=== PATIENT | male | born 1950 ===

== ENCOUNTER 2017-02-02 21:58 | Emergency (ER) | payer SELFPAY ==
[2017-02-02 22:09] VITALS: BP 141/77; PULSE 75; RESP 17; TEMP 99; O2SAT 99
[2017-02-02] MEDS ORDERED: Bacitracin 500 Units/gm Oint Foilpak UD TOP ONE (22:59)
[2017-02-02] MEDS ORDERED: Bacitracin 500 Units/gm Oint Foilpak UD ONE (23:03)
--- NOTE | 2017-02-02 23:09 | C.PDOC ---
History Of Present Illness 66 year old male who presents to the ER with a complaint of a dog bite to the left calf by a dog that was being walked by it's aligning inspector. Patient is not up to date with tetanus; denies active bleeding, weakness, or numbness. Time Seen by Provider: 02/02/17 22:19 Chief Complaint (Nursing): Abnormal Skin Integrity History Per: Patient History/Exam Limitations: no limitations Onset/Duration Of Symptoms: Hrs Current Symptoms Are (Timing): Still Present Location Of Injury: Left: Leg Quality Of Symptoms: Other (Bite) Recent travel outside of the [place]: No - Animal Bite Description Of The Attack: Unprovoked Attack Reports Animal Appears: Well Past Medical History Reviewed: Historical Data, Nursing Documentation, Vital Signs Vital Signs: Last Vital Signs Temp 99 F 02/02/17 22:05 Pulse 75 02/02/17 22:05 Resp 17 02/02/17 22:05 BP 141/77 02/02/17 22:05 Pulse Ox 99 02/03/17 02:40 - Medical History PMH: No Chronic Diseases Surgical History: No Surg Hx Family History: States: Unknown Family Hx - Social History Hx Alcohol Use: No Hx Substance Use: No - Immunization History Hx Tetanus Toxoid Vaccination: No Hx Influenza Vaccination: No Hx Pneumococcal Vaccination: No Review Of Systems Skin: Positive for: Other (Bite) Neurological: Negative for: Weakness, Numbness Physical Exam - Physical Exam Appears: Non-toxic Skin: Warm, Dry Head: Atraumatic, Normacephalic Oral Mucosa: Moist Extremity: Normal ROM (x4), Other (Abrasion and ecchymosis to upper left calf.) Neurological/Psych: Oriented x3, Normal Speech, Normal Cognition ED Course And Treatment O2 Sat by Pulse Oximetry: 99 (Room air) Pulse Ox Interpretation: Normal Progress Note: Tetanus vaccination administered. Animal is domesticated, so low risk for rabies. Wound irrigated with saline, bacitracin applied, and wound dressed. Patient is resting comfortably, and is in no acute distress. Patient was instructed to follow up with PMD in 1-2 days for further evaluation. Return precautions explained and understood by pt Disposition - Disposition Referrals: [facility] [Outside] Disposition: HOME/ ROUTINE Disposition Time: 23:07 Condition: STABLE Additional Instructions: Apply ICE to area ( Applicar Hielo) Take meds as directed ( Magalie las medicina) Applica crema de antibiotica Follow up with PMD ( Sigue en clinica en 2 galvez) Return to ER if worse ( Regresa si peor) Prescriptions: Amoxicillin/Clavulanate [Augmentin 500 MG-125 MG] 1 tab PO TID #21 tab Instructions: Animal Bite (ED) Print Language: GUINEAN - Clinical Impression Clinical Impression: Dog bite of calf - Scribe Statement The provider has reviewed the documentation as recorded by the Scribgricel Roman All medical record entries made by the Natalieibgricel were at my direction and personally dictated by me. I have reviewed the chart and agree that the record accurately reflects my personal performance of the history, physical exam, medical decision making, and the department course for this patient. I have also personally directed, reviewed, and agree with the discharge instructions and disposition.
== END 2017-02-02 23:15 | disposition home or self-care (01) ==
LOC: SUPCPDRO 21:58 → C.ER 21:58
DX: S81.852A Open bite, left lower leg, initial encounter (principal); W54.0XXA Bitten by dog, initial encounter; Y93.89 Activity, other specified; Y92.89 Other specified places as the place of occurrence of the external cause; Z23 Encounter for immunization

== ENCOUNTER 2017-08-06 11:32 | Emergency (ER) | payer OTHER, SELFPAY ==
[2017-08-06 11:36] VITALS: BMI 30.2
[2017-08-06 11:41] VITALS: TEMP 97.8
--- NOTE | 2017-08-06 13:14 | C.PDOC ---
History Of Present Illness 67 y/o male presents to ED with complaints of green sputum productive cough with pleuritic chest pain for 3 days and headache. Patient also complaints of pain to shoulders bilaterally. Patient reports chills and occasional sob but denies recent travel, sick contacts, fever, nausea, vomiting or any other complaints at this time. Time Seen by Provider: 08/06/17 12:25 Chief Complaint (Nursing): Flu-like Symptoms History Per: Patient History/Exam Limitations: no limitations Onset/Duration Of Symptoms: Days Current Symptoms Are (Timing): Still Present Past Medical History Reviewed: Historical Data, Nursing Documentation, Vital Signs Vital Signs: Last Vital Signs Temp 97.8 F 08/06/17 14:32 Pulse 52 L 08/06/17 14:32 Resp 16 08/06/17 14:32 BP 133/81 08/06/17 14:32 Pulse Ox 98 08/10/17 20:48 - Medical History Other PMH: liver disorder Surgical History: No Surg Hx Family History: States: Unknown Family Hx - Social History Hx Alcohol Use: No Hx Substance Use: Yes - Immunization History Hx Tetanus Toxoid Vaccination: No Hx Influenza Vaccination: No Hx Pneumococcal Vaccination: No Review Of Systems Constitutional: Positive for: Chills. Negative for: Fever Cardiovascular: Positive for: Chest Pain Respiratory: Positive for: Cough, Shortness of Breath, Sputum Gastrointestinal: Negative for: Nausea, Vomiting Skin: Negative for: Rash Physical Exam - Physical Exam Appears: Non-toxic, No Acute Distress Skin: Warm, Dry, No Rash Head: Atraumatic, Normacephalic Eye(s): bilateral: Normal Inspection Ear(s): Bilateral: Normal Oral Mucosa: Moist Throat: No Erythema, No Exudate Neck: Supple Cardiovascular: Rhythm Regular, No Murmur Respiratory: Normal Breath Sounds, No Rales, No Rhonchi, No Wheezing Gastrointestinal/Abdominal: Soft, No Tenderness Neurological/Psych: Oriented x3, Normal Speech, Normal Cognition ED Course And Treatment O2 Sat by Pulse Oximetry: 98 (RA) Pulse Ox Interpretation: Normal - Radiology CXR: Viewed By Me, Read By Radiologist CXR Interpretation: Yes: No Acute Disease Medical Decision Making Medical Decision Making: Plan: CXR and Tylenol ordered 237 pm cxr neg for acute infiltrate; will tx with zpak for bronchitis, and ibuprofen for pain; tender to left trapezius. Disposition Counseled Patient/Family Regarding: Studies Performed, Diagnosis, Need For Followup, Rx Given - Disposition Referrals: [facility] [Outside] Disposition: HOME/ ROUTINE Disposition Time: 14:38 Condition: STABLE Additional Instructions: [place] antibiticos segn lo recetado para la bronquitis. [place] ibuprofeno para el dolor (con comida). Tracie un seguimiento en la clnica mdica la prxima semana / Regrese a la lisa de emergencias para cualquier sntoma peor. Take antibiotics as prescribed for bronchitis. Take ibuprofen for pain (with food). Follow up in medical clinic next week/ Return to ER for any worse symptoms. Instructions: Acute Bronchitis (ED) Forms: Gen Discharge Inst Albanian, [employer] (Albanian) Print Language: EMIRATI - Clinical Impression Clinical Impression: Bronchitis - PA / APPRENTICE COSMETOLOGIST / Resident Statement MD/DO has reviewed & agrees with the documentation as recorded. - Scribe Statement The provider has reviewed the documentation as recorded by the Brenda Chaves All medical record entries made by the Scribe were at my direction and personally dictated by me. I have reviewed the chart and agree that the record accurately reflects my personal performance of the history, physical exam, medical decision making, and the department course for this patient. I have also personally directed, reviewed, and agree with the discharge instructions and disposition.
--- NOTE | 2017-08-06 14:28 | RAD ---
HISTORY: cough green sputum sob COMPARISON: 08/08/2012 TECHNIQUE: Chest PA and lateral FINDINGS: LUNGS: No active pulmonary disease. PLEURA: No significant pleural effusion identified. No pneumothorax apparent. CARDIOVASCULAR: Normal. OSSEOUS STRUCTURES: Thoracic spondylosis VISUALIZED UPPER ABDOMEN: Normal. OTHER FINDINGS: None. IMPRESSION: No active disease. No infiltrate
[2017-08-06 14:33] VITALS: BP 133/81; PULSE 52; RESP 16
[2017-08-06 14:38] VITALS: O2SAT 98
== END 2017-08-06 14:59 | disposition home or self-care (01) ==
LOC: C.ER 11:32
DX: J40 Bronchitis, not specified as acute or chronic (principal)

== ENCOUNTER 2018-03-05 10:08 | Inpatient (IN) | payer MEDICAID, OTHER ==
[2018-03-05 10:08] VITALS: BMI 30.2
[2018-03-05] MEDS ORDERED: Sodium Chloride 0.9% 1,000 ML IV ONE (10:44)
[2018-03-05] MEDS ORDERED: Sodium Chloride 0.9% 250 ML IV ONE (10:56)
--- NOTE | 2018-03-05 11:01 | C.PDOC ---
History Of Present Illness 68 y/o male presents to ED with c/o left flank pain radiating to abdomen since 4am this morning. Patient denies fever, chills, dysuria, hematuria, diarrhea or any other complaints at this time. Time Seen by Provider: 03/05/18 10:26 Chief Complaint (Nursing): Back Pain History Per: Patient History/Exam Limitations: no limitations Onset/Duration Of Symptoms: Hrs Current Symptoms Are (Timing): Still Present Quality Of Discomfort: "Pain" Past Medical History Reviewed: Historical Data, Nursing Documentation, Vital Signs Vital Signs: Last Vital Signs Temp 98.0 F 03/05/18 12:42 Pulse 62 03/05/18 12:42 Resp 20 03/05/18 12:42 BP 151/86 H 03/05/18 12:42 Pulse Ox 96 03/05/18 12:42 - Medical History PMH: No Chronic Diseases Surgical History: No Surg Hx Family History: States: No Known Family Hx - Social History Hx Alcohol Use: No Hx Substance Use: Yes - Immunization History Hx Tetanus Toxoid Vaccination: No Hx Influenza Vaccination: No Hx Pneumococcal Vaccination: No Review Of Systems Except As Marked, All Systems Reviewed And Found Negative. Gastrointestinal: Positive for: Nausea, Vomiting, Abdominal Pain, Other (flank pain) Physical Exam - Physical Exam Appears: Non-toxic, No Acute Distress Skin: Warm, Dry, No Rash Head: Atraumatic, Normacephalic Eye(s): bilateral: Normal Inspection Oral Mucosa: Moist Cardiovascular: Rhythm Regular Respiratory: Normal Breath Sounds, No Rales, No Rhonchi, No Wheezing Gastrointestinal/Abdominal: Soft, Tenderness (LLQ), No Guarding, No Rebound Back: CVA Tenderness (left sided), No Paraspinal Tenderness Neurological/Psych: Oriented x3, Normal Speech, Normal Cognition ED Course And Treatment - Laboratory Results Result Diagrams: 03/05/18 10:59 03/05/18 10:59 O2 Sat by Pulse Oximetry: 98 (RA) Pulse Ox Interpretation: Normal Medical Decision Making Medical Decision Making: Assessment: Flank pain Disposition Discussed With : Arsen Goodrich Doctor Will See Patient In The: Hospital Counseled Patient/Family Regarding: Studies Performed, Diagnosis - Disposition Disposition: HOSPITALIZED Disposition Time: 12:56 Condition: FAIR Forms: [employer] (German) - Clinical Impression Clinical Impression: Abdominal pain, Pancreatitis, Adrenal mass, right - Scribe Statement The provider has reviewed the documentation as recorded by the Scribe Radu Chaves All medical record entries made by the Natalieibgricel were at my direction and personally dictated by me. I have reviewed the chart and agree that the record accurately reflects my personal performance of the history, physical exam, medical decision making, and the department course for this patient. I have also personally directed, reviewed, and agree with the discharge instructions and disposition.
[2018-03-05 11:05] LABS: BASO % 0.2 % (0.0-2.0); EOS % 0.8 % (0.0-4.0); HEMOGLOBIN 12.9 g/dL (12.0-18.0); LYMPH # 0.8 K/uL (1.0-4.3); LYMPH % 18.6 % (20.0-40.0); MEAN CELL VOLUME 89.5 fL (80.0-94.0); MEAN CORPUSCULAR HEMOGLOBIN 31.1 pg (27.0-31.0); MEAN CORPUSCULAR HGB CONC 34.7 g/dL (33.0-37.0); MEAN PLATELET VOLUME 7.5 fL (7.2-11.7); MONO # 0.4 K/uL (0.0-0.8); MONO % 10.6 % (0.0-10.0); NEUT # 2.9 K/uL (1.8-7.0); NEUT % 69.8 % (50.0-75.0); NRBC % 0.1 % (0.0-2.0); RBC 4.15 Mil/uL (4.40-5.90); RED CELL DISTRIBUTION WIDTH 13.8 % (11.5-14.5); WHITE BLOOD COUNT 4.2 K/uL (4.8-10.8)
[2018-03-05 11:13] LABS: URINE BILIRUBIN NEGATIVE (NEGATIVE); URINE BLOOD NEGATIVE (NEGATIVE); URINE CLARITY Clear (Clear); URINE COLOR Yellow (YELLOW); URINE GLUCOSE (UA) NORMAL (Normal); URINE LEUKOCYTE ESTERASE NEG Leu/uL (Negative); URINE PROTEIN NEGATIVE (NEGATIVE); URINE UROBILINOGEN NORMAL mg/dL (0.2-1.0)
[2018-03-05 11:21] LABS: ALB/GLOB RATIO 0.8 (1.0-2.1); ALBUMIN 3.7 g/dL (3.5-5.0); ALT/SGPT 25 U/L (21-72); AST/SGOT 49 U/L (17-59); BLOOD UREA NITROGEN 13 mg/dL (9-20); CALCIUM 8.7 mg/dl (8.6-10.4); GFR NON-AFRICAN AMERICAN > 60; LIPASE 376 U/L (23-300)
--- NOTE | 2018-03-05 12:13 | CT ---
Date of service: 03/05/2018 PROCEDURE: CT abdomen pelvis dated 03/05/2018. HISTORY: Abdominal pain COMPARISON: No prior study available comparison. TECHNIQUE: Contiguous axial images of the abdomen and pelvis performed without oral or intravenous contrast material. Additional 2D sagittal and coronal reformats generated. This CT exam was performed using one or more of the following dose reduction techniques: Automated exposure control, adjustment of the mA and/or kV according to patient size, and/or use of iterative reconstruction technique. Radiation dose: Total exam DLP = 599.34 mGy-cm. FINDINGS: LOWER THORAX: The heart size is upper limits of normal in size. Small pericardial effusion. Small hiatal hernia. Mild passive/dependent type atelectasis both posterior lower lung son left greater than right. Minor linear scarring changes left medial lung base and lingular region. Lung bases are otherwise clear no evidence of effusion or basilar pneumothorax. LIVER: The liver is diminutive in overall volume of with moderate to fairly significant appearing back for nodular appearing surface contour consistent with hepatic cirrhosis. In addition, there appear to be esophageal gastric, splenorenal upper and mid abdominal varices. Findings are consistent with portal hypertension. GALLBLADDER AND BILE DUCTS: Cholelithiasis. PANCREAS: Unremarkable. No mass. No ductal dilatation. SPLEEN: Spleen is enlarged measuring over nearly 14.6 cm in AP dimension. No splenic masses or collections seen on this noncontrast exam. ADRENALS: There is a small approximately 2.1 x 1.6 cm right adrenal mass with Hounsfield units in the low ranging between 2 mid 30s. Findings are not consistent with adenoma Large left adrenal mass measuring approximately 5.34 x 5.0 cm with Hounsfield units in the mid 40s. Rule out involving sequela of chronic hemorrhage versus metastases. Small right adrenal mass measuring 2.1 x 1.6 cm. Rule out metastasis. KIDNEYS AND URETERS: Kidneys demonstrate relatively symmetric size. There is a small approximately 2.1 cm elliptical shaped low-attenuation medial cortex upper/ midpole left kidney which exhibits Hounsfield units of single digits consistent with small cyst. There appears be another smaller low-attenuation focus slightly more superiorly located which is nonspecific given Hounsfield units in the upper teens. BLADDER: Urinary bladder is incompletely distended which in part accounts for thick-walled appearance. Muscular hypertrophy presumably contributes. Correlation with urinalysis to exclude cystitis or UTI. REPRODUCTIVE: Prostate gland measures approximately 3.84 cm in transverse dimension. Prostatic calcifications are present. APPENDIX: Normal-appearing appendix BOWEL: Evaluation of the bowel is limited due to the lack of oral contrast material. The stomach is incompletely distended which in part accounts for thick-walled appearance however gastritis not excluded. Clinical correlation recommended. . Visualized loops of small bowel exhibit normal contour and caliber. No evidence of acute mechanical small bowel obstruction. Tevin moderate amount stool seen the within the cecum ascending and proximal transverse colon consistent with fecal retention/constipation. PERITONEUM: Unremarkable. No fluid collection. No free air. Small fat containing umbilical hernia. LYMPH NODES: Enlarged retroperitoneal lymph nodes present, with 1 of the largest located between the IVC and aorta measuring approximately 2.1 cm VASCULATURE: Unremarkable. No aortic aneurysm. BONES: No fracture or destructive lesion. OTHER FINDINGS: None. IMPRESSION: The liver is diminutive in overall volume of with moderate to fairly significant appearing back for nodular appearing surface contour consistent with hepatic cirrhosis. . In addition, there extensive esophageal gastric, splenorenal upper and mid abdominal varices. Findings are consistent with portal hypertension. There is evidence of retroperitoneal adenopathy as described. There is a small approximately 2.1 x 1.6 cm right adrenal mass with Hounsfield units in the low ranging between enlarged of retroperitoneal 2 mid 30s. Findings are not consistent with adenoma Large left adrenal mass measuring approximately 5.34 x 5.0 cm with Hounsfield units in the mid 40s. Rule out involving sequela of chronic hemorrhage versus metastases. Small right adrenal mass measuring 2.1 x 1.6 cm. Rule out metastasis. Cholelithiasis. Small of cyst left kidney posteromedial aspect upper/ midpole left kidney. There is another smaller focus slightly more superiorly located which is of uncertain etiology and not well characterized. Follow-up CT scan with oral and intravenous contrast material suggested for further evaluation. Small pericardial effusion.
--- NOTE | 2018-03-05 15:02 | CP.PCM.HP ---
<Elba Fritz - Last Filed: 03/05/18 19:46> History of Present Illness - History of Present Illness History of Present Illness: cc"back and abdominal pain" 68 year old male presents to the ED with complaints of acute left sided back and flank pain that awoke him from his sleep at 4am today. Patient reports the pain then began radiating to epigastrum. Patient reports nausea, 1 episode of NBNB. Patient also reports worsening left shoulder/back pain that began 2 weeks ago s/p fall. Denies chest pain, SOB, diarrhea PMD: none PMHx: Liver disease PSHx: denies Meds: denies Allergies: NKDA Fam Hx: denies Soc Hx: former drinker, quit 12 yrs ago, former smoker, quit 20 yrs ago, denies drug use. Works construction Present on Admission - Present on Admission Any Indicators Present on Admission: No Review of Systems - Constitutional Constitutional: absent: Night Sweats, Weight Loss - Cardiovascular Cardiovascular: Radiating Pain. absent: Chest Pain, Dyspnea on Exertion, Pedal Edema - Respiratory Respiratory: Hemoptysis. absent: Dyspnea - Gastrointestinal Gastrointestinal: Abdominal Pain (LUQ), Nausea, Vomiting. absent: Coffee Ground Emesis, Diarrhea, Hematemesis, Hematochezia - Genitourinary Genitourinary: absent: Dysuria - Musculoskeletal Musculoskeletal: Back Pain (left) - Integumentary Integumentary: absent: Jaundice - Neurological Neurological: absent: Dizziness Past Patient History - Infectious Disease Hx of Infectious Diseases: None - Past Social History Smoking Status: Never Smoked - GASTROINTESTINAL Other/Comment: Cirrhosis. - PSYCHIATRIC Hx Substance Use: Yes - SURGICAL HISTORY Hx Surgeries: No - ANESTHESIA Hx Anesthesia: No Meds Allergies/Adverse Reactions: Allergies Allergy/AdvReac Type Severity Reaction Status Date / Time No Known Allergies Allergy Verified 08/06/17 11:35 Physical Exam - Head Exam Head Exam: ATRAUMATIC, NORMAL INSPECTION, NORMOCEPHALIC - Eye Exam Eye Exam: EOMI, Normal appearance Pupil Exam: PERRL - ENT Exam ENT Exam: Mucous Membranes Moist, Normal Exam - Neck Exam Neck exam: Positive for: Normal Inspection. Negative for: Lymphadenopathy - Respiratory Exam Respiratory Exam: Clear to Auscultation Bilateral, NORMAL BREATHING PATTERN. absent: Rales, Wheezes - Cardiovascular Exam Cardiovascular Exam: REGULAR RHYTHM, +S1, +S2. absent: Tachycardia, Systolic Murmur - GI/Abdominal Exam GI & Abdominal Exam: Guarding, Normal Bowel Sounds, Soft, Tenderness. absent: Distended - Extremities Exam Extremities exam: Positive for: normal inspection. Negative for: calf tenderness, pedal edema - Back Exam Back exam: NORMAL INSPECTION - Neurological Exam Neurological exam: Alert, Oriented x3 - Psychiatric Exam Psychiatric exam: Normal Affect, Normal Mood - Skin Skin Exam: Dry, Intact, Normal Color, Warm Results - Vital Signs Recent Vital Signs: Last Vital Signs Temp 98.0 F 03/05/18 12:42 Pulse 62 03/05/18 12:42 Resp 20 03/05/18 12:42 BP 151/86 H 03/05/18 12:42 Pulse Ox 98 03/05/18 12:56 - Labs Result Diagrams: 03/05/18 10:59 03/05/18 10:59 Labs: Laboratory Results - last 24 hr 03/05/18 03/05/18 03/05/18 10:59 10:59 10:59 WBC 4.2 L RBC 4.15 L Hgb 12.9 Hct 37.2 MCV 89.5 MCH 31.1 H MCHC 34.7 RDW 13.8 Plt Count 89 L MPV 7.5 Neut % (Auto) 69.8 Lymph % (Auto) 18.6 L [place] % (Auto) 10.6 H Eos % (Auto) 0.8 Baso % (Auto) 0.2 Neut # (Auto) 2.9 Lymph # (Auto) 0.8 L [place] # (Auto) 0.4 Eos # (Auto) 0.0 Baso # (Auto) 0.0 Differential Comment Sodium 143 Potassium 4.5 Chloride 109 H Carbon Dioxide 27 Anion Gap 12 BUN 13 Creatinine 0.6 L Est GFR ( Amer) > 60 Est GFR (Non-Af Amer) > 60 Random Glucose 101 Calcium 8.7 Total Bilirubin 1.0 AST 49 ALT 25 Alkaline Phosphatase 94 Total Protein 8.5 H Albumin 3.7 Globulin 4.9 H Albumin/Globulin Ratio 0.8 L Lipase 376 H Urine Color Yellow Urine Clarity Clear Urine pH 6.0 Ur Specific [place] 1.021 Urine Protein Negative Urine Glucose (UA) Normal Urine Ketones Negative Urine Blood Negative Urine Nitrate Negative Urine Bilirubin Negative Urine Urobilinogen Normal Ur Leukocyte Esterase Neg Urine WBC (Auto) 1 Urine RBC (Auto) 1 Assessment & Plan - Assessment and Plan (Free Text) Assessment: 68 year old male admitted with LUQ abdominal pain r/o cardiac -f/u trops -f/u ekg -UDS positive for cocaine r/o pancreatitis -lipase 376 -ct abd showed normal pancreas -pancreas poorly visualized on abd u/s -toradol 30mg q6 prn -morphine 2mg q4 prn -liquid diet as tolerated Adrenal mass -f/u labs -heme/onc Dr. Bonner consulted -GI Dr. Mathur consulted HTN -norvasc 5mg PO qd Leukopenia -HIV panel Cirrhosis -hep panel <Adolfo Sy H - Last Filed: 03/06/18 11:40> Results - Vital Signs Recent Vital Signs: Last Vital Signs Temp 98.5 F 03/06/18 08:38 Pulse 74 03/06/18 08:38 Resp 20 03/06/18 08:38 BP 118/69 03/06/18 08:38 Pulse Ox 95 03/06/18 08:38 - Labs Result Diagrams: 03/06/18 08:23 03/06/18 08:11 Labs: Laboratory Results - last 24 hr 03/05/18 03/05/18 03/05/18 10:59 14:51 19:33 WBC 4.2 L RBC 4.15 L Hgb 12.9 Hct 37.2 MCV 89.5 MCH 31.1 H MCHC 34.7 RDW 13.8 Plt Count 89 L MPV 7.5 Neut % (Auto) 69.8 Lymph % (Auto) 18.6 L [place] % (Auto) 10.6 H Eos % (Auto) 0.8 Baso % (Auto) 0.2 Neut # (Auto) 2.9 Lymph # (Auto) 0.8 L [place] # (Auto) 0.4 Eos # (Auto) 0.0 Baso # (Auto) 0.0 Differential Comment PT INR APTT Sodium Potassium Chloride Carbon Dioxide Anion Gap BUN Creatinine Est GFR ( Amer) Est GFR (Non-Af Amer) Random Glucose Calcium Phosphorus Magnesium Total Bilirubin GGT 31 AST ALT Alkaline Phosphatase Troponin I < 0.0120 Total Protein Albumin Globulin Albumin/Globulin Ratio Lipase Alpha Fetoprotein Carcinoembryonic Ag 1.0 CA 19-9 Antigen 6.2 Cortisol AM Sample Urine Opiates Screen Negative Urine Methadone Screen Negative Ur Barbiturates Screen Negative Ur Phencyclidine Scrn Negative Ur Amphetamines Screen Negative U Benzodiazepines Scrn Negative U Oth Cocaine Metabols Positive H U Cannabinoids Screen Negative Hepatitis A IgM Ab Hep Bs Antigen Hep B Core IgM Ab Hepatitis C Antibody HIV 1&2 Antibody Screen 03/05/18 03/05/18 03/05/18 19:33 19:33 19:33 WBC RBC Hgb Hct MCV MCH MCHC RDW Plt Count MPV Neut % (Auto) Lymph % (Auto) [place] % (Auto) Eos % (Auto) Baso % (Auto) Neut # (Auto) Lymph # (Auto) [place] # (Auto) Eos # (Auto) Baso # (Auto) Differential Comment PT 15.6 H INR 1.4 APTT 33 Sodium Potassium Chloride Carbon Dioxide Anion Gap BUN Creatinine Est GFR ( Amer) Est GFR (Non-Af Amer) Random Glucose Calcium Phosphorus Magnesium Total Bilirubin GGT AST ALT Alkaline Phosphatase Troponin I Total Protein Albumin Globulin Albumin/Globulin Ratio Lipase Alpha Fetoprotein 1.7 Carcinoembryonic Ag CA 19-9 Antigen Cortisol AM Sample Urine Opiates Screen Urine Methadone Screen Ur Barbiturates Screen Ur Phencyclidine Scrn Ur Amphetamines Screen U Benzodiazepines Scrn U Oth Cocaine Metabols U Cannabinoids Screen Hepatitis A IgM Ab Negative Hep Bs Antigen Negative Hep B Core IgM Ab Negative Hepatitis C Antibody Negative HIV 1&2 Antibody Screen 03/05/18 03/05/18 03/06/18 19:33 19:33 08:11 WBC RBC Hgb Hct MCV MCH MCHC RDW Plt Count MPV Neut % (Auto) Lymph % (Auto) [place] % (Auto) Eos % (Auto) Baso % (Auto) Neut # (Auto) Lymph # (Auto) [place] # (Auto) Eos # (Auto) Baso # (Auto) Differential Comment PT INR APTT Sodium Potassium Chloride Carbon Dioxide Anion Gap BUN Creatinine Est GFR ( Amer) Est GFR (Non-Af Amer) Random Glucose Calcium Phosphorus Magnesium Total Bilirubin GGT AST ALT Alkaline Phosphatase Troponin I Total Protein Albumin Globulin Albumin/Globulin Ratio Lipase 310 H Alpha Fetoprotein Carcinoembryonic Ag CA 19-9 Antigen Cortisol AM Sample 4.7 Urine Opiates Screen Urine Methadone Screen Ur Barbiturates Screen Ur Phencyclidine Scrn Ur Amphetamines Screen U Benzodiazepines Scrn U Oth Cocaine Metabols U Cannabinoids Screen Hepatitis A IgM Ab Hep Bs Antigen Hep B Core IgM Ab Hepatitis C Antibody HIV 1&2 Antibody Screen Negative 03/06/18 03/06/18 08:11 08:23 WBC 5.3 RBC 4.19 L Hgb 13.1 Hct 37.4 MCV 89.4 MCH 31.3 H MCHC 35.1 RDW 13.7 Plt Count 98 L MPV 7.8 Neut % (Auto) 67.4 Lymph % (Auto) 21.5 [place] % (Auto) 9.7 Eos % (Auto) 1.2 Baso % (Auto) 0.2 Neut # (Auto) 3.5 Lymph # (Auto) 1.1 [place] # (Auto) 0.5 Eos # (Auto) 0.1 Baso # (Auto) 0.0 Differential Comment PT INR APTT Sodium 137 Potassium 4.7 Chloride 104 Carbon Dioxide 27 Anion Gap 11 BUN 9 Creatinine 0.6 L Est GFR ( Amer) > 60 Est GFR (Non-Af Amer) > 60 Random Glucose 106 Calcium 8.6 Phosphorus 2.9 Magnesium 1.6 Total Bilirubin 1.3 GGT AST 48 ALT 23 Alkaline Phosphatase 89 Troponin I Total Protein 8.4 H Albumin 3.6 Globulin 4.8 H Albumin/Globulin Ratio 0.8 L Lipase Alpha Fetoprotein Carcinoembryonic Ag CA 19-9 Antigen Cortisol AM Sample Urine Opiates Screen Urine Methadone Screen Ur Barbiturates Screen Ur Phencyclidine Scrn Ur Amphetamines Screen U Benzodiazepines Scrn U Oth Cocaine Metabols U Cannabinoids Screen Hepatitis A IgM Ab Hep Bs Antigen Hep B Core IgM Ab Hepatitis C Antibody HIV 1&2 Antibody Screen Attending/Attestation - Attestation I have personally seen and examined this patient.: Yes I have fully participated in the care of the patient.: Yes I have reviewed all pertinent clinical information: Yes Notes (Text): 03/06/18 11:23 Medical attending: Patient was seen and examined by me as well in the ER yesterday with the medical record coder. He was not in any acute distress. He did report the abdominal pain, however less than previous. As mentioned above in the resident's note, the patient has a very large mass on the left adrenal that is upwards to 5 cm dimension as well as a smaller R side adrenal mass. Will order an AM Cortisol, ACTH, Catacholamines, as well as an abdominal ultrasound. His lipase was elevated. The BUN/creatine are stable for the time being. Whe we saw the patient both his Na as well as K were in normal range. He may need biopsy of these adrenal mass Further more he has a positive for cocaine as well after I saw the patient last night. We will have to talk to the patient about this Adolfo Sy
[2018-03-05 15:28] LABS: BARBITURATES, UR NEGATIVE (NEGATIVE); BENZODIAZEPINES, UR NEGATIVE (NEGATIVE); OPIATES, UR NEGATIVE (NEGATIVE); PHENCYCLIDINE, UR NEGATIVE (NEGATIVE)
--- NOTE | 2018-03-05 17:37 | CP.PCM.CON ---
History of Present Illness - History of Present Illness History of Present Illness: 68 yo man admitted with abdominal pain, currently in ultrasound. 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 Work up for pheochromocytoma, if normal, will need biopsy. PET scan is another option as an outpatient if patient is compliant Past Patient History - Infectious Disease Hx of Infectious Diseases: None - Past Social History Smoking Status: Never Smoked - GASTROINTESTINAL Other/Comment: Cirrhosis. - PSYCHIATRIC Hx Substance Use: Yes - SURGICAL HISTORY Hx Surgeries: No - ANESTHESIA Hx Anesthesia: No Meds Allergies/Adverse Reactions: Allergies Allergy/AdvReac Type Severity Reaction Status Date / Time No Known Allergies Allergy Verified 08/06/17 11:35 Results - Vital Signs Recent Vital Signs: Last Vital Signs Temp 98 F 03/05/18 15:46 Pulse 84 03/05/18 15:46 Resp 18 03/05/18 15:46 BP 168/77 H 03/05/18 15:46 Pulse Ox 98 03/05/18 15:46 - Labs Result Diagrams: 03/05/18 10:59 03/05/18 10:59 Labs: Laboratory Results - last 24 hr 03/05/18 03/05/18 03/05/18 10:59 10:59 10:59 WBC 4.2 L RBC 4.15 L Hgb 12.9 Hct 37.2 MCV 89.5 MCH 31.1 H MCHC 34.7 RDW 13.8 Plt Count 89 L MPV 7.5 Neut % (Auto) 69.8 Lymph % (Auto) 18.6 L [place] % (Auto) 10.6 H Eos % (Auto) 0.8 Baso % (Auto) 0.2 Neut # (Auto) 2.9 Lymph # (Auto) 0.8 L [place] # (Auto) 0.4 Eos # (Auto) 0.0 Baso # (Auto) 0.0 Differential Comment Sodium 143 Potassium 4.5 Chloride 109 H Carbon Dioxide 27 Anion Gap 12 BUN 13 Creatinine 0.6 L Est GFR ( Amer) > 60 Est GFR (Non-Af Amer) > 60 Random Glucose 101 Calcium 8.7 Total Bilirubin 1.0 AST 49 ALT 25 Alkaline Phosphatase 94 Total Protein 8.5 H Albumin 3.7 Globulin 4.9 H Albumin/Globulin Ratio 0.8 L Lipase 376 H Urine Color Yellow Urine Clarity Clear Urine pH 6.0 Ur Specific [place] 1.021 Urine Protein Negative Urine Glucose (UA) Normal Urine Ketones Negative Urine Blood Negative Urine Nitrate Negative Urine Bilirubin Negative Urine Urobilinogen Normal Ur Leukocyte Esterase Neg Urine WBC (Auto) 1 Urine RBC (Auto) 1 Urine Opiates Screen Urine Methadone Screen Ur Barbiturates Screen Ur Phencyclidine Scrn Ur Amphetamines Screen U Benzodiazepines Scrn U Oth Cocaine Metabols U Cannabinoids Screen 03/05/18 14:51 WBC RBC Hgb Hct MCV MCH MCHC RDW Plt Count MPV Neut % (Auto) Lymph % (Auto) [place] % (Auto) Eos % (Auto) Baso % (Auto) Neut # (Auto) Lymph # (Auto) [place] # (Auto) Eos # (Auto) Baso # (Auto) Differential Comment Sodium Potassium Chloride Carbon Dioxide Anion Gap BUN Creatinine Est GFR ( Amer) Est GFR (Non-Af Amer) Random Glucose Calcium Total Bilirubin AST ALT Alkaline Phosphatase Total Protein Albumin Globulin Albumin/Globulin Ratio Lipase Urine Color Urine Clarity Urine pH Ur Specific [place] Urine Protein Urine Glucose (UA) Urine Ketones Urine Blood Urine Nitrate Urine Bilirubin Urine Urobilinogen Ur Leukocyte Esterase Urine WBC (Auto) Urine RBC (Auto) Urine Opiates Screen Negative Urine Methadone Screen Negative Ur Barbiturates Screen Negative Ur Phencyclidine Scrn Negative Ur Amphetamines Screen Negative U Benzodiazepines Scrn Negative U Oth Cocaine Metabols Positive H U Cannabinoids Screen Negative
--- NOTE | 2018-03-05 18:55 | US ---
Date of service: 03/05/2018 PROCEDURE: Ultrasound of the Abdomen and kidneys. HISTORY: adrenal mass COMPARISON: Noncontrast abdomen and pelvis CT 03/05/2018.. TECHNIQUE: Sonogram of the kidneys. FINDINGS: The liver is nodular in the periphery a with heterogeneous echotexture compatible with cirrhosis. No defined intrinsic mass or intrahepatic biliary dilatation is defined by this examination. Cholelithiasis identified within the gallbladder with mildly thickened wall but at the upper limits of normal at 2.6 mm. Common bile duct is normal in caliber 5.2 mm without choledocholithiasis appreciated. No pericholecystic fluid collection is evident and there is no reported sonographic Manuel sign either. Splenomegaly is noted to 14.8 cm without focal splenic mass evident. Pancreas is poorly characterized due to extensive overlying bowel gas. There is a mass cephalad to the left kidney measuring 6.7 x 4.8 x 4.8 cm corresponding to left adrenal mass seen in CT 03/05/2018. Small right adrenal mass is not identified sonographically. The abdominal aorta and inferior vena cava appear patent with no abdominal aortic aneurysm identified. RIGHT KIDNEY: Measures: 11.5 x 6.2 x 5.8 cm. Normal in size, contour and echogenicity. No stone, solid mass lesion or hydronephrosis visualized. LEFT KIDNEY: Measures: 11.1 x 5.2 x 5.0 cm. Normal in size and contour. No stone, solid mass lesion or hydronephrosis visualized. Two small cysts are identified, at the lower pole measuring 1.0 x 0.8 x 0.9 cm at the midpole measure 1.9 x 1.7 x 1.6 cm. OTHER FINDINGS: None. IMPRESSION: 1. Cirrhotic liver reiterated. 2. Large left renal mass reiterated. Right adrenal lesion not identified sonographically. 3. No obstructive uropathy bilaterally although distal cyst identified at the left kidney lower pole and midpole regions. 4. Cholelithiasis. 5. Splenomegaly. 6. Pancreas poorly evaluated due to extensive overlying bowel gas.
[2018-03-05 19:46] LABS: INR 1.4; PROTHROMBIN TIME 15.6 SECONDS (9.7-12.2)
[2018-03-05 20:08] LABS: GAMMA GLUTAMYL TRANSPEPTIDASE 31 U/L (8-78)
[2018-03-05 20:38] LABS: HEPATITIS B SURFACE AG Negative (NEGATIVE)
[2018-03-05 20:44] LABS: HEPATITIS A IGM NEGATIVE (NEGATIVE); HEPATITIS B CORE AB NEGATIVE (NEGATIVE)
[2018-03-05 20:56] LABS: HEPATITIS C ANTIBODY NEGATIVE (NEGATIVE)
--- NOTE | 2018-03-06 07:45 | CP.PCM.CON ---
History of Present Illness - History of Present Illness History of Present Illness: Asked by hospitalist team for a GI consultation on this patient. 68 year old male with history of ETOH cirrhosis who presents to hospital with complaint of sudden onset abdominal pain which began yesterday. Prior to this he was in usual state of health. He describes sharp LUQ abdominal pain, 7/10 intensity that was worse following attempted meal consumption and was associated with one episode of nausea and non-bloody emesis. He denies fever/chills, weight loss, rectal bleeding, or change in bowel habits. He claims to have stopped drinking ETOH 12 years ago and had an EGD/colonoscopy 12 years ago at [facility] which were normal as per patient. Social history: no smoking, former ETOH abuse Family history: reviewed, patient denies history of GI malignancies Review of Systems - Review of Systems Review of Systems: - All other 12 point review of systems performed, negative - Cardiovascular Cardiovascular: absent: Acrocyanosis, Chest Pain, Chest Pain at Rest, Chest Pain with Activity, Claudication, Diaphoresis, Dyspnea, Dyspnea on Exertion, Edema, Irregular Heart Rhythm, Pain Radiating to Arm/Neck/Jaw, Leg Edema, Leg Ulcers, Lightheadedness, Orthopnea, Palpitations, Paroxysmal Nocturnal Dyspnea, Pedal Edema, Radiating Pain, Rapid Heart Rate, Slow Heart Rate, Syncope, Other - Respiratory Respiratory: absent: Cough, Dyspnea, Hemoptysis, Dyspnea on Exertion, Wheezing, Snoring, Stridor, Pain on Inspiration, Chest Congestion, Excessive Mucous Production, Change in Mucous Color, Pain with Coughing, Other - Gastrointestinal Gastrointestinal: Abdominal Pain, Nausea, Vomiting - Musculoskeletal Musculoskeletal: absent: Abnormal Gait, Arthralgias, Atrophy, Back Pain, Deformity, Joint Swelling, Limited Range of Motion, Loss of Height, Muscle Cramps, Muscle Weakness, Myalgias, Neck Pain, Numbness, Radiating Pain into Limb , Stiffness, Tingling, Other - Neurological Neurological: absent: Abnormal Gait, Abnormal Hearing, Abnormal Movements, Abnormal Speech, Behavioral Changes, Burning Sensations, Confusion, Convulsions , Disequilibrium, Dizziness, Numbness, Focal Weakness, Frequent Falls, Headaches , Lack of Coordination, Loss of Vision, Memory Loss, Paresthesias, Radicular Pain, Restless Legs, Sensory Deficit, Syncope, Tingling, Tremor, Vertigo, Weakness, Other Visual Disturbances, Other Past Patient History - Infectious Disease Hx of Infectious Diseases: None - Past Medical History & Family History Past Medical History?: No - Past Social History Smoking Status: Never Smoked - MUSCULOSKELETAL/RHEUMATOLOGICAL Hx Falls: Yes - GASTROINTESTINAL Other/Comment: Cirrhosis. - PSYCHIATRIC Hx Substance Use: Yes - SURGICAL HISTORY Hx Surgeries: No - ANESTHESIA Hx Anesthesia: No Meds Allergies/Adverse Reactions: Allergies Allergy/AdvReac Type Severity Reaction Status Date / Time No Known Allergies Allergy Verified 08/06/17 11:35 - Medications Medications: Current Medications Amlodipine Besylate (Norvasc) 5 mg PO DAILY [facility]Y Ketorolac Tromethamine (Toradol) 30 mg IVP Q6 PRN PRN Reason: Pain, moderate (4-7) Morphine Sulfate (Morphine) 2 mg IVP Q4H PRN PRN Reason: Pain, severe (8-10) Last Admin: 03/05/18 20:24 Dose: 2 mg Ondansetron HCl (Zofran Inj) 4 mg IVP Q6H PRN PRN Reason: Nausea/Vomiting Physical Exam - Constitutional Appears: Non-toxic, No Acute Distress - Head Exam Head Exam: NORMAL INSPECTION - Eye Exam Eye Exam: EOMI, Normal appearance - ENT Exam ENT Exam: Mucous Membranes Moist - Respiratory Exam Respiratory Exam: Clear to Auscultation Bilateral - Cardiovascular Exam Cardiovascular Exam: REGULAR RHYTHM, +S1, +S2 - GI/Abdominal Exam GI & Abdominal Exam: Normal Bowel Sounds, Soft, Tenderness Additional comments: LUQ tenderness to palpation with guarding no palpable hepato/splenomegaly - Extremities Exam Extremities exam: Positive for: normal inspection - Neurological Exam Neurological exam: Alert, CN II-XII Intact, Normal Gait, Oriented x3, Reflexes Normal - Psychiatric Exam Psychiatric exam: Normal Affect, Normal Mood - Skin Skin Exam: Dry, Intact, Normal Color, Warm Results - Vital Signs Recent Vital Signs: Last Vital Signs Temp 98.7 F 03/06/18 00:00 Pulse 67 03/06/18 00:00 Resp 20 03/06/18 00:00 BP 122/75 03/06/18 00:00 Pulse Ox 95 03/06/18 00:00 - Labs Result Diagrams: 03/05/18 10:59 03/05/18 10:59 Labs: Laboratory Results - last 24 hr 03/05/18 03/05/18 03/05/18 10:59 10:59 10:59 WBC 4.2 L RBC 4.15 L Hgb 12.9 Hct 37.2 MCV 89.5 MCH 31.1 H MCHC 34.7 RDW 13.8 Plt Count 89 L MPV 7.5 Neut % (Auto) 69.8 Lymph % (Auto) 18.6 L [place] % (Auto) 10.6 H Eos % (Auto) 0.8 Baso % (Auto) 0.2 Neut # (Auto) 2.9 Lymph # (Auto) 0.8 L [place] # (Auto) 0.4 Eos # (Auto) 0.0 Baso # (Auto) 0.0 Differential Comment PT INR APTT Sodium 143 Potassium 4.5 Chloride 109 H Carbon Dioxide 27 Anion Gap 12 BUN 13 Creatinine 0.6 L Est GFR ( Amer) > 60 Est GFR (Non-Af Amer) > 60 Random Glucose 101 Calcium 8.7 Total Bilirubin 1.0 GGT AST 49 ALT 25 Alkaline Phosphatase 94 Troponin I Total Protein 8.5 H Albumin 3.7 Globulin 4.9 H Albumin/Globulin Ratio 0.8 L Lipase 376 H Alpha Fetoprotein Carcinoembryonic Ag CA 19-9 Antigen Cortisol AM Sample Urine Color Yellow Urine Clarity Clear Urine pH 6.0 Ur Specific [place] 1.021 Urine Protein Negative Urine Glucose (UA) Normal Urine Ketones Negative Urine Blood Negative Urine Nitrate Negative Urine Bilirubin Negative Urine Urobilinogen Normal Ur Leukocyte Esterase Neg Urine WBC (Auto) 1 Urine RBC (Auto) 1 Urine Opiates Screen Urine Methadone Screen Ur Barbiturates Screen Ur Phencyclidine Scrn Ur Amphetamines Screen U Benzodiazepines Scrn U Oth Cocaine Metabols U Cannabinoids Screen Hepatitis A IgM Ab Hep Bs Antigen Hep B Core IgM Ab Hepatitis C Antibody HIV 1&2 Antibody Screen 03/05/18 03/05/18 03/05/18 14:51 19:33 19:33 WBC RBC Hgb Hct MCV MCH MCHC RDW Plt Count MPV Neut % (Auto) Lymph % (Auto) [place] % (Auto) Eos % (Auto) Baso % (Auto) Neut # (Auto) Lymph # (Auto) [place] # (Auto) Eos # (Auto) Baso # (Auto) Differential Comment PT INR APTT Sodium Potassium Chloride Carbon Dioxide Anion Gap BUN Creatinine Est GFR ( Amer) Est GFR (Non-Af Amer) Random Glucose Calcium Total Bilirubin GGT 31 AST ALT Alkaline Phosphatase Troponin I < 0.0120 Total Protein Albumin Globulin Albumin/Globulin Ratio Lipase Alpha Fetoprotein Carcinoembryonic Ag 1.0 CA 19-9 Antigen 6.2 Cortisol AM Sample Urine Color Urine Clarity Urine pH Ur Specific [place] Urine Protein Urine Glucose (UA) Urine Ketones Urine Blood Urine Nitrate Urine Bilirubin Urine Urobilinogen Ur Leukocyte Esterase Urine WBC (Auto) Urine RBC (Auto) Urine Opiates Screen Negative Urine Methadone Screen Negative Ur Barbiturates Screen Negative Ur Phencyclidine Scrn Negative Ur Amphetamines Screen Negative U Benzodiazepines Scrn Negative U Oth Cocaine Metabols Positive H U Cannabinoids Screen Negative Hepatitis A IgM Ab Negative Hep Bs Antigen Negative Hep B Core IgM Ab Negative Hepatitis C Antibody Negative HIV 1&2 Antibody Screen 03/05/18 03/05/18 03/05/18 19:33 19:33 19:33 WBC RBC Hgb Hct MCV MCH MCHC RDW Plt Count MPV Neut % (Auto) Lymph % (Auto) [place] % (Auto) Eos % (Auto) Baso % (Auto) Neut # (Auto) Lymph # (Auto) [place] # (Auto) Eos # (Auto) Baso # (Auto) Differential Comment PT 15.6 H INR 1.4 APTT 33 Sodium Potassium Chloride Carbon Dioxide Anion Gap BUN Creatinine Est GFR ( Amer) Est GFR (Non-Af Amer) Random Glucose Calcium Total Bilirubin GGT AST ALT Alkaline Phosphatase Troponin I Total Protein Albumin Globulin Albumin/Globulin Ratio Lipase Alpha Fetoprotein 1.7 Carcinoembryonic Ag CA 19-9 Antigen Cortisol AM Sample 4.7 Urine Color Urine Clarity Urine pH Ur Specific [place] Urine Protein Urine Glucose (UA) Urine Ketones Urine Blood Urine Nitrate Urine Bilirubin Urine Urobilinogen Ur Leukocyte Esterase Urine WBC (Auto) Urine RBC (Auto) Urine Opiates Screen Urine Methadone Screen Ur Barbiturates Screen Ur Phencyclidine Scrn Ur Amphetamines Screen U Benzodiazepines Scrn U Oth Cocaine Metabols U Cannabinoids Screen Hepatitis A IgM Ab Hep Bs Antigen Hep B Core IgM Ab Hepatitis C Antibody HIV 1&2 Antibody Screen 03/05/18 19:33 WBC RBC Hgb Hct MCV MCH MCHC RDW Plt Count MPV Neut % (Auto) Lymph % (Auto) [place] % (Auto) Eos % (Auto) Baso % (Auto) Neut # (Auto) Lymph # (Auto) [place] # (Auto) Eos # (Auto) Baso # (Auto) Differential Comment PT INR APTT Sodium Potassium Chloride Carbon Dioxide Anion Gap BUN Creatinine Est GFR ( Amer) Est GFR (Non-Af Amer) Random Glucose Calcium Total Bilirubin GGT AST ALT Alkaline Phosphatase Troponin I Total Protein Albumin Globulin Albumin/Globulin Ratio Lipase Alpha Fetoprotein Carcinoembryonic Ag CA 19-9 Antigen Cortisol AM Sample Urine Color Urine Clarity Urine pH Ur Specific [place] Urine Protein Urine Glucose (UA) Urine Ketones Urine Blood Urine Nitrate Urine Bilirubin Urine Urobilinogen Ur Leukocyte Esterase Urine WBC (Auto) Urine RBC (Auto) Urine Opiates Screen Urine Methadone Screen Ur Barbiturates Screen Ur Phencyclidine Scrn Ur Amphetamines Screen U Benzodiazepines Scrn U Oth Cocaine Metabols U Cannabinoids Screen Hepatitis A IgM Ab Hep Bs Antigen Hep B Core IgM Ab Hepatitis C Antibody HIV 1&2 Antibody Screen Negative Assessment & Plan - Assessment and Plan (Free Text) Assessment: ETOH cirrhosis - admission MELD [address] imaging reviewed by me showing hepatic cirrhosis, 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 Please reconsult as necessary, thank you.
[2018-03-06 08:44] LABS: BASO % 0.2 % (0.0-2.0); EOS # 0.1 K/uL (0.0-0.7); EOS % 1.2 % (0.0-4.0); HEMOGLOBIN 13.1 g/dL (12.0-18.0); LYMPH # 1.1 K/uL (1.0-4.3); LYMPH % 21.5 % (20.0-40.0); MEAN CELL VOLUME 89.4 fL (80.0-94.0); MEAN CORPUSCULAR HEMOGLOBIN 31.3 pg (27.0-31.0); MEAN CORPUSCULAR HGB CONC 35.1 g/dL (33.0-37.0); MEAN PLATELET VOLUME 7.8 fL (7.2-11.7); MONO # 0.5 K/uL (0.0-0.8); MONO % 9.7 % (0.0-10.0); NEUT # 3.5 K/uL (1.8-7.0); NEUT % 67.4 % (50.0-75.0); NRBC % 0.1 % (0.0-2.0); RBC 4.19 Mil/uL (4.40-5.90); RED CELL DISTRIBUTION WIDTH 13.7 % (11.5-14.5); WHITE BLOOD COUNT 5.3 K/uL (4.8-10.8)
[2018-03-06 09:07] LABS: ALB/GLOB RATIO 0.8 (1.0-2.1); ALBUMIN 3.6 g/dL (3.5-5.0); ALT/SGPT 23 U/L (21-72); AST/SGOT 48 U/L (17-59); BLOOD UREA NITROGEN 9 mg/dL (9-20); CALCIUM 8.6 mg/dl (8.6-10.4); GFR NON-AFRICAN AMERICAN > 60
--- NOTE | 2018-03-06 11:23 | CP.PCM.PN ---
<Neal Travisophe - Last Filed: 03/06/18 14:34> Subjective - Date & Time of Evaluation Date of Evaluation: 03/06/18 Time of Evaluation: 11:22 - Subjective Subjective: Medicine note for hospitalist service Pt seen and examined at bedside. Pt says the abdominal pain is improving. Pt reports no acute symptoms overnight. Pt does however still feel the discomfort at times. Pt denies cp, sob, f/c n/v palpitations, sweating, feeling of impending doom. Pt understands plan and has been involved in discussion of workup to rule out metastatic disease. Objective - Vital Signs/Intake and Output Vital Signs (last 24 hours): Temp Pulse Resp BP Pulse Ox 98.5 F 74 20 118/69 95 03/06/18 08:38 03/06/18 08:38 03/06/18 08:38 03/06/18 08:38 03/06/18 08:38 - Medications Medications: Current Medications Amlodipine Besylate (Norvasc) 5 mg PO DAILY [facility] Last Admin: 03/06/18 10:46 Dose: 5 mg Ketorolac Tromethamine (Toradol) 30 mg IVP Q6 PRN PRN Reason: Pain, moderate (4-7) Morphine Sulfate (Morphine) 2 mg IVP Q4H PRN PRN Reason: Pain, severe (8-10) Last Admin: 03/05/18 20:24 Dose: 2 mg Ondansetron HCl (Zofran Inj) 4 mg IVP Q6H PRN PRN Reason: Nausea/Vomiting - Labs Labs: 03/06/18 08:23 03/06/18 08:11 PT 15.6 SECONDS (9.7-12.2) H 03/05/18 19:33 INR 1.4 03/05/18 19:33 APTT 33 SECONDS (21-34) 03/05/18 19:33 - Additional Findings Additional findings: - Head Exam Head Exam: ATRAUMATIC, NORMAL INSPECTION, NORMOCEPHALIC - Eye Exam Eye Exam: EOMI, Normal appearance Pupil Exam: PERRL - ENT Exam ENT Exam: Mucous Membranes Moist, Normal Exam - Neck Exam Neck exam: Positive for: Normal Inspection. Negative for: Lymphadenopathy - Respiratory Exam Respiratory Exam: Clear to Auscultation Bilateral, NORMAL BREATHING PATTERN. absent: Rales, Wheezes - Cardiovascular Exam Cardiovascular Exam: REGULAR RHYTHM, +S1, +S2. absent: Tachycardia, Systolic Murmur - GI/Abdominal Exam GI & Abdominal Exam: Guarding, Normal Bowel Sounds, Soft, Tenderness. absent: Distended - Extremities Exam Extremities exam: Positive for: normal inspection. Negative for: calf tenderness, pedal edema - Back Exam Back exam: NORMAL INSPECTION, + CVA tenderness POS L>R - Neurological Exam Neurological exam: Alert, Oriented x3 - Psychiatric Exam Psychiatric exam: Normal Affect, Normal Mood - Skin Skin Exam: Dry, Intact, Normal Color, Warm Assessment and Plan - Assessment and Plan (Free Text) Plan: Assessment: 68 year old male admitted with LUQ abdominal pain PLAN r/o cardiac -trops: neg x1 -ekg : NSR -UDS positive for cocaine r/o pancreatitis -lipase 308 today, was 376 -ct abd showed normal pancreas -pancreas poorly visualized on abd u/s -toradol 30mg q6 prn -morphine 2mg q4 prn -liquid diet as tolerated Adrenal mass -AFP 1.7, -CarcinoembryonicAg 1.0, -CA19-9 Ag 6.2, -cortisol 4.7 -heme/onc Dr. Bonner consulted: f/u Catecholamine and Metanephrines -GI Dr. Hopkins consulted Outpt EGD and colonoscopy -hepatits panels neg HTN -norvasc 5mg PO qd Leukopenia -HIV panel neg Cirrhosis -hep panel neg <Adolfo Sy H - Last Filed: 03/15/18 07:14> Objective - Vital Signs/Intake and Output Vital Signs (last 24 hours): Temp Pulse Resp BP Pulse Ox 98.9 F 79 20 112/68 96 03/15/18 00:00 03/15/18 00:00 03/15/18 00:00 03/15/18 00:00 03/15/18 00:00 - Medications Medications: Current Medications Amlodipine Besylate (Norvasc) 5 mg PO DAILY [facility] Last Admin: 03/14/18 11:00 Dose: 5 mg Docusate Sodium (Colace) 100 mg PO BID [facility] Last Admin: 03/14/18 18:42 Dose: Not Given Guaifenesin (Mucinex La) 600 mg PO BID [facility] Last Admin: 03/14/18 18:41 Dose: 600 mg Metoclopramide HCl (Reglan) 5 mg IVP Q6H PRN PRN Reason: Nausea/Vomiting Last Admin: 03/11/18 19:58 Dose: 5 mg Morphine Sulfate (Morphine) 2 mg IVP Q4 PRN PRN Reason: Pain, severe (8-10) Last Admin: 03/15/18 05:53 Dose: 2 mg Oxycodone HCl (Oxycodone Immediate Release Tab) 5 mg PO Q4 PRN PRN Reason: Pain, moderate (4-7) - Labs Labs: 03/14/18 08:07 03/14/18 08:07 PT 15.4 SECONDS (9.7-12.2) H 03/14/18 14:08 INR 1.4 03/14/18 14:08 APTT 33 SECONDS (21-34) 03/05/18 19:33 Attending/Attestation - Attestation I have personally seen and examined this patient.: Yes I have fully participated in the care of the patient.: Yes I have reviewed all pertinent clinical information, including history, physical exam and plan: Yes
--- NOTE | 2018-03-07 08:22 | CP.PCM.PN ---
Subjective - Date & Time of Evaluation Date of Evaluation: 03/07/18 Objective - Vital Signs/Intake and Output Vital Signs (last 24 hours): Temp Pulse Resp BP Pulse Ox 98.4 F 75 20 128/84 97 03/07/18 00:00 03/07/18 00:00 03/07/18 00:00 03/07/18 00:00 03/07/18 00:00 Intake and Output: 03/07/18 03/07/18 06:59 18:59 Intake Total 240 Balance 240 - Medications Medications: Current Medications Amlodipine Besylate (Norvasc) 5 mg PO DAILY [facility] Last Admin: 03/06/18 10:46 Dose: 5 mg Ketorolac Tromethamine (Toradol) 30 mg IVP Q6 PRN PRN Reason: Pain, moderate (4-7) Morphine Sulfate (Morphine) 2 mg IVP Q4H PRN PRN Reason: Pain, severe (8-10) Last Admin: 03/06/18 20:03 Dose: 2 mg Ondansetron HCl (Zofran Inj) 4 mg IVP Q6H PRN PRN Reason: Nausea/Vomiting Pneumococcal Polyvalent Vaccine (Pneumovax 23 Vaccine) 0.5 ml IM .ONCE ONE Stop: 03/07/18 10:01 - Labs Labs: 03/06/18 08:23 03/06/18 08:11 PT 15.6 SECONDS (9.7-12.2) H 03/05/18 19:33 INR 1.4 03/05/18 19:33 APTT 33 SECONDS (21-34) 03/05/18 19:33
[2018-03-07] MEDS ORDERED: Pneumococcal 23-Valent Vaccine IM ONE (10:00)
--- NOTE | 2018-03-07 10:08 | CT ---
Date of service: 03/07/2018 PROCEDURE: CT HEAD WITHOUT CONTRAST. HISTORY: r/o malignancy COMPARISON: None available. TECHNIQUE: Axial computed tomography images were obtained through the head/brain without intravenous contrast. Radiation dose: Total exam DLP = 743.55 mGy-cm. This CT exam was performed using one or more of the following dose reduction techniques: Automated exposure control, adjustment of the mA and/or kV according to patient size, and/or use of iterative reconstruction technique. FINDINGS: HEMORRHAGE: No intracranial hemorrhage. BRAIN: The arnold-white matter differentiation is well preserved. There is no mass effect or definitive edema pattern appreciated including the cortex. There is proportional expansion of the ventriculosulcal and cisternal spaces however in a pattern most compatible with diffuse cerebral atrophy. No suspicious extra-axial fluid collection is identified in the midline brain anatomy appears grossly nonfocal as imaged. VENTRICLES: Unremarkable. No hydrocephalus. CALVARIUM: Unremarkable. PARANASAL SINUSES: Unremarkable as visualized. No significant inflammatory changes. MASTOID AIR CELLS: Unremarkable as visualized. No inflammatory changes. OTHER FINDINGS: None. IMPRESSION: Mild age-related diffuse cerebral atrophy is identified. No acute intracranial findings by standard CT criteria. Follow-up CT or MRI are available if clinically warranted. The malignancy remains clinically suspected then follow-up MRI is recommended with and without contrast which provides greater sensitivity and specificity.
--- NOTE | 2018-03-07 10:19 | CT ---
Date of service: 03/07/2018 PROCEDURE: CT Chest without contrast HISTORY: r/o malignancy COMPARISON: None available. TECHNIQUE: Contiguous axial images were obtained through the chest without intravenous contrast enhancement. Sagittal and coronal reconstructions were performed. Radiation dose (DLP): 527.43 mGy-cm. This CT exam was performed using one or more of the following dose reduction techniques: Automated exposure control, adjustment of the mA and/or kV according to patient size, and/or use of iterative reconstruction technique. FINDINGS: LUNGS: There is a minimal 3 mm nodule at the right suprahilar space (series 4, image 41) which is noncalcified and nonspecific appearing. No additional parenchymal pulmonary mass bilaterally. Central airways are clear. There is no acute infiltrate bilaterally. MEDIASTINUM: Unremarkable thoracic aorta. No aneurysm. Normal sized heart with mild but increased pericardial effusion Main pulmonary artery unremarkable. No vascular congestion. There is gross mediastinal lymphadenopathy including a probable aggregate of lymph nodes measuring 6.1 x 4.6 cm at the air pulmonary window and paratracheal space, right greater than left. In fact exerts mass effect on the inferior trachea minimally and the humera. Subcarinal lymphadenopathy measures 4.9 x 2.6 cm. No prominent hilar adenopathy however. Otherwise shotty lymph nodes are identified at the remainder the mediastinum and bilateral axillae. PLEURA: No pleural fluid. No pneumothorax. BONES: No fracture. No destructive lesion. UPPER ABDOMEN: Increasing reactive changes are seen surrounding the pancreas body and tail and left adrenal mass and also the left perinephric space somewhat. Grossly cirrhotic liver reiterated with extensive varices in the upper abdomen. Cholelithiasis. OTHER FINDINGS: None. IMPRESSION: Prominent mediastinal lymphadenopathy is appreciated but without dominant pulmonary mass. A small 3 mm noncalcified nodule seen the right suprahilar space in the right upper lobe, nonspecific appearing. Incidental note is made of increase reactive changes surrounding a mass at the left adrenal gland as well as the pancreatic body and tail and perirenal space. Pancreatitis is not excluded though the pattern is not classic for this. Considering potential left adrenal hemorrhage though not specifically increased in the interval. Hepatofugal blood flow identified and sequelae related to a markedly cirrhotic liver.
[2018-03-07 12:17] LABS: BASO % 0.2 % (0.0-2.0); EOS # 0.1 K/uL (0.0-0.7); EOS % 1.5 % (0.0-4.0); HEMOGLOBIN 13.6 g/dL (12.0-18.0); LYMPH # 1.4 K/uL (1.0-4.3); LYMPH % 24.1 % (20.0-40.0); MEAN CELL VOLUME 89.3 fL (80.0-94.0); MEAN CORPUSCULAR HEMOGLOBIN 31.4 pg (27.0-31.0); MEAN CORPUSCULAR HGB CONC 35.2 g/dL (33.0-37.0); MEAN PLATELET VOLUME 7.8 fL (7.2-11.7); MONO # 0.7 K/uL (0.0-0.8); MONO % 12.3 % (0.0-10.0); NEUT # 3.6 K/uL (1.8-7.0); NEUT % 61.9 % (50.0-75.0); NRBC % 0.2 % (0.0-2.0); RBC 4.32 Mil/uL (4.40-5.90); RED CELL DISTRIBUTION WIDTH 13.6 % (11.5-14.5); WHITE BLOOD COUNT 5.9 K/uL (4.8-10.8)
[2018-03-07 12:24] LABS: INR 1.4; PROTHROMBIN TIME 15.3 SECONDS (9.7-12.2)
[2018-03-07 12:36] LABS: ALB/GLOB RATIO 0.7 (1.0-2.1); ALBUMIN 3.8 g/dL (3.5-5.0); ALT/SGPT 24 U/L (21-72); AST/SGOT 45 U/L (17-59); BLOOD UREA NITROGEN 13 mg/dL (9-20); GFR NON-AFRICAN AMERICAN > 60
--- NOTE | 2018-03-07 15:27 | CP.PCM.PN ---
Subjective - Date & Time of Evaluation Date of Evaluation: 03/07/18 Time of Evaluation: 12:30 - Subjective Subjective: Medical Attending Note: Patient seen and examined at bedside. patient reports he has been feeling nauseous but no episodes of vomitting. Patient denies headache, denies chest pain, denies palpitations, reports mild abdominal pain, denies constipation, denies dysuria, Objective - Vital Signs/Intake and Output Vital Signs (last 24 hours): Temp Pulse Resp BP Pulse Ox 98.4 F 73 20 125/78 96 03/07/18 08:00 03/07/18 08:00 03/07/18 08:00 03/07/18 08:00 03/07/18 08:00 Intake and Output: 03/07/18 03/07/18 06:59 18:59 Intake Total 240 Balance 240 - Medications Medications: Current Medications Amlodipine Besylate (Norvasc) 5 mg PO DAILY [facility] Last Admin: 03/07/18 10:00 Dose: 5 mg Ketorolac Tromethamine (Toradol) 30 mg IVP Q6 PRN PRN Reason: Pain, moderate (4-7) Morphine Sulfate (Morphine) 2 mg IVP Q4H PRN PRN Reason: Pain, severe (8-10) Last Admin: 03/06/18 20:03 Dose: 2 mg Ondansetron HCl (Zofran Inj) 4 mg IVP Q6H PRN PRN Reason: Nausea/Vomiting - Labs Labs: 03/07/18 12:11 03/07/18 12:11 PT 15.3 SECONDS (9.7-12.2) H 03/07/18 12:11 INR 1.4 03/07/18 12:11 APTT 33 SECONDS (21-34) 03/05/18 19:33 - Constitutional Appears: Non-toxic, No Acute Distress - Head Exam Head Exam: NORMAL INSPECTION - Eye Exam Eye Exam: EOMI - ENT Exam ENT Exam: Mucous Membranes Moist - Respiratory Exam Respiratory Exam: Clear to Ausculation Bilateral, NORMAL BREATHING PATTERN. absent: Rales, Rhonchi, Wheezes - Cardiovascular Exam Cardiovascular Exam: REGULAR RHYTHM, +S1, +S2 - GI/Abdominal Exam GI & Abdominal Exam: Soft, Normal Bowel Sounds. absent: Distended, Firm, Guarding, Rigid, Tenderness, Rebound - Extremities Exam Extremities Exam: absent: Pedal Edema, Tenderness - Neurological Exam Neurological Exam: Alert, Awake, Oriented x3 Neuro motor strength exam: Left Upper Extremity: 5, Right Upper Extremity: 5, Left Lower Extremity: 5, Right Lower Extremity: 5 - Psychiatric Exam Psychiatric exam: Normal Affect, Normal Mood - Skin Skin Exam: Dry, Intact, Normal Color, Warm Assessment and Plan (1) Mediastinal lymphadenopathy Assessment & Plan: CT Chest: prominent mediastinal lymphadenopathy is appreciated without dominant pulmonary mass. small 3mm noncalcified nodule seen in right suprahilar space in right upper lobe. Status: Acute (2) Left adrenal mass Assessment & Plan: Abdominal/Bladder US (03/05/18): cirrhotic liver, large left renal mass. Right adrenal lesion not identified sonographically. On obstructive uropathy. Cholelithiasis. Splenomegaly. Pancreas poorly visualized. Left mass cephalad to the left kidney measuring 6.7 X4.8X 4.8 cm corresponding to left adrenal mass. CT Chest: increase reactive changes surrounding a mass at the left adrenal gland as well as the pancreatic body and tail and perirenal space. CT head (03/07/18): mild age related diffuse cerebral atrophy is identifed. No acute intracranial findings by standard CT criteria. CEA, CA 19.9 are normal. elevated protein and globulin Status: Acute (3) Adrenal mass, right Assessment & Plan: Hematology-oncology (Dr. Bonner) on case-->help appreciated CT Abdomen/Pelvis (03/05/18): liver is diminutive in overall volume withy moderate to fair significant appearing back for nodular appearing surface contour consistent with hepatic cirrhosis. Extensive esophageal gastric, splenoral ranl upper, and mid abdominal varcies, portal hypertension. * Evidence of Retroperitoneal adenopahthy. * Small 2.1 X1.6cm cm right adrenal mass. NOT consistent with adenoma. Large left adrenal mass measuring 5.34 X5.0cm Abdominal/Bladder US (03/05/18): cirrhotic liver, large left renal mass. Right adrenal lesion not identified sonographically. On obstructive uropathy. Cholelithiasis. Splenomegaly. Pancreas poorly visualized Status: Acute (4) Portal hypertension Assessment & Plan: CT Abdomen/Pelvis (03/05/18): liver is diminutive in overall volume withy moderate to fair significant appearing back for nodular appearing surface contour consistent with hepatic cirrhosis. Extensive esophageal gastric, splenoral ranl upper, and mid abdominal varcies, portal hypertension. Status: Chronic (5) Nausea Assessment & Plan: Start Zofran 4mg IV Q6H PRN nausea Status: Acute (6) Tobacco use Assessment & Plan: Prior smoking use 20 years ppd history Status: Acute (7) Alcohol use Assessment & Plan: stopped but using to be heavy drinker Status: Acute (8) Liver cirrhosis Assessment & Plan: CT Abdomen/Pelvis (03/05/18): liver is diminutive in overall volume withy moderate to fair significant appearing back for nodular appearing surface contour consistent with hepatic cirrhosis. Extensive esophageal gastric, splenoral ranl upper, and mid abdominal varcies, portal hypertension. Patient reports he goes to [facility] for monitoring liver cirrhosis Abdominal/Bladder US (03/05/18): cirrhotic liver, large left renal mass. Right adrenal lesion not identified sonographically. On obstructive uropathy. Cholelithiasis. Splenomegaly. Pancreas poorly visualized negative hepatitis negative HIV From GI: Patient would benefit from elective outpatient EGD (variceal screening) and colonoscopy (age appropriate colon cancer screening) as outpatient - Follow up oncology recommendations for adrenal lesion workup Status: Chronic (9) Cocaine abuse Assessment & Plan: advised to stop given risk including NV/cardiac arrest Status: Acute (10) Prophylactic measure Status: Acute
[2018-03-07] MEDS ORDERED: Sodium Chloride 0.9% 1,000 ML IV SCH ×2 (16:45→19:44)
[2018-03-08 06:35] LABS: INR 1.5; PROTHROMBIN TIME 16.1 SECONDS (9.7-12.2)
[2018-03-08 06:36] LABS: BASO % 0.2 % (0.0-2.0); EOS # 0.1 K/uL (0.0-0.7); EOS % 1.2 % (0.0-4.0); HEMOGLOBIN 12.1 g/dL (12.0-18.0); LYMPH # 1.1 K/uL (1.0-4.3); LYMPH % 20.9 % (20.0-40.0); MEAN CELL VOLUME 87.9 fL (80.0-94.0); MEAN CORPUSCULAR HEMOGLOBIN 31.4 pg (27.0-31.0); MEAN CORPUSCULAR HGB CONC 35.8 g/dL (33.0-37.0); MEAN PLATELET VOLUME 7.7 fL (7.2-11.7); MONO # 0.7 K/uL (0.0-0.8); MONO % 13.6 % (0.0-10.0); NEUT # 3.3 K/uL (1.8-7.0); NEUT % 64.1 % (50.0-75.0); NRBC % 0.2 % (0.0-2.0); RBC 3.86 Mil/uL (4.40-5.90); RED CELL DISTRIBUTION WIDTH 13.9 % (11.5-14.5); WHITE BLOOD COUNT 5.2 K/uL (4.8-10.8)
[2018-03-08 06:48] LABS: ALB/GLOB RATIO 0.7 (1.0-2.1); ALBUMIN 3.5 g/dL (3.5-5.0); ALT/SGPT 23 U/L (21-72); AST/SGOT 42 U/L (17-59); BLOOD UREA NITROGEN 10 mg/dL (9-20); CALCIUM 8.3 mg/dl (8.6-10.4); GFR NON-AFRICAN AMERICAN > 60
--- NOTE | 2018-03-08 10:56 | CP.PCM.PN ---
Subjective - Date & Time of Evaluation Date of Evaluation: 03/08/18 Time of Evaluation: 10:54 - Subjective Subjective: Medicine Progress Note for Dr. Caballero -- Rusty Angulo PGY1 Patient seen and examined at bedside this morning. Patient says he continues to experience mild nausea associated with continued mild left-sided flank pain, but this has improved since admission. Patient says he is hungry and is requesting to eat. Patient denies bowel movement for the last but no episodes of vomiting. Patient admits to some fatigue prior to admission, but this has improved since admission. Patient otherwise denies headache, vomiting, chest pain, palpitations, constipation, and/or dysuria. Of note, the patient has not seen his primary care physician in several years, but states that he was told that his liver was improved at that time. Patient says he has not had any alcohol for 12 years and denies any relapse. Objective - Vital Signs/Intake and Output Vital Signs (last 24 hours): Temp Pulse Resp BP Pulse Ox 98.6 F 76 20 102/62 96 03/08/18 07:55 03/08/18 07:55 03/08/18 07:55 03/08/18 07:55 03/08/18 07:55 Intake and Output: 03/08/18 03/08/18 06:59 18:59 Intake Total 700 600 Output Total 700 700 Balance 0 -100 - Medications Medications: Current Medications Amlodipine Besylate (Norvasc) 5 mg PO DAILY [facility] Last Admin: 03/08/18 09:49 Dose: 5 mg Sodium Chloride (Sodium Chloride 0.9%) 1,000 mls @ 50 mls/hr IV .Q20H [facility] Last Admin: 03/07/18 20:00 Dose: 50 mls/hr Morphine Sulfate (Morphine) 2 mg IVP Q4H PRN PRN Reason: Pain, severe (8-10) Last Admin: 03/07/18 21:41 Dose: 2 mg Ondansetron HCl (Zofran Inj) 4 mg IVP Q6H PRN PRN Reason: Nausea/Vomiting - Labs Labs: 03/08/18 06:26 03/08/18 06:26 PT 16.1 SECONDS (9.7-12.2) H 03/08/18 06:26 INR 1.5 03/08/18 06:26 APTT 33 SECONDS (21-34) 03/05/18 19:33 - Additional Findings Additional findings: - Constitutional Appears: Non-toxic, No Acute Distress - Head Exam Head Exam: NORMAL INSPECTION - Eye Exam Eye Exam: EOMI - ENT Exam ENT Exam: Mucous Membranes Moist - Respiratory Exam Respiratory Exam: Clear to Ausculation Bilateral, NORMAL BREATHING PATTERN. absent: Rales, Rhonchi, Wheezes - Cardiovascular Exam Cardiovascular Exam: REGULAR RHYTHM, +S1, +S2 - GI/Abdominal Exam GI & Abdominal Exam: Soft, Normal Bowel Sounds. Left flank tender to palpation. absent: Distended, Firm, Guarding, Rigid, Tenderness, Rebound - Extremities Exam Extremities Exam: absent: Pedal Edema, Tenderness - Neurological Exam Neurological Exam: Alert, Awake, Oriented x3 Neuro motor strength exam: Left Upper Extremity: 5, Right Upper Extremity: 5, Left Lower Extremity: 5, Right Lower Extremity: 5 - Psychiatric Exam Psychiatric exam: Normal Affect, Normal Mood - Skin Skin Exam: Dry, Intact, Normal Color, Warm Assessment and Plan - Assessment and Plan (Free Text) Assessment: This is a 68-year-old male with past medical history of poor outpatient follow- up, liver cirrhosis, polysubstance abuse who admitted to [facility] on 03/05 for further evaluation of left adrenal mass and mediastinal lymphadenopathy. Assessment and Plan Left-sided flank pain and nausea likely secondary to left adrenal mass rule out pheochromocytoma vs Conn's Syndrome - Discontinue Zofran 4mg IV Q6H PRN nausea - Start on Reglan 5mg IV Q6H PRN for nausea - Abdominal/Bladder US per radiology report (03/05/18): cirrhotic liver, large left renal mass. Right adrenal lesion not identified sonographically. On obstructive uropathy. Cholelithiasis. Splenomegaly. Pancreas poorly visualized. Left mass cephalad to the left kidney measuring 6.7 X4.8X 4.8 cm corresponding to left adrenal mass. - CT Chest per report: increase reactive changes surrounding a mass at the left adrenal gland as well as the pancreatic body and tail and perirenal space. - CT head (03/07): mild age related diffuse cerebral atrophy is identified No acute intracranial findings by standard CT criteria - CEA, CA 19.9 are normal (03/05) - Cortisol 4.7 (03/07) - Follow-up on catecholamine and metanephrines labs - Follow-up on Renin and aldosterone labs Right Adrenal Mass - Hematology-oncology (Dr. Bonner) - IR (Dr. Dixon) consulted for biopsy, per Dr. Bonner recommendation to obtain biopsy - INR 1.5 today (up from 1.4) - Vitamin K 10mg SubQ x1 - Follow-up repeat INR in AM - CT Abdomen/Pelvis (03/05) Impression: - liver is diminutive in overall volume withy moderate to fair significant appearing back for nodular appearing surface contour consistent with hepatic cirrhosis. Extensive esophageal gastric, splenorenal upper, and mid abdominal varicies, portal hypertension. - Evidence of Retroperitoneal adenopahthy. - Small 2.1 X1.6cm cm right adrenal mass. NOT consistent with adenoma. Large left adrenal mass measuring 5.34 X5.0cm - Abdominal/Bladder US report (03/05/18): cirrhotic liver, large left renal mass. Right adrenal lesion not identified sonographically. - On obstructive uropathy. Cholelithiasis. Splenomegaly. Pancreas poorly visualized Mediastinal lymphadenopathy - CT chest per radiology report: prominent mediastinal lymphadenopathy is appreciated without dominant pulmonary mass. small 3mm noncalcified nodule seen in right suprahilar space in right upper lobe. Liver Cirrhosis likely secondary to prolonged history of alcohol abuse - Patient is under the impression that his liver disease has improved, and reports he goes to [facility] for monitoring liver cirrhosis, but patient has not been to his physician for several years. - CT Abdomen/Pelvis (03/05/18): liver is diminutive in overall volume withy moderate to fair significant appearing back for nodular appearing surface contour consistent with hepatic cirrhosis. Extensive esophageal gastric, splenoral ranl upper, and mid abdominal varcies, portal hypertension. - Abdominal/Bladder US (03/05/18): cirrhotic liver, large left renal mass. Right adrenal lesion not identified sonographically. On obstructive uropathy. Cholelithiasis. Splenomegaly. Pancreas poorly visualized - Hepatitis panel: Negative - HIV Abs: negative - GI consulted, recommended outpatient EGD for variceal screening and colonoscopy for colon cancer screening as outpatient - Avoid NSAIDs, Zofran, Tylenol, Benzodiazepines, Benadryl to avoid further liver damage - Encouraged continued cessation of alcohol consumption Cocaine abuse - UDS positive for cocaine on admission - Patient educated on risks for cardiac arrest and/or DE - Continue to encourage complete cessation of cocaine abuse History of tobacco use - Prior smoking use - 20 years ppd history - Encouraged complete cessation of tobacco products The patient was seen and evaluated with and case discussed in detail with Attending Physician, Dr. Federico Angulo, PGY1
--- NOTE | 2018-03-08 11:32 | CARD ---
APPROVED REPORT Date of service: 03/05/2018 EKG Measurement Heart [id number] <Conclusion> Normal sinus rhythm Normal ECG
[2018-03-08] MEDS ORDERED: Phytonadione 2.5 MG/0.5 TAB TAB PO SCH (17:00)
[2018-03-08] MEDS ORDERED: Phytonadione 10 mg/ml Inj (Adult) SC ONE ×2 (18:00→18:10)
--- NOTE | 2018-03-08 19:42 | CP.PCM.PN ---
Subjective - Date & Time of Evaluation Date of Evaluation: 03/08/18 Time of Evaluation: 19:19 - Subjective Subjective: The patient is still c/o some dry cough, making left sided abdominal pain worse. He is also c/o some headaches, denies diarrhea, palpitations, fluctuations in blood pressure in the past. Intentional weight loss. Have discussed with the patient using a occupational therapist, concern regarding the adrenal masses, and the need for a biopsy to establish benign versus metastatic disease. He is agreeable. Plan- Biopsy to be scheduled. the patient is at a high risk of bleeding because of his coagulopathy and liver cirrhosis and thromboctopenia associated with the hypersplenism. Will give vitamin K and recheck coags and platelet count. FFPs and platelet transfusion PRN Objective - Vital Signs/Intake and Output Vital Signs (last 24 hours): Temp Pulse Resp BP Pulse Ox 99.7 F H 78 20 113/67 94 L 03/08/18 16:00 03/08/18 16:00 03/08/18 16:00 03/08/18 16:00 03/08/18 16:00 Intake and Output: 03/08/18 03/09/18 18:59 06:59 Intake Total 1250 Output Total 1300 Balance -50 - Medications Medications: Current Medications Amlodipine Besylate (Norvasc) 5 mg PO DAILY [facility] Last Admin: 03/08/18 09:49 Dose: 5 mg Metoclopramide HCl (Reglan) 5 mg IVP Q6H PRN PRN Reason: Nausea/Vomiting Morphine Sulfate (Morphine) 2 mg IVP Q4H PRN PRN Reason: Pain, severe (8-10) Last Admin: 03/07/18 21:41 Dose: 2 mg - Labs Labs: 03/08/18 06:26 03/08/18 06:26 PT 16.1 SECONDS (9.7-12.2) H 03/08/18 06:26 INR 1.5 03/08/18 06:26 APTT 33 SECONDS (21-34) 03/05/18 19:33
[2018-03-09 07:33] LABS: BASO % 0.3 % (0.0-2.0); EOS # 0.1 K/uL (0.0-0.7); EOS % 1.8 % (0.0-4.0); HEMOGLOBIN 12.2 g/dL (12.0-18.0); LYMPH # 1.2 K/uL (1.0-4.3); LYMPH % 21.9 % (20.0-40.0); MEAN CELL VOLUME 88.2 fL (80.0-94.0); MEAN CORPUSCULAR HEMOGLOBIN 31.4 pg (27.0-31.0); MEAN CORPUSCULAR HGB CONC 35.6 g/dL (33.0-37.0); MEAN PLATELET VOLUME 7.8 fL (7.2-11.7); MONO # 0.7 K/uL (0.0-0.8); MONO % 13.2 % (0.0-10.0); NEUT # 3.4 K/uL (1.8-7.0); NEUT % 62.8 % (50.0-75.0); NRBC % 0.1 % (0.0-2.0); RBC 3.88 Mil/uL (4.40-5.90); RED CELL DISTRIBUTION WIDTH 13.7 % (11.5-14.5); WHITE BLOOD COUNT 5.3 K/uL (4.8-10.8)
--- NOTE | 2018-03-09 07:35 | CP.PCM.PN ---
Subjective - Date & Time of Evaluation Date of Evaluation: 03/09/18 Time of Evaluation: 07:35 - Subjective Subjective: PGY-1 Medicine Progress note for Dr. Garnica covering for Dr. Caballero Patient was seen and examined today at bedside in no acute distress. Nurse reports no overnight events. Patient complains of continuing flank pain at a 9/ 10, has been asking for analgesics only once a day. Denies chest pain, shortness of breath, abdominal pain, fever, chills, nausea, vomiting. Objective - Vital Signs/Intake and Output Vital Signs (last 24 hours): Temp Pulse Resp BP Pulse Ox 98.6 F 73 20 105/62 95 03/09/18 00:00 03/09/18 00:00 03/09/18 00:00 03/09/18 00:00 03/09/18 00:00 Intake and Output: 03/09/18 03/09/18 06:59 18:59 Intake Total 400 Balance 400 - Medications Medications: Current Medications Amlodipine Besylate (Norvasc) 5 mg PO DAILY [facility] Last Admin: 03/08/18 09:49 Dose: 5 mg Metoclopramide HCl (Reglan) 5 mg IVP Q6H PRN PRN Reason: Nausea/Vomiting Morphine Sulfate (Morphine) 2 mg IVP Q4H PRN PRN Reason: Pain, severe (8-10) Last Admin: 03/08/18 20:38 Dose: 2 mg - Labs Labs: 03/08/18 06:26 03/08/18 06:26 PT 16.1 SECONDS (9.7-12.2) H 03/08/18 06:26 INR 1.5 03/08/18 06:26 APTT 33 SECONDS (21-34) 03/05/18 19:33 - Constitutional Appears: Non-toxic, No Acute Distress - Head Exam Head Exam: ATRAUMATIC, NORMOCEPHALIC - Eye Exam Eye Exam: EOMI, Normal appearance - ENT Exam ENT Exam: Mucous Membranes Moist, Normal Exam - Respiratory Exam Respiratory Exam: Clear to Ausculation Bilateral, NORMAL BREATHING PATTERN. absent: Rales, Rhonchi - Cardiovascular Exam Cardiovascular Exam: REGULAR RHYTHM, +S1, +S2. absent: Murmur - GI/Abdominal Exam GI & Abdominal Exam: Soft, Normal Bowel Sounds. absent: Tenderness - Extremities Exam Extremities Exam: Full ROM, Normal Capillary Refill Additional comments: bilateral pulses palpable (radial, PT) - Back Exam Back Exam: CVA tenderness (L). absent: muscle spasm, rash noted Additional comments: no skin changes, erythema, edema - Neurological Exam Neurological Exam: Alert, Awake, Oriented x3 - Psychiatric Exam Psychiatric exam: Normal Affect, Normal Mood - Skin Skin Exam: Dry, Intact, Normal Color, Warm Assessment and Plan - Assessment and Plan (Free Text) Assessment: 68yoM with PMH poor outpatient follow-up, liver cirrhosis, polysubstance abuse admitted for evaluation of L>R adrenal mass and mediastinal lymphadenopathy. Plan: Left-sided flank pain and nausea likely secondary to left adrenal mass rule out pheochromocytoma vs Conn's Syndrome - Start on Reglan 5mg IV Q6H PRN for nausea - Abdominal/Bladder US per radiology report (03/05/18): cirrhotic liver, large left renal mass. Right adrenal lesion not identified sonographically. On obstructive uropathy. Cholelithiasis. Splenomegaly. Pancreas poorly visualized. Left mass cephalad to the left kidney measuring 6.7 X4.8X 4.8 cm corresponding to left adrenal mass. - IR (Dr. Dixon) consulted for biopsy, per Dr. Bonner recommendation to obtain biopsy. Dr. Owen has not evaluated the patient; will place NPO when scheduled) - CT Chest per report: increase reactive changes surrounding a mass at the left adrenal gland as well as the pancreatic body and tail and perirenal space. - CT head (03/07): mild age related diffuse cerebral atrophy is identified No acute intracranial findings by standard CT criteria - CEA, CA 19.9 are normal (03/05) - Cortisol 4.7 (03/07) - Follow-up on catecholamine and metanephrines labs: received - Follow-up on Renin and aldosterone labs: received Right Adrenal Mass - Hematology-oncology (Dr. Bonner) - IR (Dr. Dixon) consulted for biopsy, per Dr. Bonner recommendation to obtain biopsy. Dr. Owen has not evaluated the patient; will place NPO when scheduled) - INR 1.5 today (steady from 1.5 yesterday) - Vitamin K 10mg SubQ - Follow-up repeat INR in AM - CT Abdomen/Pelvis (03/05) Impression: - liver is diminutive in overall volume withy moderate to fair significant appearing back for nodular appearing surface contour consistent with hepatic cirrhosis. Extensive esophageal gastric, splenorenal upper, and mid abdominal varicies, portal hypertension. - Evidence of Retroperitoneal adenopahthy. - Small 2.1X1.6cm cm right adrenal mass. NOT consistent with adenoma. Large left adrenal mass measuring 5.34 X5.0cm - Abdominal/Bladder US report (03/05/18): cirrhotic liver, large left renal mass. Right adrenal lesion not identified sonographically. - On obstructive uropathy. Cholelithiasis. Splenomegaly. Pancreas poorly visualized Mediastinal lymphadenopathy - CT chest per radiology report: prominent mediastinal lymphadenopathy is appreciated without dominant pulmonary mass. small 3mm noncalcified nodule seen in right suprahilar space in right upper lobe. Liver Cirrhosis likely secondary to prolonged history of alcohol abuse - Patient is under the impression that his liver disease has improved, and reports he goes to [facility] for monitoring liver cirrhosis, but patient has not been to his physician for several years. - CT Abdomen/Pelvis (03/05/18): liver is diminutive in overall volume withy moderate to fair significant appearing back for nodular appearing surface contour consistent with hepatic cirrhosis. Extensive esophageal gastric, splenoral ranl upper, and mid abdominal varcies, portal hypertension. - Abdominal/Bladder US (03/05/18): cirrhotic liver, large left renal mass. Right adrenal lesion not identified sonographically. On obstructive uropathy. Cholelithiasis. Splenomegaly. Pancreas poorly visualized - Hepatitis panel: Negative - HIV Abs: negative - GI consulted, recommended outpatient EGD for variceal screening and colonoscopy for colon cancer screening as outpatient - Avoid NSAIDs, Zofran, Tylenol, Benzodiazepines, Benadryl to avoid further liver damage - Low dose Tylenol given for moderate pain - Encouraged continued cessation of alcohol consumption Cocaine abuse - UDS positive for cocaine on admission - Patient educated on risks for cardiac arrest and/or ND - Continue to encourage complete cessation of cocaine abuse History of tobacco use - Prior smoking use - 20 years ppd history - Encouraged complete cessation of tobacco products d/w Dr. Danika Mascorro PGY-1
[2018-03-09 07:45] LABS: INR 1.5; PROTHROMBIN TIME 15.9 SECONDS (9.7-12.2)
[2018-03-09 07:53] LABS: ALB/GLOB RATIO 0.7 (1.0-2.1); ALBUMIN 3.5 g/dL (3.5-5.0); ALT/SGPT 24 U/L (21-72); AST/SGOT 43 U/L (17-59); BLOOD UREA NITROGEN 11 mg/dL (9-20); CALCIUM 8.5 mg/dl (8.6-10.4); GFR NON-AFRICAN AMERICAN > 60
[2018-03-09] MEDS: Phytonadione 10 mg/ml Inj (Adult) SC SCH (16:38)
[2018-03-10 06:29] LABS: BASO % 0.3 % (0.0-2.0); EOS # 0.1 K/uL (0.0-0.7); EOS % 1.7 % (0.0-4.0); HEMOGLOBIN 12.3 g/dL (12.0-18.0); LYMPH # 1.2 K/uL (1.0-4.3); LYMPH % 22.2 % (20.0-40.0); MEAN CELL VOLUME 87.8 fL (80.0-94.0); MEAN CORPUSCULAR HEMOGLOBIN 31.5 pg (27.0-31.0); MEAN CORPUSCULAR HGB CONC 35.9 g/dL (33.0-37.0); MEAN PLATELET VOLUME 8.1 fL (7.2-11.7); MONO # 0.8 K/uL (0.0-0.8); MONO % 15.2 % (0.0-10.0); NEUT # 3.3 K/uL (1.8-7.0); NEUT % 60.6 % (50.0-75.0); NRBC % 0.3 % (0.0-2.0); RBC 3.9 Mil/uL (4.40-5.90); RED CELL DISTRIBUTION WIDTH 13.9 % (11.5-14.5); WHITE BLOOD COUNT 5.4 K/uL (4.8-10.8)
[2018-03-10 06:51] LABS: ALB/GLOB RATIO 0.7 (1.0-2.1); ALBUMIN 3.5 g/dL (3.5-5.0); ALT/SGPT 22 U/L (21-72); AST/SGOT 42 U/L (17-59); BLOOD UREA NITROGEN 16 mg/dL (9-20); CALCIUM 8.4 mg/dl (8.6-10.4); GFR NON-AFRICAN AMERICAN > 60
--- NOTE | 2018-03-10 07:12 | CP.PCM.PN ---
Subjective - Date & Time of Evaluation Date of Evaluation: 03/10/18 Time of Evaluation: 07:04 - Subjective Subjective: Rusty Angulo PGY-1 -- Medicine Progress note for Dr. Garnica covering for Dr. Caballero Patient was seen and examined today at bedside. Patient reports 20/10 pain in his left flank. Nurse reports no overnight events. Denies chest pain, shortness of breath, abdominal pain, fever, chills, nausea, vomiting. Of note, the patient's family was notified about the patient's condition and the plan of care for the patient while at patient's bedside this afternoon. The patient and patient's family were made aware that his adrenal mass biopsy will be postponed to Thursday. Objective - Vital Signs/Intake and Output Vital Signs (last 24 hours): Temp Pulse Resp BP Pulse Ox 99.6 F 78 20 111/65 96 03/10/18 00:00 03/10/18 00:00 03/10/18 00:00 03/10/18 00:00 03/10/18 00:00 Intake and Output: 03/10/18 03/10/18 06:59 18:59 Intake Total 500 Balance 500 - Medications Medications: Current Medications Acetaminophen (Tylenol 325mg Tab) 650 mg PO Q6 PRN PRN Reason: Pain, moderate (4-7) Last Admin: 03/09/18 22:23 Dose: 650 mg Amlodipine Besylate (Norvasc) 5 mg PO DAILY [facility] Last Admin: 03/09/18 09:40 Dose: 5 mg Metoclopramide HCl (Reglan) 5 mg IVP Q6H PRN PRN Reason: Nausea/Vomiting Last Admin: 03/09/18 09:37 Dose: 5 mg Phytonadione (Vitamin K Inj) 10 mg SC DAILY COY Stop: 03/10/18 10:01 Last Admin: 03/09/18 16:38 Dose: 10 mg - Labs Labs: 03/10/18 06:22 03/10/18 06:22 PT 15.9 SECONDS (9.7-12.2) H 03/09/18 07:24 INR 1.5 03/09/18 07:24 APTT 33 SECONDS (21-34) 03/05/18 19:33 - Additional Findings Additional findings: - Constitutional Appears: Non-toxic, No Acute Distress - Head Exam Head Exam: ATRAUMATIC, NORMOCEPHALIC - Eye Exam Eye Exam: EOMI, Normal appearance - ENT Exam ENT Exam: Mucous Membranes Moist, Normal Exam - Respiratory Exam Respiratory Exam: Clear to Ausculation Bilateral, NORMAL BREATHING PATTERN. absent: Rales, Rhonchi - Cardiovascular Exam Cardiovascular Exam: REGULAR RHYTHM, +S1, +S2. absent: Murmur, Rubs, Gallops - GI/Abdominal Exam GI & Abdominal Exam: Soft, Normal Bowel Sounds. absent: Tenderness - Extremities Exam Extremities Exam: Full ROM, Normal Capillary Refill Additional comments: bilateral pulses palpable (radial, PT) - Back Exam Back Exam: Positive CVA tenderness (L). absent: muscle spasm, rash noted Additional comments: no skin changes, erythema, edema - Neurological Exam Neurological Exam: Alert, Awake, Oriented x3 - Psychiatric Exam Psychiatric exam: Normal Affect, Normal Mood - Skin Skin Exam: Dry, Intact, Normal Color, Warm Assessment and Plan - Assessment and Plan (Free Text) Assessment: Assessment: 68yoM with past medical history of poor outpatient follow-up, liver cirrhosis, polysubstance abuse who was admitted for evaluation of bilateral adrenal mass ( with left greater than right) and mediastinal lymphadenopathy. Plan: Left-sided flank pain and nausea likely secondary to left adrenal mass rule out pheochromocytoma vs Conn's Syndrome - Continue on Reglan 5mg IV Q6H PRN for nausea - Morphine 2mg IVP Q4 PRN for severe pain - Oxycodone 5mg PO Q4 PRN for moderate pain - Abdominal/Bladder US per radiology report (03/05/18): cirrhotic liver, large left renal mass. Right adrenal lesion not identified sonographically. On obstructive uropathy. Cholelithiasis. Splenomegaly. Pancreas poorly visualized. Left mass cephalad to the left kidney measuring 6.7 X4.8X 4.8 cm corresponding to left adrenal mass. - IR (Dr. Dixon) consulted for biopsy, per Dr. Bonner recommendation to obtain biopsy. Dr. Owen has not evaluated the patient; will place NPO when scheduled) - CT Chest per report: increase reactive changes surrounding a mass at the left adrenal gland as well as the pancreatic body and tail and perirenal space. - CT head (03/07): mild age related diffuse cerebral atrophy is identified No acute intracranial findings by standard CT criteria - CEA, CA 19.9 are normal (03/05) - Cortisol 4.7 (03/07) - Follow-up on catecholamine and metanephrines labs: received - Follow-up on Renin and aldosterone labs: received Right Adrenal Mass - Hematology-oncology (Dr. Bonner) - IR (Dr. Dixon) consulted for biopsy, per Dr. Bonner recommendation to obtain biopsy. - NPO today pending biopsy with Dr. Owen (scheduled for Monday 03/12) - INR 1.4 today (down from 1.5 yesterday) - Vitamin K 10mg SubQ Daily - Follow-up repeat INR in AM of Monday 03/12 - CT Abdomen/Pelvis (03/05) Impression: - liver is diminutive in overall volume withy moderate to fair significant appearing back for nodular appearing surface contour consistent with hepatic cirrhosis. Extensive esophageal gastric, splenorenal upper, and mid abdominal varicies, portal hypertension. - Evidence of Retroperitoneal adenopahthy. - Small 2.1X1.6cm cm right adrenal mass. NOT consistent with adenoma. Large left adrenal mass measuring 5.34 X5.0cm - Abdominal/Bladder US report (03/05/18): cirrhotic liver, large left renal mass. Right adrenal lesion not identified sonographically. - On obstructive uropathy. Cholelithiasis. Splenomegaly. Pancreas poorly visualized Mediastinal lymphadenopathy - CT chest per radiology report: prominent mediastinal lymphadenopathy is appreciated without dominant pulmonary mass. small 3mm noncalcified nodule seen in right suprahilar space in right upper lobe. Liver Cirrhosis likely secondary to prolonged history of alcohol abuse - Patient is under the impression that his liver disease has improved, and reports he goes to [facility] for monitoring liver cirrhosis, but patient has not been to his physician for several years. - CT Abdomen/Pelvis (03/05/18): liver is diminutive in overall volume withy moderate to fair significant appearing back for nodular appearing surface contour consistent with hepatic cirrhosis. Extensive esophageal gastric, splenoral ranl upper, and mid abdominal varcies, portal hypertension. - Abdominal/Bladder US (03/05/18): cirrhotic liver, large left renal mass. Right adrenal lesion not identified sonographically. On obstructive uropathy. Cholelithiasis. Splenomegaly. Pancreas poorly visualized - Hepatitis panel: Negative - HIV Abs: negative - GI consulted, recommended outpatient EGD for variceal screening and colonoscopy for colon cancer screening as outpatient - Avoid NSAIDs, Zofran, Tylenol, Benzodiazepines, Benadryl to avoid further liver damage - Low dose Tylenol given for moderate pain - Encouraged continued cessation of alcohol consumption Cocaine abuse - UDS positive for cocaine on admission - Patient educated on risks for cardiac arrest and/or PR - Continue to encourage complete cessation of cocaine abuse History of tobacco use - Prior smoking use - 20 years ppd history - Encouraged complete cessation of tobacco products Patient was seen and evaluated with and case discussed in detail with Attending Physician, Dr. Danika Angulo PGY-1
[2018-03-10 09:43] LABS: INR 1.4; PROTHROMBIN TIME 15.3 SECONDS (9.7-12.2)
[2018-03-10] MEDS: Phytonadione 10 mg/ml Inj (Adult) SC SCH (10:31)
[2018-03-10] MEDS ORDERED: oxyCODONE 10 mg Immediate Release Tab PO PRN (12:20)
[2018-03-10] MEDS ORDERED: Phytonadione 10 mg/ml Inj (Adult) SC ONE (19:12)
--- NOTE | 2018-03-11 06:20 | CP.PCM.PN ---
<Rusty Angulo - Last Filed: 03/11/18 19:50> Subjective - Date & Time of Evaluation Date of Evaluation: 03/11/18 Time of Evaluation: 06:19 - Subjective Subjective: Rusty Angulo PGY-1 -- Medicine Progress note for Dr. Caballero Patient was seen and examined today at bedside. Patient reports continued pain that he rates as 20/10 in his right chest radiating to his right arm. Nurse reports no overnight events. Denies shortness of breath, abdominal pain, fever, chills, nausea, vomiting. Objective - Vital Signs/Intake and Output Vital Signs (last 24 hours): Temp Pulse Resp BP Pulse Ox 99.3 F 81 20 104/57 L 94 L 03/11/18 00:00 03/11/18 00:00 03/11/18 00:00 03/11/18 00:00 03/11/18 00:00 Intake and Output: 03/10/18 03/11/18 18:59 06:59 Intake Total 100 Balance 100 - Medications Medications: Current Medications Amlodipine Besylate (Norvasc) 5 mg PO DAILY [facility] Last Admin: 03/10/18 10:32 Dose: Not Given Metoclopramide HCl (Reglan) 5 mg IVP Q6H PRN PRN Reason: Nausea/Vomiting Last Admin: 03/09/18 09:37 Dose: 5 mg Morphine Sulfate (Morphine) 2 mg IVP Q4 PRN PRN Reason: Pain, severe (8-10) Last Admin: 03/10/18 22:18 Dose: 2 mg Oxycodone HCl (Oxycodone Immediate Release Tab) 5 mg PO Q4 PRN PRN Reason: Pain, moderate (4-7) Phytonadione (Vitamin K Tab) 5 mg PO DAILY [facility] Stop: 03/12/18 11:01 Last Admin: 03/10/18 11:42 Dose: 5 mg - Labs Labs: 03/10/18 06:22 03/10/18 06:22 PT 15.3 SECONDS (9.7-12.2) H 03/10/18 09:18 INR 1.4 03/10/18 09:18 APTT 33 SECONDS (21-34) 03/05/18 19:33 - Additional Findings Additional findings: - Additional Findings Additional findings: - Constitutional Appears: Non-toxic, No Acute Distress - Head Exam Head Exam: ATRAUMATIC, NORMOCEPHALIC - Eye Exam Eye Exam: EOMI, Normal appearance - ENT Exam ENT Exam: Mucous Membranes Moist, Normal Exam - Respiratory Exam Respiratory Exam: Clear to Ausculation Bilateral, NORMAL BREATHING PATTERN. absent: Rales, Rhonchi - Cardiovascular Exam Cardiovascular Exam: REGULAR RHYTHM, +S1, +S2. absent: Murmur, Rubs, Gallops - GI/Abdominal Exam GI & Abdominal Exam: Soft, Normal Bowel Sounds. absent: Tenderness - Extremities Exam Extremities Exam: Full ROM, Normal Capillary Refill Additional comments: bilateral pulses palpable (radial, PT) - Back Exam Back Exam: Positive CVA tenderness (L). absent: muscle spasm, rash noted Additional comments: no skin changes, erythema, edema - Neurological Exam Neurological Exam: Alert, Awake, Oriented x3 - Psychiatric Exam Psychiatric exam: Normal Affect, Normal Mood - Skin Skin Exam: Dry, Intact, Normal Color, Warm Assessment and Plan - Assessment and Plan (Free Text) Assessment: Assessment: 68yoM with past medical history of poor outpatient follow-up, liver cirrhosis, polysubstance abuse who was admitted for evaluation of bilateral adrenal mass ( with left greater than right) and mediastinal lymphadenopathy. Plan: Left-sided flank pain and nausea likely secondary to left adrenal mass rule out pheochromocytoma vs Conn's Syndrome - Abdominal/Bladder US per radiology report (03/05/18): cirrhotic liver, large left renal mass. Right adrenal lesion not identified sonographically. On obstructive uropathy. Cholelithiasis. Splenomegaly. Pancreas poorly visualized. Left mass cephalad to the left kidney measuring 6.7 X4.8X 4.8 cm corresponding to left adrenal mass. - IR (Dr. Dixon) consulted for biopsy, per Dr. Paulinoathingal recommendation to obtain biopsy. Will place NPO when scheduled. - CT Chest per report: increase reactive changes surrounding a mass at the left adrenal gland as well as the pancreatic body and tail and perirenal space. - CT head (03/07): mild age related diffuse cerebral atrophy is identified No acute intracranial findings by standard CT criteria - CEA, CA 19.9 are normal (03/05) - Cortisol 4.7 (03/07) - Follow-up on catecholamine and metanephrines labs: received - Follow-up on Renin and aldosterone labs: received - Toradol 15mg IVP for pain - Continue on Reglan 5mg IV Q6H PRN for nausea - Morphine 2mg IVP Q4 PRN for severe pain - Oxycodone 5mg PO Q4 PRN for moderate pain Right Adrenal Mass - Hematology-oncology (Dr. Bonner) - IR (Dr. Dixon) consulted for biopsy, per Dr. Bonner recommendation to obtain biopsy. - NPO past midnight pending biopsy with Dr. Owen (scheduled for Monday 03/12) - INR 1.4 today (down from 1.5 yesterday) - Vitamin K 10mg SubQ once - Vitamin K 5mg PO daily - Pending transfusion with FFP, scheduled for tonight - Follow-up repeat INR in AM of Monday 03/12 - CT Abdomen/Pelvis (03/05) Impression: - liver is diminutive in overall volume withy moderate to fair significant appearing back for nodular appearing surface contour consistent with hepatic cirrhosis. Extensive esophageal gastric, splenorenal upper, and mid abdominal varicies, portal hypertension. - Evidence of Retroperitoneal adenopahthy. - Small 2.1X1.6cm cm right adrenal mass. NOT consistent with adenoma. Large left adrenal mass measuring 5.34 X5.0cm - Abdominal/Bladder US report (03/05/18): cirrhotic liver, large left renal mass. Right adrenal lesion not identified sonographically. - On obstructive uropathy. Cholelithiasis. Splenomegaly. Pancreas poorly visualized Right-sided chest pain, rule-out WI - MAKENZIE panel ordered - Total Creatine kinase=48 - CKMB=8.03 - Troponin neg x1 - Stat EKG repeat: left atrial enlargement - ECHO: pending - Monitor Mediastinal lymphadenopathy - CT chest per radiology report: prominent mediastinal lymphadenopathy is appreciated without dominant pulmonary mass. small 3mm noncalcified nodule seen in right suprahilar space in right upper lobe. Liver Cirrhosis likely secondary to prolonged history of alcohol abuse - Patient is under the impression that his liver disease has improved, and reports he goes to [facility] for monitoring liver cirrhosis, but patient has not been to his physician for several years. - CT Abdomen/Pelvis (03/05/18): liver is diminutive in overall volume withy moderate to fair significant appearing back for nodular appearing surface contour consistent with hepatic cirrhosis. Extensive esophageal gastric, splenoral ranl upper, and mid abdominal varcies, portal hypertension. - Abdominal/Bladder US (03/05/18): cirrhotic liver, large left renal mass. Right adrenal lesion not identified sonographically. On obstructive uropathy. Cholelithiasis. Splenomegaly. Pancreas poorly visualized - Hepatitis panel: Negative - HIV Abs: negative - GI consulted, recommended outpatient EGD for variceal screening and colonoscopy for colon cancer screening as outpatient - Avoid NSAIDs, Zofran, Tylenol, Benzodiazepines, Benadryl to avoid further liver damage - Low dose Tylenol given for moderate pain - Encouraged continued cessation of alcohol consumption Cocaine abuse - UDS positive for cocaine on admission - Patient educated on risks for cardiac arrest and/or WI - Continue to encourage complete cessation of cocaine abuse History of tobacco use - Prior smoking use - 20 years ppd history - Encouraged complete cessation of tobacco products Patient was seen and evaluated with and case discussed in detail with Attending Physician, Dr. Federico Angulo PGY-1 <Sarah Caballero V - Last Filed: 03/11/18 22:31> Objective - Vital Signs/Intake and Output Vital Signs (last 24 hours): Temp Pulse Resp BP Pulse Ox 99.4 F 85 20 109/67 94 L 03/11/18 21:20 03/11/18 21:20 03/11/18 21:20 03/11/18 21:20 03/11/18 15:00 Intake and Output: 03/11/18 03/12/18 18:59 06:59 Intake Total 150 Balance 150 - Medications Medications: Current Medications Amlodipine Besylate (Norvasc) 5 mg PO DAILY [facility] Last Admin: 03/11/18 09:57 Dose: 5 mg Metoclopramide HCl (Reglan) 5 mg IVP Q6H PRN PRN Reason: Nausea/Vomiting Last Admin: 03/11/18 19:58 Dose: 5 mg Morphine Sulfate (Morphine) 2 mg IVP Q4 PRN PRN Reason: Pain, severe (8-10) Last Admin: 03/11/18 19:55 Dose: 2 mg Oxycodone HCl (Oxycodone Immediate Release Tab) 5 mg PO Q4 PRN PRN Reason: Pain, moderate (4-7) Phytonadione (Vitamin K Tab) 5 mg PO DAILY COY Stop: 03/12/18 11:01 Last Admin: 03/11/18 10:01 Dose: 5 mg - Labs Labs: 03/11/18 06:35 03/11/18 06:35 PT 15.5 SECONDS (9.7-12.2) H 03/11/18 06:35 INR 1.4 03/11/18 06:35 APTT 33 SECONDS (21-34) 03/05/18 19:33 Assessment and Plan (1) Mediastinal lymphadenopathy Status: Acute (2) Left adrenal mass Status: Acute (3) Adrenal mass, right Status: Acute (4) Portal hypertension Status: Chronic (5) Nausea Status: Acute (6) Tobacco use Status: Acute (7) Alcohol use Status: Acute (8) Liver cirrhosis Status: Chronic (9) Cocaine abuse Status: Acute (10) Prophylactic measure Status: Acute Attending/Attestation - Attestation I have personally seen and examined this patient.: Yes I have fully participated in the care of the patient.: Yes I have reviewed all pertinent clinical information, including history, physical exam and plan: Yes Notes (Text): patient seen, examined and case discussed with medical staff manager. Patient noted for muscoskeletal chest pain, tender to palpation over the right pec muscle. Chest xray no acute change. EKG no acute change. Troponin negative. Given one time dose of Toradol to reduce inflammation. Ordered echocardiogram to check EF. INR has not improved inspite of Vitamin K. Patient ordered for Vitamin 10mg subqX1. Resident to discuss risks and benefits of FFP prior to transfusion tonight. IR is requesting INR to be 1.0 prior to attempt to adrenal biopsy. Will make NPO tonight for possible biopsy attempt tomorrow. urinary metanephrine pending cancer markers within normal Assessment and Plan (1) Mediastinal lymphadenopathy Assessment & Plan: * CT Chest: prominent mediastinal lymphadenopathy is appreciated without dominant pulmonary mass. small 3mm noncalcified nodule seen in right suprahilar space in right upper lobe. Status: Acute (2) Left adrenal mass Assessment & Plan: * Abdominal/Bladder US (03/05/18): cirrhotic liver, large left renal mass. Right adrenal lesion not identified sonographically. On obstructive uropathy. Cholelithiasis. Splenomegaly. Pancreas poorly visualized. Left mass cephalad to the left kidney measuring 6.7 X4.8X 4.8 cm corresponding to left adrenal mass. * CT Chest: increase reactive changes surrounding a mass at the left adrenal gland as well as the pancreatic body and tail and perirenal space. * CT head (03/07/18): mild age related diffuse cerebral atrophy is identifed. No acute intracranial findings by standard CT criteria. * CEA, CA 19.9 are normal. * elevated protein and globuli * pending urinary workup for hormon * pending aldosterone and renin plasma to calculate ratio given consideration for conn syndrome * Pending IR biopsy of adrenal * INR must be 1.0 given bleeding risk due to liver cirrhosis Status: Acute (3) Adrenal mass, right Assessment & Plan: * Hematology-oncology (Dr. Bonner) on case-->help appreciated * CT Abdomen/Pelvis (03/05/18): liver is diminutive in overall volume withy moderate to fair significant appearing back for nodular appearing surface contour consistent with hepatic cirrhosis. Extensive esophageal gastric, splenoral ranl upper, and mid abdominal varcies, portal hypertension. * Evidence of Retroperitoneal adenopahthy. * Small 2.1 X1.6cm cm right adrenal mass. NOT consistent with adenoma. Large left adrenal mass measuring 5.34 X5.0cm * Abdominal/Bladder US (03/05/18): cirrhotic liver, large left renal mass. Right adrenal lesion not identified sonographically. On obstructive uropathy. Cholelithiasis. Splenomegaly. Pancreas poorly visualized * Pending IR biopsy of adrenal * INR must be 1.0 given bleeding risk due to liver cirrhosis Status: Acute (4) Portal hypertension Assessment & Plan: * CT Abdomen/Pelvis (03/05/18): liver is diminutive in overall volume withy moderate to fair significant appearing back for nodular appearing surface contour consistent with hepatic cirrhosis. Extensive esophageal gastric, splenoral ranl upper, and mid abdominal varcies, portal hypertension. Status: Chronic (5) Nausea Assessment & Plan: * Reglan PRN Status: Acute (6) Tobacco use Assessment & Plan: * Prior smoking use * 20 years ppd history Status: Acute (7) Alcohol use Assessment & Plan: * stopped but using to be heavy drinker Status: Acute (8) Liver cirrhosis Assessment & Plan: * CT Abdomen/Pelvis (03/05/18): liver is diminutive in overall volume withy moderate to fair significant appearing back for nodular appearing surface contour consistent with hepatic cirrhosis. Extensive esophageal gastric, splenoral ranl upper, and mid abdominal varcies, portal hypertension. * Patient reports he goes to [facility] for monitoring liver problem; last visit was 5 years ago * Abdominal/Bladder US (03/05/18): cirrhotic liver, large left renal mass. Right adrenal lesion not identified sonographically. On obstructive uropathy. Cholelithiasis. Splenomegaly. Pancreas poorly visualized * negative hepatitis * negative HIV * From GI: * Patient would benefit from elective outpatient EGD (variceal screening) and colonoscopy (age appropriate colon cancer screening) as outpatient Status: Chronic (9) Cocaine abuse Assessment & Plan: * advised to stop given risk including WI/cardiac arrest Status: Acute (10) Prophylactic measure Status: Acute * Thrombocytopenia * improving * FFP 1 unit tonight; Vitamin K given daily to reduce bleeding risk Disposition: pending INR to 1.0 for IR to perform adrenal biopsy. patient to be given 1 unit of FFP tonight and is on vitamin K.
[2018-03-11 06:49] LABS: BASO % 0.2 % (0.0-2.0); EOS # 0.1 K/uL (0.0-0.7); HEMOGLOBIN 12.5 g/dL (12.0-18.0); LYMPH # 1.6 K/uL (1.0-4.3); LYMPH % 22.6 % (20.0-40.0); MEAN CELL VOLUME 87.4 fL (80.0-94.0); MEAN CORPUSCULAR HEMOGLOBIN 31.1 pg (27.0-31.0); MEAN CORPUSCULAR HGB CONC 35.6 g/dL (33.0-37.0); NEUT # 4.4 K/uL (1.8-7.0); NEUT % 62.2 % (50.0-75.0); RBC 4.03 Mil/uL (4.40-5.90); RED CELL DISTRIBUTION WIDTH 13.6 % (11.5-14.5)
[2018-03-11 06:52] LABS: INR 1.4; PROTHROMBIN TIME 15.5 SECONDS (9.7-12.2)
[2018-03-11 07:36] LABS: ALB/GLOB RATIO 0.7 (1.0-2.1); ALBUMIN 3.6 g/dL (3.5-5.0); ALT/SGPT 21 U/L (21-72); AST/SGOT 44 U/L (17-59); BLOOD UREA NITROGEN 18 mg/dL (9-20); CALCIUM 8.5 mg/dl (8.6-10.4); GFR NON-AFRICAN AMERICAN > 60
[2018-03-11] MEDS ORDERED: Phytonadione 10 mg/ml Inj (Adult) SC STA (10:47)
[2018-03-11 12:32] LABS: CK-MB 8.03 ng/mL (0.0-3.38)
--- NOTE | 2018-03-11 12:41 | RAD ---
Date of service: 03/11/2018 HISTORY: chest pain COMPARISON: CT chest dated 03/07/2018. FINDINGS: LUNGS: Left basilar atelectasis/scarring. No focal consolidation. PLEURA: No significant pleural effusion identified, no pneumothorax apparent. CARDIOVASCULAR: Atherosclerotic aortic calcifications. Cardiomediastinal silhouette stably enlarged. OSSEOUS STRUCTURES: Unchanged. VISUALIZED UPPER ABDOMEN: Normal. OTHER FINDINGS: Bulky prominence of the right paratracheal stripe. IMPRESSION: Bulky prominence of the right paratracheal stripe consistent with known mediastinal adenopathy. Left basilar atelectasis/scarring. No focal consolidation or pleural effusion.
[2018-03-12 07:18] LABS: INR 1.3; PROTHROMBIN TIME 14.5 SECONDS (9.7-12.2)
[2018-03-12 07:30] LABS: ALB/GLOB RATIO 0.8 (1.0-2.1); ALBUMIN 3.5 g/dL (3.5-5.0); ALT/SGPT 30 U/L (21-72); AST/SGOT 52 U/L (17-59); BLOOD UREA NITROGEN 12 mg/dL (9-20); CALCIUM 8.3 mg/dl (8.6-10.4); GFR NON-AFRICAN AMERICAN > 60
[2018-03-12 07:35] LABS: BASO % 0.2 % (0.0-2.0); EOS # 0.1 K/uL (0.0-0.7); EOS % 2.2 % (0.0-4.0); HEMOGLOBIN 11.4 g/dL (12.0-18.0); LYMPH # 1.1 K/uL (1.0-4.3); MEAN CELL VOLUME 87.7 fL (80.0-94.0); MEAN CORPUSCULAR HEMOGLOBIN 31.5 pg (27.0-31.0); MEAN PLATELET VOLUME 8.3 fL (7.2-11.7); MONO # 0.8 K/uL (0.0-0.8); MONO % 16.1 % (0.0-10.0); NEUT # 2.9 K/uL (1.8-7.0); NEUT % 59.5 % (50.0-75.0); NRBC % 0.9 % (0.0-2.0); RBC 3.6 Mil/uL (4.40-5.90); RED CELL DISTRIBUTION WIDTH 13.5 % (11.5-14.5)
[2018-03-12 10:06] LABS: ALDO/PRA RATIO 5.3 Ratio (0.9-28.9)
[2018-03-12] MEDS: guaiFENesin 600 mg ER Tab PO SCH (17:54)
--- NOTE | 2018-03-12 19:25 | CP.PCM.PN ---
<Rusty Angulo - Last Filed: 03/12/18 19:14> Subjective - Date & Time of Evaluation Date of Evaluation: 03/12/18 Time of Evaluation: 19:14 - Subjective Subjective: Rusty Angulo PGY-1 -- Medicine Progress note for Dr. Caballero Patient was seen and examined today at bedside. Patient reports continued pain that he rates as 6/10 in his left flank. Nurse reports no overnight events. Denies shortness of breath, abdominal pain, fever, chills, nausea, vomiting. Patient received 2 Units FFP overnight, and it was well tolerated by patient. Objective - Vital Signs/Intake and Output Vital Signs (last 24 hours): Temp Pulse Resp BP Pulse Ox 98.3 F 88 20 124/79 96 03/12/18 16:00 03/12/18 16:00 03/12/18 16:00 03/12/18 16:00 03/12/18 16:00 Intake and Output: 03/12/18 03/13/18 18:59 06:59 Intake Total 462 Balance 462 - Medications Medications: Current Medications Amlodipine Besylate (Norvasc) 5 mg PO DAILY [facility] Last Admin: 03/12/18 10:52 Dose: 5 mg Guaifenesin (Mucinex La) 600 mg PO BID [facility] Last Admin: 03/12/18 17:54 Dose: 600 mg Metoclopramide HCl (Reglan) 5 mg IVP Q6H PRN PRN Reason: Nausea/Vomiting Last Admin: 03/11/18 19:58 Dose: 5 mg Morphine Sulfate (Morphine) 2 mg IVP Q4 PRN PRN Reason: Pain, severe (8-10) Last Admin: 03/12/18 19:10 Dose: 2 mg Oxycodone HCl (Oxycodone Immediate Release Tab) 5 mg PO Q4 PRN PRN Reason: Pain, moderate (4-7) Phytonadione (Vitamin K Inj) 10 mg PO DAILY [facility] Stop: 03/15/18 10:01 - Labs Labs: 03/12/18 06:48 03/12/18 06:48 PT 14.5 SECONDS (9.7-12.2) H 03/12/18 06:48 INR 1.3 03/12/18 06:48 APTT 33 SECONDS (21-34) 03/05/18 19:33 - Additional Findings Additional findings: - Constitutional Appears: Non-toxic, No Acute Distress - Head Exam Head Exam: ATRAUMATIC, NORMOCEPHALIC - Eye Exam Eye Exam: EOMI, Normal appearance - ENT Exam ENT Exam: Mucous Membranes Moist, Normal Exam - Respiratory Exam Respiratory Exam: Clear to Ausculation Bilateral, NORMAL BREATHING PATTERN. absent: Rales, Rhonchi - Cardiovascular Exam Cardiovascular Exam: REGULAR RHYTHM, +S1, +S2. absent: Murmur, Rubs, Gallops - GI/Abdominal Exam GI & Abdominal Exam: Soft, Normal Bowel Sounds. absent: Tenderness - Extremities Exam Extremities Exam: Full ROM, Normal Capillary Refill Additional comments: bilateral pulses palpable (radial, PT) - Back Exam Back Exam: Positive CVA tenderness (L). absent: muscle spasm, rash noted Additional comments: no skin changes, erythema, edema - Neurological Exam Neurological Exam: Alert, Awake, Oriented x3 - Psychiatric Exam Psychiatric exam: Normal Affect, Normal Mood - Skin Skin Exam: Dry, Intact, Normal Color, Warm Assessment and Plan - Assessment and Plan (Free Text) Assessment: 68yoM with past medical history of poor outpatient follow-up, liver cirrhosis, polysubstance abuse who was admitted for evaluation of bilateral adrenal mass ( with left greater than right) and mediastinal lymphadenopathy. Left-sided flank pain and nausea likely secondary to left adrenal mass rule out pheochromocytoma vs Conn's Syndrome - Abdominal/Bladder US per radiology report (03/05/18): cirrhotic liver, large left renal mass. Right adrenal lesion not identified sonographically. On obstructive uropathy. Cholelithiasis. Splenomegaly. Pancreas poorly visualized. Left mass cephalad to the left kidney measuring 6.7 X4.8X 4.8 cm corresponding to left adrenal mass. - IR (Dr. Dixon) consulted for biopsy, per Dr. Bonner recommendation to obtain biopsy. Will place NPO when scheduled. - CT Chest per report: increase reactive changes surrounding a mass at the left adrenal gland as well as the pancreatic body and tail and perirenal space. - CT head (03/07): mild age related diffuse cerebral atrophy is identified No acute intracranial findings by standard CT criteria - CEA, CA 19.9 are normal (03/05) - Cortisol 4.7 (03/07) - Follow-up on catecholamine and metanephrines labs: received - Renin and aldosterone ratio was low --> unlikely primary aldosteronism - Toradol 15mg IVP once for pain - Reglan 5mg IV Q6H PRN for nausea - Morphine 2mg IVP Q4 PRN for severe pain - Oxycodone 5mg PO Q4 PRN for moderate pain Right Adrenal Mass - Hematology-oncology (Dr. Bonner) - IR (Dr. Dixon) consulted for biopsy, per Dr. Bonner recommendation to obtain biopsy once INR=1.0 - INR 1.3 today status post transfusion of 2 units FFP on 03/11- - Follow-up repeat INR in AM daily - Vitamin K 10mg PO - Pending transfusion with FFP, scheduled for Thursday03/15/18 - Per Dr. Owen, patient is scheduled for biopsy on Thursday03/16/18 - CT Abdomen/Pelvis (03/05) Impression: - liver is diminutive in overall volume withy moderate to fair significant appearing back for nodular appearing surface contour consistent with hepatic cirrhosis. Extensive esophageal gastric, splenorenal upper, and mid abdominal varicies, portal hypertension. - Evidence of Retroperitoneal adenopahthy. - Small 2.1X1.6cm cm right adrenal mass. NOT consistent with adenoma. Large left adrenal mass measuring 5.34 X5.0cm - Abdominal/Bladder US report (03/05/18): cirrhotic liver, large left renal mass. Right adrenal lesion not identified sonographically. - On obstructive uropathy. Cholelithiasis. Splenomegaly. Pancreas poorly visualized Right-sided chest pain, rule-out LA - MAKENZIE panel ordered on 03/11 - Troponin negative x1 - Total Creatine kinase=48 - CKMB=8.03 - Stat EKG repeat: left atrial enlargement - ECHO obtained: pending read - Monitor Mediastinal lymphadenopathy - CT chest per radiology report: prominent mediastinal lymphadenopathy is appreciated without dominant pulmonary mass. small 3mm noncalcified nodule seen in right suprahilar space in right upper lobe. Liver Cirrhosis likely secondary to prolonged history of alcohol abuse - Patient is under the impression that his liver disease has improved, and reports he goes to [facility] for monitoring liver cirrhosis, but patient has not been to his physician for several years. Discussed with patient regarding his findings. Patient states he understands. - CT Abdomen/Pelvis (03/05/18): liver is diminutive in overall volume withy moderate to fair significant appearing back for nodular appearing surface contour consistent with hepatic cirrhosis. Extensive esophageal gastric, splenoral ranl upper, and mid abdominal varcies, portal hypertension. - Abdominal/Bladder US (03/05/18): cirrhotic liver, large left renal mass. Right adrenal lesion not identified sonographically. On obstructive uropathy. Cholelithiasis. Splenomegaly. Pancreas poorly visualized - Hepatitis panel: Negative - HIV Abs: negative - GI consulted, recommended outpatient EGD for variceal screening and colonoscopy for colon cancer screening as outpatient - Avoid NSAIDs, Zofran, Tylenol, Benzodiazepines, Benadryl to avoid further liver damage - Low dose Tylenol given for moderate pain - Encouraged continued cessation of alcohol consumption Cocaine abuse - UDS positive for cocaine on admission - Patient educated on risks for cardiac arrest and/or LA - Continue to encourage complete cessation of cocaine abuse History of tobacco use - Prior smoking use - 20 years ppd history - Encouraged complete cessation of tobacco products Patient was seen and evaluated with and case discussed in detail with Attending Physician, Dr. Federico Angulo PGY-1 <Sarah Caballero V - Last Filed: 03/13/18 18:34> Objective - Vital Signs/Intake and Output Vital Signs (last 24 hours): Temp Pulse Resp BP Pulse Ox 98.3 F 88 20 124/79 96 03/12/18 16:00 03/12/18 16:00 03/12/18 16:00 03/12/18 16:00 03/12/18 16:00 Intake and Output: 03/12/18 03/13/18 18:59 06:59 Intake Total 462 Balance 462 - Medications Medications: Current Medications Amlodipine Besylate (Norvasc) 5 mg PO DAILY [facility] Last Admin: 03/12/18 10:52 Dose: 5 mg Guaifenesin (Mucinex La) 600 mg PO BID [facility] Last Admin: 03/12/18 17:54 Dose: 600 mg Metoclopramide HCl (Reglan) 5 mg IVP Q6H PRN PRN Reason: Nausea/Vomiting Last Admin: 03/11/18 19:58 Dose: 5 mg Morphine Sulfate (Morphine) 2 mg IVP Q4 PRN PRN Reason: Pain, severe (8-10) Last Admin: 03/12/18 19:10 Dose: 2 mg Oxycodone HCl (Oxycodone Immediate Release Tab) 5 mg PO Q4 PRN PRN Reason: Pain, moderate (4-7) Phytonadione (Vitamin K Inj) 10 mg PO DAILY [facility] Stop: 03/15/18 10:01 - Labs Labs: 03/12/18 06:48 03/12/18 06:48 PT 14.5 SECONDS (9.7-12.2) H 03/12/18 06:48 INR 1.3 03/12/18 06:48 APTT 33 SECONDS (21-34) 03/05/18 19:33 Assessment and Plan (1) Mediastinal lymphadenopathy Status: Acute (2) Left adrenal mass Status: Acute (3) Adrenal mass, right Status: Acute (4) Portal hypertension Status: Chronic (5) Nausea Status: Acute (6) Tobacco use Status: Acute (7) Alcohol use Status: Acute (8) Liver cirrhosis Status: Chronic (9) Cocaine abuse Status: Acute (10) Prophylactic measure Status: Acute Attending/Attestation - Attestation I have personally seen and examined this patient.: Yes I have fully participated in the care of the patient.: Yes I have reviewed all pertinent clinical information, including history, physical exam and plan: Yes Notes (Text): Patient seen, examined and case discussed with medical office assistant instructor. Patient noted for muscoskeletal chest pain, INR has not improved inspite of Vitamin K and 2 units of FFP. IR unable to perform biopsy secondary to elevated INR. Discussed with heme-oncology, will reattempt to bring INR down for Thursday to achieve adrenal biopsy result given upcoming iday . urinary metanephrine pending cancer markers within normal aldosterone/renin ratio normal. Assessment and Plan (1) Mediastinal lymphadenopathy Assessment & Plan: * CT Chest: prominent mediastinal lymphadenopathy is appreciated without dominant pulmonary mass. small 3mm noncalcified nodule seen in right suprahilar space in right upper lobe. Status: Acute (2) Left adrenal mass Assessment & Plan: * Abdominal/Bladder US (03/05/18): cirrhotic liver, large left renal mass. Right adrenal lesion not identified sonographically. On obstructive uropathy. Cholelithiasis. Splenomegaly. Pancreas poorly visualized. Left mass cephalad to the left kidney measuring 6.7 X4.8X 4.8 cm corresponding to left adrenal mass. * CT Chest: increase reactive changes surrounding a mass at the left adrenal gland as well as the pancreatic body and tail and perirenal space. * CT head (03/07/18): mild age related diffuse cerebral atrophy is identifed. No acute intracranial findings by standard CT criteria. * CEA, CA 19.9 are normal. * elevated protein and globuli * pending urinary workup for hormon * Normal aldosterone-renin normal * Pending IR biopsy of adrenal * INR must be 1.0 given bleeding risk due to liver cirrhosis; unable today given INR 1.3 Status: Acute (3) Adrenal mass, right Assessment & Plan: * Hematology-oncology (Dr. Bonner) on case-->help appreciated * CT Abdomen/Pelvis (03/05/18): liver is diminutive in overall volume withy moderate to fair significant appearing back for nodular appearing surface contour consistent with hepatic cirrhosis. Extensive esophageal gastric, splenoral ranl upper, and mid abdominal varcies, portal hypertension. * Evidence of Retroperitoneal adenopahthy. * Small 2.1 X1.6cm cm right adrenal mass. NOT consistent with adenoma. Large left adrenal mass measuring 5.34 X5.0cm * Abdominal/Bladder US (03/05/18): cirrhotic liver, large left renal mass. Right adrenal lesion not identified sonographically. On obstructive uropathy. Cholelithiasis. Splenomegaly. Pancreas poorly visualized * Pending IR biopsy of adrenal * INR must be 1.0 given bleeding risk due to liver cirrhosis; unable today given INR 1.3 Status: Acute (4) Portal hypertension Assessment & Plan: * CT Abdomen/Pelvis (03/05/18): liver is diminutive in overall volume withy moderate to fair significant appearing back for nodular appearing surface contour consistent with hepatic cirrhosis. Extensive esophageal gastric, splenoral ranl upper, and mid abdominal varcies, portal hypertension. Status: Chronic (5) Nausea Assessment & Plan: * Reglan PRN Status: Acute (6) Tobacco use Assessment & Plan: * Prior smoking use * 20 years ppd history Status: Acute (7) Alcohol use Assessment & Plan: * stopped but using to be heavy drinker Status: Acute (8) Liver cirrhosis Assessment & Plan: * CT Abdomen/Pelvis (03/05/18): liver is diminutive in overall volume withy moderate to fair significant appearing back for nodular appearing surface contour consistent with hepatic cirrhosis. Extensive esophageal gastric, splenoral ranl upper, and mid abdominal varcies, portal hypertension. * Patient reports he goes to [facility] for monitoring liver problem; last visit was 5 years ago * Abdominal/Bladder US (03/05/18): cirrhotic liver, large left renal mass. Right adrenal lesion not identified sonographically. On obstructive uropathy. Cholelithiasis. Splenomegaly. Pancreas poorly visualized * negative hepatitis * negative HIV * From GI: * Patient would benefit from elective outpatient EGD (variceal screening) and colonoscopy (age appropriate colon cancer screening) as outpatient Status: Chronic (9) Cocaine abuse Assessment & Plan: * advised to stop given risk including LA/cardiac arrest Status: Acute (10) Prophylactic measure Status: Acute * Thrombocytopenia * improving Disposition: pending INR to 1.0 for IR to perform adrenal biopsy; reattempt for Thursday by IR given holiday weekend.
--- NOTE | 2018-03-12 19:50 | CARD ---
APPROVED REPORT Date of service: 03/11/2018 EKG Measurement Heart [id number] <Conclusion> Normal sinus rhythm Possible Left atrial enlargement Borderline ECG
[2018-03-13 07:31] LABS: BASO % 0.2 % (0.0-2.0); EOS # 0.1 K/uL (0.0-0.7); EOS % 1.6 % (0.0-4.0); HEMOGLOBIN 11.5 g/dL (12.0-18.0); LYMPH # 1.2 K/uL (1.0-4.3); LYMPH % 21.3 % (20.0-40.0); MEAN CELL VOLUME 87.7 fL (80.0-94.0); MEAN CORPUSCULAR HEMOGLOBIN 31.2 pg (27.0-31.0); MEAN CORPUSCULAR HGB CONC 35.6 g/dL (33.0-37.0); MEAN PLATELET VOLUME 8.2 fL (7.2-11.7); MONO # 0.9 K/uL (0.0-0.8); MONO % 15.7 % (0.0-10.0); NEUT # 3.4 K/uL (1.8-7.0); NEUT % 61.2 % (50.0-75.0); NRBC % 0.4 % (0.0-2.0); RBC 3.69 Mil/uL (4.40-5.90); RED CELL DISTRIBUTION WIDTH 13.7 % (11.5-14.5); WHITE BLOOD COUNT 5.5 K/uL (4.8-10.8)
[2018-03-13 07:46] LABS: ALB/GLOB RATIO 0.7 (1.0-2.1); ALBUMIN 3.5 g/dL (3.5-5.0); ALT/SGPT 28 U/L (21-72); AST/SGOT 42 U/L (17-59); BLOOD UREA NITROGEN 13 mg/dL (9-20); CALCIUM 8.3 mg/dl (8.6-10.4); GFR NON-AFRICAN AMERICAN > 60
[2018-03-13] MEDS ORDERED: Phytonadione 10 mg/ml Inj (Adult) PO SCH (10:00)
[2018-03-13] MEDS: guaiFENesin 600 mg ER Tab PO SCH ×2 (10:02→17:24)
[2018-03-13 17:33] LABS: INR 1.4; PROTHROMBIN TIME 15.1 SECONDS (9.7-12.2)
--- NOTE | 2018-03-13 18:37 | CP.PCM.PN ---
Subjective - Date & Time of Evaluation Date of Evaluation: 03/13/18 Time of Evaluation: 11:30 - Subjective Subjective: Medical Attending Note: Patient seen and examined at bedside. Patient denies headache, reports right side pectoralis pain has improved, denies cough, denies nausea, reports back pain, reports has constipation, denies urinary complaints. Objective - Vital Signs/Intake and Output Vital Signs (last 24 hours): Temp Pulse Resp BP Pulse Ox 98.3 F 79 20 104/64 96 03/13/18 16:00 03/13/18 16:00 03/13/18 16:00 03/13/18 16:00 03/13/18 16:00 - Medications Medications: Current Medications Amlodipine Besylate (Norvasc) 5 mg PO DAILY [facility] Last Admin: 03/13/18 10:03 Dose: 5 mg Docusate Sodium (Colace) 100 mg PO BID [facility] Last Admin: 03/13/18 17:24 Dose: 100 mg Guaifenesin (Mucinex La) 600 mg PO BID [facility] Last Admin: 03/13/18 17:24 Dose: 600 mg Metoclopramide HCl (Reglan) 5 mg IVP Q6H PRN PRN Reason: Nausea/Vomiting Last Admin: 03/11/18 19:58 Dose: 5 mg Morphine Sulfate (Morphine) 2 mg IVP Q4 PRN PRN Reason: Pain, severe (8-10) Last Admin: 03/13/18 08:43 Dose: 2 mg Oxycodone HCl (Oxycodone Immediate Release Tab) 5 mg PO Q4 PRN PRN Reason: Pain, moderate (4-7) Phytonadione (Vitamin K Tab) 10 mg PO DAILY [facility] Stop: 03/15/18 10:01 Last Admin: 03/13/18 17:24 Dose: 10 mg - Labs Labs: 03/13/18 07:09 03/13/18 07:09 PT 15.1 SECONDS (9.7-12.2) H 03/13/18 17:19 INR 1.4 03/13/18 17:19 APTT 33 SECONDS (21-34) 03/05/18 19:33 - Constitutional Appears: Non-toxic, No Acute Distress - Head Exam Head Exam: NORMAL INSPECTION - Eye Exam Eye Exam: EOMI - ENT Exam ENT Exam: Mucous Membranes Moist - Respiratory Exam Respiratory Exam: Clear to Ausculation Bilateral, NORMAL BREATHING PATTERN. absent: Rales, Rhonchi, Wheezes - Cardiovascular Exam Cardiovascular Exam: REGULAR RHYTHM, +S1, +S2 - GI/Abdominal Exam GI & Abdominal Exam: Soft, Normal Bowel Sounds. absent: Distended, Firm, Guarding, Rigid, Tenderness, Rebound - Extremities Exam Extremities Exam: absent: Pedal Edema, Tenderness - Back Exam Back Exam: paraspinal tenderness. absent: CVA tenderness (L), CVA tenderness (R ), muscle spasm, rash noted, tenderness - Neurological Exam Neurological Exam: Alert, Awake, Oriented x3 - Psychiatric Exam Psychiatric exam: Normal Affect, Normal Mood - Skin Skin Exam: Dry, Intact, Normal Color, Warm Assessment and Plan (1) Mediastinal lymphadenopathy Status: Acute (2) Left adrenal mass Status: Acute (3) Adrenal mass, right Status: Acute (4) Portal hypertension Status: Chronic (5) Nausea Status: Acute (6) Tobacco use Status: Acute (7) Alcohol use Status: Acute (8) Liver cirrhosis Status: Chronic (9) Cocaine abuse Status: Acute (10) Prophylactic measure Status: Acute Attending/Attestation - Attestation I have personally seen and examined this patient.: Yes I have fully participated in the care of the patient.: Yes I have reviewed all pertinent clinical information, including history, physical exam and plan: Yes Notes (Text): Patient seen, examined and case discussed with medical planner. Patient noted for muscoskeletal chest pain, which has improved IR unable to perform biopsy secondary to elevated INR. Patient scheduled to get daily Vitamin K. We will need to refrain from given tylenol, NSAID, benzo, and benadryl given liver function. Urinary metanephrine pending cancer markers within normal aldosterone/renin ratio normal. Assessment and Plan (1) Mediastinal lymphadenopathy Assessment & Plan: * CT Chest: prominent mediastinal lymphadenopathy is appreciated without dominant pulmonary mass. small 3mm noncalcified nodule seen in right suprahilar space in right upper lobe. Status: Acute (2) Left adrenal mass Assessment & Plan: * Abdominal/Bladder US (03/05/18): cirrhotic liver, large left renal mass. Right adrenal lesion not identified sonographically. On obstructive uropathy. Cholelithiasis. Splenomegaly. Pancreas poorly visualized. Left mass cephalad to the left kidney measuring 6.7 X4.8X 4.8 cm corresponding to left adrenal mass. * CT Chest: increase reactive changes surrounding a mass at the left adrenal gland as well as the pancreatic body and tail and perirenal space. * CT head (03/07/18): mild age related diffuse cerebral atrophy is identifed. No acute intracranial findings by standard CT criteria. * CEA, CA 19.9 are normal. * elevated protein and globuli * pending urinary workup for hormon * Normal aldosterone-renin normal * Pending IR biopsy of adrenal * INR must be 1.0 given bleeding risk due to liver cirrhosis; unable today given INR 1.3 Status: Acute (3) Adrenal mass, right Assessment & Plan: * Hematology-oncology (Dr. Bonner) on case-->help appreciated * CT Abdomen/Pelvis (03/05/18): liver is diminutive in overall volume withy moderate to fair significant appearing back for nodular appearing surface contour consistent with hepatic cirrhosis. Extensive esophageal gastric, splenoral ranl upper, and mid abdominal varcies, portal hypertension. * Evidence of Retroperitoneal adenopahthy. * Small 2.1 X1.6cm cm right adrenal mass. NOT consistent with adenoma. Large left adrenal mass measuring 5.34 X5.0cm * Abdominal/Bladder US (03/05/18): cirrhotic liver, large left renal mass. Right adrenal lesion not identified sonographically. On obstructive uropathy. Cholelithiasis. Splenomegaly. Pancreas poorly visualized * Pending IR biopsy of adrenal * INR must be 1.0 given bleeding risk due to liver cirrhosis; unable given INR 1.3 Status: Acute (4) Portal hypertension Assessment & Plan: * CT Abdomen/Pelvis (03/05/18): liver is diminutive in overall volume withy moderate to fair significant appearing back for nodular appearing surface contour consistent with hepatic cirrhosis. Extensive esophageal gastric, splenoral ranl upper, and mid abdominal varcies, portal hypertension. Status: Chronic (5) Nausea Assessment & Plan: * Reglan PRN Status: Acute (6) Tobacco use Assessment & Plan: * Prior smoking use * 20 years ppd history Status: Acute (7) Alcohol use Assessment & Plan: * stopped but using to be heavy drinker Status: Acute (8) Liver cirrhosis Assessment & Plan: * CT Abdomen/Pelvis (03/05/18): liver is diminutive in overall volume withy moderate to fair significant appearing back for nodular appearing surface contour consistent with hepatic cirrhosis. Extensive esophageal gastric, splenoral ranl upper, and mid abdominal varcies, portal hypertension. * Patient reports he goes to [facility] for monitoring liver problem; last visit was 5 years ago * Abdominal/Bladder US (03/05/18): cirrhotic liver, large left renal mass. Right adrenal lesion not identified sonographically. On obstructive uropathy. Cholelithiasis. Splenomegaly. Pancreas poorly visualized * negative hepatitis * negative HIV * From GI: * Patient would benefit from elective outpatient EGD (variceal screening) and colonoscopy (age appropriate colon cancer screening) as outpatient Status: Chronic (9) Cocaine abuse Assessment & Plan: * advised to stop given risk including [place]/cardiac arrest Status: Acute (10) Prophylactic measure Status: Acute * Thrombocytopenia * improving Disposition: pending INR to 1.0 for IR to perform adrenal biopsy; reattempt for Thursday by IR given holiday weekend.
[2018-03-14 08:25] LABS: BASO % 0.2 % (0.0-2.0); EOS # 0.1 K/uL (0.0-0.7); EOS % 2.4 % (0.0-4.0); HEMOGLOBIN 11.5 g/dL (12.0-18.0); LYMPH # 1.2 K/uL (1.0-4.3); LYMPH % 21.5 % (20.0-40.0); MEAN CELL VOLUME 88.2 fL (80.0-94.0); MEAN CORPUSCULAR HEMOGLOBIN 31.3 pg (27.0-31.0); MEAN CORPUSCULAR HGB CONC 35.5 g/dL (33.0-37.0); MEAN PLATELET VOLUME 8.3 fL (7.2-11.7); MONO # 0.9 K/uL (0.0-0.8); MONO % 16.3 % (0.0-10.0); NEUT # 3.4 K/uL (1.8-7.0); NEUT % 59.6 % (50.0-75.0); NRBC % 0.1 % (0.0-2.0); RBC 3.67 Mil/uL (4.40-5.90); RED CELL DISTRIBUTION WIDTH 13.4 % (11.5-14.5); WHITE BLOOD COUNT 5.8 K/uL (4.8-10.8)
[2018-03-14 09:09] LABS: ALB/GLOB RATIO 0.7 (1.0-2.1); ALBUMIN 3.3 g/dL (3.5-5.0); ALT/SGPT 27 U/L (21-72); AST/SGOT 45 U/L (17-59); BLOOD UREA NITROGEN 12 mg/dL (9-20); CALCIUM 8.5 mg/dl (8.6-10.4); GFR NON-AFRICAN AMERICAN > 60
[2018-03-14] MEDS: guaiFENesin 600 mg ER Tab PO SCH ×2 (11:00→18:41)
[2018-03-14 14:24] LABS: INR 1.4; PROTHROMBIN TIME 15.4 SECONDS (9.7-12.2)
--- NOTE | 2018-03-14 16:16 | CARD ---
APPROVED REPORT Date of service: 03/12/2018 EXAM: Two-dimensional and M-mode echocardiogram with Doppler and color Doppler. Other Information Quality : [employer] : INDICATION ALCOHOL AND COCAIN ABUSE, LA ENLARGMENT 2D DIMENSIONS IVSd1.1 (0.7-1.1cm)Aortic Root (2D)3.1 (2.0-3.7cm) LVDd4.4 (3.9-5.9cm)PWd1.1 (0.7-1.1cm) LVDs2.6 (2.5-4.0cm)FS (%) 40.9 % LVEF (%)71.9 (>50%) M-Mode DIMENSIONS RVDd2.29 (2.1-3.2cm)Left Atrium (MM)4.46 (2.5-4.0cm) IVSd1.15 (0.7-1.1cm)Aortic Root3.10 (2.2-3.7cm) LVDd5.03 (4.0-5.6cm)Aortic Cusp Exc.2.16 (1.5-2.0cm) PWd1.04 (0.7-1.1cm)FS (%) 39 % LVDs3.09 (2.0-3.8cm)LVEF (%)69 (>50%) Mitral Valve MV E Kdbtftcy19.4cm/sMV A Qxctqbyj42.2cm/sE/A ratio0.8 TDI E/Lateral E'0.0E/Medial E'0.0 Tricuspid Valve TR Peak [id number]/sTR Peak [id number] <Conclusion> normal size lv,ra & rv. la is mildly dilated. normal lv wall motion,thickness & systolic funciton with lvef of 55-60%. normal aortic,mitral,tv & pv. mild tr with normal pulmonary systolic pressures of 30 mm of hg. lv diastolic dysfunciton grade one. small posterior pericardial effusion noted. normal size aortic root.
--- NOTE | 2018-03-14 17:20 | CP.PCM.PN ---
Subjective - Date & Time of Evaluation Date of Evaluation: 03/14/18 Time of Evaluation: 11:30 - Subjective Subjective: Hospitalist Service Patient seen and examined. Patient seen at bedside. patient reports back pains and chest pains have improved. He understands he cannot tylenol/nsaids/benzo/benadryl given liver problem. Patient denies abdominal pain, denies nausea, denies vomitting, denies constipation, denies urinary complaints. Objective - Vital Signs/Intake and Output Vital Signs (last 24 hours): Temp Pulse Resp BP Pulse Ox 98.6 F 79 20 106/65 95 03/14/18 08:00 03/14/18 08:00 03/14/18 08:00 03/14/18 08:00 03/14/18 08:00 Intake and Output: 03/14/18 03/14/18 06:59 18:59 Intake Total 200 280 Balance 200 280 - Medications Medications: Current Medications Amlodipine Besylate (Norvasc) 5 mg PO DAILY [facility] Last Admin: 03/14/18 11:00 Dose: 5 mg Docusate Sodium (Colace) 100 mg PO BID [facility] Last Admin: 03/14/18 11:10 Dose: 100 mg Guaifenesin (Mucinex La) 600 mg PO BID [facility] Last Admin: 03/14/18 11:00 Dose: 600 mg Metoclopramide HCl (Reglan) 5 mg IVP Q6H PRN PRN Reason: Nausea/Vomiting Last Admin: 03/11/18 19:58 Dose: 5 mg Morphine Sulfate (Morphine) 2 mg IVP Q4 PRN PRN Reason: Pain, severe (8-10) Last Admin: 03/14/18 16:05 Dose: 2 mg Oxycodone HCl (Oxycodone Immediate Release Tab) 5 mg PO Q4 PRN PRN Reason: Pain, moderate (4-7) Phytonadione (Vitamin K Inj) 10 mg SC STAT STA Stop: 03/14/18 17:18 - Labs Labs: 03/14/18 08:07 03/14/18 08:07 PT 15.4 SECONDS (9.7-12.2) H 03/14/18 14:08 INR 1.4 03/14/18 14:08 APTT 33 SECONDS (21-34) 03/05/18 19:33 - Constitutional Appears: Non-toxic, No Acute Distress - Head Exam Head Exam: NORMAL INSPECTION - Eye Exam Eye Exam: EOMI - ENT Exam ENT Exam: Mucous Membranes Moist - Respiratory Exam Respiratory Exam: Clear to Ausculation Bilateral, NORMAL BREATHING PATTERN. absent: Rales, Rhonchi, Wheezes - Cardiovascular Exam Cardiovascular Exam: REGULAR RHYTHM, +S1, +S2 - GI/Abdominal Exam GI & Abdominal Exam: Soft, Normal Bowel Sounds. absent: Distended, Firm, Guarding, Tenderness, Rebound - Extremities Exam Extremities Exam: absent: Pedal Edema, Tenderness - Neurological Exam Neurological Exam: Alert, Awake, Oriented x3 - Skin Skin Exam: Dry, Normal Color, Warm Additional comments: ecchymoses noted over the arms Assessment and Plan (1) Mediastinal lymphadenopathy Status: Acute (2) Left adrenal mass Status: Acute (3) Adrenal mass, right Status: Acute (4) Portal hypertension Status: Chronic (5) Nausea Status: Acute (6) Tobacco use Status: Acute (7) Alcohol use Status: Acute (8) Liver cirrhosis Status: Chronic (9) Cocaine abuse Status: Acute (10) Prophylactic measure Status: Acute Attending/Attestation - Attestation I have personally seen and examined this patient.: Yes I have fully participated in the care of the patient.: Yes I have reviewed all pertinent clinical information, including history, physical exam and plan: Yes Notes (Text): Patient seen, examined and case discussed with director of medical review. Patient noted for muscoskeletal chest pain, which has improved he is aware he cannot have tylenol/nsaids/muscle relaxant/benadryl/benzo given liver status. IR unable to perform biopsy secondary to elevated INR this past Thursday. Patient scheduled to get daily Vitamin K. We will need to refrain from given tylenol, NSAID, benzo, and benadryl given liver function. Urinary metanephrine studies show normal value do not reflect pheochromocytoma cancer markers within normal aldosterone/renin ratio normal. pending optimization of INR for biopsy for . patient will need FFP 2 units Thursday night prior to Thursday attempt at biospy. Assessment and Plan (1) Mediastinal lymphadenopathy Assessment & Plan: * CT Chest: prominent mediastinal lymphadenopathy is appreciated without dominant pulmonary mass. small 3mm noncalcified nodule seen in right suprahilar space in right upper lobe. Status: Acute (2) Left adrenal mass Assessment & Plan: * Abdominal/Bladder US (8/24/18): cirrhotic liver, large left renal mass. Right adrenal lesion not identified sonographically. On obstructive uropathy. Cholelithiasis. Splenomegaly. Pancreas poorly visualized. Left mass cephalad to the left kidney measuring 6.7 X4.8X 4.8 cm corresponding to left adrenal mass. * CT Chest: increase reactive changes surrounding a mass at the left adrenal gland as well as the pancreatic body and tail and perirenal space. * CT head (03/07/18): mild age related diffuse cerebral atrophy is identifed. No acute intracranial findings by standard CT criteria. * CEA, CA 19.9 are normal. * elevated protein and globuli * pending urinary workup for hormon * Normal aldosterone-renin normal * Pending IR biopsy of adrenal * INR must be 1.0 given bleeding risk due to liver cirrhosis; unable today given INR 1.3 Status: Acute (3) Adrenal mass, right Assessment & Plan: * Hematology-oncology (Dr. Bonner) on case-->help appreciated * CT Abdomen/Pelvis (03/05/18): liver is diminutive in overall volume withy moderate to fair significant appearing back for nodular appearing surface contour consistent with hepatic cirrhosis. Extensive esophageal gastric, splenoral ranl upper, and mid abdominal varcies, portal hypertension. * Evidence of Retroperitoneal adenopahthy. * Small 2.1 X1.6cm cm right adrenal mass. NOT consistent with adenoma. Large left adrenal mass measuring 5.34 X5.0cm * Abdominal/Bladder US (03/05/18): cirrhotic liver, large left renal mass. Right adrenal lesion not identified sonographically. On obstructive uropathy. Cholelithiasis. Splenomegaly. Pancreas poorly visualized * Pending IR biopsy of adrenal * INR must be 1.0 given bleeding risk due to liver cirrhosis; unable given INR 1.3 Status: Acute (4) Portal hypertension Assessment & Plan: * CT Abdomen/Pelvis (03/05/18): liver is diminutive in overall volume withy moderate to fair significant appearing back for nodular appearing surface contour consistent with hepatic cirrhosis. Extensive esophageal gastric, splenoral ranl upper, and mid abdominal varcies, portal hypertension. Status: Chronic (5) Nausea Assessment & Plan: * Reglan PRN Status: Acute (6) Tobacco use Assessment & Plan: * Prior smoking use * 20 years ppd history Status: Acute (7) Alcohol use Assessment & Plan: * stopped but using to be heavy drinker Status: Acute (8) Liver cirrhosis Assessment & Plan: * CT Abdomen/Pelvis (03/05/18): liver is diminutive in overall volume withy moderate to fair significant appearing back for nodular appearing surface contour consistent with hepatic cirrhosis. Extensive esophageal gastric, splenoral ranl upper, and mid abdominal varcies, portal hypertension. * Patient reports he goes to [facility] for monitoring liver problem; last visit was 5 years ago * Abdominal/Bladder US (03/05/18): cirrhotic liver, large left renal mass. Right adrenal lesion not identified sonographically. On obstructive uropathy. Cholelithiasis. Splenomegaly. Pancreas poorly visualized * negative hepatitis * negative HIV * From GI: * Patient would benefit from elective outpatient EGD (variceal screening) and colonoscopy (age appropriate colon cancer screening) as outpatient Status: Chronic (9) Cocaine abuse Assessment & Plan: * advised to stop given risk including SD/cardiac arrest Status: Acute (10) Prophylactic measure Status: Acute * Thrombocytopenia * improving Disposition: pending INR to 1.0 for IR to perform adrenal biopsy; reattempt for Thursday by IR given holiday weekend.
[2018-03-14] MEDS ORDERED: Phytonadione 10 mg/ml Inj (Adult) SC ONE ×2 (17:30→19:00)
--- NOTE | 2018-03-15 05:42 | CP.PCM.PN ---
<Travis Moulton - Last Filed: 03/15/18 07:48> Subjective - Date & Time of Evaluation Date of Evaluation: 03/15/18 Time of Evaluation: 05:42 - Subjective Subjective: PGY2 Medicine Note for Dr. Devin Goodrich Patient seen and examined this morning at bedside. No acute events overnight. Upon walking into the room, patient was resting comfortably in bed. After awaking the patient, he was complaining of LLQ abdominal pain. He has been experiencing this pain since he has been admitted. He has no other complaints at this time. Denies fevers, chill, nausea, vomiting, diarrhea, constipation, chest pain, shortness of breath, numbness or tingling. Objective - Vital Signs/Intake and Output Vital Signs (last 24 hours): Temp Pulse Resp BP Pulse Ox 98.9 F 79 20 112/68 96 03/15/18 00:00 03/15/18 00:00 03/15/18 00:00 03/15/18 00:00 03/15/18 00:00 Intake and Output: 03/14/18 03/15/18 18:59 06:59 Intake Total 520 Balance 520 - Medications Medications: Current Medications Amlodipine Besylate (Norvasc) 5 mg PO DAILY [facility] Last Admin: 03/14/18 11:00 Dose: 5 mg Docusate Sodium (Colace) 100 mg PO BID [facility] Last Admin: 03/14/18 18:42 Dose: Not Given Guaifenesin (Mucinex La) 600 mg PO BID [facility] Last Admin: 03/14/18 18:41 Dose: 600 mg Metoclopramide HCl (Reglan) 5 mg IVP Q6H PRN PRN Reason: Nausea/Vomiting Last Admin: 03/11/18 19:58 Dose: 5 mg Morphine Sulfate (Morphine) 2 mg IVP Q4 PRN PRN Reason: Pain, severe (8-10) Last Admin: 03/15/18 01:28 Dose: 2 mg Oxycodone HCl (Oxycodone Immediate Release Tab) 5 mg PO Q4 PRN PRN Reason: Pain, moderate (4-7) - Labs Labs: 03/14/18 08:07 03/14/18 08:07 PT 15.4 SECONDS (9.7-12.2) H 03/14/18 14:08 INR 1.4 03/14/18 14:08 APTT 33 SECONDS (21-34) 03/05/18 19:33 - Additional Findings Additional findings: - Constitutional Appears: Non-toxic, No Acute Distress - Head Exam Head Exam: NORMAL INSPECTION - Eye Exam Eye Exam: EOMI - ENT Exam ENT Exam: Mucous Membranes Moist - Respiratory Exam Respiratory Exam: Clear to Ausculation Bilateral, NORMAL BREATHING PATTERN. absent: Rales, Rhonchi, Wheezes - Cardiovascular Exam Cardiovascular Exam: REGULAR RHYTHM, +S1, +S2 - GI/Abdominal Exam GI & Abdominal Exam: Soft, Normal Bowel Sounds. absent: Distended, Firm, Guarding, Tenderness, Rebound - Extremities Exam Extremities Exam: absent: Pedal Edema, Tenderness - Neurological Exam Neurological Exam: Alert, Awake, Oriented x3 - Skin Skin Exam: Dry, Normal Color, Warm Additional comments: ecchymoses noted over arms b/l Assessment and Plan - Assessment and Plan (Free Text) Plan: Left-sided flank pain and nausea likely secondary to left adrenal mass rule out pheochromocytoma vs Conn's Syndrome - Abdominal/Bladder US per radiology report (03/05/18): cirrhotic liver, large left renal mass. Right adrenal lesion not identified sonographically. On obstructive uropathy. Cholelithiasis. Splenomegaly. Pancreas poorly visualized. Left mass cephalad to the left kidney measuring 6.7 X4.8X 4.8 cm corresponding to left adrenal mass. - IR (Dr. Dixon) consulted for biopsy, per Dr. Bonner recommendation to obtain biopsy. Will place NPO when scheduled. - CT Chest per report: increase reactive changes surrounding a mass at the left adrenal gland as well as the pancreatic body and tail and perirenal space. - CT head (03/07): mild age related diffuse cerebral atrophy is identified No acute intracranial findings by standard CT criteria - CEA, CA 19.9 are normal (03/05) - Cortisol 4.7 (03/07) - Follow-up on catecholamine and metanephrines labs: received - Renin and aldosterone ratio was low --> unlikely primary aldosteronism - Toradol 15mg IVP once for pain - Reglan 5mg IV Q6H PRN for nausea - Morphine 2mg IVP Q4 PRN for severe pain - Oxycodone 5mg PO Q4 PRN for moderate pain Right Adrenal Mass - Hematology-oncology (Dr. Bonner) - IR (Dr. Dixon) consulted for biopsy, per Dr. Bonner recommendation to obtain biopsy once INR=1.0 - INR 1.3 today status post transfusion of 2 units FFP on - Follow-up repeat INR in AM daily - Vitamin K 10mg PO - Pending transfusion with FFP, scheduled for Thursday03/15/18 - Per Dr. Owen, patient is scheduled for biopsy on Thursday03/16/18 - CT Abdomen/Pelvis (03/05) Impression: - liver is diminutive in overall volume withy moderate to fair significant appearing back for nodular appearing surface contour consistent with hepatic cirrhosis. Extensive esophageal gastric, splenorenal upper, and mid abdominal varicies, portal hypertension. - Evidence of Retroperitoneal adenopahthy. - Small 2.1X1.6cm cm right adrenal mass. NOT consistent with adenoma. Large left adrenal mass measuring 5.34 X5.0cm - Abdominal/Bladder US report (03/05/18): cirrhotic liver, large left renal mass. Right adrenal lesion not identified sonographically. - On obstructive uropathy. Cholelithiasis. Splenomegaly. Pancreas poorly visualized Right-sided chest pain, rule-out IN - MAKENZIE panel ordered on 03/11 - Troponin negative x1 - Total Creatine kinase=48 - CKMB=8.03 - Stat EKG repeat: left atrial enlargement - ECHO obtained: pending read - Monitor Mediastinal lymphadenopathy - CT chest per radiology report: prominent mediastinal lymphadenopathy is appreciated without dominant pulmonary mass. small 3mm noncalcified nodule seen in right suprahilar space in right upper lobe. Liver Cirrhosis likely secondary to prolonged history of alcohol abuse - Patient is under the impression that his liver disease has improved, and reports he goes to [facility] for monitoring liver cirrhosis, but patient has not been to his physician for several years. Discussed with patient regarding his findings. Patient states he understands. - CT Abdomen/Pelvis (03/05/18): liver is diminutive in overall volume withy moderate to fair significant appearing back for nodular appearing surface contour consistent with hepatic cirrhosis. Extensive esophageal gastric, splenoral ranl upper, and mid abdominal varcies, portal hypertension. - Abdominal/Bladder US (03/05/18): cirrhotic liver, large left renal mass. Right adrenal lesion not identified sonographically. On obstructive uropathy. Cholelithiasis. Splenomegaly. Pancreas poorly visualized - Hepatitis panel: Negative - HIV Abs: negative - GI consulted, recommended outpatient EGD for variceal screening and colonoscopy for colon cancer screening as outpatient - Avoid NSAIDs, Zofran, Tylenol, Benzodiazepines, Benadryl to avoid further liver damage - Low dose Tylenol given for moderate pain - Encouraged continued cessation of alcohol consumption Cocaine abuse - UDS positive for cocaine on admission - Patient educated on risks for cardiac arrest and/or IN - Continue to encourage complete cessation of cocaine abuse History of tobacco use - Prior smoking use - 20 years ppd history - Encouraged complete cessation of tobacco products Dispo: pending INR to 1.0 to have IR perform adrenal biopsy on Thursday due to Weekend Will discuss case with Dr. Devin Tenan PGY2 <Arsen Goodrich - Last Filed: 03/20/18 18:57> Objective - Vital Signs/Intake and Output Vital Signs (last 24 hours): Temp Pulse Resp BP Pulse Ox 98.3 F 96 H 20 118/78 95 03/20/18 07:43 03/20/18 07:43 03/20/18 07:43 03/20/18 07:43 03/20/18 07:43 Intake and Output: 03/20/18 03/20/18 06:59 18:59 Intake Total 810 Output Total 1 Balance 809 - Labs Labs: 03/20/18 07:38 03/20/18 07:38 PT 15.6 SECONDS (9.7-12.2) H 03/20/18 07:38 INR 1.4 03/20/18 07:38 APTT 33 SECONDS (21-34) 03/05/18 19:33 Attending/Attestation - Attestation I have personally seen and examined this patient.: Yes I have fully participated in the care of the patient.: Yes I have reviewed all pertinent clinical information, including history, physical exam and plan: Yes Notes (Text): 03/20/18 18:57 This is late entry. Arsen Goodrich D.O.
[2018-03-15 07:53] LABS: BASO % 0.3 % (0.0-2.0); EOS # 0.1 K/uL (0.0-0.7); EOS % 2.1 % (0.0-4.0); HEMOGLOBIN 11.4 g/dL (12.0-18.0); LYMPH # 1.2 K/uL (1.0-4.3); LYMPH % 20.4 % (20.0-40.0); MEAN CELL VOLUME 88.2 fL (80.0-94.0); MEAN CORPUSCULAR HEMOGLOBIN 31.3 pg (27.0-31.0); MEAN CORPUSCULAR HGB CONC 35.4 g/dL (33.0-37.0); MEAN PLATELET VOLUME 8.2 fL (7.2-11.7); MONO # 1.1 K/uL (0.0-0.8); MONO % 17.8 % (0.0-10.0); NEUT # 3.6 K/uL (1.8-7.0); NEUT % 59.4 % (50.0-75.0); NRBC % 0.1 % (0.0-2.0); RBC 3.66 Mil/uL (4.40-5.90); RED CELL DISTRIBUTION WIDTH 13.5 % (11.5-14.5)
[2018-03-15 08:00] LABS: INR 1.4; PROTHROMBIN TIME 15.4 SECONDS (9.7-12.2)
[2018-03-15 08:10] LABS: ALB/GLOB RATIO 0.7 (1.0-2.1); ALBUMIN 3.4 g/dL (3.5-5.0); ALT/SGPT 31 U/L (21-72); AST/SGOT 42 U/L (17-59); BLOOD UREA NITROGEN 11 mg/dL (9-20); CALCIUM 8.4 mg/dl (8.6-10.4); GFR NON-AFRICAN AMERICAN > 60
[2018-03-15] MEDS: guaiFENesin 600 mg ER Tab PO SCH ×2 (10:04→18:01)
[2018-03-15] MEDS ORDERED: Phytonadione 10 mg/ml Inj (Adult) SC STA (13:28)
[2018-03-15 17:13] LABS: INR 1.4; PROTHROMBIN TIME 15.2 SECONDS (9.7-12.2)
[2018-03-16 08:02] LABS: INR 1.3; PROTHROMBIN TIME 14.7 SECONDS (9.7-12.2)
[2018-03-16 08:06] LABS: BASO % 0.3 % (0.0-2.0); EOS # 0.1 K/uL (0.0-0.7); EOS % 2.1 % (0.0-4.0); LYMPH # 1.1 K/uL (1.0-4.3); LYMPH % 22.1 % (20.0-40.0); MEAN CELL VOLUME 87.9 fL (80.0-94.0); MEAN CORPUSCULAR HEMOGLOBIN 31.2 pg (27.0-31.0); MEAN CORPUSCULAR HGB CONC 35.5 g/dL (33.0-37.0); MEAN PLATELET VOLUME 7.6 fL (7.2-11.7); MONO # 0.8 K/uL (0.0-0.8); MONO % 16.8 % (0.0-10.0); NEUT # 2.8 K/uL (1.8-7.0); NEUT % 58.7 % (50.0-75.0); NRBC % 0.1 % (0.0-2.0); RBC 3.53 Mil/uL (4.40-5.90); RED CELL DISTRIBUTION WIDTH 13.5 % (11.5-14.5); WHITE BLOOD COUNT 4.8 K/uL (4.8-10.8)
[2018-03-16 08:55] LABS: ALB/GLOB RATIO 0.7 (1.0-2.1); ALBUMIN 3.6 g/dL (3.5-5.0); ALT/SGPT 30 U/L (21-72); AST/SGOT 43 U/L (17-59); BLOOD UREA NITROGEN 12 mg/dL (9-20); CALCIUM 8.7 mg/dl (8.6-10.4); GFR NON-AFRICAN AMERICAN > 60
[2018-03-16] MEDS: guaiFENesin 600 mg ER Tab PO SCH ×2 (10:33→18:37)
--- NOTE | 2018-03-16 11:25 | CP.PCM.PN ---
<Soraida Mascorro - Last Filed: 03/16/18 18:59> Subjective - Date & Time of Evaluation Date of Evaluation: 03/16/18 Time of Evaluation: 11:00 - Subjective Subjective: PGY-1 Medicine Progress Note for Dr. Gavi Goodrich Patient was seen and examined today at bedside in no acute distress. No acute events overnight. He denies any new complaints. Patient continues to complain about his right chest pain and left flank pain. He denies any problems with urination or bowel movements. Last bowel movement was yesterday. Patient denies headache, chest pain, shortness of breath, nausea, vomiting, diarrhea, constipation. He received 2 units FFP at midnight, and another unit during the day in efforts to get his INR down to 1.0. Objective - Vital Signs/Intake and Output Vital Signs (last 24 hours): Temp Pulse Resp BP Pulse Ox 97.8 F 71 20 122/74 97 03/16/18 08:25 03/16/18 08:25 03/16/18 08:25 03/16/18 08:25 03/16/18 08:25 Intake and Output: 03/16/18 03/16/18 06:59 18:59 Intake Total 500 Balance 500 - Medications Medications: Current Medications Amlodipine Besylate (Norvasc) 5 mg PO DAILY [facility] Last Admin: 03/16/18 10:32 Dose: 5 mg Docusate Sodium (Colace) 100 mg PO BID [facility] Last Admin: 03/16/18 10:32 Dose: 100 mg Guaifenesin (Mucinex La) 600 mg PO BID [facility] Last Admin: 03/16/18 10:33 Dose: 600 mg Metoclopramide HCl (Reglan) 5 mg IVP Q6H PRN PRN Reason: Nausea/Vomiting Last Admin: 03/11/18 19:58 Dose: 5 mg Morphine Sulfate (Morphine) 2 mg IVP Q4 PRN PRN Reason: Pain, severe (8-10) Last Admin: 03/16/18 07:32 Dose: 2 mg Oxycodone HCl (Oxycodone Immediate Release Tab) 5 mg PO Q4 PRN PRN Reason: Pain, moderate (4-7) - Labs Labs: 03/16/18 07:53 03/16/18 07:53 PT 14.7 SECONDS (9.7-12.2) H 03/16/18 07:53 INR 1.3 03/16/18 07:53 APTT 33 SECONDS (21-34) 03/05/18 19:33 - Constitutional Appears: Non-toxic, No Acute Distress - Head Exam Head Exam: NORMAL INSPECTION - Eye Exam Eye Exam: Normal appearance - Respiratory Exam Respiratory Exam: NORMAL BREATHING PATTERN. absent: Accessory Muscle Use, Decreased Breath Sounds, Rales, Rhonchi, Wheezes, Stridor - Cardiovascular Exam Cardiovascular Exam: RRR, +S1, +S2 - GI/Abdominal Exam GI & Abdominal Exam: Soft, Normal Bowel Sounds. absent: Firm, Guarding Additional comments: Left flank tenderness to palpation - Extremities Exam Extremities Exam: Normal Inspection. absent: Pedal Edema - Back Exam Back Exam: tenderness - Neurological Exam Neurological Exam: Alert, Awake - Psychiatric Exam Psychiatric exam: Normal Affect, Normal Mood - Skin Skin Exam: Dry, Intact, Normal Color Assessment and Plan - Assessment and Plan (Free Text) Plan: Left-sided flank pain and nausea likely secondary to left adrenal mass rule out pheochromocytoma vs Conn's Syndrome - Abdominal/Bladder US per radiology report (03/05/18): cirrhotic liver, large left renal mass. Right adrenal lesion not identified sonographically. On obstructive uropathy. Cholelithiasis. Splenomegaly. Pancreas poorly visualized. Left mass cephalad to the left kidney measuring 6.7 X4.8X 4.8 cm corresponding to left adrenal mass. - IR (Dr. Dixon) consulted for biopsy, per Dr. Bonner recommendation to obtain biopsy. Will place NPO when scheduled. - CT Chest per report: increase reactive changes surrounding a mass at the left adrenal gland as well as the pancreatic body and tail and perirenal space. - CT head (03/07): mild age related diffuse cerebral atrophy is identified No acute intracranial findings by standard CT criteria - CEA, CA 19.9 are normal (03/05) - Cortisol 4.7 (03/07) - Follow-up on catecholamine and metanephrines labs: received - Renin and aldosterone ratio was low --> unlikely primary aldosteronism - Toradol 15mg IVP once for pain - Reglan 5mg IV Q6H PRN for nausea - Morphine 2mg IVP Q4 PRN for severe pain - Oxycodone 5mg PO Q4 PRN for moderate pain Right Adrenal Mass - Hematology-oncology (Dr. Bonner) - IR (Dr. Dixon) consulted for biopsy, per Dr. Bonner recommendation to obtain biopsy once INR=1.0 - INR 1.3 today status post transfusion of 2 units FFP on 03/15 - Transfusion of 2 units FFP on 03/16, INR remains above 1.0 - per Dr. Bonner, transfuse another unit of FFP in the AM and recheck INR - Per Dr. Owen, will not schedule until reach target INR - Follow-up repeat INR in AM daily - CT Abdomen/Pelvis (03/05) Impression: - liver is diminutive in overall volume withy moderate to fair significant appearing back for nodular appearing surface contour consistent with hepatic cirrhosis. Extensive esophageal gastric, splenorenal upper, and mid abdominal varicies, portal hypertension. - Evidence of Retroperitoneal adenopahthy. - Small 2.1X1.6cm cm right adrenal mass. NOT consistent with adenoma. Large left adrenal mass measuring 5.34 X5.0cm - Abdominal/Bladder US report (03/05/18): cirrhotic liver, large left renal mass. Right adrenal lesion not identified sonographically. - On obstructive uropathy. Cholelithiasis. Splenomegaly. Pancreas poorly visualized Right-sided chest pain, rule-out PA - MAKENZIE panel ordered on 03/11 - Troponin negative x1 - Total Creatine kinase=48 - CKMB=8.03 - Stat EKG repeat: left atrial enlargement - ECHO obtained: pending read - Monitor Mediastinal lymphadenopathy - CT chest per radiology report: prominent mediastinal lymphadenopathy is appreciated without dominant pulmonary mass. small 3mm noncalcified nodule seen in right suprahilar space in right upper lobe. Liver Cirrhosis likely secondary to prolonged history of alcohol abuse - Patient is under the impression that his liver disease has improved, and reports he goes to [facility] for monitoring liver cirrhosis, but patient has not been to his physician for several years. Discussed with patient regarding his findings. Patient states he understands. - CT Abdomen/Pelvis (03/05/18): liver is diminutive in overall volume withy moderate to fair significant appearing back for nodular appearing surface contour consistent with hepatic cirrhosis. Extensive esophageal gastric, splenoral ranl upper, and mid abdominal varcies, portal hypertension. - Abdominal/Bladder US (03/05/18): cirrhotic liver, large left renal mass. Right adrenal lesion not identified sonographically. On obstructive uropathy. Cholelithiasis. Splenomegaly. Pancreas poorly visualized - Hepatitis panel: Negative - HIV Abs: negative - GI consulted, recommended outpatient EGD for variceal screening and colonoscopy for colon cancer screening as outpatient - Avoid NSAIDs, Zofran, Tylenol, Benzodiazepines, Benadryl to avoid further liver damage - Low dose Tylenol given for moderate pain - Encouraged continued cessation of alcohol consumption Cocaine abuse - UDS positive for cocaine on admission - Patient educated on risks for cardiac arrest and/or PA - Continue to encourage complete cessation of cocaine abuse History of tobacco use - Prior smoking use - 20 years ppd history - Encouraged complete cessation of tobacco products Dispo: pending INR to 1.0 to have IR perform adrenal biopsy tomorrow. d/w Dr. Kp Mascorro PGY-1 <Arsen Goodrich - Last Filed: 03/20/18 18:57> Objective - Vital Signs/Intake and Output Vital Signs (last 24 hours): Temp Pulse Resp BP Pulse Ox 98.3 F 96 H 20 118/78 95 03/20/18 07:43 03/20/18 07:43 03/20/18 07:43 03/20/18 07:43 03/20/18 07:43 Intake and Output: 03/20/18 03/20/18 06:59 18:59 Intake Total 810 Output Total 1 Balance 809 - Labs Labs: 03/20/18 07:38 03/20/18 07:38 PT 15.6 SECONDS (9.7-12.2) H 03/20/18 07:38 INR 1.4 03/20/18 07:38 APTT 33 SECONDS (21-34) 03/05/18 19:33 Attending/Attestation - Attestation I have personally seen and examined this patient.: Yes I have fully participated in the care of the patient.: Yes I have reviewed all pertinent clinical information, including history, physical exam and plan: Yes Notes (Text): 03/20/18 18:57 This is late entry. Care of this patient was gone over in detail with resident Dr. Mascorro during rounds. Arsen Goodrich D.O.
[2018-03-16] MEDS: oxyCODONE 5 mg Immediate Release Tab PO PRN ×2 (16:02→22:10)
[2018-03-17 07:40] LABS: BASO % 0.2 % (0.0-2.0); EOS # 0.1 K/uL (0.0-0.7); HEMOGLOBIN 10.8 g/dL (12.0-18.0); LYMPH # 0.8 K/uL (1.0-4.3); LYMPH % 18.3 % (20.0-40.0); MEAN CELL VOLUME 88.1 fL (80.0-94.0); MEAN CORPUSCULAR HEMOGLOBIN 31.4 pg (27.0-31.0); MEAN CORPUSCULAR HGB CONC 35.7 g/dL (33.0-37.0); MEAN PLATELET VOLUME 7.6 fL (7.2-11.7); MONO # 0.7 K/uL (0.0-0.8); MONO % 14.6 % (0.0-10.0); NEUT # 2.9 K/uL (1.8-7.0); NEUT % 64.9 % (50.0-75.0); NRBC % 0.2 % (0.0-2.0); RBC 3.45 Mil/uL (4.40-5.90); WHITE BLOOD COUNT 4.5 K/uL (4.8-10.8)
[2018-03-17 07:46] LABS: INR 1.3; PROTHROMBIN TIME 14.2 SECONDS (9.7-12.2)
[2018-03-17 07:58] LABS: ALB/GLOB RATIO 0.7 (1.0-2.1); ALBUMIN 3.8 g/dL (3.5-5.0); ALT/SGPT 22 U/L (21-72); AST/SGOT 43 U/L (17-59); BLOOD UREA NITROGEN 11 mg/dL (9-20); GFR NON-AFRICAN AMERICAN > 60
[2018-03-17 08:18] VITALS: RESP 20
[2018-03-17] MEDS: guaiFENesin 600 mg ER Tab PO SCH ×2 (10:11→17:09)
[2018-03-17] MEDS ORDERED: Midazolam 2 MG/2 ML VIAL ONE (13:01)
[2018-03-17] MEDS ORDERED: Absorbable Gelatin Sponge Size 12-7 ONE (13:12)
--- NOTE | 2018-03-17 13:31 | PCM.SURG1 ---
Surgeon's Initial Post Op Note - Surgeon's Notes Surgeon: Neftaly Owen MD Sleeve Maker: NONE Type of Anesthesia: IV Sedation Pre-Operative Diagnosis: Left adrenal mass Operative Findings: CT showed large left adrenal mass Post-Operative Diagnosis: Left adrenal mass Operation Performed: CT guided core biopsy left adrenal mass Specimen/Specimens Removed: 20 g x 3 Estimated Blood Loss: EBL {In ML}: 2 Blood Products Given: N/A Drains Used: No Drains Post-Op Condition: Fair Date of Surgery/Procedure: 03/17/18 Time of Surgery/Procedure: 13:25
--- NOTE | 2018-03-17 14:16 | CT ---
PROCEDURE: Date of procedure: 03/17/2018 Procedure: CT-guided left adrenal mass biopsy CT scan guidance for biopsy, [address] Radiation: 753.69mGy-cm Medications: The patient sedated by anesthesiologist along with physiologic monitoring. 5cc 1 percent lidocaine HISTORY: Left adrenal mass TECHNIQUE: Following informed consent, the Pt's right back was marked. The Pt was placed prone on the CT table and procedure time out was performed. A noncontrast CT scan was performed. Noncontrast CT scan showed a large left adrenal mass with lateral displacement of the kidney. The patient right back was prepped and draped in the usual sterile fashion. After patient sedated by the anesthesiologist and the skin anesthetized with 1% lidocaine, a 20 gauge core needle was advanced percutaneously under CT guidance towards the adrenal mass. Upon confirmation of needle position, three-20 gauge core specimens were obtained and sent for routine pathology. The biopsy track was then embolized with Gelfoam. A post biopsy CT scan showed no hematoma. There were no immediate complications. IMPRESSION: CT-guided biopsy of left adrenal mass.
--- NOTE | 2018-03-17 14:25 | CP.PCM.PN ---
<MascorroEstherSoraiad Danyel - Last Filed: 03/18/18 00:16> Subjective - Date & Time of Evaluation Date of Evaluation: 03/17/18 Time of Evaluation: 11:00 - Subjective Subjective: PGY-1 Medicine Progress Note for Dr. Goodrich Patient was seen and examined today at bedside in no acute distress. Nurse reports no overnight events. Patient reports no acute problems. Expresses want to eat as we've held him NPO in anticipation of biopsy. Denies CP, shortness of breath, different abdominal or flank pain, fever, chills. Objective - Vital Signs/Intake and Output Vital Signs (last 24 hours): Temp Pulse Resp BP Pulse Ox 98.7 F 92 H 20 128/70 97 03/17/18 14:08 03/17/18 14:08 03/17/18 14:08 03/17/18 14:08 03/17/18 14:08 Intake and Output: 03/17/18 03/17/18 06:59 18:59 Intake Total 400 552 Balance 400 552 - Medications Medications: Current Medications Amlodipine Besylate (Norvasc) 5 mg PO DAILY [facility] Last Admin: 03/17/18 10:11 Dose: 5 mg Docusate Sodium (Colace) 100 mg PO BID [facility] Last Admin: 03/17/18 10:11 Dose: 100 mg Guaifenesin (Mucinex La) 600 mg PO BID [facility] Last Admin: 03/17/18 10:11 Dose: 600 mg Metoclopramide HCl (Reglan) 5 mg IVP Q6H PRN PRN Reason: Nausea/Vomiting Last Admin: 03/11/18 19:58 Dose: 5 mg Morphine Sulfate (Morphine) 2 mg IVP Q4 PRN PRN Reason: Pain, severe (8-10) Last Admin: 03/17/18 13:54 Dose: 2 mg Oxycodone HCl (Oxycodone Immediate Release Tab) 5 mg PO Q4 PRN PRN Reason: Pain, moderate (4-7) Last Admin: 03/16/18 22:10 Dose: 5 mg - Labs Labs: 03/17/18 07:13 03/17/18 07:13 PT 14.2 SECONDS (9.7-12.2) H 03/17/18 07:13 INR 1.3 03/17/18 07:13 APTT 33 SECONDS (21-34) 03/05/18 19:33 - Constitutional Appears: Non-toxic, No Acute Distress - Head Exam Head Exam: NORMAL INSPECTION - Eye Exam Eye Exam: Normal appearance - Respiratory Exam Respiratory Exam: Clear to Ausculation Bilateral, NORMAL BREATHING PATTERN. absent: Rales, Rhonchi, Wheezes - Cardiovascular Exam Cardiovascular Exam: REGULAR RHYTHM, +S1, +S2 - GI/Abdominal Exam GI & Abdominal Exam: Soft, Normal Bowel Sounds. absent: Guarding, Rigid, Rebound Additional comments: tenderness to palpation on L - Extremities Exam Extremities Exam: Normal Capillary Refill, Normal Inspection Additional comments: peripheral pulses palpable bilaterally (radial, DP) - Back Exam Back Exam: CVA tenderness (L), CVA tenderness (R) - Neurological Exam Neurological Exam: Alert, Awake - Psychiatric Exam Psychiatric exam: Normal Affect, Normal Mood - Skin Skin Exam: Dry, Intact, Normal Color Assessment and Plan - Assessment and Plan (Free Text) Plan: Left-sided flank pain and nausea likely secondary to left adrenal mass rule out pheochromocytoma vs Conn's Syndrome - Abdominal/Bladder US per radiology report (03/05/18): cirrhotic liver, large left renal mass. Right adrenal lesion not identified sonographically. On obstructive uropathy. Cholelithiasis. Splenomegaly. Pancreas poorly visualized. Left mass cephalad to the left kidney measuring 6.7 X4.8X 4.8 cm corresponding to left adrenal mass. - IR (Dr. Dixon) consulted for biopsy, per Dr. Bonner recommendation to obtain biopsy. Bx was postponed this AM due to INR - CT Chest per report: increase reactive changes surrounding a mass at the left adrenal gland as well as the pancreatic body and tail and perirenal space. - CT head (03/07): mild age related diffuse cerebral atrophy is identified No acute intracranial findings by standard CT criteria - CEA, CA 19.9 are normal (03/05) - Cortisol 4.7 (03/07) - Follow-up on catecholamine and metanephrines labs: received - Renin and aldosterone ratio was low --> unlikely primary aldosteronism - Reglan 5mg IV Q6H PRN for nausea - Morphine 2mg IVP Q4 PRN for severe pain - Oxycodone 5mg PO Q4 PRN for moderate pain Right Adrenal Mass - Hematology-oncology (Dr. Bonner) - IR (Dr. Dixon) consulted for biopsy, per Dr. Bonner recommendation to obtain biopsy once INR=1.0 - INR 1.3 today - Transfusion of 2 units FFP on 03/16, INR remains above 1.0 - per Dr. Bonner, transfused another unit of FFP in the AM and recheck INR - Follow-up repeat INR in AM daily - CT Abdomen/Pelvis (03/05) Impression: - liver is diminutive in overall volume withy moderate to fair significant appearing back for nodular appearing surface contour consistent with hepatic cirrhosis. Extensive esophageal gastric, splenorenal upper, and mid abdominal varicies, portal hypertension. - Evidence of Retroperitoneal adenopahthy. - Small 2.1X1.6cm cm right adrenal mass. NOT consistent with adenoma. Large left adrenal mass measuring 5.34 X5.0cm - Abdominal/Bladder US report (03/05/18): cirrhotic liver, large left renal mass. Right adrenal lesion not identified sonographically. - On obstructive uropathy. Cholelithiasis. Splenomegaly. Pancreas poorly visualized Right-sided chest pain, rule-out ND - MAKENZIE panel ordered on 03/11 - Troponin negative x1 - Total Creatine kinase=48 - CKMB=8.03 - Stat EKG repeat: left atrial enlargement - ECHO obtained: pending read - Monitor Mediastinal lymphadenopathy - CT chest per radiology report: prominent mediastinal lymphadenopathy is appreciated without dominant pulmonary mass. small 3mm noncalcified nodule seen in right suprahilar space in right upper lobe. Liver Cirrhosis likely secondary to prolonged history of alcohol abuse - Patient is under the impression that his liver disease has improved, and reports he goes to [facility] for monitoring liver cirrhosis, but patient has not been to his physician for several years. Discussed with patient regarding his findings. Patient states he understands. - CT Abdomen/Pelvis (03/05/18): liver is diminutive in overall volume withy moderate to fair significant appearing back for nodular appearing surface contour consistent with hepatic cirrhosis. Extensive esophageal gastric, splenoral ranl upper, and mid abdominal varcies, portal hypertension. - Abdominal/Bladder US (03/05/18): cirrhotic liver, large left renal mass. Right adrenal lesion not identified sonographically. On obstructive uropathy. Cholelithiasis. Splenomegaly. Pancreas poorly visualized - Hepatitis panel: Negative - HIV Abs: negative - GI consulted, recommended outpatient EGD for variceal screening and colonoscopy for colon cancer screening as outpatient - Avoid NSAIDs, Zofran, Tylenol, Benzodiazepines, Benadryl to avoid further liver damage - Low dose Tylenol given for moderate pain - Encouraged continued cessation of alcohol consumption Cocaine abuse - UDS positive for cocaine on admission - Patient educated on risks for cardiac arrest and/or ND - Continue to encourage complete cessation of cocaine abuse History of tobacco use - Prior smoking use - 20 years ppd history - Encouraged complete cessation of tobacco products Dispo: L adrenal mass Bx by IR, awaiting pathology. Patient does not need to be inpatient to await results. Pending no complications s/p biopsy, may be discharged. Must be conservative with pain control due to patient's history of polysubstance abuse. d/w Dr. Kp Mascorro PGY-1 <Arsen Goodrich - Last Filed: 03/20/18 18:57> Objective - Vital Signs/Intake and Output Vital Signs (last 24 hours): Temp Pulse Resp BP Pulse Ox 98.3 F 96 H 20 118/78 95 03/20/18 07:43 03/20/18 07:43 03/20/18 07:43 03/20/18 07:43 03/20/18 07:43 Intake and Output: 03/20/18 03/20/18 06:59 18:59 Intake Total 810 Output Total 1 Balance 809 - Labs Labs: 03/20/18 07:38 03/20/18 07:38 PT 15.6 SECONDS (9.7-12.2) H 03/20/18 07:38 INR 1.4 03/20/18 07:38 APTT 33 SECONDS (21-34) 03/05/18 19:33 Attending/Attestation - Attestation I have personally seen and examined this patient.: Yes I have fully participated in the care of the patient.: Yes I have reviewed all pertinent clinical information, including history, physical exam and plan: Yes Notes (Text): 03/20/18 18:56 This is late entry. Care of this patient was gone over in detail with resident Dr. Mascorro during rounds. Arsen Goodrich D.O.
--- NOTE | 2018-03-17 18:36 | CP.PCM.PN ---
Subjective - Date & Time of Evaluation Date of Evaluation: 03/17/18 Time of Evaluation: 18:29 - Subjective Subjective: The patient is s/p adrenal biopsy, c/o some pain at the site and nausea. No diarrhea or constipation. Objective - Vital Signs/Intake and Output Vital Signs (last 24 hours): Temp Pulse Resp BP Pulse Ox 98.5 F 93 H 20 119/69 96 03/17/18 16:31 03/17/18 16:31 03/17/18 16:31 03/17/18 16:31 03/17/18 16:31 Intake and Output: 03/17/18 03/17/18 06:59 18:59 Intake Total 400 752 Balance 400 752 - Medications Medications: Current Medications Amlodipine Besylate (Norvasc) 5 mg PO DAILY [facility] Last Admin: 03/17/18 10:11 Dose: 5 mg Docusate Sodium (Colace) 100 mg PO BID [facility] Last Admin: 03/17/18 17:09 Dose: 100 mg Guaifenesin (Mucinex La) 600 mg PO BID [facility] Last Admin: 03/17/18 17:09 Dose: 600 mg Metoclopramide HCl (Reglan) 5 mg IVP Q6H PRN PRN Reason: Nausea/Vomiting Last Admin: 03/11/18 19:58 Dose: 5 mg Morphine Sulfate (Morphine) 0.5 mg IVP Q6H PRN PRN Reason: Pain, moderate (4-7) Last Admin: 03/17/18 16:24 Dose: 0.5 mg Morphine Sulfate (Morphine) 1 mg IVP Q6H PRN PRN Reason: Pain, severe (8-10) - Labs Labs: 03/17/18 07:13 03/17/18 07:13 PT 14.2 SECONDS (9.7-12.2) H 03/17/18 07:13 INR 1.3 03/17/18 07:13 APTT 33 SECONDS (21-34) 03/05/18 19:33 Assessment and Plan (1) Adrenal mass, right Status: Acute - Assessment and Plan (Free Text) Assessment: Adrenal gland biopsy today, await results. Urine results still pending
[2018-03-18 00:46] LABS: BASO % 0.1 % (0.0-2.0); EOS % 0.4 % (0.0-4.0); HEMOGLOBIN 11.9 g/dL (12.0-18.0); LYMPH # 0.7 K/uL (1.0-4.3); LYMPH % 12.2 % (20.0-40.0); MEAN CELL VOLUME 87.6 fL (80.0-94.0); MEAN CORPUSCULAR HEMOGLOBIN 31.1 pg (27.0-31.0); MEAN CORPUSCULAR HGB CONC 35.5 g/dL (33.0-37.0); MEAN PLATELET VOLUME 7.6 fL (7.2-11.7); MONO # 0.7 K/uL (0.0-0.8); MONO % 11.3 % (0.0-10.0); NEUT # 4.6 K/uL (1.8-7.0); RBC 3.82 Mil/uL (4.40-5.90); RED CELL DISTRIBUTION WIDTH 13.7 % (11.5-14.5)
--- NOTE | 2018-03-18 01:11 | PCM.RRT ---
I.Reason for GLOBAL SAFETY OFFICER - A) Acute Change in Patient: (Select all that apply): Chest Pain - Neurological Status (Select all that apply): Alert, Responsive, Oriented, Verbal, Follows Commands - Constitutional Appears: Non-toxic - Head Head Exam: ATRAUMATIC, NORMOCEPHALIC - Eyes Eye Exam: Normal appearance - Respiratory Exam Respiratory Exam: Chest Wall Tenderness (left side tender to palpation), Clear to Ausculation Bilateral, NORMAL BREATHING PATTERN. absent: Accessory Muscle Use, Rhonchi, Wheezes, Respiratory Distress Additional comments: surgical dressing on left side of back - c/d/i - Cardiovascular Exam Cardiovascular Exam: REGULAR RHYTHM, +S1, +S2 - GI/Abdominal Exam GI & Abdominal Exam: Soft, Tenderness. absent: Distended, Firm, Guarding, Rigid , Rebound Additional comments: Left upper quadrant tender to palpation - Neurological Exam Neurological Exam: Alert, Awake, Oriented x3 Plan - Assessment of Findings&Treatment Plan GLOBAL SAFETY OFFICER called on patient for complaint of left sided chest pain. Patient is s/p adrenal biospy earlier today. He reports some shortness of breath, left sided chest pain and left sided back pain. The pain is sharp and worsened with deep inspiration and palpation. Physical exam showed patient was tender to palpation over over the left chest, left upper quadrant of abdomen and left back near surgical site. Surgical dressing was c/d/i. Patient's vital signs were stable throughout examination. He was laying comfortably in bed and speaking in full sentences. Ordered CBC/CMP, EKG and chest/abd/pelvis CT. EKG was unremarkable. Will f/u blood labs and CT. Travis Moulton PGY2
[2018-03-18 01:14] LABS: ALB/GLOB RATIO 0.7 (1.0-2.1); ALT/SGPT 27 U/L (21-72); AST/SGOT 39 U/L (17-59); BLOOD UREA NITROGEN 13 mg/dL (9-20); CALCIUM 8.9 mg/dl (8.6-10.4); GFR NON-AFRICAN AMERICAN > 60
[2018-03-18] MEDS ORDERED: Morphine 4 MG/ML VIAL IVP PRN (08:45)
[2018-03-18 09:08] LABS: BASO % 0.3 % (0.0-2.0); EOS % 0.3 % (0.0-4.0); HEMOGLOBIN 12.4 g/dL (12.0-18.0); LYMPH # 0.7 K/uL (1.0-4.3); LYMPH % 11.7 % (20.0-40.0); MEAN CELL VOLUME 87.1 fL (80.0-94.0); MEAN CORPUSCULAR HEMOGLOBIN 31.3 pg (27.0-31.0); MEAN CORPUSCULAR HGB CONC 35.9 g/dL (33.0-37.0); MEAN PLATELET VOLUME 7.8 fL (7.2-11.7); MONO # 0.6 K/uL (0.0-0.8); MONO % 9.6 % (0.0-10.0); NEUT # 4.8 K/uL (1.8-7.0); NEUT % 78.1 % (50.0-75.0); NRBC % 0.1 % (0.0-2.0); RBC 3.96 Mil/uL (4.40-5.90); RED CELL DISTRIBUTION WIDTH 13.5 % (11.5-14.5); WHITE BLOOD COUNT 6.1 K/uL (4.8-10.8)
[2018-03-18 09:11] LABS: INR 1.4; PROTHROMBIN TIME 15.2 SECONDS (9.7-12.2)
[2018-03-18 09:34] LABS: ALB/GLOB RATIO 0.7 (1.0-2.1); ALBUMIN 4.1 g/dL (3.5-5.0); ALT/SGPT 22 U/L (21-72); AST/SGOT 40 U/L (17-59); BLOOD UREA NITROGEN 15 mg/dL (9-20); GFR NON-AFRICAN AMERICAN > 60
--- NOTE | 2018-03-18 09:36 | CP.PCM.PN ---
<Cezar Trejo M - Last Filed: 03/18/18 23:31> Subjective - Date & Time of Evaluation Date of Evaluation: 03/18/18 Time of Evaluation: 09:00 - Subjective Subjective: PGY 1 Medicine Progress Note for Dr. Gavi Goodrich Patient seen and examined at bedside. Patient lying in bed in no acute events. Patient is POD #1 for adrenal mass biopsy. Patient had a [employer] at 1:30AM for chest pain. Patient had stable vitals through M[employer] WORKER. Patient had EKG showing NSR, a chest CT revealing moderate pericardial effusion, a CT abd revealing increase in size of adrenal mass, possibly hemorrhagic. Patient currently chiefly complains of nausea associated with flank pain radiating to his chest. Patient denies shortness of breath, vomiting, diarrhea, dizziness, fever, chills. Last bowel movement was a couple of days ago. Objective - Vital Signs/Intake and Output Vital Signs (last 24 hours): Temp Pulse Resp BP Pulse Ox 98.1 F 86 20 133/87 96 03/18/18 07:33 03/18/18 07:33 03/18/18 07:33 03/18/18 07:33 03/18/18 07:33 Intake and Output: 03/18/18 03/18/18 06:59 18:59 Intake Total 390 Output Total 500 Balance -110 - Medications Medications: Current Medications Amlodipine Besylate (Norvasc) 5 mg PO DAILY [facility] Last Admin: 03/17/18 10:11 Dose: 5 mg Docusate Sodium (Colace) 100 mg PO BID [facility] Last Admin: 03/17/18 17:09 Dose: 100 mg Guaifenesin (Mucinex La) 600 mg PO BID [facility] Last Admin: 03/17/18 17:09 Dose: 600 mg Lidocaine (Lidoderm) 1 ea TD DAILY [facility] Metoclopramide HCl (Reglan) 5 mg IVP Q6H PRN PRN Reason: Nausea/Vomiting Last Admin: 03/18/18 02:32 Dose: 5 mg Morphine Sulfate (Morphine) 0.5 mg IVP Q6H PRN PRN Reason: Pain, moderate (4-7) Last Admin: 03/17/18 22:50 Dose: 0.5 mg Morphine Sulfate (Morphine) 1 mg IVP Q6H PRN PRN Reason: Pain, severe (8-10) Last Admin: 03/18/18 08:46 Dose: 1 mg Ondansetron HCl (Zofran Inj) 8 mg IVP Q8H PRN PRN Reason: Nausea/Vomiting Last Admin: 03/17/18 18:55 Dose: 8 mg - Labs Labs: 03/18/18 08:54 03/18/18 08:54 PT 15.2 SECONDS (9.7-12.2) H 03/18/18 08:54 INR 1.4 03/18/18 08:54 APTT 33 SECONDS (21-34) 03/05/18 19:33 - Constitutional Appears: Non-toxic, No Acute Distress - Head Exam Head Exam: ATRAUMATIC, NORMAL INSPECTION, NORMOCEPHALIC - Eye Exam Eye Exam: EOMI, Normal appearance - ENT Exam ENT Exam: Mucous Membranes Moist - Respiratory Exam Respiratory Exam: Clear to Ausculation Bilateral, NORMAL BREATHING PATTERN. absent: Rales, Rhonchi, Wheezes - Cardiovascular Exam Cardiovascular Exam: +S1, +S2. absent: Irregular Rhythm, Murmur - GI/Abdominal Exam GI & Abdominal Exam: Soft, Tenderness, Normal Bowel Sounds. absent: Firm, Guarding, Rigid Additional comments: Tenderness LUQ radiating to L flank - Extremities Exam Extremities Exam: Full ROM, Normal Inspection. absent: Calf Tenderness, Pedal Edema, Tenderness - Back Exam Additional comments: Patient had biopsy site on L lower thoracic region. Dressing, clean dry, intact - Neurological Exam Neurological Exam: Alert, Awake, Oriented x3 - Psychiatric Exam Psychiatric exam: Normal Affect, Normal Mood - Skin Skin Exam: Dry, Intact, Normal Color, Warm Assessment and Plan - Assessment and Plan (Free Text) Assessment: Left-sided flank pain and nausea likely secondary to left adrenal mass rule out pheochromocytoma vs Conn's Syndrome Current Management: - Await results of renal biopsy performed 03/17 - Monitor patient for a couple days to ensure no bleeding at biopsy site - F/u Palliative consult Jordyn Rice, Imaging: - CT chest 03/18: Markedly enlarged mediastinal lymph nodes, the largest pretracheal lymph node measures 5.1 x 5.5 cm, results in severe mass effect on the right pulmonary artery. No evidence for acute pulmonary embolism. Moderate pericardial effusion. - CT abd 03/18: Increasing size and complex [place] of left adrenal gland likely hemorrhagic process. It is difficult to determine whether this represents necrotic/hemorrhagic metastasis for involving a hemorrhage from a more benign etiology. Cirrhotic findings in the liver without focal mass. Innumerable venous varicosities consist with portal hypertension as is stable splenomegaly. Stable retroperitoneal adenopathy. - Abdominal/Bladder US per radiology 03/05: cirrhotic liver, large left renal mass. Right adrenal lesion not identified sonographically. On obstructive uropathy. Cholelithiasis. Splenomegaly. Pancreas poorly visualized. Left mass cephalad to the left kidney measuring 6.7 X4.8X 4.8 cm corresponding to left adrenal mass. - CT Chest 03/06: increase reactive changes surrounding a mass at the left adrenal gland as well as the pancreatic body and tail and perirenal space. - CT head 03/06: mild age related diffuse cerebral atrophy is identified No acute intracranial findings by standard CT criteria Consults: - IR - Dr. Owen - Palative Care - Jordyn Rice - Heme/ Onc - Dr. Bonner Labs: - CEA, CA 19.9 are normal (03/05) - Cortisol 4.7 (03/07) - Follow-up on catecholamine and metanephrines labs: received - Renin and aldosterone ratio was low --> unlikely primary aldosteronism Meds: - Reglan 5mg IV Q6H PRN for nausea - Zofran 8mg Q8H for nausea - Morphine 2mg IVP Q4 PRN for severe pain - Oxycodone 5mg PO Q4 PRN for moderate pain Right Adrenal Mass - Hematology-oncology (Dr. Bonner) - IR (Dr. Dixon) consulted for biopsy, per Dr. Bonner recommendation to obtain biopsy once INR=1.0 - INR 1.3 today - Transfusion of 2 units FFP on 03/16, INR remains above 1.0 - per Dr. Bonner, transfused another unit of FFP in the AM and recheck INR - Follow-up repeat INR in AM daily Imaging: - CT Abdomen/Pelvis (03/05) Impression: liver is diminutive in overall volume withy moderate to fair significant appearing back for nodular appearing surface contour consistent with hepatic cirrhosis. Extensive esophageal gastric, splenorenal upper, and mid abdominal varicies, portal hypertension. Evidence of Retroperitoneal adenopahthy. Small 2.1X1.6cm cm right adrenal mass. NOT consistent with adenoma. Large left adrenal mass measuring 5.34 X5.0cm - Abdominal/Bladder US report (03/05/18): cirrhotic liver, large left renal mass. Right adrenal lesion not identified sonographically. - On obstructive uropathy. Cholelithiasis. Splenomegaly. Pancreas poorly visualized Right-sided chest pain, rule-out AK - MAKENZIE panel ordered on 03/11 - Troponin negative x1 - Total Creatine kinase=48 - CKMB=8.03 - Stat EKG repeat: left atrial enlargement - Monitor Imaging: - ECHO obtained (03/11) : LA midly dilated, normal LV wall motion, EF 55-60, normal size aortic root - Mediastinal lymphadenopathy - CT chest per radiology report: prominent mediastinal lymphadenopathy is appreciated without dominant pulmonary mass. small 3mm noncalcified nodule seen in right suprahilar space in right upper lobe. Liver Cirrhosis likely secondary to prolonged history of alcohol abuse - Patient is under the impression that his liver disease has improved, and reports he goes to [facility] for monitoring liver cirrhosis, but patient has not been to his physician for several years. Discussed with patient regarding his findings. Patient states he understands. Imaging: - CT Abdomen/Pelvis (03/05/18): liver is diminutive in overall volume withy moderate to fair significant appearing back for nodular appearing surface contour consistent with hepatic cirrhosis. Extensive esophageal gastric, splenoral ranl upper, and mid abdominal varcies, portal hypertension. - Abdominal/Bladder US (03/05/18): cirrhotic liver, large left renal mass. Right adrenal lesion not identified sonographically. On obstructive uropathy. Cholelithiasis. Splenomegaly. Pancreas poorly visualized Labs: - Hepatitis panel: Negative - HIV Abs: negative Consults/ Recs: - GI consulted, recommended outpatient EGD for variceal screening and colonoscopy for colon cancer screening as outpatient - Avoid NSAIDs, Zofran, Tylenol, Benzodiazepines, Benadryl to avoid further liver damage - Low dose Tylenol given for moderate pain - Encouraged continued cessation of alcohol consumption Cocaine abuse - UDS positive for cocaine on admission - Patient educated on risks for cardiac arrest and/or AK - Continue to encourage complete cessation of cocaine abuse History of tobacco use - Prior smoking use - 20 years ppd history - Encouraged complete cessation of tobacco products Dispo: L adrenal mass Bx by IR, awaiting pathology. Patient will likely be a discharge over the weekend. Pending no complications s/p biopsy, may be discharged. Must be conservative with pain control due to patient's history of polysubstance abuse. d/w Dr. Kp Trejo PGY-1 <Arsen Goodrich - Last Filed: 03/20/18 18:56> Objective - Vital Signs/Intake and Output Vital Signs (last 24 hours): Temp Pulse Resp BP Pulse Ox 98.3 F 96 H 20 118/78 95 03/20/18 07:43 03/20/18 07:43 03/20/18 07:43 03/20/18 07:43 03/20/18 07:43 Intake and Output: 03/20/18 03/20/18 06:59 18:59 Intake Total 810 Output Total 1 Balance 809 - Labs Labs: 03/20/18 07:38 03/20/18 07:38 PT 15.6 SECONDS (9.7-12.2) H 03/20/18 07:38 INR 1.4 03/20/18 07:38 APTT 33 SECONDS (21-34) 03/05/18 19:33 Attending/Attestation - Attestation I have personally seen and examined this patient.: Yes I have fully participated in the care of the patient.: Yes I have reviewed all pertinent clinical information, including history, physical exam and plan: Yes Notes (Text): 03/20/18 18:56 This is late entry. Care of this patient was gone over in detail with resident Dr. Trejo during rounds. Arsen Goodrich D.O.
[2018-03-18] MEDS: guaiFENesin 600 mg ER Tab PO SCH ×2 (11:00→17:16)
[2018-03-18] MEDS: Lidocaine 5% Patch TD SCH (11:00)
--- NOTE | 2018-03-18 12:04 | CT ---
Date of service: 03/18/2018 PROCEDURE: CT Chest with contrast (Pulmonary Angiogram) HISTORY: pleuritic chest pain post adrenal biopsy COMPARISON: None available. TECHNIQUE: Axial computed tomography images were obtained of the chest in the pulmonary arterial phase of enhancement. Coronal and sagittal reformatted images were created and reviewed. Intravenous contrast dose: 100 mL Visipaque 320 Radiation dose: Total exam DLP = 546.31 mGy-cm. This CT exam was performed using one or more of the following dose reduction techniques: Automated exposure control, adjustment of the mA and/or kV according to patient size, and/or use of iterative reconstruction technique. FINDINGS: PULMONARY ARTERIES: There is severe compression of the right pulmonary artery and widening of the pulmonary bifurcation related to large mediastinal lymphadenopathy. No evidence of acute pulmonary embolism. AORTA: No acute findings. No thoracic aortic aneurysm. LUNGS: The lungs are well inflated and clear. No nodule, mass or pulmonary consolidation. PLEURAL SPACES: No effusion or pneumothorax. HEART: Moderate pericardial effusion. No cardiomegaly. LYMPH NODES: There are multiple enlarged low-density mediastinal lymph nodes, the largest pretracheal lymph node measures 5.1 x 5.5 cm. BONES, CHEST WALL: Multilevel degenerative changes. No fracture or destructive lesion IMPRESSION: Markedly enlarged mediastinal lymph nodes, the largest pretracheal lymph node measures 5.1 x 5.5 cm, results in severe mass effect on the right pulmonary artery. No evidence for acute pulmonary embolism. Moderate pericardial effusion. A preliminary report was provided by [employer] services.
--- NOTE | 2018-03-18 12:14 | CT ---
Date of service: 03/18/2018 PROCEDURE: CT Abdomen and Pelvis with contrast HISTORY: pleuritic chest pain post adrenal biopsy and abd p COMPARISON: 03/05/2018. CT abdomen and pelvis TECHNIQUE: Contrast dose: 100 cc Visipaque 320 Radiation dose: Total exam DLP = 1035.80 mGy-cm. This CT exam was performed using one or more of the following dose reduction techniques: Automated exposure control, adjustment of the mA and/or kV according to patient size, and/or use of iterative reconstruction technique. FINDINGS: LOWER THORAX: Unremarkable. LIVER: Cirrhotic appearing liver similar to that identified previously. Large retroperitoneal and upper abdominal venous varicosities again identified. GALLBLADDER AND BILE DUCTS: Cholelithiasis without CT evidence of acute cholecystitis. PANCREAS: Unremarkable. No gross lesion or ductal dilatation. SPLEEN: Stable splenomegaly. ADRENALS: Stable right adrenal gland. Increase in size of left adrenal gland. On the current study this measures 7.1 x 7.4 cm. On the prior study at same level the left adrenal measures 5 x 15.1 cm consistent with evolving hemorrhagic process within the left adrenal gland. KIDNEYS AND URETERS: Unremarkable. No hydronephrosis. No solid mass. VASCULATURE: Unremarkable. No aortic aneurysm. BOWEL: Unremarkable. No obstruction. No gross mural thickening. APPENDIX: Normal appendix. PERITONEUM: Unremarkable. No free fluid. No free air. LYMPH NODES: Stable retroperitoneal lymphadenopathy. BLADDER: Unremarkable. REPRODUCTIVE: Unremarkable. BONES: No acute fracture. OTHER FINDINGS: None. IMPRESSION: Increasing size and complex City of left adrenal gland likely hemorrhagic process. It is difficult to determine whether this represents necrotic/hemorrhagic metastasis for involving a hemorrhage from a more benign etiology. Cirrhotic findings in the liver without focal mass. Innumerable venous varicosities consist with portal hypertension as is stable splenomegaly. Stable retroperitoneal adenopathy. Concordant results (preliminary interpretation) provided by [employer]. Procedure Completed: 00:38 Preliminary ([employer]Rad) Report: Dictated and Authenticated: 01:59 Final Interpretation: 12:12
[2018-03-19 06:33] LABS: BASO % 0.7 % (0.0-2.0); EOS % 0.5 % (0.0-4.0); HEMOGLOBIN 12.3 g/dL (12.0-18.0); LYMPH # 1.1 K/uL (1.0-4.3); LYMPH % 17.4 % (20.0-40.0); MEAN CELL VOLUME 86.3 fL (80.0-94.0); MEAN CORPUSCULAR HEMOGLOBIN 30.8 pg (27.0-31.0); MEAN CORPUSCULAR HGB CONC 35.7 g/dL (33.0-37.0); MEAN PLATELET VOLUME 7.6 fL (7.2-11.7); MONO # 0.8 K/uL (0.0-0.8); MONO % 12.7 % (0.0-10.0); NEUT # 4.4 K/uL (1.8-7.0); NEUT % 68.7 % (50.0-75.0); NRBC % 0.1 % (0.0-2.0); RBC 3.98 Mil/uL (4.40-5.90); RED CELL DISTRIBUTION WIDTH 13.7 % (11.5-14.5); WHITE BLOOD COUNT 6.4 K/uL (4.8-10.8)
[2018-03-19 06:42] LABS: INR 1.4; PROTHROMBIN TIME 15.7 SECONDS (9.7-12.2)
[2018-03-19 07:20] LABS: ALB/GLOB RATIO 0.7 (1.0-2.1); ALBUMIN 3.7 g/dL (3.5-5.0); ALT/SGPT 24 U/L (21-72); AST/SGOT 39 U/L (17-59); BLOOD UREA NITROGEN 16 mg/dL (9-20); CALCIUM 8.3 mg/dl (8.6-10.4); GFR NON-AFRICAN AMERICAN > 60
[2018-03-19] MEDS: guaiFENesin 600 mg ER Tab PO SCH ×2 (09:31→17:28)
[2018-03-19] MEDS: Lidocaine 5% Patch TD SCH (09:32)
[2018-03-19 09:51] LABS: CK-MB 10.9 ng/mL (0.0-3.38)
--- NOTE | 2018-03-19 10:11 | CP.PCM.PN ---
<Rom Manning - Last Filed: 03/19/18 17:44> Subjective - Date & Time of Evaluation Date of Evaluation: 03/19/18 Time of Evaluation: 14:13 - Subjective Subjective: PGY-[address] Goodrich Patient seen and examined at bedside today. He is POD #2. He reports that since his left adrenal mass biopsy on 03/17/2018 he has had progressively increasing pain over his left biopsy site, accompanied by persistent left sided chest pain rated 10/10, palpitations and headache, well controlled with pain medication for approximately 2 hours post administration. He also reports intermittent episodes of nausea well controlled with Zofran. He states that since his biopsy two days ago, he has had no appetite and thus has not eaten anything since lunch on 03/17/2018. He notes his last BM was also on 03/16/2018 and it was a normal, small stool. He has been passing gas daily. He denies problems with urination such as retention, urgency, frequency or hematuria. He denies fevers, chills, dizziness, diarrhea, constipation or vomiting. He notes continued right flank pain, but the biopsy site pain markedly surpasses his right flank pain. Upon evaluation later in the day, patient did eat 1/2 banana, oatmeal and drank two ensures. Objective - Vital Signs/Intake and Output Vital Signs (last 24 hours): Temp Pulse Resp BP Pulse Ox 98.4 F 86 20 118/89 96 03/19/18 08:00 03/19/18 08:00 03/19/18 08:00 03/19/18 08:00 03/19/18 08:00 Intake and Output: 03/19/18 03/19/18 06:59 18:59 Intake Total 660 100 Balance 660 100 - Medications Medications: Current Medications Amlodipine Besylate (Norvasc) 5 mg PO DAILY [facility] Last Admin: 03/19/18 09:31 Dose: 5 mg Docusate Sodium (Colace) 100 mg PO BID [facility] Last Admin: 03/19/18 09:31 Dose: 100 mg Guaifenesin (Mucinex La) 600 mg PO BID [facility] Last Admin: 03/19/18 09:31 Dose: 600 mg Lidocaine (Lidoderm) 1 ea TD DAILY [facility] Last Admin: 03/19/18 09:32 Dose: 1 ea Metoclopramide HCl (Reglan) 5 mg IVP Q6H PRN PRN Reason: Nausea/Vomiting Last Admin: 03/18/18 02:32 Dose: 5 mg Morphine Sulfate (Morphine) 0.5 mg IVP Q6H PRN PRN Reason: Pain, moderate (4-7) Last Admin: 03/19/18 09:48 Dose: 0.5 mg Morphine Sulfate (Morphine) 1 mg IVP Q6H PRN PRN Reason: Pain, severe (8-10) Last Admin: 03/19/18 03:41 Dose: 1 mg Ondansetron HCl (Zofran Inj) 8 mg IVP Q8H PRN PRN Reason: Nausea/Vomiting Last Admin: 03/19/18 07:35 Dose: 8 mg - Labs Labs: 03/19/18 06:28 03/19/18 06:28 PT 15.7 SECONDS (9.7-12.2) H 03/19/18 06:28 INR 1.4 03/19/18 06:28 APTT 33 SECONDS (21-34) 03/05/18 19:33 - Constitutional Appears: Non-toxic, No Acute Distress - Head Exam Head Exam: ATRAUMATIC, NORMOCEPHALIC - Eye Exam Eye Exam: EOMI, Normal appearance - Respiratory Exam Respiratory Exam: Clear to Ausculation Bilateral, NORMAL BREATHING PATTERN - GI/Abdominal Exam GI & Abdominal Exam: Soft, Tenderness, Normal Bowel Sounds Additional comments: +b/l flank tenderness - Extremities Exam Extremities Exam: Full ROM, Normal Capillary Refill, Normal Inspection - Neurological Exam Neurological Exam: Alert, Awake, CN II-XII Intact, Normal Gait, Oriented x3 - Skin Skin Exam: Dry, Intact, Normal Color, Warm. absent: Pallor, Pallor Assessment and Plan - Assessment and Plan (Free Text) Assessment: Left-sided flank pain and nausea likely secondary to left adrenal mass rule out pheochromocytoma vs Conn's Syndrome Current Management: - Await results of renal biopsy performed 03/17 - Monitor patient for a couple days to ensure no bleeding at biopsy site - F/u Palliative consult Jordyn Rice, Imaging: - CT chest 03/18: Markedly enlarged mediastinal lymph nodes, the largest pretracheal lymph node measures 5.1 x 5.5 cm, results in severe mass effect on the right pulmonary artery. No evidence for acute pulmonary embolism. Moderate pericardial effusion. - CT abd 03/18: Increasing size and complex City of left adrenal gland likely hemorrhagic process. It is difficult to determine whether this represents necrotic/hemorrhagic metastasis for involving a hemorrhage from a more benign etiology. Cirrhotic findings in the liver without focal mass. Innumerable venous varicosities consist with portal hypertension as is stable splenomegaly. Stable retroperitoneal adenopathy. - Abdominal/Bladder US per radiology 03/05: cirrhotic liver, large left renal mass. Right adrenal lesion not identified sonographically. On obstructive uropathy. Cholelithiasis. Splenomegaly. Pancreas poorly visualized. Left mass cephalad to the left kidney measuring 6.7 X4.8X 4.8 cm corresponding to left adrenal mass. - CT Chest 03/06: increase reactive changes surrounding a mass at the left adrenal gland as well as the pancreatic body and tail and perirenal space. - CT head 03/06: mild age related diffuse cerebral atrophy is identified No acute intracranial findings by standard CT criteria Consults: - IR - [facility] Owen - [facility] - Jordyn Rice - Heme/ Onc - Dr. Bonner Labs: - CEA, CA 19.9 are normal (03/05) - Cortisol 4.7 (03/07) - Follow-up on catecholamine and metanephrines labs: received - Renin and aldosterone ratio was low --> unlikely primary aldosteronism Meds: - Reglan 5mg IV Q6H PRN for nausea - Zofran 8mg Q8H for nausea - Morphine 2mg IVP Q4 PRN for severe pain - Oxycodone 5mg PO Q4 PRN for moderate pain Right Adrenal Mass - Hematology-oncology (Dr. Bonner) - IR (Dr. Dixon) consulted for biopsy, per Dr. Bonner recommendation to obtain biopsy once INR=1.0 - INR 1.3 today - Transfusion of 2 units FFP on 03/16, INR remains above 1.0 - per Dr. Bonner, transfused another unit of FFP in the AM and recheck INR - Follow-up repeat INR in AM daily Imaging: - CT Abdomen/Pelvis (03/05) Impression: liver is diminutive in overall volume withy moderate to fair significant appearing back for nodular appearing surface contour consistent with hepatic cirrhosis. Extensive esophageal gastric, splenorenal upper, and mid abdominal varicies, portal hypertension. Evidence of Retroperitoneal adenopahthy. Small 2.1X1.6cm cm right adrenal mass. NOT consistent with adenoma. Large left adrenal mass measuring 5.34 X5.0cm - Abdominal/Bladder US report (03/05/18): cirrhotic liver, large left renal mass. Right adrenal lesion not identified sonographically. - On obstructive uropathy. Cholelithiasis. Splenomegaly. Pancreas poorly visualized Left-sided chest pain - On 03/18/2018, a Rapid Response was called because patient had onset of left sided chest pain, associated with shortness of breath and left sided back pain proximal to biopsy site. At that time EKG was done, and was unremarkable. CBC/ CMP were ordered/reviewed and CT chest and abdomen were ordered and reviewed. Patient had repeat MAKENZIE panel completed on 03/19/2018 - Total Creatine Kinase: 80 - Troponin: <0.0120 - CKMB: 10.9 (increased from 8.03 on 03/11/2018) Right-sided chest pain, rule-out IA - MAKENZIE panel ordered on 03/11 - Troponin negative x1 - Total Creatine kinase=48 - CKMB=8.03 - Stat EKG repeat: left atrial enlargement - Monitor Imaging: - ECHO obtained (03/11/2018) : LA midly dilated, normal LV wall motion, EF 55-60 , normal size aortic root - Mediastinal lymphadenopathy - CT chest per radiology report (03/06/2018): prominent mediastinal lymphadenopathy is appreciated without dominant pulmonary mass. small 3mm noncalcified nodule seen in right suprahilar space in right upper lobe. Liver Cirrhosis likely secondary to prolonged history of alcohol abuse - Patient is under the impression that his liver disease has improved, and reports he goes to [facility] for monitoring liver cirrhosis, but patient has not been to his physician for several years. Discussed with patient regarding his findings. Patient states he understands. Labs: - Hepatitis panel: Negative - HIV Abs: negative Consults/ Recs: - GI consulted, recommended outpatient EGD for variceal screening and colonoscopy for colon cancer screening as outpatient - Avoid NSAIDs, Zofran, Tylenol, Benzodiazepines, Benadryl to avoid further liver damage - Low dose Tylenol given for moderate pain - Encouraged continued cessation of alcohol consumption Cocaine abuse - UDS positive for cocaine on admission - Patient educated on risks for cardiac arrest and/or IA - Continue to encourage complete cessation of cocaine abuse History of tobacco use - Prior smoking use - 20 years ppd history - Encouraged complete cessation of tobacco products Disposition: L adrenal mass Bx by IR, awaiting pathology. Patient will likely be a discharge over the weekend. Pending no complications s/p biopsy, may be discharged. Must be conservative with pain control due to patient's history of polysubstance abuse. Assessment/Plan Discussed with Dr. Kp Manning, PGY-1 <Arsen Goodrich - Last Filed: 03/20/18 18:56> Objective - Vital Signs/Intake and Output Vital Signs (last 24 hours): Temp Pulse Resp BP Pulse Ox 98.3 F 96 H 20 118/78 95 03/20/18 07:43 03/20/18 07:43 03/20/18 07:43 03/20/18 07:43 03/20/18 07:43 Intake and Output: 03/20/18 03/20/18 06:59 18:59 Intake Total 810 Output Total 1 Balance 809 - Labs Labs: 03/20/18 07:38 03/20/18 07:38 PT 15.6 SECONDS (9.7-12.2) H 03/20/18 07:38 INR 1.4 03/20/18 07:38 APTT 33 SECONDS (21-34) 03/05/18 19:33 Attending/Attestation - Attestation I have personally seen and examined this patient.: Yes I have fully participated in the care of the patient.: Yes I have reviewed all pertinent clinical information, including history, physical exam and plan: Yes Notes (Text): 03/20/18 18:55 This is late entry. Care of this patient was gone over in detail with resident Dr. Manning during rounds. Arsen Goodrich D.O.
[2018-03-19 23:47] VITALS: O2SAT 95
--- NOTE | 2018-03-20 05:36 | CON ---
DATE: 03/19/2018 CARDIOLOGY CONSULTATION REQUESTING PHYSICIAN: Selena Goodrich DO HISTORY OF PRESENT ILLNESS: This is a 68-year-old gentleman who was brought in with back pain and flank pain. Workup in the hospitalization had shown that he had some adrenal mass, also CAT scan of the chest had shown mediastinal lymph nodes, placing on pulmonary arteries. He was found to have a high likelihood of cancer with a big mass of adrenal. During hospitalization, the patient developed some precordial chest pain which is persistent all the time related to the movement at times. No previous history of MD, heart failure, or history of hypertension. PERSONAL HISTORY: Ex-smoker and ex-EtOH abuse, but stopped doing both more than 15 years ago. ALLERGIES: DENIED. FAMILY HISTORY: Detail is not available. He does not recall having significant cardiac problems or diabetes in the family. PHYSICAL EXAMINATION: GENERAL: Shows elderly male who is conscious, alert, chronically sick looking, but in no acute distress. VITAL SIGNS: He is 5 feet 5 inches, weighs 170 pounds. His blood pressure is 126/70, heart rate of 78, respiratory rate of 12, afebrile. HEENT: Head is normocephalic. Eyes: No pallor. LUNGS: Decreased air entry at the base. HEART: PMI is normal. S1 and S2 normal. Soft holosystolic murmur in mitral area. ABDOMEN: Soft. EXTREMITIES: No cyanosis, clubbing, or edema. Dorsal pedis is 1+. LABORATORY DATA: EKG sinus rhythm, left atrial abnormality. First set of troponins are negative. Echocardiogram had shown normal LV systolic function and wall motion. Left atrium was mildly dilated. ASSESSMENT: This is 68-year-old gentleman with history of cancer. Chest pain appears nature. RECOMMENDATIONS: Continue blood pressure medications and check the lipid profiles, thyroid profiles. Do not recommend any workup at this point. However, if the pain is recurrent, then Lexiscan stress test would be of help, since he is not a candidate for a treadmill. I thank you kindly. We will follow only at your request. We will sign off. Tunde Trejo MD [facility] # [id number]
[2018-03-20 07:46] VITALS: BP 118/78; PULSE 96; TEMP 98.3
[2018-03-20 07:58] LABS: INR 1.4; PROTHROMBIN TIME 15.6 SECONDS (9.7-12.2)
[2018-03-20 08:20] LABS: BASO % 0.1 % (0.0-2.0); EOS % 0.4 % (0.0-4.0); HEMOGLOBIN 12.5 g/dL (12.0-18.0); LYMPH % 16.6 % (20.0-40.0); MEAN CELL VOLUME 87.4 fL (80.0-94.0); MEAN CORPUSCULAR HEMOGLOBIN 30.9 pg (27.0-31.0); MEAN CORPUSCULAR HGB CONC 35.4 g/dL (33.0-37.0); MEAN PLATELET VOLUME 7.6 fL (7.2-11.7); MONO # 0.6 K/uL (0.0-0.8); NEUT # 4.2 K/uL (1.8-7.0); NEUT % 71.9 % (50.0-75.0); NRBC % 0.5 % (0.0-2.0); RBC 4.03 Mil/uL (4.40-5.90); RED CELL DISTRIBUTION WIDTH 13.5 % (11.5-14.5); WHITE BLOOD COUNT 5.9 K/uL (4.8-10.8)
[2018-03-20 08:27] LABS: ALB/GLOB RATIO 0.7 (1.0-2.1); ALT/SGPT 25 U/L (21-72); AST/SGOT 40 U/L (17-59); BLOOD UREA NITROGEN 19 mg/dL (9-20); GFR NON-AFRICAN AMERICAN > 60
--- NOTE | 2018-03-20 09:15 | CP.PCM.PN ---
Subjective - Date & Time of Evaluation Date of Evaluation: 03/20/18 Time of Evaluation: 08:45 - Subjective Subjective: Hospitalist Progress Note Patient was seen and examined at 8:45 AM 03/20/18 365 A Upon FULL ROS Has not moved his bowels since Thursday but is passing gas Tries to finish all of the Ensure Enlive but is not always successful due to the nausea but never any vomiting NO difficulty with breathing Has pain in the left lower flank area that comes and goes and is pulsating as best as he can describe it There is some mild dizziness that comes and goes NO soreness in throat NO cough NO sinus/nasal congestion NO fever/chills NO chest pain/palpitations NO ALEGRIA NO paresthesias NO new changes in vision NO new changes in hearing Exam: General: AAOX3, NAD and is comfortable at the moment HEENT: NCA, EOMI, PERRLA, NO cervical/supraclavicular/submandibular lymphadenopathy, NO pharyngeal erythema/exudate, Nasal Turbinates are nonerythematous/nonedematous, Oral Mucosa is moist Cardio: NS1 and NS2, NO M/R/G Resp: CTA B/L, NO R/R/W GI: BSx4, Soft, NT, NO HSM, NO guarding/rebound tenderness Ext: Pulses are strong and equal, Capillary Refill is 2 seconds, NO edema Neuro: CN II through XII are grossly intact Muskuloskeletal: there is tenderness to palpation in the left flank area however no bruising/hardness Assessments: 1). Bilateral Adrenal Mass with Mediastinal Lymphadenopathy S/P Left Adrenal Biopsy Preliminary pathology read as per my conversation with Pathologist on 03/18/18 is highly suspicious for malignancy: awaiting result of immunohistochemical studies Scheduled appointment with Pomologist Oncologist Dr. Bonner for 03/25/18 at 1:45 PM to follow up immunohistochemical studies. Will provide Rx for Lidocaine Patch and Percocet 2). Percardial Effusion As seen on CT Chest and Echocardiogram NO further cardiac workup as per my conversation with Social Media Executive Dr. Tunde Trejo on 03/20/18 morning 3). Portal Hypertension Varices HgB/Hct are stable 4). Nausea Will provide Zofran Rx upon discharge 5). Tobacco Use He has been counseled and understands that this has likely contributed to his currenty situation and will likely worsen it 6). Hx Alcohol Abuse Stated that last drink was 2 years ago 7). Hx Cocaine Use Stated last use was 1 month ago Counseled that this will worsen his current situation 8). Hx Liver Cirrhosis Coordinate Care through outpatient clinic 9). Constipation Likely secondary to his reduced PO intake He has been trying to take Ensure Enlive 3x a day Continue Colace Disposition: Patient is stable for discharge All follow up instructions and medication instructions were thoroughly explained to patient today in Armenian with the help of Nurse Corinna The following instructions were explained to patient and a copy will need to be provided to him in Armenian upon discharge: 1). You stated that you do not have a primary care physician. Therefore please schedule follow up with one of the following clinics (which ever one that you can obtain the earliest appointment) to help coordinate your health care. One of these clinics will be your primary care physician to help set up appointments and provide you with future prescriptions that you will need to have filled at your pharmacy. Please do NOT delay in making an appointment. This appointment must take place in the next 7 days: [facility] Floor B of [facility] ([phone]) [address] [place] [address] ([phone]) [address] [place] [address] 2). You have been set up with an appointment with Cancer Specialist Dr. Louise Bonner for March 25, 2018 at 1:30 AM. Her office is located at [address] [place] [address] in [place], [place] and her office number is . You will need to follow up the results of your biopsy with Dr. Bonner and plan treatment accordingly. 3). You have been provided with the following medications prior to your discharge. You must follow up with one of the clinics above for future prescriptions. Please use as these medications as instructed: Amlodipine 5 mg, 1 tablet by mouth 1 time a day at 8 AM, Dispense #30, NO refills Colace 100 mg, 1 tablet by mouth 2 times a day at 8 AM and 8 PM, Dispense #60, NO refills Lidocaine 5% Patch, apply once a day to the left back where you have pain at 8 AM and remove at 8 PM, Dispense #30, NO refills Percocet 5/325 mg, 1 tablet by mouth every 8 hours only as needed for severe breakthrough pain, Dispense #30, NO refills Zofran 4 mg, 1 tablet by mouth every 8 hours only as needed for nausea, Dispense #30, NO refills 4). Should you have worsening of your symptoms please return to the emergency room. 5). Please make sure that you are drinking Ensure Enlive 3 times a day with breakfast, lunch, dinner. Arsen Goodrich D.O. Objective - Vital Signs/Intake and Output Vital Signs (last 24 hours): Temp Pulse Resp BP Pulse Ox 98.3 F 96 H 20 118/78 95 03/20/18 07:43 03/20/18 07:43 03/20/18 07:43 03/20/18 07:43 03/20/18 07:43 Intake and Output: 03/20/18 03/20/18 06:59 18:59 Intake Total 810 Output Total 1 Balance 809 - Medications Medications: Current Medications Amlodipine Besylate (Norvasc) 5 mg PO DAILY [facility] Last Admin: 03/19/18 09:31 Dose: 5 mg Docusate Sodium (Colace) 100 mg PO BID [facility] Last Admin: 03/19/18 17:28 Dose: 100 mg Guaifenesin (Mucinex La) 600 mg PO BID [facility] Last Admin: 03/19/18 17:28 Dose: 600 mg Lidocaine (Lidoderm) 1 ea TD DAILY [facility] Last Admin: 03/19/18 09:32 Dose: 1 ea Metoclopramide HCl (Reglan) 5 mg IVP Q6H PRN PRN Reason: Nausea/Vomiting Last Admin: 03/20/18 01:12 Dose: 5 mg Morphine Sulfate (Morphine) 0.5 mg IVP Q6H PRN PRN Reason: Pain, moderate (4-7) Last Admin: 03/19/18 15:25 Dose: 0.5 mg Morphine Sulfate (Morphine) 1 mg IVP Q6H PRN PRN Reason: Pain, severe (8-10) Last Admin: 03/20/18 03:16 Dose: 1 mg Ondansetron HCl (Zofran Inj) 8 mg IVP Q8H PRN PRN Reason: Nausea/Vomiting Last Admin: 03/19/18 07:35 Dose: 8 mg - Labs Labs: 03/20/18 07:38 03/20/18 07:38 PT 15.6 SECONDS (9.7-12.2) H 03/20/18 07:38 INR 1.4 03/20/18 07:38 APTT 33 SECONDS (21-34) 03/05/18 19:33
[2018-03-20] MEDS: guaiFENesin 600 mg ER Tab PO SCH (09:29)
[2018-03-20] MEDS: Lidocaine 5% Patch TD SCH (10:00)
--- NOTE | 2018-03-20 10:36 | CP.PCM.DIS ---
<KaseystefanieAdolfo - Last Filed: 03/20/18 12:42> Provider - Provider Date of Admission: 03/05/18 12:55 Attending physician: Arsen Goodrich MD Primary care physician: none Consults: HemeOnc- [facility] Cardio- Dr. Trejo IR- Dr. Owen Time Spent in preparation of Discharge (in minutes): 28 Hospital Course - Lab Results Lab Results: Micro Results 03/05/18 19:33 Blood-Venous Blood Culture - Final NO GROWTH AFTER 5 DAYS 03/05/18 19:33 Blood-Venous Gram Stain - Final TEST NOT PERFORMED 03/05/18 10:59 Urine Urine Culture - Final No Growth (<1,000 CFU/ML) Most Recent Lab Values WBC 5.9 K/uL (4.8-10.8) 03/20/18 07:38 RBC 4.03 Mil/uL (4.40-5.90) L 03/20/18 07:38 Hgb 12.5 g/dL (12.0-18.0) 03/20/18 07:38 Hct 35.3 % (35.0-51.0) 03/20/18 07:38 MCV 87.4 fL (80.0-94.0) 03/20/18 07:38 MCH 30.9 pg (27.0-31.0) 03/20/18 07:38 MCHC 35.4 g/dL (33.0-37.0) 03/20/18 07:38 RDW 13.5 % (11.5-14.5) 03/20/18 07:38 Plt Count 163 K/uL (130-400) 03/20/18 07:38 MPV 7.6 fL (7.2-11.7) 03/20/18 07:38 Neut % (Auto) 71.9 % (50.0-75.0) 03/20/18 07:38 Lymph % (Auto) 16.6 % (20.0-40.0) L 03/20/18 07:38 [facility] % (Auto) 11.0 % (0.0-10.0) H 03/20/18 07:38 Eos % (Auto) 0.4 % (0.0-4.0) 03/20/18 07:38 Baso % (Auto) 0.1 % (0.0-2.0) 03/20/18 07:38 Neut # (Auto) 4.2 K/uL (1.8-7.0) 03/20/18 07:38 Lymph # (Auto) 1.0 K/uL (1.0-4.3) 03/20/18 07:38 [facility] # (Auto) 0.6 K/uL (0.0-0.8) 03/20/18 07:38 Eos # (Auto) 0.0 K/uL (0.0-0.7) 03/20/18 07:38 Baso # (Auto) 0.0 K/uL (0.0-0.2) 03/20/18 07:38 Differential Comment 03/05/18 10:59 PT 15.6 SECONDS (9.7-12.2) H 03/20/18 07:38 INR 1.4 03/20/18 07:38 APTT 33 SECONDS (21-34) 03/05/18 19:33 Sodium 136 mmol/L (132-148) 03/20/18 07:38 Potassium 4.9 mmol/L (3.6-5.2) 03/20/18 07:38 Chloride 97 mmol/L (98-107) L 03/20/18 07:38 Carbon Dioxide 30 mmol/L (22-30) 03/20/18 07:38 Anion Gap 14 (10-20) 03/20/18 07:38 BUN 19 mg/dL (9-20) 03/20/18 07:38 Creatinine 0.7 mg/dL (0.8-1.5) L 03/20/18 07:38 Est GFR ( Amer) > 60 03/20/18 07:38 Est GFR (Non-Af Amer) > 60 03/20/18 07:38 POC Glucose (mg/dL) 109 mg/dL (65-110) 03/17/18 23:44 Random Glucose 170 mg/dL (75-110) H 03/20/18 07:38 Calcium 9.0 mg/dl (8.6-10.4) 03/20/18 07:38 Phosphorus 3.6 mg/dL (2.5-4.5) 03/20/18 07:38 Magnesium 1.9 mg/dL (1.6-2.3) 03/20/18 07:38 Total Bilirubin 1.6 mg/dL (0.2-1.3) H 03/20/18 07:38 GGT 31 U/L (8-78) 03/05/18 19:33 AST 40 U/L (17-59) 03/20/18 07:38 ALT 25 U/L (21-72) 03/20/18 07:38 Alkaline Phosphatase 97 U/L (38-126) 03/20/18 07:38 Total Creatine Kinase 80 U/L (55-170) 03/19/18 09:21 CK-MB (Mass) 10.9 ng/mL (0.0-3.38) H 03/19/18 09:21 Troponin I < 0.0120 ng/mL (0.00-0.120) 03/19/18 09:21 Total Protein 9.5 g/dL (6.3-8.3) H 03/20/18 07:38 Albumin 4.0 g/dL (3.5-5.0) 03/20/18 07:38 Globulin 5.5 gm/dL (2.2-3.9) H 03/20/18 07:38 Albumin/Globulin Ratio 0.7 (1.0-2.1) L 03/20/18 07:38 Lipase 310 U/L (23-300) H 03/06/18 08:11 Alpha Fetoprotein 1.7 ng/mL (0.0-7.5) 03/05/18 19:33 Carcinoembryonic Ag 1.0 ng/mL (0-3.0) 03/05/18 19:33 CA 19-9 Antigen 6.2 U/mL (0-37) 03/05/18 19:33 Renin 0.19 ng/mL/h (0.25-5.82) L 03/08/18 11:23 Aldosterone 1 ng/dL 03/08/18 11:23 Aldosterone/Renin Ratio 5.3 Ratio (0.9-28.9) 03/08/18 11:23 Cortisol AM Sample 4.7 ug/dL (4.46-22.7) 03/05/18 19:33 ACTH 14 pg/mL (6-50) 03/07/18 15:06 Plas Tot Catecholamine 267 pg/mL 03/07/18 15:06 Dopamine see note 03/07/18 15:06 Plasma Epinephrine see note 03/07/18 15:06 Norepinephrine 267 pg/mL 03/07/18 15:06 Urine Color Yellow (YELLOW) 03/05/18 10:59 Urine Clarity Clear (Clear) 03/05/18 10:59 Urine pH 6.0 (5.0-8.0) 03/05/18 10:59 Ur Specific [place] 1.021 (1.003-1.030) 03/05/18 10:59 Urine Protein Negative mg/dL (NEGATIVE) 03/05/18 10:59 Urine Glucose (UA) Normal mg/dL (Normal) 03/05/18 10:59 Urine Ketones Negative mg/dL (NEGATIVE) 03/05/18 10:59 Urine Blood Negative (NEGATIVE) 03/05/18 10:59 Urine Nitrate Negative (NEGATIVE) 03/05/18 10:59 Urine Bilirubin Negative (NEGATIVE) 03/05/18 10:59 Urine Urobilinogen Normal mg/dL (0.2-1.0) 03/05/18 10:59 Ur Leukocyte Esterase Neg Franki/uL (Negative) 03/05/18 10:59 Urine WBC (Auto) 1 /hpf (0-5) 03/05/18 10:59 Urine RBC (Auto) 1 /hpf (0-3) 03/05/18 10:59 Urine Total Volume 0225 mL 03/07/18 15:06 Ur Creatinine mg/24hr 0.13 g/24 h (0.63-2.50) L 03/07/18 15:06 Urine Aldosterone <0.2 mcg/24 h 03/07/18 15:06 Urine Opiates Screen Negative (NEGATIVE) 03/05/18 14:51 Urine Methadone Screen Negative (NEGATIVE) 03/05/18 14:51 Ur Barbiturates Screen Negative (NEGATIVE) 03/05/18 14:51 Ur Phencyclidine Scrn Negative (NEGATIVE) 03/05/18 14:51 Ur Amphetamines Screen Negative (NEGATIVE) 03/05/18 14:51 U Benzodiazepines Scrn Negative (NEGATIVE) 03/05/18 14:51 U Oth Cocaine Metabols Positive (NEGATIVE) H 03/05/18 14:51 U Cannabinoids Screen Negative (NEGATIVE) 03/05/18 14:51 Hepatitis A IgM Ab Negative (NEGATIVE) 03/05/18 19:33 Hep Bs Antigen Negative (NEGATIVE) 03/05/18 19:33 Hep B Core IgM Ab Negative (NEGATIVE) 03/05/18 19:33 Hepatitis C Antibody Negative (NEGATIVE) 03/05/18 19:33 HIV 1&2 Antibody Screen Negative (NEGATIVE) 03/05/18 19:33 Blood Type O POSITIVE 03/11/18 19:47 Antibody Screen Negative 03/11/18 19:47 - Hospital Course Hospital Course: Upon hospital admission: 68 year old male presents to the ED with complaints of acute left sided back and flank pain that awoke him from his sleep at 4am today. Patient reports the pain then began radiating to epigastrum. Patient reports nausea, 1 episode of NBNB. Patient also reports worsening left shoulder /back pain that began 2 weeks ago s/p fall. Denies chest pain, SOB, diarrhea PMD: none PMHx: Liver disease PSHx: denies Meds: denies Allergies: NKDA Fam Hx: denies Soc Hx: former drinker, quit 12 yrs ago, former smoker, quit 20 yrs ago, denies drug use. Works construction During hospital course, the patient was evaluated and treated for the following : 1. Left-sided flank pain and nausea likely secondary to left adrenal mass rule out pheochromocytoma vs Conn's Syndrome. He was treated with Reglan 5mg IV Q6H PRN for nausea, Zofran 8mg Q8H for nausea, Morphine 2mg IVP Q4 PRN for severe pain, Oxycodone 5mg PO Q4 PRN for moderate pain. [facility] and [facility] Dr. Bonner. Await results of renal biopsy performed 03/17. No bleeding from biopsy site. F/u Palliative consult Jordyn Rice, [phone]. 2. Right Adrenal Mass with consult placed to Hematology-oncology (Dr. Bonner) and IR (Dr. Dixon) consulted for biopsy. Patient received a transfusion of 2 units FFP on 03/16, INR remains above 1.0. Imagin. Liver Cirrhosis likely secondary to prolonged history of alcohol abuse - Patient is under the impression that his liver disease has improved, and reports he goes to [facility] for monitoring liver cirrhosis, but patient has not been to his physician for several years. Discussed with patient regarding his findings. Patient states he understands. Hepatitis panel: Negative; HIV Abs: negative - GI consulted, recommended outpatient EGD for variceal screening and colonoscopy for colon cancer screening as outpatient - Avoid NSAIDs, Zofran, Tylenol, Benzodiazepines, Benadryl to avoid further liver damage - Low dose Tylenol given for moderate pain - Encouraged continued cessation of alcohol consumption Imaging: - ECHO obtained (03/11/2018) : LA midly dilated, normal LV wall motion, EF 55-60 , normal size aortic root - Mediastinal lymphadenopathy - CT chest per radiology report (03/06/2018): prominent mediastinal lymphadenopathy is appreciated without dominant pulmonary mass. small 3mm noncalcified nodule seen in right suprahilar space in right upper lobe. - CT Abdomen/Pelvis (03/05) Impression: liver is diminutive in overall volume withy moderate to fair significant appearing back for nodular appearing surface contour consistent with hepatic cirrhosis. Extensive esophageal gastric, splenorenal upper, and mid abdominal varicies, portal hypertension. Evidence of Retroperitoneal adenopahthy. Small 2.1X1.6cm cm right adrenal mass. NOT consistent with adenoma. Large left adrenal mass measuring 5.34 X5.0cm - Abdominal/Bladder US report (03/05/18): cirrhotic liver, large left renal mass. Right adrenal lesion not identified sonographically. - On obstructive uropathy. Cholelithiasis. Splenomegaly. Pancreas poorly visualized - CT chest 03/18: Markedly enlarged mediastinal lymph nodes, the largest pretracheal lymph node measures 5.1 x 5.5 cm, results in severe mass effect on the right pulmonary artery. No evidence for acute pulmonary embolism. Moderate pericardial effusion. - CT abd 03/18: Increasing size and complex City of left adrenal gland likely hemorrhagic process. It is difficult to determine whether this represents necrotic/hemorrhagic metastasis for involving a hemorrhage from a more benign etiology. Cirrhotic findings in the liver without focal mass. Innumerable venous varicosities consist with portal hypertension as is stable splenomegaly. Stable retroperitoneal adenopathy. - Abdominal/Bladder US per radiology 03/05: cirrhotic liver, large left renal mass. Right adrenal lesion not identified sonographically. On obstructive uropathy. Cholelithiasis. Splenomegaly. Pancreas poorly visualized. Left mass cephalad to the left kidney measuring 6.7 X4.8X 4.8 cm corresponding to left adrenal mass. - CT Chest 03/06: increase reactive changes surrounding a mass at the left adrenal gland as well as the pancreatic body and tail and perirenal space. - CT head 03/06: mild age related diffuse cerebral atrophy is identified No acute intracranial findings by standard CT criteria Upon hospital discharge, the patient was provided with the following instructions: The following instructions were explained to patient and a copy will need to be provided to him in [place] upon discharge: 1). You stated that you do not have a primary care physician. Therefore please schedule follow up with one of the following clinics (which ever one that you can obtain the earliest appointment) to help coordinate your health care. One of these clinics will be your primary care physician to help set up appointments and provide you with future prescriptions that you will need to have filled at your pharmacy. Please do NOT delay in making an appointment. This appointment must take place in the next 7 days: [facility] Floor B of [facility] ([phone]) [address] [place] [address] [phone]) [address] [place] [address] 2). You have been set up with an appointment with Cancer Specialist Dr. Louise Bonner for March 25, 2018 at 1:30 AM. Her office is located at [address] [place] [address] in [place], [place] and her office number is . You will need to follow up the results of your biopsy with Dr. Bonner and plan treatment accordingly. 3). You have been provided with the following medications prior to your discharge. You must follow up with one of the clinics above for future prescriptions. Please use as these medications as instructed: Amlodipine 5 mg, 1 tablet by mouth 1 time a day at 8 AM, Dispense #30, NO refills Colace 100 mg, 1 tablet by mouth 2 times a day at 8 AM and 8 PM, Dispense #60, NO refills Lidocaine 5% Patch, apply once a day to the left back where you have pain at 8 AM and remove at 8 PM, Dispense #30, NO refills Percocet 5/325 mg, 1 tablet by mouth every 8 hours only as needed for severe breakthrough pain, Dispense #30, NO refills Zofran 4 mg, 1 tablet by mouth every 8 hours only as needed for nausea, Dispense #30, NO refills 4). Should you have worsening of your symptoms please return to the emergency room. 5). Please make sure that you are drinking Ensure Enlive 3 times a day with breakfast, lunch, dinner. This is a summary of the patient's hospital admission, see chart for comprehensive detail. - Date & Time of H&P Date of H&P: 03/05/18 Time of H&P: 14:45 Discharge Exam - Additional Findings Additional findings: - Constitutional Appears: Non-toxic, No Acute Distress - Head Exam Head Exam: ATRAUMATIC, NORMAL INSPECTION - Eye Exam Eye Exam: EOMI, Normal appearance - Respiratory Exam Respiratory Exam: NORMAL BREATHING PATTERN. absent: Rales, Wheezes - Cardiovascular Exam Cardiovascular Exam: Regular Rate, +S1, +S2 - GI/Abdominal Exam GI & Abdominal Exam: Soft, Normal Bowel Sounds. absent: Tenderness - Extremities Exam Extremities Exam: Full ROM, Normal Inspection. absent: Pedal Edema, Tenderness - Back Exam Back Exam: NORMAL INSPECTION. absent: CVA tenderness (L), CVA tenderness (R) - Neurological Exam Neurological Exam: Alert, Awake, Oriented x3 - Psychiatric Exam Psychiatric exam: Normal Affect, Normal Mood - Skin Skin Exam: Dry, Intact, Normal Color, Warm Discharge Plan - Discharge Medications Prescriptions: amLODIPine [Norvasc] 5 mg PO DAILY #30 tab Docusate [Colace] 100 mg PO BID #60 cap Lidocaine 5% [Lidoderm] 1 ea TD DAILY #30 patch Ondansetron HCl [Zofran] 4 mg PO Q8H PRN #30 tablet PRN Reason: Nausea/Vomiting oxyCODONE/Acetaminophen [Percocet 5/325 mg Tab] 1 ea PO Q6 PRN 3 Days #20 tab PRN Reason: Pain, Moderate (4-7) oxyCODONE/Acetaminophen [Percocet 5/325 mg Tab] 1 ea PO Q8H PRN #30 tab PRN Reason: Pain, Severe (8-10) - Follow Up Plan Condition: FAIR Disposition: HOME/ ROUTINE Instructions: Nausea and Vomiting, Adult (DC), Cirrhosis (DC) Additional Instructions: The following instructions were explained to patient and a copy will need to be provided to him in [place] upon discharge: 1). You stated that you do not have a primary care physician. Therefore please schedule follow up with one of the following clinics (which ever one that you can obtain the earliest appointment) to help coordinate your health care. One of these clinics will be your primary care physician to help set up appointments and provide you with future prescriptions that you will need to have filled at your pharmacy. Please do NOT delay in making an appointment. This appointment must take place in the next 7 days: [facility] Floor B of [facility] ([phone]) [facility] ([phone]) [address] [place] [address] 2). You have been set up with an appointment with Cancer Specialist Dr. Louise Bonner for March 25, 2018 at 1:30 AM. Her office is located at [address] [place] [address] in [place], [place] and her office number is [phone]. You will need to follow up the results of your biopsy with Dr. Bonner and plan treatment accordingly. 3). You have been provided with the following medications prior to your discharge. You must follow up with one of the clinics above for future prescriptions. Please use as these medications as instructed: Amlodipine 5 mg, 1 tablet by mouth 1 time a day at 8 AM, Dispense #30, NO refills Colace 100 mg, 1 tablet by mouth 2 times a day at 8 AM and 8 PM, Dispense #60, NO refills Lidocaine 5% Patch, apply once a day to the left back where you have pain at 8 AM and remove at 8 PM, Dispense #30, NO refills Percocet 5/325 mg, 1 tablet by mouth every 8 hours only as needed for severe breakthrough pain, Dispense #30, NO refills Zofran 4 mg, 1 tablet by mouth every 8 hours only as needed for nausea, Dispense #30, NO refills 4). Should you have worsening of your symptoms please return to the emergency room. 5). Please make sure that you are drinking Ensure Enlive 3 times a day with breakfast, lunch, dinner. <Arsen Goodrich - Last Filed: 03/20/18 18:53> Provider - Provider Date of Admission: 03/05/18 12:55 Attending physician: Arsen Goodrich MD Time Spent in preparation of Discharge (in minutes): 40 Hospital Course - Lab Results Lab Results: Micro Results 03/05/18 19:33 Blood-Venous Blood Culture - Final NO GROWTH AFTER 5 DAYS 03/05/18 19:33 Blood-Venous Gram Stain - Final TEST NOT PERFORMED 03/05/18 10:59 Urine Urine Culture - Final No Growth (<1,000 CFU/ML) Most Recent Lab Values WBC 5.9 K/uL (4.8-10.8) 03/20/18 07:38 RBC 4.03 Mil/uL (4.40-5.90) L 03/20/18 07:38 Hgb 12.5 g/dL (12.0-18.0) 03/20/18 07:38 Hct 35.3 % (35.0-51.0) 03/20/18 07:38 MCV 87.4 fL (80.0-94.0) 03/20/18 07:38 MCH 30.9 pg (27.0-31.0) 03/20/18 07:38 MCHC 35.4 g/dL (33.0-37.0) 03/20/18 07:38 RDW 13.5 % (11.5-14.5) 03/20/18 07:38 Plt Count 163 K/uL (130-400) 03/20/18 07:38 MPV 7.6 fL (7.2-11.7) 03/20/18 07:38 Neut % (Auto) 71.9 % (50.0-75.0) 03/20/18 07:38 Lymph % (Auto) 16.6 % (20.0-40.0) L 03/20/18 07:38 [facility] % (Auto) 11.0 % (0.0-10.0) H 03/20/18 07:38 Eos % (Auto) 0.4 % (0.0-4.0) 03/20/18 07:38 Baso % (Auto) 0.1 % (0.0-2.0) 03/20/18 07:38 Neut # (Auto) 4.2 K/uL (1.8-7.0) 03/20/18 07:38 Lymph # (Auto) 1.0 K/uL (1.0-4.3) 03/20/18 07:38 [facility] # (Auto) 0.6 K/uL (0.0-0.8) 03/20/18 07:38 Eos # (Auto) 0.0 K/uL (0.0-0.7) 03/20/18 07:38 Baso # (Auto) 0.0 K/uL (0.0-0.2) 03/20/18 07:38 Differential Comment 03/05/18 10:59 PT 15.6 SECONDS (9.7-12.2) H 03/20/18 07:38 INR 1.4 03/20/18 07:38 APTT 33 SECONDS (21-34) 03/05/18 19:33 Sodium 136 mmol/L (132-148) 03/20/18 07:38 Potassium 4.9 mmol/L (3.6-5.2) 03/20/18 07:38 Chloride 97 mmol/L (98-107) L 03/20/18 07:38 Carbon Dioxide 30 mmol/L (22-30) 03/20/18 07:38 Anion Gap 14 (10-20) 03/20/18 07:38 BUN 19 mg/dL (9-20) 03/20/18 07:38 Creatinine 0.7 mg/dL (0.8-1.5) L 03/20/18 07:38 Est GFR ( Amer) > 60 03/20/18 07:38 Est GFR (Non-Af Amer) > 60 03/20/18 07:38 POC Glucose (mg/dL) 109 mg/dL (65-110) 03/17/18 23:44 Random Glucose 170 mg/dL (75-110) H 03/20/18 07:38 Calcium 9.0 mg/dl (8.6-10.4) 03/20/18 07:38 Phosphorus 3.6 mg/dL (2.5-4.5) 03/20/18 07:38 Magnesium 1.9 mg/dL (1.6-2.3) 03/20/18 07:38 Total Bilirubin 1.6 mg/dL (0.2-1.3) H 03/20/18 07:38 GGT 31 U/L (8-78) 03/05/18 19:33 AST 40 U/L (17-59) 03/20/18 07:38 ALT 25 U/L (21-72) 03/20/18 07:38 Alkaline Phosphatase 97 U/L (38-126) 03/20/18 07:38 Total Creatine Kinase 80 U/L (55-170) 03/19/18 09:21 CK-MB (Mass) 10.9 ng/mL (0.0-3.38) H 03/19/18 09:21 Troponin I < 0.0120 ng/mL (0.00-0.120) 03/19/18 09:21 Total Protein 9.5 g/dL (6.3-8.3) H 03/20/18 07:38 Albumin 4.0 g/dL (3.5-5.0) 03/20/18 07:38 Globulin 5.5 gm/dL (2.2-3.9) H 03/20/18 07:38 Albumin/Globulin Ratio 0.7 (1.0-2.1) L 03/20/18 07:38 Lipase 310 U/L (23-300) H 03/06/18 08:11 Alpha Fetoprotein 1.7 ng/mL (0.0-7.5) 03/05/18 19:33 Carcinoembryonic Ag 1.0 ng/mL (0-3.0) 03/05/18 19:33 CA 19-9 Antigen 6.2 U/mL (0-37) 03/05/18 19:33 Renin 0.19 ng/mL/h (0.25-5.82) L 03/08/18 11:23 Aldosterone 1 ng/dL 03/08/18 11:23 Aldosterone/Renin Ratio 5.3 Ratio (0.9-28.9) 03/08/18 11:23 Cortisol AM Sample 4.7 ug/dL (4.46-22.7) 03/05/18 19:33 ACTH 14 pg/mL (6-50) 03/07/18 15:06 Plas Tot Catecholamine 267 pg/mL 03/07/18 15:06 Dopamine see note 03/07/18 15:06 Plasma Epinephrine see note 03/07/18 15:06 Norepinephrine 267 pg/mL 03/07/18 15:06 Urine Color Yellow (YELLOW) 03/05/18 10:59 Urine Clarity Clear (Clear) 03/05/18 10:59 Urine pH 6.0 (5.0-8.0) 03/05/18 10:59 Ur Specific [place] 1.021 (1.003-1.030) 03/05/18 10:59 Urine Protein Negative mg/dL (NEGATIVE) 03/05/18 10:59 Urine Glucose (UA) Normal mg/dL (Normal) 03/05/18 10:59 Urine Ketones Negative mg/dL (NEGATIVE) 03/05/18 10:59 Urine Blood Negative (NEGATIVE) 03/05/18 10:59 Urine Nitrate Negative (NEGATIVE) 03/05/18 10:59 Urine Bilirubin Negative (NEGATIVE) 03/05/18 10:59 Urine Urobilinogen Normal mg/dL (0.2-1.0) 03/05/18 10:59 Ur Leukocyte Esterase Neg Franki/uL (Negative) 03/05/18 10:59 Urine WBC (Auto) 1 /hpf (0-5) 03/05/18 10:59 Urine RBC (Auto) 1 /hpf (0-3) 03/05/18 10:59 Urine Total Volume 0225 mL 03/07/18 15:06 Ur Creatinine mg/24hr 0.13 g/24 h (0.63-2.50) L 03/07/18 15:06 Urine Aldosterone <0.2 mcg/24 h 03/07/18 15:06 Urine Opiates Screen Negative (NEGATIVE) 03/05/18 14:51 Urine Methadone Screen Negative (NEGATIVE) 03/05/18 14:51 Ur Barbiturates Screen Negative (NEGATIVE) 03/05/18 14:51 Ur Phencyclidine Scrn Negative (NEGATIVE) 03/05/18 14:51 Ur Amphetamines Screen Negative (NEGATIVE) 03/05/18 14:51 U Benzodiazepines Scrn Negative (NEGATIVE) 03/05/18 14:51 U Oth Cocaine Metabols Positive (NEGATIVE) H 03/05/18 14:51 U Cannabinoids Screen Negative (NEGATIVE) 03/05/18 14:51 Hepatitis A IgM Ab Negative (NEGATIVE) 03/05/18 19:33 Hep Bs Antigen Negative (NEGATIVE) 03/05/18 19:33 Hep B Core IgM Ab Negative (NEGATIVE) 03/05/18 19:33 Hepatitis C Antibody Negative (NEGATIVE) 03/05/18 19:33 HIV 1&2 Antibody Screen Negative (NEGATIVE) 03/05/18 19:33 Blood Type O POSITIVE 03/11/18 19:47 Antibody Screen Negative 03/11/18 19:47 Attending/Attestation - Attestation I have personally seen and examined this patient.: Yes I have fully participated in the care of the patient.: Yes I have reviewed all pertinent clinical information, including history, physical exam and plan: Yes Notes (Text): 03/20/18 18:53 Please also see my note 03/20/18. Arsen Goodrich D.O.
== END 2018-03-20 16:43 | disposition home or self-care (01) | DRG 644 ==
LOC: C.ER 10:08 → C.9E 12:55 → C.3T 15:33
PROVIDERS: ADMIT Family Medicine; ATTEND Family Medicine
PROC: 0GB23ZX Excision of Left Adrenal Gland, Percutaneous Approach, Diagnostic (ICD-10-PCS; principal; 2018-03-17)
DX: C74.92 Malignant neoplasm of unspecified part of left adrenal gland (principal); I31.3 Pericardial effusion (noninflammatory); K76.6 Portal hypertension; F14.10 Cocaine abuse, uncomplicated; I11.9 Hypertensive heart disease without heart failure; I51.7 Cardiomegaly; Z72.0 Tobacco use; K70.30 Alcoholic cirrhosis of liver without ascites; D72.819 Decreased white blood cell count, unspecified

== ENCOUNTER 2018-03-27 12:32 | Inpatient (IN) | payer MEDICAID, OTHER ==
[2018-03-27 12:32] VITALS: BMI 30.2
[2018-03-27 13:20] LABS: BASO % 0.3 % (0.0-2.0); EOS # 0.1 K/uL (0.0-0.7); EOS % 1.2 % (0.0-4.0); HEMOGLOBIN 10.9 g/dL (12.0-18.0); LYMPH # 0.7 K/uL (1.0-4.3); LYMPH % 15.2 % (20.0-40.0); MEAN CELL VOLUME 88.7 fL (80.0-94.0); MEAN CORPUSCULAR HEMOGLOBIN 31.2 pg (27.0-31.0); MEAN CORPUSCULAR HGB CONC 35.2 g/dL (33.0-37.0); MEAN PLATELET VOLUME 7.6 fL (7.2-11.7); MONO # 0.5 K/uL (0.0-0.8); MONO % 10.6 % (0.0-10.0); NEUT # 3.3 K/uL (1.8-7.0); NEUT % 72.7 % (50.0-75.0); NRBC % 0.1 % (0.0-2.0); RBC 3.49 Mil/uL (4.40-5.90); RED CELL DISTRIBUTION WIDTH 14.2 % (11.5-14.5); WHITE BLOOD COUNT 4.6 K/uL (4.8-10.8)
[2018-03-27 13:36] LABS: ALT/SGPT 22 U/L (21-72); AST/SGOT 40 U/L (17-59); BLOOD UREA NITROGEN 10 mg/dL (9-20); CALCIUM 8.5 mg/dl (8.6-10.4); GFR NON-AFRICAN AMERICAN > 60; LIPASE 216 U/L (23-300)
[2018-03-27 13:47] LABS: ALB/GLOB RATIO 0.7 (1.0-2.1); ALBUMIN 3.4 g/dL (3.5-5.0)
[2018-03-27] MEDS ORDERED: Morphine 4 MG/ML VIAL IV STA (13:54)
[2018-03-27] MEDS ORDERED: Iodixanol 320 MG/ML 100 ML BOTTLE IV ONE (14:18)
--- NOTE | 2018-03-27 14:29 | C.PDOC ---
History Of Present Illness 68 y/o male patient presents to the ER with c/o left flank pain for several days. Patient was discharged last week, s/p adrenal gland biopsy. Associated symptom include: nausea. Patient denies fever, chills, diarrhea, vomiting, hematuria and dysuria. Chief Complaint (Nursing): Male Genitourinary History Per: Patient History/Exam Limitations: no limitations Onset/Duration Of Symptoms: Days Current Symptoms Are (Timing): Still Present Past Medical History Reviewed: Historical Data, Nursing Documentation, Vital Signs Vital Signs: Last Vital Signs Temp 98 F 03/27/18 19:38 Pulse 89 03/27/18 19:38 Resp 20 03/27/18 19:38 BP 112/79 03/27/18 19:38 Pulse Ox 95 03/27/18 19:38 - [facility] Procedures EXCISION OF LEFT ADRENAL GLAND, PERCUTANEOUS APPROACH, DIAGN (03/05/18) Family History: States: Unknown Family Hx - Social History Hx Alcohol Use: Yes Hx Substance Use: Yes - Immunization History Hx Tetanus Toxoid Vaccination: No Hx Influenza Vaccination: No Hx Pneumococcal Vaccination: No Review Of Systems Except As Marked, All Systems Reviewed And Found Negative. Constitutional: Negative for: Fever, Chills Gastrointestinal: Positive for: Nausea (mild), Abdominal Pain (left flank pain) . Negative for: Vomiting, Diarrhea Genitourinary: Negative for: Dysuria, Hematuria Physical Exam - Physical Exam Appears: Well, Non-toxic, No Acute Distress Skin: Normal Color, Warm, Dry Head: Atraumatic, Normacephalic Eye(s): bilateral: Normal Inspection, EOMI Oral Mucosa: Moist Throat: Normal Neck: Normal ROM, Supple Chest: Symmetrical, No Deformity Cardiovascular: Rhythm Regular Respiratory: Normal Breath Sounds Gastrointestinal/Abdominal: Soft, Tenderness (lower abdominal), No Distention, No Guarding, No Rebound Back: CVA Tenderness (left ) Extremity: Normal ROM (x4) Neurological/Psych: Oriented x3, Normal Speech ED Course And Treatment - Laboratory Results Result Diagrams: 03/27/18 22:30 03/27/18 13:16 ECG: Interpreted By Me, Viewed By Me ECG Rhythm: Sinus Rhythm ECG Interpretation: Normal, No Acute Changes Rate From EC O2 Sat by Pulse Oximetry: 95 (RA) Pulse Ox Interpretation: Normal - CT Scan/US abd&pelvis CT Other Rad Studies (CT/US): Read By Radiologist, Radiology Report Reviewed CT/US Interpretation: Accession No. : [id number]. Patient Name / ID : ECHO ALVAREZ / [id number]. Exam Date : 03/27/2018 14:35:00 ( Approved ). Study Comment : Sex / Age : M / 68Y. Creator : Johnny Clayton MD. Dictator : Johnny Clayton MD. Tactical Debriefer Officer : Aws Solution Architect : Johnny Clayton MD. Approver2 : Report Date : 03/27/2018 15:19:49. My Comment : . Date of service: 03/27/2018. PROCEDURE: CT Abdomen and Pelvis with contrast. HISTORY: left flank/abd pain- h/o biopsy last week. COMPARISON: None. TECHNIQUE: Contrast dose: 100 mL Visipaque 320. Radiation dose: Total exam DLP = 812.9 mGy-cm. This CT exam was performed using one or more of the following dose reduction techniques: Automated exposure control, adjustment of the mA and/or kV according to patient size, and/or use of iterative reconstruction technique. FINDINGS: LOWER THORAX: Partially imaged mediastinal lymphadenopathy compressing the pulmonary venous trunk. Heart size normal. Smaller trace pericardial effusion. No focal consolidation or pleural effusion. LIVER: Hepatic cirrhosis. No gross lesion or ductal dilatation. GALLBLADDER AND BILE DUCTS: Cholelithiasis without gallbladder wall thickening or pericholecystic fluid. PANCREAS: Unremarkable. No gross lesion or ductal dilatation. SPLEEN: Stable splenomegaly. ADRENALS: Liquefaction of left adrenal hemorrhage with overall increase in size, now measuring 9.3 x 8.7 cm. Stable 3.5 cm right adrenal nodule. KIDNEYS AND URETERS: Sub centimeter right upper pole cyst. Stable 2.3 cm left upper pole cyst. No hydronephrosis. No solid mass. VASCULATURE: Unremarkable. No aortic aneurysm. BOWEL: Unremarkable. No obstruction. No gross mural thickening. APPENDIX: Normal appendix. PERITONEUM: Unremarkable. No free fluid. No free air. LYMPH NODES: Stable retroperitoneal adenopathy. BLADDER: Unremarkable. REPRODUCTIVE: Unremarkable. BONES: No acute fracture. OTHER FINDINGS: None. IMPRESSION: Interval increased size with liquefaction of left adrenal hemorrhage. Additional stable findings as above. Medical Decision Making Medical Decision Making: Impression: left flank pain with mild nausea Plans: -- CT abd and plevis -- EKG -- blood work -- Morphine -- blood and urine cx -- UA Reassess: Patient is resting comfortably and remains stable. Abdomen remains soft, and patient is tolerating medication. Patient will be admitted for further care. Disposition - Disposition Disposition: HOSPITALIZED Disposition Time: 15:20 Condition: FAIR - Clinical Impression Clinical Impression: Left adrenal mass - Scribe Statement The provider has reviewed the documentation as recorded by the Brenda Ray Do Provider Attestation: All medical record entries made by the Scribe were at my direction and personally dictated by me. I have reviewed the chart and agree that the record accurately reflects my personal performance of the history, physical exam, medical decision making, and the department course for this patient. I have also personally directed, reviewed, and agree with the discharge instructions and disposition.
[2018-03-27 14:38] LABS: SQUAMOUS EPITHIAL < 1 /hpf (0-5); URINE BACTERIA RARE (<OCC); URINE BILIRUBIN NEGATIVE (NEGATIVE); URINE BLOOD NEGATIVE (NEGATIVE); URINE CLARITY Clear (Clear); URINE COLOR Yellow (YELLOW); URINE GLUCOSE (UA) NORMAL (Normal); URINE LEUKOCYTE ESTERASE NEG Leu/uL (Negative); URINE PROTEIN NEGATIVE (NEGATIVE); URINE UROBILINOGEN NORMAL mg/dL (0.2-1.0)
--- NOTE | 2018-03-27 15:21 | CT ---
Date of service: 03/27/2018 PROCEDURE: CT Abdomen and Pelvis with contrast HISTORY: left flank/abd pain- h/o biopsy last week COMPARISON: None. TECHNIQUE: Contrast dose: 100 mL Visipaque 320 Radiation dose: Total exam DLP = 812.9 mGy-cm. This CT exam was performed using one or more of the following dose reduction techniques: Automated exposure control, adjustment of the mA and/or kV according to patient size, and/or use of iterative reconstruction technique. FINDINGS: LOWER THORAX: Partially imaged mediastinal lymphadenopathy compressing the pulmonary venous trunk. Heart size normal. Smaller trace pericardial effusion. No focal consolidation or pleural effusion. LIVER: Hepatic cirrhosis. No gross lesion or ductal dilatation. GALLBLADDER AND BILE DUCTS: Cholelithiasis without gallbladder wall thickening or pericholecystic fluid. PANCREAS: Unremarkable. No gross lesion or ductal dilatation. SPLEEN: Stable splenomegaly. ADRENALS: Liquefaction of left adrenal hemorrhage with overall increase in size, now measuring 9.3 x 8.7 cm. Stable 3.5 cm right adrenal nodule KIDNEYS AND URETERS: Sub centimeter right upper pole cyst. Stable 2.3 cm left upper pole cyst. No hydronephrosis. No solid mass. VASCULATURE: Unremarkable. No aortic aneurysm. BOWEL: Unremarkable. No obstruction. No gross mural thickening. APPENDIX: Normal appendix. PERITONEUM: Unremarkable. No free fluid. No free air. LYMPH NODES: Stable retroperitoneal adenopathy. BLADDER: Unremarkable. REPRODUCTIVE: Unremarkable. BONES: No acute fracture. OTHER FINDINGS: None. IMPRESSION: Interval increased size with liquefaction of left adrenal hemorrhage. Additional stable findings as above.
[2018-03-27 16:19] LABS: INR 1.4; PROTHROMBIN TIME 15.7 SECONDS (9.7-12.2)
[2018-03-27 16:43] LABS: BARBITURATES, UR NEGATIVE (NEGATIVE)
[2018-03-27 16:46] LABS: BENZODIAZEPINES, UR NEGATIVE (NEGATIVE); PHENCYCLIDINE, UR NEGATIVE (NEGATIVE)
[2018-03-27 16:49] LABS: OPIATES, UR POSITIVE (NEGATIVE)
[2018-03-27] MEDS: Lidocaine 5% Patch TD SCH (17:52)
--- NOTE | 2018-03-27 18:26 | CP.PCM.HP ---
<Rusty Angulo - Last Filed: 03/27/18 22:44> History of Present Illness - History of Present Illness History of Present Illness: PGY1 - History and Physical Note for Dr. 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 Patient was recently admitted for pancreatitis and was found to have bilateral renal mass. s/p bilateral adrenal gland biopsy. Patient admits to nausea, severe left sided flank pain, dizziness and lightheadedness. Of note, patient has poor out-patient follow up. Patient denies chest pain, fever, chills , diarrhea, vomiting, hematuria and dysuria. Patient states he was unable to go to his appointment with Dr. Zheng due to financial difficulties. 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 Works construction Meds upon discharge from 03/20: amlodipine 5 mg PO DAILY #30 tab Docusate 100 mg PO BID #60 cap Lidocaine 5% 1 ea TD DAILY #30 patch Ondansetron HCl 4 mg PO Q8H PRN #30 tablet PRN Reason: Nausea/Vomiting Percocet 5/325 mg Tab 1 ea PO Q6 PRN 3 Days #20 tab PRN Reason: Pain, Moderate (4-7) Percocet 5/325 mg Tab 1 ea PO Q8H PRN #30 tab PRN Reason: Pain, Severe (8-10) Present on Admission - Present on Admission Any Indicators Present on Admission: No History of DVT/PE: No History of Uncontrolled Diabetes: No Urinary Catheter: No Decubitus Ulcer Present: No History Surgical Site Infection Following: None Review of Systems - Review of Systems All systems: reviewed and no additional remarkable complaints except - Constitutional Constitutional: As Per HPI - EENT Eyes: As Per HPI Ears: As Per HPI Nose/Mouth/Throat: As Per HPI - Cardiovascular Cardiovascular: As Per HPI - Respiratory Respiratory: As Per HPI - Gastrointestinal Gastrointestinal: As Per HPI - Genitourinary Genitourinary: As Per HPI - Reproductive: Male Reproductive:Male: As Per HPI - Musculoskeletal Musculoskeletal: As Per HPI - Integumentary Integumentary: As Per HPI - Neurological Neurological: As Per HPI - Psychiatric Psychiatric: As Per HPI - Endocrine Endocrine: As Per HPI - Hematologic/Lymphatic Hematologic: As Per HPI Past Patient History - Infectious Disease Hx of Infectious Diseases: None - Past Medical History & Family History Past Medical History?: No - Past Social History Smoking Status: Never Smoked - MUSCULOSKELETAL/RHEUMATOLOGICAL Hx Falls: Yes - GASTROINTESTINAL Other/Comment: Cirrhosis. - PSYCHIATRIC Hx Substance Use: Yes - SURGICAL HISTORY Other/Comment: left kidney biopsy - ANESTHESIA Hx Anesthesia: No Meds Allergies/Adverse Reactions: Allergies Allergy/AdvReac Type Severity Reaction Status Date / Time No Known Allergies Allergy Verified 03/27/18 12:52 Physical Exam - Constitutional Appears: No Acute Distress - Head Exam Head Exam: ATRAUMATIC, NORMAL INSPECTION, NORMOCEPHALIC - Eye Exam Eye Exam: EOMI, Normal appearance, PERRL Pupil Exam: NORMAL ACCOMODATION - ENT Exam ENT Exam: Mucous Membranes Moist - Neck Exam Neck exam: Positive for: Normal Inspection. Negative for: Lymphadenopathy, Thyromegaly - Respiratory Exam Respiratory Exam: NORMAL BREATHING PATTERN - Cardiovascular Exam Cardiovascular Exam: REGULAR RHYTHM, +S1, +S2 - GI/Abdominal Exam GI & Abdominal Exam: Normal Bowel Sounds, Tenderness (left flank ). absent: Mass - Extremities Exam Extremities exam: Positive for: normal inspection - Back Exam Back exam: CVA tenderness (L), paraspinal tenderness - Neurological Exam Neurological exam: Alert, CN II-XII Intact, Normal Gait, Oriented x3 - Psychiatric Exam Psychiatric exam: Normal Affect, Normal Mood - Skin Skin Exam: Dry, Intact, Pallor, Warm Results - Vital Signs Recent Vital Signs: Last Vital Signs Temp 98.1 F 03/27/18 12:42 Pulse 80 03/27/18 16:09 Resp 81 H 03/27/18 17:36 BP 105/71 03/27/18 17:36 Pulse Ox 94 L 03/27/18 17:36 - Labs Result Diagrams: 03/27/18 22:30 03/27/18 13:16 Labs: Laboratory Results - last 24 hr 03/27/18 03/27/18 03/27/18 13:16 13:16 13:52 WBC 4.6 L RBC 3.49 L Hgb 10.9 L Hct 31.0 L MCV 88.7 MCH 31.2 H MCHC 35.2 RDW 14.2 Plt Count 132 MPV 7.6 Neut % (Auto) 72.7 Lymph % (Auto) 15.2 L [place] % (Auto) 10.6 H Eos % (Auto) 1.2 Baso % (Auto) 0.3 Neut # (Auto) 3.3 Lymph # (Auto) 0.7 L [place] # (Auto) 0.5 Eos # (Auto) 0.1 Baso # (Auto) 0.0 PT INR APTT Sodium 134 Potassium 4.5 Chloride 97 L Carbon Dioxide 26 Anion Gap 13 BUN 10 Creatinine 0.5 L Est GFR ( Amer) > 60 Est GFR (Non-Af Amer) > 60 Random Glucose 156 H Calcium 8.5 L Total Bilirubin 1.0 AST 40 ALT 22 Alkaline Phosphatase 76 Total Protein 8.4 H Albumin 3.4 L Globulin 5.1 H Albumin/Globulin Ratio 0.7 L Lipase 216 Urine Color Yellow Urine Clarity Clear Urine pH 7.0 Ur Specific [place] 1.011 Urine Protein Negative Urine Glucose (UA) Normal Urine Ketones Negative Urine Blood Negative Urine Nitrate Negative Urine Bilirubin Negative Urine Urobilinogen Normal Ur Leukocyte Esterase Neg Urine WBC (Auto) 1 Urine RBC (Auto) < 1 Ur Squamous Epith Cells < 1 Urine Bacteria Rare Urine Opiates Screen Urine Methadone Screen Ur Barbiturates Screen Ur Phencyclidine Scrn Ur Amphetamines Screen U Benzodiazepines Scrn U Oth Cocaine Metabols U Cannabinoids Screen 03/27/18 03/27/18 16:05 16:21 WBC RBC Hgb Hct MCV MCH MCHC RDW Plt Count MPV Neut % (Auto) Lymph % (Auto) [place] % (Auto) Eos % (Auto) Baso % (Auto) Neut # (Auto) Lymph # (Auto) [place] # (Auto) Eos # (Auto) Baso # (Auto) PT 15.7 H INR 1.4 APTT 34 Sodium Potassium Chloride Carbon Dioxide Anion Gap BUN Creatinine Est GFR ( Amer) Est GFR (Non-Af Amer) Random Glucose Calcium Total Bilirubin AST ALT Alkaline Phosphatase Total Protein Albumin Globulin Albumin/Globulin Ratio Lipase Urine Color Urine Clarity Urine pH Ur Specific [place] Urine Protein Urine Glucose (UA) Urine Ketones Urine Blood Urine Nitrate Urine Bilirubin Urine Urobilinogen Ur Leukocyte Esterase Urine WBC (Auto) Urine RBC (Auto) Ur Squamous Epith Cells Urine Bacteria Urine Opiates Screen Positive H Urine Methadone Screen Negative Ur Barbiturates Screen Negative Ur Phencyclidine Scrn Negative Ur Amphetamines Screen Negative U Benzodiazepines Scrn Negative U Oth Cocaine Metabols Negative U Cannabinoids Screen Negative Assessment & Plan - Assessment and Plan (Free Text) Assessment: Adrenal Hemorrhage with history of cancer * CT scan: interval increased size with liquifaction of adrenal hemorrhage (9.3 x 8.7cm) * General surgery (Dr. Trejo) consulted --> adrenal hemorrhage / hx cancer * Endrocrinology (Dr. Walker) consulted --> eaval for adrenal insufficiency * Heme-onc (Dr. 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 Dominguez) consulted * Workup: * metanephrines 03/07/18 catecholamines=26.7, dopamine=, JS=716 Liver Cirrhosis likely secondary to prolonged history of alcohol abuse * Avoid NSAIDs, Zofran, Tylenol, Benzodiazepines, Benadryl to avoid further liver damage * Morphine 2mg IVP Q4 PRN for moderate pain History of Pulmonary Mass Previous Imaging obtained: * ECHO obtained (03/11/2018) : LA midly dilated, normal LV wall motion, EF 55-60 , normal size aortic root. History of Mediastinal lymphadenopathy * CT chest per radiology report (03/06/2018): prominent mediastinal lymphadenopathy is appreciated without dominant pulmonary mass. small 3mm noncalcified nodule seen in right suprahilar space in right upper lobe. PPx: * hold chemical anticoagulation due to adrenal hemorrhage * protonix 40mg IV daily * NS 100cc/hr * Type & Screen * Blood products consent Patient seen and case discussed with Dr. Federico Angulo PGY1 <Sarah Caballero V - Last Filed: 03/28/18 14:09> Results - Vital Signs Recent Vital Signs: Last Vital Signs Temp 98.2 F 03/28/18 07:00 Pulse 84 03/28/18 07:00 Resp 20 03/28/18 07:00 BP 122/80 03/28/18 07:00 Pulse Ox 96 03/28/18 07:00 - Labs Result Diagrams: 03/28/18 07:45 03/28/18 07:45 Labs: Laboratory Results - last 24 hr 03/27/18 03/27/18 03/27/18 13:16 13:52 16:05 WBC RBC Hgb Hct MCV MCH MCHC RDW Plt Count MPV Neut % (Auto) Lymph % (Auto) [place] % (Auto) Eos % (Auto) Baso % (Auto) Neut # (Auto) Lymph # (Auto) [place] # (Auto) Eos # (Auto) Baso # (Auto) Differential Comment Retic Count PT 15.7 H INR 1.4 APTT 34 Sodium Potassium 4.5 Chloride Carbon Dioxide Anion Gap 13 BUN Creatinine Est GFR ( Amer) Est GFR (Non-Af Amer) Random Glucose Calcium Phosphorus Magnesium Iron TIBC % Saturation Ferritin Total Bilirubin AST ALT Alkaline Phosphatase Total Protein Albumin 3.4 L Globulin 5.1 H Albumin/Globulin Ratio 0.7 L Vitamin B12 Folate TSH 3rd Generation Cortisol AM Sample Urine Color Yellow Urine Clarity Clear Urine pH 7.0 Ur Specific [place] 1.011 Urine Protein Negative Urine Glucose (UA) Normal Urine Ketones Negative Urine Blood Negative Urine Nitrate Negative Urine Bilirubin Negative Urine Urobilinogen Normal Ur Leukocyte Esterase Neg Urine WBC (Auto) 1 Urine RBC (Auto) < 1 Ur Squamous Epith Cells < 1 Urine Bacteria Rare Urine Opiates Screen Urine Methadone Screen Ur Barbiturates Screen Ur Phencyclidine Scrn Ur Amphetamines Screen U Benzodiazepines Scrn U Oth Cocaine Metabols U Cannabinoids Screen Blood Type Antibody Screen 03/27/18 03/27/18 03/27/18 16:21 20:10 20:10 WBC RBC Hgb Hct MCV MCH MCHC RDW Plt Count MPV Neut % (Auto) Lymph % (Auto) [place] % (Auto) Eos % (Auto) Baso % (Auto) Neut # (Auto) Lymph # (Auto) [place] # (Auto) Eos # (Auto) Baso # (Auto) Differential Comment Retic Count 3.2 H PT INR APTT Sodium Potassium Chloride Carbon Dioxide Anion Gap BUN Creatinine Est GFR ( Amer) Est GFR (Non-Af Amer) Random Glucose Calcium Phosphorus Magnesium Iron 54 TIBC 288 % Saturation 19 L Ferritin Total Bilirubin AST ALT Alkaline Phosphatase Total Protein Albumin Globulin Albumin/Globulin Ratio Vitamin B12 Folate TSH 3rd Generation Cortisol AM Sample Urine Color Urine Clarity Urine pH Ur Specific [place] Urine Protein Urine Glucose (UA) Urine Ketones Urine Blood Urine Nitrate Urine Bilirubin Urine Urobilinogen Ur Leukocyte Esterase Urine WBC (Auto) Urine RBC (Auto) Ur Squamous Epith Cells Urine Bacteria Urine Opiates Screen Positive H Urine Methadone Screen Negative Ur Barbiturates Screen Negative Ur Phencyclidine Scrn Negative Ur Amphetamines Screen Negative U Benzodiazepines Scrn Negative U Oth Cocaine Metabols Negative U Cannabinoids Screen Negative Blood Type Antibody Screen 03/27/18 03/27/18 03/27/18 20:10 20:10 22:30 WBC 5.6 RBC 3.65 L Hgb 11.1 L Hct 32.2 L MCV 88.2 MCH 30.5 MCHC 34.6 RDW 14.3 Plt Count 136 MPV 7.5 Neut % (Auto) Lymph % (Auto) [place] % (Auto) Eos % (Auto) Baso % (Auto) Neut # (Auto) Lymph # (Auto) [place] # (Auto) Eos # (Auto) Baso # (Auto) Differential Comment Retic Count PT INR APTT Sodium Potassium Chloride Carbon Dioxide Anion Gap BUN Creatinine Est GFR ( Amer) Est GFR (Non-Af Amer) Random Glucose Calcium Phosphorus Magnesium Iron TIBC 290 % Saturation 19 L Ferritin 286.0 Total Bilirubin AST ALT Alkaline Phosphatase Total Protein Albumin Globulin Albumin/Globulin Ratio Vitamin B12 803 Folate 11.1 TSH 3rd Generation Cortisol AM Sample Urine Color Urine Clarity Urine pH Ur Specific [place] Urine Protein Urine Glucose (UA) Urine Ketones Urine Blood Urine Nitrate Urine Bilirubin Urine Urobilinogen Ur Leukocyte Esterase Urine WBC (Auto) Urine RBC (Auto) Ur Squamous Epith Cells Urine Bacteria Urine Opiates Screen Urine Methadone Screen Ur Barbiturates Screen Ur Phencyclidine Scrn Ur Amphetamines Screen U Benzodiazepines Scrn U Oth Cocaine Metabols U Cannabinoids Screen Blood Type Antibody Screen 03/27/18 03/28/18 03/28/18 22:31 07:45 07:45 WBC 4.5 L RBC 3.67 L Hgb 11.4 L Hct 32.5 L MCV 88.6 MCH 31.2 H MCHC 35.2 RDW 14.3 Plt Count 129 L MPV 7.6 Neut % (Auto) 71.2 Lymph % (Auto) 15.1 L [place] % (Auto) 12.9 H Eos % (Auto) 0.6 Baso % (Auto) 0.2 Neut # (Auto) 3.2 Lymph # (Auto) 0.7 L [place] # (Auto) 0.6 Eos # (Auto) 0.0 Baso # (Auto) 0.0 Differential Comment Retic Count PT INR APTT Sodium 131 L Potassium 4.4 Chloride 99 Carbon Dioxide 25 Anion Gap 12 BUN 10 Creatinine 0.5 L Est GFR ( Amer) > 60 Est GFR (Non-Af Amer) > 60 Random Glucose 100 Calcium 8.4 L Phosphorus 4.0 Magnesium 1.7 Iron TIBC % Saturation Ferritin Total Bilirubin 1.2 AST 42 ALT 23 Alkaline Phosphatase 78 Total Protein 8.8 H Albumin 3.4 L Globulin 5.4 H Albumin/Globulin Ratio 0.6 L Vitamin B12 Folate TSH 3rd Generation 0.68 Cortisol AM Sample Urine Color Urine Clarity Urine pH Ur Specific [place] Urine Protein Urine Glucose (UA) Urine Ketones Urine Blood Urine Nitrate Urine Bilirubin Urine Urobilinogen Ur Leukocyte Esterase Urine WBC (Auto) Urine RBC (Auto) Ur Squamous Epith Cells Urine Bacteria Urine Opiates Screen Urine Methadone Screen Ur Barbiturates Screen Ur Phencyclidine Scrn Ur Amphetamines Screen U Benzodiazepines Scrn U Oth Cocaine Metabols U Cannabinoids Screen Blood Type O POSITIVE Antibody Screen Negative 03/28/18 07:45 WBC RBC Hgb Hct MCV MCH MCHC RDW Plt Count MPV Neut % (Auto) Lymph % (Auto) [place] % (Auto) Eos % (Auto) Baso % (Auto) Neut # (Auto) Lymph # (Auto) [place] # (Auto) Eos # (Auto) Baso # (Auto) Differential Comment Retic Count PT INR APTT Sodium Potassium Chloride Carbon Dioxide Anion Gap BUN Creatinine Est GFR ( Amer) Est GFR (Non-Af Amer) Random Glucose Calcium Phosphorus Magnesium Iron TIBC % Saturation Ferritin Total Bilirubin AST ALT Alkaline Phosphatase Total Protein Albumin Globulin Albumin/Globulin Ratio Vitamin B12 Folate TSH 3rd Generation Cortisol AM Sample 19.4 Urine Color Urine Clarity Urine pH Ur Specific [place] Urine Protein Urine Glucose (UA) Urine Ketones Urine Blood Urine Nitrate Urine Bilirubin Urine Urobilinogen Ur Leukocyte Esterase Urine WBC (Auto) Urine RBC (Auto) Ur Squamous Epith Cells Urine Bacteria Urine Opiates Screen Urine Methadone Screen Ur Barbiturates Screen Ur Phencyclidine Scrn Ur Amphetamines Screen U Benzodiazepines Scrn U Oth Cocaine Metabols U Cannabinoids Screen Blood Type Antibody Screen Attending/Attestation - Attestation I have personally seen and examined this patient.: Yes I have fully participated in the care of the patient.: Yes I have reviewed all pertinent clinical information: Yes Notes (Text): This is a late computer entry for 03/27/2018. Patient seen, examined, case discussed with medical clerical assistant. Patient seen in [facility] emergency room bed 13. Temporarily with this patient from last admission. 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 Patient had underwent an adrenal biopsy and last admission and will plan to follow-up with Dr. zheng's office upon discharge. I spoke with patient at bedside he could not make his appointment with Dr. zheng's office was told that follow-up appointment was like $250 and he was unable to afford it. Patient reports he comes in today because last night he had an acute of flare pain over the side of the left back with associated nausea, vomiting, anorexia and unable to control the pain which prompted him to come to the hospital stay. Note: in prior hospitalization: Catecholamine levels were normal. I did discuss emergency room physician we have placed him as inpatient telemetry given the adrenal hemorrhage noted. Patient's hemoglobin noted to be 10.9 during last hospitalization, global value between 11 and 12 with a history of known liver cirrhosis. We'll monitor H&H to make sure the patient is not bleeding. I did discuss with both vice president investor relations and Dr. Stoner who will evaluate the patient. There is also concern for possible adrenal insufficiency given that the patient is reporting nausea, anorexia, fatigue and dizziness. We will consult endocrinology terms of further workup given that he has an adrenal hemorrhage and likely a cancer. 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 These is an error r in resident note there is no pulmonary mass however there is prominent mediastinal lymphadenopathy noted in CT chest last admission is unclear where the primary cancer is. We will hold chemical anticoagulation terms of the adrenal hemorrhage and monitor H&H. We'll provide GI prophylaxis. Will provide IV fluids. Assessment and plan 1) Adrenal Hemorrhage Adrenal Nodule B/L Mediastinal Lymphadenopathy Assessment/Plan * monitor on telemetry * General surgery (Dr. Trejo) consulted --> adrenal hemorrhage / hx cancer * Endrocrinology (Dr. Walker) consulted --> eaval for adrenal insufficiency * Heme-onc (Dr. Zheng) consulted --> adrenal cancer * CT scan (03/27/18): interval increased size with liquifaction of adrenal hemorrhage (9.3 x 8.7cm) with overall increase in si.stable 3.5 cm right adrenal nodule. stable right retroperitoneal adenopathy.partially imaged mediastinal adenopathy compressing pulmonary venous trunk. * Adrenal insufficiency workup: * Basal plasma ACTH * Cortisol * Repeat CBC in 6 hours * INR 1.4 2) History of chronic anemia Assessment/Plan * concern for acute on chronic anemia given recent status post biopsy of adrenal gland * History of known hepatic cirrhosis. History of splenomegaly. However also recent biopsy of adrenal gland given hemmorhage. 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 Jo melanoma immunohistochemical stain reactivities present which raises the possibility of melanoma however other melanoma markers performed including S100 and MS TFR both negative limiting difficult definitive diagnoses although epididymal markers performer negative and undifferentiated/sarcomatoid carcinoma particular lung origin is not entirely excluded in view of history of mediastinal lymphadenopathy and bilateral adrenal masses and unusual or sarcoma is unlikely but not completely excluded. * Please note this updated pathology biopsy is available in the EMR and patient' s last admission. * s/p biopsy 03/17/18: large cell malignant neoplasm undifferentiated * Workup: * metanephrines 03/07/18 catecholamines=26.7, dopamine=, PY=282 4) Liver Cirrhosis likely secondary to prolonged history of alcohol abuse Assessment/Plan * Avoid NSAIDs, Zofran, Tylenol, Benzodiazepines, Benadryl to avoid further liver damage * Morphine 2mg IVP Q4 PRN for moderate pain 5) History of Mediastinal lymphadenopathy Assessment/Plan * CT chest per radiology report (03/06/2018): prominent mediastinal lymphadenopathy is appreciated without dominant pulmonary mass. small 3mm noncalcified nodule seen in right suprahilar space in right upper lobe. * This was also partially captured in CT abdomen and pelvis 6) prophylactic measure * hold chemical anticoagulation due to adrenal hemorrhage * protonix 40mg IV daily * NS 100cc/hr * Type & Screen * I advised resident to obtain blood products consent if patient warrants blood products
[2018-03-27 20:28] LABS: IRON 54 ug/dL (49-181)
[2018-03-27 20:37] LABS: % IRON SATURATION 19 (20-55); TOTAL IRON BINDING CAPACITY 288 ug/dL (250-450); TOTAL IRON BINDING CAPACITY 290 ug/dL (250-450)
[2018-03-27 21:34] LABS: FOLATE 11.1 ng/mL
[2018-03-27 22:36] LABS: HEMOGLOBIN 11.1 g/dL (12.0-18.0); MEAN CELL VOLUME 88.2 fL (80.0-94.0); MEAN CORPUSCULAR HEMOGLOBIN 30.5 pg (27.0-31.0); MEAN CORPUSCULAR HGB CONC 34.6 g/dL (33.0-37.0); MEAN PLATELET VOLUME 7.5 fL (7.2-11.7); RBC 3.65 Mil/uL (4.40-5.90); RED CELL DISTRIBUTION WIDTH 14.3 % (11.5-14.5); WHITE BLOOD COUNT 5.6 K/uL (4.8-10.8)
[2018-03-27] MEDS: Sodium Chloride 0.9% 1,000 ML IV SCH (22:47)
--- NOTE | 2018-03-28 03:41 | CON ---
DATE: 03/27/2018 ENDOCRINOLOGY CONSULT Location: Room 656. HISTORY OF PRESENT ILLNESS: This is a 68-year-old male with a recent evaluation for a large left adrenal mass and recently underwent an adrenal gland biopsy and is now admitted with progressively worsening left flank pain and GI related symptoms and is being referred now for endocrine evaluation and management. PAST MEDICAL HISTORY: As mentioned above, history of a recent left adrenal gland biopsy. Review of the CAT scan showed a passage of a large adrenal hemorrhage, measuring 9.3 x 8.7 cm with a stable right adrenal nodule, measuring 3.5 cm with the presence of retroperitoneal adenopathy as noted. This is an apparent increased size and dimensions with liquefaction of left adrenal hemorrhage as noted. There is also a histopathology report of this being a myogenic sarcoma as per the records here, and hematology and oncology evaluation is pending at this time. FAMILY HISTORY: Positive for hypertension and heart disease. SOCIAL HISTORY: The patient has a supportive family. No known substance use. REVIEW OF SYSTEMS: As mentioned above, admits to generalized body weakness with episodic bouts of dizziness and lightheadedness, worse on the day on admission. No chest pains or palpitations. His oral intake is extremely poor and variable with anorexia, weight loss, persistent nausea and dyspepsia with severe left flank pain as noted. PHYSICAL EXAMINATION: GENERAL: This is an average-built male, in apparent distress. VITAL SIGNS: With a blood pressure of 140/80, pulse of 70 beats per minute regular, temperature 98, respirations 20. Height is 5 feet 5 inches. Weight is 160 pounds. HEENT: Head is normocephalic. Eyes are anicteric with pink conjunctivae. Funduscopy not possible at this time. Ears, nose, and throat otherwise normal. NECK: Supple. Thyroid gland is normal in size. No carotid bruits or cervical adenopathy. CARDIOPULMONARY: Adynamic precordium. S1, S2 are rapid and regular. LUNGS: Clear to auscultation. ABDOMEN: Flat, soft with positive bowel sounds. EXTREMITIES: No peripheral edema. Pulses are +2 bilaterally. LABORATORY DATA: The chemistries showed a BUN of 10, sodium 134, potassium 4.5, chloride 97, CO2 of 26, glucose 156, creatinine 0.5. ASSESSMENT: This is a 68-year-old male with a left adrenal gland tumor with recent biopsy undertaken and CAT scan evidence of liquefaction with a left adrenal hemorrhage as noted. There is also a right adrenal nodule as noted and mentioned. The possibility of adrenal insufficiency has been gone into discussion. We also exclude the possibility of bilateral adrenal hyperplasia since we also have a nodule in the right adrenal gland as noted. PLAN OF MANAGEMENT: We will obtain a baseline fasting serum cortisol and ACTH levels as ordered. We do not have at this time the Cortrosyn hormone in the hospital formulary. Also depending on the result of the serum cortisol level, we will consider ACTH stimulation test as indicated. We will request a surgical evaluation for the management of the large adrenal hemorrhage and clearly will empirically start him on hydrocortisone IV piggyback with parenteral supplementation if surgical resection will be undertaken at this time of admission. In the meantime, we will await the reports of the fasting cortisol level accordingly. We will obtain serial chemistries and supplement accordingly as needed. We will follow and advise accordingly. Anna Walker MD
--- NOTE | 2018-03-28 06:27 | CP.PCM.CON ---
<Juan Garcia - Last Filed: 03/28/18 06:19> History of Present Illness - History of Present Illness History of Present Illness: Surgery 68 M w HO adrenal mass and cirrhosis came with L flank pain. Surgery is consulted to evaluate for hemorrhagic adrenal mass. Pt recently had adrenal mass bx and DCed. 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 He had CT taken after the bx and CT upon this admissions. most recent CT shows 3.5cm L adrenal nodule and enlarged 9x9cm adrenal hemorrhage. Reports that his back pain is worsen and having melena. Pt was admitted for pancreatitis during last admission. Admits to epigastric pain, ALEGRIA, nausea and weakness. Patient denies chest pain, fever, chills, diarrhea, vomiting, hematuria and dysuria. Patient states he was unable to go to his appointment with Dr. Bonner due to financial difficulties. 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 Works construction Review of Systems - Review of Systems Review of Systems: See HPI Past Patient History - Infectious Disease Hx of Infectious Diseases: None - Past Medical History & Family History Past Medical History?: No - Past Social History Smoking Status: Never Smoked - HEMATOLOGICAL/ONCOLOGICAL Hx Cirrhosis: Yes - MUSCULOSKELETAL/RHEUMATOLOGICAL Hx Falls: Yes - GASTROINTESTINAL Other/Comment: Cirrhosis. - PSYCHIATRIC Hx Substance Use: Yes - SURGICAL HISTORY Other/Comment: left kidney biopsy - ANESTHESIA Hx Anesthesia: No Meds Allergies/Adverse Reactions: Allergies Allergy/AdvReac Type Severity Reaction Status Date / Time No Known Allergies Allergy Verified 03/27/18 12:52 - Medications Medications: Current Medications Docusate Sodium (Colace) 100 mg PO BID [facility] Last Admin: 03/27/18 18:18 Dose: 100 mg Sodium Chloride (Sodium Chloride 0.9%) 1,000 mls @ 100 mls/hr IV .Q10H [facility] Last Admin: 03/27/18 22:47 Dose: 100 mls/hr Lidocaine (Lidoderm) 1 ea TD DAILY [facility] Last Admin: 03/27/18 17:52 Dose: 1 ea Morphine Sulfate (Morphine) 2 mg IVP Q4 PRN PRN Reason: Pain, moderate (4-7) Last Admin: 03/28/18 03:14 Dose: 2 mg Ondansetron HCl (Zofran Inj) 4 mg IVP Q6H PRN PRN Reason: Nausea/Vomiting Last Admin: 03/28/18 05:59 Dose: 4 mg Pantoprazole Sodium (Protonix Inj) 40 mg IVP DAILY [facility] Pneumococcal Polyvalent Vaccine (Pneumovax 23 Vaccine) 0.5 ml IM .ONCE ONE Stop: 03/28/18 10:01 Physical Exam - Constitutional Appears: No Acute Distress - Head Exam Head Exam: ATRAUMATIC, NORMAL INSPECTION, NORMOCEPHALIC - Eye Exam Eye Exam: EOMI, Normal appearance, PERRL Pupil Exam: NORMAL ACCOMODATION, PERRL - ENT Exam ENT Exam: Mucous Membranes Moist, Normal Exam - Neck Exam Neck exam: Positive for: Normal Inspection - Respiratory Exam Respiratory Exam: NORMAL BREATHING PATTERN - Cardiovascular Exam Cardiovascular Exam: REGULAR RHYTHM - GI/Abdominal Exam GI & Abdominal Exam: Soft, Tenderness. absent: Distended, Firm, Guarding, Hernia - Extremities Exam Extremities exam: Positive for: full ROM, normal inspection - Back Exam Back exam: NORMAL INSPECTION Additional comments: L TTP - Neurological Exam Neurological exam: Alert, CN II-XII Intact, Normal Gait, Oriented x3, Reflexes Normal - Psychiatric Exam Psychiatric exam: Normal Affect, Normal Mood - Skin Skin Exam: Dry, Intact, Normal Color, Warm Results - Vital Signs Recent Vital Signs: Last Vital Signs Temp 98.6 F 03/28/18 03:13 Pulse 93 H 03/28/18 03:50 Resp 20 03/28/18 03:13 BP 122/81 03/28/18 03:13 Pulse Ox 95 03/28/18 03:13 - Labs Result Diagrams: 03/27/18 22:30 03/27/18 13:16 Labs: Laboratory Results - last 24 hr 03/27/18 03/27/18 03/27/18 13:16 13:16 13:52 WBC 4.6 L RBC 3.49 L Hgb 10.9 L Hct 31.0 L MCV 88.7 MCH 31.2 H MCHC 35.2 RDW 14.2 Plt Count 132 MPV 7.6 Neut % (Auto) 72.7 Lymph % (Auto) 15.2 L [place] % (Auto) 10.6 H Eos % (Auto) 1.2 Baso % (Auto) 0.3 Neut # (Auto) 3.3 Lymph # (Auto) 0.7 L [place] # (Auto) 0.5 Eos # (Auto) 0.1 Baso # (Auto) 0.0 Retic Count PT INR APTT Sodium 134 Potassium 4.5 Chloride 97 L Carbon Dioxide 26 Anion Gap 13 BUN 10 Creatinine 0.5 L Est GFR ( Amer) > 60 Est GFR (Non-Af Amer) > 60 Random Glucose 156 H Calcium 8.5 L Iron TIBC % Saturation Ferritin Total Bilirubin 1.0 AST 40 ALT 22 Alkaline Phosphatase 76 Total Protein 8.4 H Albumin 3.4 L Globulin 5.1 H Albumin/Globulin Ratio 0.7 L Lipase 216 Vitamin B12 Folate Urine Color Yellow Urine Clarity Clear Urine pH 7.0 Ur Specific [place] 1.011 Urine Protein Negative Urine Glucose (UA) Normal Urine Ketones Negative Urine Blood Negative Urine Nitrate Negative Urine Bilirubin Negative Urine Urobilinogen Normal Ur Leukocyte Esterase Neg Urine WBC (Auto) 1 Urine RBC (Auto) < 1 Ur Squamous Epith Cells < 1 Urine Bacteria Rare Urine Opiates Screen Urine Methadone Screen Ur Barbiturates Screen Ur Phencyclidine Scrn Ur Amphetamines Screen U Benzodiazepines Scrn U Oth Cocaine Metabols U Cannabinoids Screen Blood Type Antibody Screen 03/27/18 03/27/18 03/27/18 16:05 16:21 20:10 WBC RBC Hgb Hct MCV MCH MCHC RDW Plt Count MPV Neut % (Auto) Lymph % (Auto) [place] % (Auto) Eos % (Auto) Baso % (Auto) Neut # (Auto) Lymph # (Auto) [place] # (Auto) Eos # (Auto) Baso # (Auto) Retic Count PT 15.7 H INR 1.4 APTT 34 Sodium Potassium Chloride Carbon Dioxide Anion Gap BUN Creatinine Est GFR ( Amer) Est GFR (Non-Af Amer) Random Glucose Calcium Iron 54 TIBC 288 % Saturation 19 L Ferritin Total Bilirubin AST ALT Alkaline Phosphatase Total Protein Albumin Globulin Albumin/Globulin Ratio Lipase Vitamin B12 Folate Urine Color Urine Clarity Urine pH Ur Specific [place] Urine Protein Urine Glucose (UA) Urine Ketones Urine Blood Urine Nitrate Urine Bilirubin Urine Urobilinogen Ur Leukocyte Esterase Urine WBC (Auto) Urine RBC (Auto) Ur Squamous Epith Cells Urine Bacteria Urine Opiates Screen Positive H Urine Methadone Screen Negative Ur Barbiturates Screen Negative Ur Phencyclidine Scrn Negative Ur Amphetamines Screen Negative U Benzodiazepines Scrn Negative U Oth Cocaine Metabols Negative U Cannabinoids Screen Negative Blood Type Antibody Screen 03/27/18 03/27/18 03/27/18 20:10 20:10 20:10 WBC RBC Hgb Hct MCV MCH MCHC RDW Plt Count MPV Neut % (Auto) Lymph % (Auto) [place] % (Auto) Eos % (Auto) Baso % (Auto) Neut # (Auto) Lymph # (Auto) [place] # (Auto) Eos # (Auto) Baso # (Auto) Retic Count 3.2 H PT INR APTT Sodium Potassium Chloride Carbon Dioxide Anion Gap BUN Creatinine Est GFR ( Amer) Est GFR (Non-Af Amer) Random Glucose Calcium Iron TIBC 290 % Saturation 19 L Ferritin 286.0 Total Bilirubin AST ALT Alkaline Phosphatase Total Protein Albumin Globulin Albumin/Globulin Ratio Lipase Vitamin B12 803 Folate 11.1 Urine Color Urine Clarity Urine pH Ur Specific [place] Urine Protein Urine Glucose (UA) Urine Ketones Urine Blood Urine Nitrate Urine Bilirubin Urine Urobilinogen Ur Leukocyte Esterase Urine WBC (Auto) Urine RBC (Auto) Ur Squamous Epith Cells Urine Bacteria Urine Opiates Screen Urine Methadone Screen Ur Barbiturates Screen Ur Phencyclidine Scrn Ur Amphetamines Screen U Benzodiazepines Scrn U Oth Cocaine Metabols U Cannabinoids Screen Blood Type Antibody Screen 03/27/18 03/27/18 22:30 22:31 WBC 5.6 RBC 3.65 L Hgb 11.1 L Hct 32.2 L MCV 88.2 MCH 30.5 MCHC 34.6 RDW 14.3 Plt Count 136 MPV 7.5 Neut % (Auto) Lymph % (Auto) [place] % (Auto) Eos % (Auto) Baso % (Auto) Neut # (Auto) Lymph # (Auto) [place] # (Auto) Eos # (Auto) Baso # (Auto) Retic Count PT INR APTT Sodium Potassium Chloride Carbon Dioxide Anion Gap BUN Creatinine Est GFR ( Amer) Est GFR (Non-Af Amer) Random Glucose Calcium Iron TIBC % Saturation Ferritin Total Bilirubin AST ALT Alkaline Phosphatase Total Protein Albumin Globulin Albumin/Globulin Ratio Lipase Vitamin B12 Folate Urine Color Urine Clarity Urine pH Ur Specific [place] Urine Protein Urine Glucose (UA) Urine Ketones Urine Blood Urine Nitrate Urine Bilirubin Urine Urobilinogen Ur Leukocyte Esterase Urine WBC (Auto) Urine RBC (Auto) Ur Squamous Epith Cells Urine Bacteria Urine Opiates Screen Urine Methadone Screen Ur Barbiturates Screen Ur Phencyclidine Scrn Ur Amphetamines Screen U Benzodiazepines Scrn U Oth Cocaine Metabols U Cannabinoids Screen Blood Type O POSITIVE Antibody Screen Negative Assessment & Plan - Assessment and Plan (Free Text) Assessment: 68 M w hemorrhagic L adrenal mass -Monitor H/H -Monitor VS -[facility] management Will DW Dr. Stoner <Gilmar Stoner - Last Filed: 03/28/18 14:34> Meds - Medications Medications: Current Medications Docusate Sodium (Colace) 100 mg PO BID [facility] Last Admin: 03/28/18 09:18 Dose: 100 mg Sodium Chloride (Sodium Chloride 0.9%) 1,000 mls @ 100 mls/hr IV .Q10H [facility] Last Admin: 03/28/18 09:15 Dose: 100 mls/hr Lidocaine (Lidoderm) 1 ea TD DAILY [facility] Last Admin: 03/28/18 09:17 Dose: 1 ea Morphine Sulfate (Morphine) 2 mg IVP Q4 PRN PRN Reason: Pain, moderate (4-7) Last Admin: 03/28/18 07:32 Dose: 2 mg Morphine Sulfate (Morphine) 4 mg IVP Q4 PRN PRN Reason: Pain, severe (8-10) Last Admin: 03/28/18 11:18 Dose: 4 mg Ondansetron HCl (Zofran Inj) 4 mg IVP Q6H PRN PRN Reason: Nausea/Vomiting Last Admin: 03/28/18 11:20 Dose: 4 mg Pantoprazole Sodium (Protonix Inj) 40 mg IVP DAILY [facility] Last Admin: 03/28/18 09:19 Dose: 40 mg Results - Vital Signs Recent Vital Signs: Last Vital Signs Temp 98.2 F 03/28/18 07:00 Pulse 84 03/28/18 07:00 Resp 20 03/28/18 07:00 BP 122/80 03/28/18 07:00 Pulse Ox 96 03/28/18 07:00 - Labs Result Diagrams: 03/28/18 07:45 03/28/18 07:45 Labs: Laboratory Results - last 24 hr 03/27/18 03/27/18 03/27/18 13:52 16:05 16:21 WBC RBC Hgb Hct MCV MCH MCHC RDW Plt Count MPV Neut % (Auto) Lymph % (Auto) [place] % (Auto) Eos % (Auto) Baso % (Auto) Neut # (Auto) Lymph # (Auto) [place] # (Auto) Eos # (Auto) Baso # (Auto) Differential Comment Retic Count PT 15.7 H INR 1.4 APTT 34 Sodium Potassium Chloride Carbon Dioxide Anion Gap BUN Creatinine Est GFR ( Amer) Est GFR (Non-Af Amer) Random Glucose Calcium Phosphorus Magnesium Iron TIBC % Saturation Ferritin Total Bilirubin AST ALT Alkaline Phosphatase Total Protein Albumin Globulin Albumin/Globulin Ratio Vitamin B12 Folate TSH 3rd Generation Cortisol AM Sample Urine Color Yellow Urine Clarity Clear Urine pH 7.0 Ur Specific [place] 1.011 Urine Protein Negative Urine Glucose (UA) Normal Urine Ketones Negative Urine Blood Negative Urine Nitrate Negative Urine Bilirubin Negative Urine Urobilinogen Normal Ur Leukocyte Esterase Neg Urine WBC (Auto) 1 Urine RBC (Auto) < 1 Ur Squamous Epith Cells < 1 Urine Bacteria Rare Urine Opiates Screen Positive H Urine Methadone Screen Negative Ur Barbiturates Screen Negative Ur Phencyclidine Scrn Negative Ur Amphetamines Screen Negative U Benzodiazepines Scrn Negative U Oth Cocaine Metabols Negative U Cannabinoids Screen Negative Blood Type Antibody Screen 03/27/18 03/27/18 03/27/18 20:10 20:10 20:10 WBC RBC Hgb Hct MCV MCH MCHC RDW Plt Count MPV Neut % (Auto) Lymph % (Auto) [place] % (Auto) Eos % (Auto) Baso % (Auto) Neut # (Auto) Lymph # (Auto) [place] # (Auto) Eos # (Auto) Baso # (Auto) Differential Comment Retic Count 3.2 H PT INR APTT Sodium Potassium Chloride Carbon Dioxide Anion Gap BUN Creatinine Est GFR ( Amer) Est GFR (Non-Af Amer) Random Glucose Calcium Phosphorus Magnesium Iron 54 TIBC 288 290 % Saturation 19 L 19 L Ferritin Total Bilirubin AST ALT Alkaline Phosphatase Total Protein Albumin Globulin Albumin/Globulin Ratio Vitamin B12 Folate TSH 3rd Generation Cortisol AM Sample Urine Color Urine Clarity Urine pH Ur Specific [place] Urine Protein Urine Glucose (UA) Urine Ketones Urine Blood Urine Nitrate Urine Bilirubin Urine Urobilinogen Ur Leukocyte Esterase Urine WBC (Auto) Urine RBC (Auto) Ur Squamous Epith Cells Urine Bacteria Urine Opiates Screen Urine Methadone Screen Ur Barbiturates Screen Ur Phencyclidine Scrn Ur Amphetamines Screen U Benzodiazepines Scrn U Oth Cocaine Metabols U Cannabinoids Screen Blood Type Antibody Screen 03/27/18 03/27/18 03/27/18 20:10 22:30 22:31 WBC 5.6 RBC 3.65 L Hgb 11.1 L Hct 32.2 L MCV 88.2 MCH 30.5 MCHC 34.6 RDW 14.3 Plt Count 136 MPV 7.5 Neut % (Auto) Lymph % (Auto) [place] % (Auto) Eos % (Auto) Baso % (Auto) Neut # (Auto) Lymph # (Auto) [place] # (Auto) Eos # (Auto) Baso # (Auto) Differential Comment Retic Count PT INR APTT Sodium Potassium Chloride Carbon Dioxide Anion Gap BUN Creatinine Est GFR ( Amer) Est GFR (Non-Af Amer) Random Glucose Calcium Phosphorus Magnesium Iron TIBC % Saturation Ferritin 286.0 Total Bilirubin AST ALT Alkaline Phosphatase Total Protein Albumin Globulin Albumin/Globulin Ratio Vitamin B12 803 Folate 11.1 TSH 3rd Generation Cortisol AM Sample Urine Color Urine Clarity Urine pH Ur Specific [place] Urine Protein Urine Glucose (UA) Urine Ketones Urine Blood Urine Nitrate Urine Bilirubin Urine Urobilinogen Ur Leukocyte Esterase Urine WBC (Auto) Urine RBC (Auto) Ur Squamous Epith Cells Urine Bacteria Urine Opiates Screen Urine Methadone Screen Ur Barbiturates Screen Ur Phencyclidine Scrn Ur Amphetamines Screen U Benzodiazepines Scrn U Oth Cocaine Metabols U Cannabinoids Screen Blood Type O POSITIVE Antibody Screen Negative 03/28/18 03/28/18 03/28/18 07:45 07:45 07:45 WBC 4.5 L RBC 3.67 L Hgb 11.4 L Hct 32.5 L MCV 88.6 MCH 31.2 H MCHC 35.2 RDW 14.3 Plt Count 129 L MPV 7.6 Neut % (Auto) 71.2 Lymph % (Auto) 15.1 L [place] % (Auto) 12.9 H Eos % (Auto) 0.6 Baso % (Auto) 0.2 Neut # (Auto) 3.2 Lymph # (Auto) 0.7 L [place] # (Auto) 0.6 Eos # (Auto) 0.0 Baso # (Auto) 0.0 Differential Comment Retic Count PT INR APTT Sodium 131 L Potassium 4.4 Chloride 99 Carbon Dioxide 25 Anion Gap 12 BUN 10 Creatinine 0.5 L Est GFR ( Amer) > 60 Est GFR (Non-Af Amer) > 60 Random Glucose 100 Calcium 8.4 L Phosphorus 4.0 Magnesium 1.7 Iron TIBC % Saturation Ferritin Total Bilirubin 1.2 AST 42 ALT 23 Alkaline Phosphatase 78 Total Protein 8.8 H Albumin 3.4 L Globulin 5.4 H Albumin/Globulin Ratio 0.6 L Vitamin B12 Folate TSH 3rd Generation 0.68 Cortisol AM Sample 19.4 Urine Color Urine Clarity Urine pH Ur Specific [place] Urine Protein Urine Glucose (UA) Urine Ketones Urine Blood Urine Nitrate Urine Bilirubin Urine Urobilinogen Ur Leukocyte Esterase Urine WBC (Auto) Urine RBC (Auto) Ur Squamous Epith Cells Urine Bacteria Urine Opiates Screen Urine Methadone Screen Ur Barbiturates Screen Ur Phencyclidine Scrn Ur Amphetamines Screen U Benzodiazepines Scrn U Oth Cocaine Metabols U Cannabinoids Screen Blood Type Antibody Screen Attending/Attestation - Attestation I have personally seen and examined this patient.: Yes I have fully participated in the care of the patient.: Yes I have reviewed all pertinent clinical information: Yes Notes (Text): Pt was seen and examined at bedside Agree with above note and assessment Pt with Upper abdominal pain Abdomen : soft, tender in lower abdomen Labs and radiology reviewed Ass: Adrenal hemorrhage s/p biopsy Plan : Oncology consult c.w current mx IVF IV antibiotics Plan d.w pt in detail Risk and benefit explained in detail.
[2018-03-28 07:54] LABS: EOS % 0.6 % (0.0-4.0); MONO # 0.6 K/uL (0.0-0.8); NEUT # 3.2 K/uL (1.8-7.0); NRBC % 0.1 % (0.0-2.0); WHITE BLOOD COUNT 4.5 K/uL (4.8-10.8)
[2018-03-28 08:08] LABS: BASO % 0.2 % (0.0-2.0); HEMOGLOBIN 11.4 g/dL (12.0-18.0); LYMPH # 0.7 K/uL (1.0-4.3); LYMPH % 15.1 % (20.0-40.0); MEAN CELL VOLUME 88.6 fL (80.0-94.0); MEAN CORPUSCULAR HEMOGLOBIN 31.2 pg (27.0-31.0); MEAN CORPUSCULAR HGB CONC 35.2 g/dL (33.0-37.0); MEAN PLATELET VOLUME 7.6 fL (7.2-11.7); MONO % 12.9 % (0.0-10.0); NEUT % 71.2 % (50.0-75.0); RBC 3.67 Mil/uL (4.40-5.90); RED CELL DISTRIBUTION WIDTH 14.3 % (11.5-14.5)
[2018-03-28 08:09] LABS: ALB/GLOB RATIO 0.6 (1.0-2.1); ALBUMIN 3.4 g/dL (3.5-5.0); ALT/SGPT 23 U/L (21-72); AST/SGOT 42 U/L (17-59); BLOOD UREA NITROGEN 10 mg/dL (9-20); CALCIUM 8.4 mg/dl (8.6-10.4); GFR NON-AFRICAN AMERICAN > 60
[2018-03-28] MEDS: Sodium Chloride 0.9% 1,000 ML IV SCH ×2 (09:15→16:26)
[2018-03-28] MEDS: Lidocaine 5% Patch TD SCH (09:17)
[2018-03-28] MEDS ORDERED: Pneumococcal 23-Valent Vaccine IM ONE (10:00)
--- NOTE | 2018-03-28 11:09 | PN ---
DATE: 03/28/2018 The patient is admitted with hematoma of his adrenal gland, status post adrenal biopsy. The patient has cirrhosis on CAT scan #2. He has this mass, which was biopsied. It shows an undifferentiated sarcoma. This is something I will have to review with the pathologist and go over before we will make a decision as to any kind of treatment. So, at this point I have to defer the treatment possibilities until after I have evaluated the pathology with the pathologist in the middle of the week. Eduardo Thurston MD
[2018-03-28] MEDS: Morphine 4 MG/ML VIAL IVP PRN ×3 (11:18→22:05)
--- NOTE | 2018-03-28 11:54 | CP.PCM.PN ---
<Rusty Angulo - Last Filed: 03/28/18 11:51> Subjective - Date & Time of Evaluation Date of Evaluation: 03/28/18 Time of Evaluation: 11:51 - Subjective Subjective: PGY-[address] Caballero Patient seen and examined at bedside today. Patient admits to 10/10 left flank pain. With morphine 2mg IVP Q4 it is tolerable at 4/10. Patient admits to dizziness and fatigue. He also reports intermittent episodes of blurry vision and nausea. Nausea is well controlled with Zofran 4mg IV PRN. Patient is asking for dietary supplement since his appetite has decreased secondary to pain. Patient denies problems with urination such as retention, urgency, frequency or hematuria. He denies fevers, chills, diarrhea, or vomiting. Translation provided: Jeffy Spence [id number] Objective - Vital Signs/Intake and Output Vital Signs (last 24 hours): Temp Pulse Resp BP Pulse Ox 98.2 F 84 20 122/80 96 03/28/18 07:00 03/28/18 07:00 03/28/18 07:00 03/28/18 07:00 03/28/18 07:00 Intake and Output: 03/28/18 03/28/18 06:59 18:59 Intake Total 800 Output Total 450 Balance 350 - Medications Medications: Current Medications Docusate Sodium (Colace) 100 mg PO BID [facility] Last Admin: 03/28/18 09:18 Dose: 100 mg Sodium Chloride (Sodium Chloride 0.9%) 1,000 mls @ 100 mls/hr IV .Q10H [facility] Last Admin: 03/28/18 09:15 Dose: 100 mls/hr Lidocaine (Lidoderm) 1 ea TD DAILY [facility] Last Admin: 03/28/18 09:17 Dose: 1 ea Morphine Sulfate (Morphine) 2 mg IVP Q4 PRN PRN Reason: Pain, moderate (4-7) Last Admin: 03/28/18 07:32 Dose: 2 mg Morphine Sulfate (Morphine) 4 mg IVP Q4 PRN PRN Reason: Pain, severe (8-10) Last Admin: 03/28/18 11:18 Dose: 4 mg Ondansetron HCl (Zofran Inj) 4 mg IVP Q6H PRN PRN Reason: Nausea/Vomiting Last Admin: 03/28/18 11:20 Dose: 4 mg Pantoprazole Sodium (Protonix Inj) 40 mg IVP DAILY [facility] Last Admin: 03/28/18 09:19 Dose: 40 mg - Labs Labs: 03/28/18 07:45 03/28/18 07:45 PT 15.7 SECONDS (9.7-12.2) H 03/27/18 16:05 INR 1.4 03/27/18 16:05 APTT 34 SECONDS (21-34) 03/27/18 16:05 - Additional Findings Additional findings: - Constitutional Appears: No Acute Distress - Head Exam Head Exam: ATRAUMATIC, NORMAL INSPECTION, NORMOCEPHALIC - Eye Exam Eye Exam: EOMI, Normal appearance, PERRL Pupil Exam: NORMAL ACCOMODATION - ENT Exam ENT Exam: Mucous Membranes Moist - Neck Exam Neck exam: Positive for: Normal Inspection. Negative for: Lymphadenopathy, Thyromegaly - Respiratory Exam Respiratory Exam: NORMAL BREATHING PATTERN - Cardiovascular Exam Cardiovascular Exam: REGULAR RHYTHM, +S1, +S2 - GI/Abdominal Exam GI & Abdominal Exam: Normal Bowel Sounds, Tenderness (left flank ). absent: Mass - Extremities Exam Extremities exam: Positive for: normal inspection - Back Exam Back exam: CVA tenderness (L), paraspinal tenderness - Neurological Exam Neurological exam: Alert, CN II-XII Intact, Normal Gait, Oriented x3 - Psychiatric Exam Psychiatric exam: Normal Affect, Normal Mood - Skin Skin Exam: Dry, Intact, Pallor, Warm Assessment and Plan - Assessment and Plan (Free Text) Assessment: Left Flank pain secondary to Adrenal Hemorrhage with history of cancer * CT scan: interval increased size with liquifaction of adrenal hemorrhage (9.3 x 8.7cm) * General surgery (Dr. Trejo) consulted --> adrenal hemorrhage / hx cancer * Endrocrinology (Dr. Walker) consulted --> eval for adrenal insufficiency * Cortison AM / baseline ACTH levels * No cortosyn hormone in hospital formulary * Heme-onc (Dr. 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 Dominguez) consulted * Workup: * metanephrines 03/07/18 catecholamines=26.7, dopamine=, [place]=451 Liver Cirrhosis likely secondary to prolonged history of alcohol abuse * Avoid NSAIDs, Zofran, Tylenol, Benzodiazepines, Benadryl to avoid further liver damage * Morphine 2mg IVP Q4 PRN for moderate pain History of Pulmonary Mass Previous Imaging obtained: * ECHO obtained (03/11/2018) : LA midly dilated, normal LV wall motion, EF 55-60 , normal size aortic root. History of Mediastinal lymphadenopathy * CT chest per radiology report (03/06/2018): prominent mediastinal lymphadenopathy is appreciated without dominant pulmonary mass. small 3mm noncalcified nodule seen in right suprahilar space in right upper lobe. PPx: * hold chemical anticoagulation due to adrenal hemorrhage * protonix 40mg IV daily * NS 100cc/hr * Type & Screen * Blood products consent Patient seen and case discussed with Dr. Federico Angulo PGY1 <Sarah Caballero V - Last Filed: 03/28/18 14:24> Objective - Vital Signs/Intake and Output Vital Signs (last 24 hours): Temp Pulse Resp BP Pulse Ox 98.2 F 84 20 122/80 96 03/28/18 07:00 03/28/18 07:00 03/28/18 07:00 03/28/18 07:00 03/28/18 07:00 Intake and Output: 03/28/18 03/28/18 06:59 18:59 Intake Total 800 480 Output Total 450 Balance 350 480 - Medications Medications: Current Medications Docusate Sodium (Colace) 100 mg PO BID [facility] Last Admin: 03/28/18 09:18 Dose: 100 mg Sodium Chloride (Sodium Chloride 0.9%) 1,000 mls @ 100 mls/hr IV .Q10H [facility] Last Admin: 03/28/18 09:15 Dose: 100 mls/hr Lidocaine (Lidoderm) 1 ea TD DAILY [facility] Last Admin: 03/28/18 09:17 Dose: 1 ea Morphine Sulfate (Morphine) 2 mg IVP Q4 PRN PRN Reason: Pain, moderate (4-7) Last Admin: 03/28/18 07:32 Dose: 2 mg Morphine Sulfate (Morphine) 4 mg IVP Q4 PRN PRN Reason: Pain, severe (8-10) Last Admin: 03/28/18 11:18 Dose: 4 mg Ondansetron HCl (Zofran Inj) 4 mg IVP Q6H PRN PRN Reason: Nausea/Vomiting Last Admin: 03/28/18 11:20 Dose: 4 mg Pantoprazole Sodium (Protonix Inj) 40 mg IVP DAILY [facility] Last Admin: 03/28/18 09:19 Dose: 40 mg - Labs Labs: 03/28/18 07:45 03/28/18 07:45 PT 15.7 SECONDS (9.7-12.2) H 03/27/18 16:05 INR 1.4 03/27/18 16:05 APTT 34 SECONDS (21-34) 03/27/18 16:05 Attending/Attestation - Attestation I have personally seen and examined this patient.: Yes I have fully participated in the care of the patient.: Yes I have reviewed all pertinent clinical information, including history, physical exam and plan: Yes Notes (Text): Patient seen, examined, case discussed with medical coder. 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 Patient noted persistent left flank pain, reports that when he does get morphine pain does improve from 8 -3 on pain scale. He notes the pain is so bad a preference from eating. Patient does report nausea which is improved with Zofran. Patient reports he did have a bowel movement yesterday following the Ducolax per rectal. Patient on hemoglobin stable in the 11s. We will adjust pain regimen including morphine 2 mg IV every 4H when necessary moderate pain and morphine 4 mg IV every 4 for severe pain. We will continue Zofran 4 mg IV every 6 when necessary for nausea. We'll follow with hematology oncology given the pathology is unclear in terms of what his primary of the mass. We will continue to withhold chemical anticoagulation. Patient's primary concern is pain. He is amenable to wire treatment is needed. We will need to follow-up with endocrinology in terms of possible ACTH stimulation test if surgery is warranted. Assessment and plan 1) Adrenal Hemorrhage Adrenal Nodule B/L Mediastinal Lymphadenopathy Assessment/Plan * monitor on telemetry * General surgery (Dr. Trejo) consulted --> adrenal hemorrhage / hx cancer * Endrocrinology (Dr. Walker) consulted --> eaval for adrenal insufficiency * Heme-onc (Dr. Bonner) consulted --> adrenal cancer * CT scan (03/27/18): interval increased size with liquifaction of adrenal hemorrhage (9.3 x 8.7cm) with overall increase in si.stable 3.5 cm right adrenal nodule. stable right retroperitoneal adenopathy.partially imaged mediastinal adenopathy compressing pulmonary venous trunk. * Adrenal insufficiency workup: * Cortisol: 19.9 9AM * Repeat CBC in 6 hours * INR 1.4 2) History of chronic anemia Assessment/Plan * concern for acute on chronic anemia given recent status post biopsy of adrenal gland * History of known hepatic cirrhosis. History of splenomegaly. However also recent biopsy of adrenal gland given hemmorhage. 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 Jo melanoma immunohistochemical stain reactivities present which raises the possibility of melanoma however other melanoma markers performed including S100 and MD TFR both negative limiting difficult definitive diagnoses although epididymal markers performer negative and undifferentiated/sarcomatoid carcinoma particular lung origin is not entirely excluded in view of history of mediastinal lymphadenopathy and bilateral adrenal masses and unusual or sarcoma is unlikely but not completely excluded. * Please note this updated pathology biopsy is available in the EMR and patient' s last admission. * s/p biopsy 03/17/18: large cell malignant neoplasm undifferentiated * Workup: * metanephrines 03/07/18 catecholamines=26.7, dopamine=, YO=[id number] 4) Liver Cirrhosis likely secondary to prolonged history of alcohol abuse Assessment/Plan * Avoid NSAIDs, Zofran, Tylenol, Benzodiazepines, Benadryl to avoid further liver damage * Morphine 2mg IVP Q4 PRN for moderate pain 5) History of Mediastinal lymphadenopathy Assessment/Plan * CT chest per radiology report (03/06/2018): prominent mediastinal lymphadenopathy is appreciated without dominant pulmonary mass. small 3mm noncalcified nodule seen in right suprahilar space in right upper lobe. 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
--- NOTE | 2018-03-28 15:19 | PN ---
DATE: 03/28/2018 ENDO FOLLOWUP NOTE LOCATION: In room 656. 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 His chemistries today show a BUN of 10, sodium 131, potassium 4.4, chloride 99, CO2 25, glucose 100, and creatinine 0.5. His serum cortisol level done, fasting is 19.4 mcg/dL, which is normal and optimal at this time. His TSH is 0.68. 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 ASSESSMENT AND PLAN: So, at this time, we will hold off any kind of steroid replacements and we will clearly need surgical evaluation and resection accordingly as indicated, and then we will determine the need to give him steroid replacement as indicated postoperatively. We will obtain serial chemistries and supplement accordingly as needed. We will follow. Anna Walker MD
[2018-03-28 19:47] LABS: OSMOLALITY,URINE 488 mosm/kg (300-1000)
[2018-03-29] MEDS: Morphine 4 MG/ML VIAL IVP PRN ×6 (02:00→21:12)
[2018-03-29] MEDS: Sodium Chloride 0.9% 1,000 ML IV SCH (06:18)
[2018-03-29 07:38] LABS: HEMOGLOBIN 11.1 g/dL (12.0-18.0); MEAN CORPUSCULAR HEMOGLOBIN 31.4 pg (27.0-31.0); MONO # 0.6 K/uL (0.0-0.8)
--- NOTE | 2018-03-29 07:38 | CP.PCM.PN ---
Addendum entered and electronically signed by Rusty Angulo DO 03/29/18 14: 48: PGY1 Correction to progress note (03/29): Note is for Arsen Maldonado. Most recently: CT head without contrast obtained: No intracranial mass, no mass effect, no intracranial hemorrhage. Mild appropriate age-related atrophy. Unremarkable CT (See full report). Rusty Angulo PGY1 Original Note: <Rusty Angulo - Last Filed: 03/29/18 14:20> Subjective - Date & Time of Evaluation Date of Evaluation: 03/29/18 Time of Evaluation: 07:37 - Subjective Subjective: PGY-[address] Caballero Patient seen and examined at bedside today. Patient admits to 10/10 left flank pain. Pain managed with morphine 2mg IVP Q3 PRN and morphine 4mg IVP Q4 PRN. Patient admits to dizziness and fatigue. He also reports intermittent episodes of blurry vision and nausea. Nausea is well controlled with Zofran 4mg IV PRN. Patient is tolerating dietary supplement well. No bowel movement today. Patient denies problems with urination such as retention, urgency, frequency or hematuria. He denies fevers, chills, diarrhea, or vomiting. Objective - Vital Signs/Intake and Output Vital Signs (last 24 hours): Temp Pulse Resp BP Pulse Ox 98.3 F 85 20 131/84 96 03/29/18 04:05 03/29/18 05:02 03/29/18 04:05 03/29/18 04:05 03/29/18 04:05 Intake and Output: 03/29/18 03/29/18 06:59 18:59 Intake Total 800 Balance 800 - Medications Medications: Current Medications Docusate Sodium (Colace) 100 mg PO BID [facility] Last Admin: 03/28/18 17:25 Dose: 100 mg Sodium Chloride (Sodium Chloride 0.9%) 1,000 mls @ 100 mls/hr IV .Q10H [facility] Last Admin: 03/29/18 06:18 Dose: 100 mls/hr Lidocaine (Lidoderm) 1 ea TD DAILY [facility] Last Admin: 03/28/18 09:17 Dose: 1 ea Morphine Sulfate (Morphine) 2 mg IVP Q4 PRN PRN Reason: Pain, moderate (4-7) Last Admin: 03/28/18 16:04 Dose: 2 mg Morphine Sulfate (Morphine) 4 mg IVP Q4 PRN PRN Reason: Pain, severe (8-10) Last Admin: 03/29/18 06:01 Dose: 4 mg Ondansetron HCl (Zofran Inj) 4 mg IVP Q6H PRN PRN Reason: Nausea/Vomiting Last Admin: 03/28/18 22:06 Dose: 4 mg Pantoprazole Sodium (Protonix Inj) 40 mg IVP DAILY [facility] Last Admin: 03/28/18 09:19 Dose: 40 mg - Labs Labs: 03/28/18 07:45 03/28/18 07:45 PT 15.7 SECONDS (9.7-12.2) H 03/27/18 16:05 INR 1.4 03/27/18 16:05 APTT 34 SECONDS (21-34) 03/27/18 16:05 - Additional Findings Additional findings: - Constitutional Appears: No Acute Distress - Head Exam Head Exam: ATRAUMATIC, NORMAL INSPECTION, NORMOCEPHALIC - Eye Exam Eye Exam: EOMI, Normal appearance, PERRL Pupil Exam: NORMAL ACCOMODATION - ENT Exam ENT Exam: Mucous Membranes Moist - Neck Exam Neck exam: Positive for: Normal Inspection. Negative for: Lymphadenopathy, Thyromegaly - Respiratory Exam Respiratory Exam: NORMAL BREATHING PATTERN - Cardiovascular Exam Cardiovascular Exam: REGULAR RHYTHM, +S1, +S2 - GI/Abdominal Exam GI & Abdominal Exam: Normal Bowel Sounds, Tenderness (left flank ). absent: Mass - Extremities Exam Extremities exam: Positive for: normal inspection - Back Exam Back exam: CVA tenderness (L), paraspinal tenderness - Neurological Exam Neurological exam: Alert, CN II-XII Intact, Normal Gait, Oriented x3 - Psychiatric Exam Psychiatric exam: Normal Affect, Normal Mood - Skin Skin Exam: Dry, Intact, Pallor, Warm Assessment and Plan - Assessment and Plan (Free Text) Assessment: Left Flank pain secondary to Adrenal Hemorrhage with history of cancer * CT scan: interval increased size with liquifaction of adrenal hemorrhage (9.3 x 8.7cm) * General surgery (Dr. Trejo) consulted --> adrenal hemorrhage / hx cancer * Endrocrinology (Dr. Walker) consulted --> eval for adrenal insufficiency * Cortison AM / baseline ACTH levels * No cortosyn hormone in hospital formulary * Heme-onc (Dr. Dominguez) consulted --> adrenal cancer * recommendations appreciated * Adrenal insufficiency workup, unlikely adrenal insufficiency * Basal plasma ACTH * Cortisol --> 19.4 * Pain/nausea management: * Morphine 2mg IVP Q3 PRN, moderate pain * Morphine 4mg IVP Q3 PRN, severe pain * Zofran 4mg IVP PRN for nausea * Dietary supplement: Ensure supplement, TID * PT/OT consulted, rec appreciated * Palliative Care consulted, recommendations appreciated Moderate Hyponatremia Rk=053, possible SIADH * Patient is euvolemic on physical exam * Symptoms consistent with chronic moderate hyponatremia * dizziness, headache, vision changes with "dark spots" * Work-up * Cortisol AM 16.6 (wnl) * Serum Os fwcyhaoo=981 * Urine Ebn=316 * Urine [place]=085 * CT head without contrast obtained: pending report Anemia * Repeat CBC Hgb10.9 (03/27)--> Hbg=11.4 (03/28) * Blood Transfusion consent obtained * Ferritin wnl * iron wnl * TIBC wnl * retic count (absolute), appropriate response * iron% 19 * CBC repeat, hgb stable 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 Dominguez) consulted * Workup: * metanephrines 03/07/18 catecholamines=26.7, dopamine=, HZ=570 Liver Cirrhosis likely secondary to prolonged history of alcohol abuse * Avoid NSAIDs, Tylenol, Benzodiazepines, Benadryl to avoid further liver damage * Morphine 2mg IVP Q4 PRN for moderate pain History of Pulmonary Mass Previous Imaging obtained: * ECHO obtained (03/11/2018) : LA midly dilated, normal LV wall motion, EF 55-60 , normal size aortic root. History of Mediastinal lymphadenopathy * CT chest per radiology report (03/06/2018): prominent mediastinal lymphadenopathy is appreciated without dominant pulmonary mass. small 3mm noncalcified nodule seen in right suprahilar space in right upper lobe. PPx: * hold chemical anticoagulation due to adrenal hemorrhage * protonix 40mg IV daily * NS 100cc/hr * Type & Screen * Blood products consent Patient seen and case discussed with Arsen Maldonado PGY1 <Arsen Goodrich - Last Filed: 03/29/18 19:10> Objective - Vital Signs/Intake and Output Vital Signs (last 24 hours): Temp Pulse Resp BP Pulse Ox 98.7 F 89 20 118/74 95 03/29/18 15:00 03/29/18 15:00 03/29/18 15:00 03/29/18 15:00 03/29/18 15:00 - Medications Medications: Current Medications Cosyntropin (Cortrosyn) 0.25 mg IV ONCE ONE Stop: 03/30/18 07:01 Docusate Sodium (Colace) 100 mg PO BID [facility] Last Admin: 03/29/18 18:04 Dose: 100 mg Lidocaine (Lidoderm) 1 ea TD DAILY [facility] Last Admin: 03/29/18 10:22 Dose: 1 ea Morphine Sulfate (Morphine) 2 mg IVP Q3H PRN PRN Reason: Pain, moderate (4-7) Last Admin: 03/29/18 18:02 Dose: 2 mg Morphine Sulfate (Morphine) 4 mg IVP Q3H PRN PRN Reason: Pain, severe (8-10) Last Admin: 03/29/18 15:40 Dose: 4 mg Ondansetron HCl (Zofran Inj) 4 mg IVP Q6H PRN PRN Reason: Nausea/Vomiting Last Admin: 03/28/18 22:06 Dose: 4 mg Pantoprazole Sodium (Protonix Inj) 40 mg IVP DAILY [facility] Last Admin: 03/29/18 10:22 Dose: 40 mg - Labs Labs: 03/29/18 06:53 03/29/18 06:53 PT 15.7 SECONDS (9.7-12.2) H 03/27/18 16:05 INR 1.4 03/27/18 16:05 APTT 34 SECONDS (21-34) 03/27/18 16:05 Attending/Attestation - Attestation I have personally seen and examined this patient.: Yes I have fully participated in the care of the patient.: Yes I have reviewed all pertinent clinical information, including history, physical exam and plan: Yes Notes (Text): 03/29/18 19:00 Patient was seen and examined at 9:00 AM 03/29/18 With the help of In Demand Interpretor Shy [id number] I have explained to patient his diagnoses and he expressed understanding. Morphine frequency increased due to effects wearing off after 2 to 3 hours. He is tolerating Ensure Enlive 3x/day but still without appetite Last bowel movement 03/27/18. Patient is uninsured. He has revealed to me that he would like to be FULL CODE and order has been placed. Will follow up with Palliative Care evaluation. Hyponatremia could be secondary to Adrenal Insufficiency leading to ADH secretion. Therefore IVF were discontinued. Consyntropin Stimulation Test ordered for morning 03/30/18 and if this shows Adrenal Insufficiency then will start Florinef 0.1 mg PO 1x/day. Spoke with computer project manager Madalyn who informed that she was informed by the infusion center that they can arrange for Chemo Tx on paul basis if needed but that patient would have to follow up with Heme/Onc at their office. Will speak with Heme/Onc to see if Chemo is indicated and if so, if they would follow patient. Arsen Goodrich D.O.
[2018-03-29 07:49] LABS: ALB/GLOB RATIO 0.6 (1.0-2.1); ALBUMIN 3.1 g/dL (3.5-5.0); ALT/SGPT 23 U/L (21-72); AST/SGOT 37 U/L (17-59); BLOOD UREA NITROGEN 11 mg/dL (9-20); CALCIUM 7.9 mg/dl (8.6-10.4); GFR NON-AFRICAN AMERICAN > 60
[2018-03-29 07:54] LABS: BASO % 0.2 % (0.0-2.0); EOS % 0.5 % (0.0-4.0); LYMPH # 0.6 K/uL (1.0-4.3); LYMPH % 13.5 % (20.0-40.0); MEAN CELL VOLUME 87.9 fL (80.0-94.0); MEAN CORPUSCULAR HGB CONC 35.7 g/dL (33.0-37.0); NEUT # 3.1 K/uL (1.8-7.0); NEUT % 71.8 % (50.0-75.0); NRBC % 0.6 % (0.0-2.0); RBC 3.52 Mil/uL (4.40-5.90); RED CELL DISTRIBUTION WIDTH 14.3 % (11.5-14.5); WHITE BLOOD COUNT 4.3 K/uL (4.8-10.8)
--- NOTE | 2018-03-29 09:31 | CP.PCM.PCO ---
Physician Communication Note - Physician Communication Note Physician Communication Note: Patient is FULL CODE as per conversation with Francois [id number]
[2018-03-29] MEDS ORDERED: Morphine 4 MG/ML VIAL IVP SCH (10:00)
[2018-03-29] MEDS: Lidocaine 5% Patch TD SCH (10:22)
--- NOTE | 2018-03-29 12:11 | CP.PCM.CON ---
History of Present Illness - History of Present Illness History of Present Illness: Palliative consult requested by Doctor Devin Goodrich for goals of care discussion Patient is a 68 yo male admitted with complains of left flank pain for several days. Pain is intense and unbearable fallowed by nausea. Pain subsided in ED after the Morphine IV and Zofran for nausea. Patient was recently discharged from this hospital and scheduled to see Doctor Bonner as an outpatient. Patient missed the appointment due to this admission to the hospital. CT chest/abd/pelvis on this admission was significant for mediastinial lymphadenopathy compressing pulmonary venous trunk and increase in size of left adrenal hemorrhage. Doctor Thurston is on board. No treatment suggested yet as Doctor Thurston needs to discuss findings with pathologist before any treatment is suggested. PMH: hepatic cirrhosis, adrenal mass and hemorrhages, myogenic sarcoma, pulmonary mass, S/P adrenal gland Bx Soc. Hx: lives alone, used to work on construction sites, quit smoking 12 years ago, quit drinking 20 years ago in [facility], brothers and sisters in different states, daughter Prabha and one of the sisters are in [facility]. Hx: denies known family Hx: parents from old age Review of Systems - Constitutional Constitutional: Headache, Weight Loss - EENT Eyes: absent: As Per HPI, Blind Spots, Blurred Vision, Change in Vision, Decreased Night Vision, Diplopia, Discharge, Dry Eye, Exophthalmos, Floaters, Irritation, Itchy Eyes, Loss of Peripheral Vision, Pain, Photophobia, Requires Corrective Lenses, Sees Flashes, Spots in Vision, Tunnel Vision, Other Visual Disturbances, Loss of Vision, Other Ears: absent: As Per HPI, Decreased Hearing, Ear Discharge, Ear Pain, Tinnitus, Abnormal Hearing, Disequilibrium, Dizziness, Other Nose/Mouth/Throat: absent: As Per HPI, Epistaxis, Nasal Congestion, Nasal Discharge, Nasal Obstruction, Nasal Trauma, Nose Pain, Post Nasal Drip, Sinus Pain, Sinus Pressure, Bleeding Gums, Change in Voice, Dental Pain, Dry Mouth, Dysphagia, Halitosis, Hoarsness, Lip Swelling, Mouth Lesions, Mouth Pain, Odynophagia, Sore Throat, Throat Swelling, Tongue Swelling, Facial Pain, Neck Pain, Neck Mass, Other - Cardiovascular Cardiovascular: absent: As Per HPI, Acrocyanosis, Chest Pain, Chest Pain at Rest , Chest Pain with Activity, Claudication, Diaphoresis, Dyspnea, Dyspnea on Exertion, Edema, Irregular Heart Rhythm, Pain Radiating to Arm/Neck/Jaw, Leg Edema, Leg Ulcers, Lightheadedness, Orthopnea, Palpitations, Paroxysmal Nocturnal Dyspnea, Pedal Edema, Radiating Pain, Rapid Heart Rate, Slow Heart Rate, Syncope, Other - Respiratory Respiratory: absent: As Per HPI, Cough, Dyspnea, Hemoptysis, Dyspnea on Exertion , Wheezing, Snoring, Stridor, Pain on Inspiration, Chest Congestion, Excessive Mucous Production, Change in Mucous Color, Pain with Coughing, Other - Gastrointestinal Gastrointestinal: Constipation - Genitourinary Genitourinary: absent: As Per HPI, Change in Urinary Stream, Difficulty Urinating, Dysuria, Flank Pain, Hematuria, Pyuria, Nocturia, Urinary Incontinence, Urinary Frequency, Urinary Hesitance, Urinary Urgency, Voiding Freq/Small Amts, Freq UTI, Hx Renal/Bladder Calculi, Hx /Renal Surgery, Bladder Distension, Other - Musculoskeletal Musculoskeletal: Back Pain - Integumentary Integumentary: absent: As Per HPI, Acne, Alopecia, Bleeding Lesions, Change in Hair, Change in Nails, Change in Pigmentation, Changing Lesions, Dry Skin, Erythema, Furuncle, Hirsutism, Lesions, New Lesions, Non-Healing Lesions, Photosensitivity, Pruritus, Rash, Skin Pain, Skin Ulcer, Sores, Striae, Swelling , Unusual Bruising, Wounds, Jaundice, Other - Neurological Neurological: absent: As Per HPI, Abnormal Gait, Abnormal Hearing, Abnormal Movements, Abnormal Speech, Behavioral Changes, Burning Sensations, Confusion, Convulsions, Disequilibrium, Dizziness, Numbness, Focal Weakness, Frequent Falls , Headaches, Lack of Coordination, Loss of Vision, Memory Loss, Paresthesias, Radicular Pain, Restless Legs, Sensory Deficit, Syncope, Tingling, Tremor, Vertigo, Weakness, Other Visual Disturbances, Other - Psychiatric Psychiatric: absent: As Per HPI, Abnormal Sleep Pattern, Anhedonia, Anxiety, Auditory Hallucinations, Behavioral Changes, Change in Appetite, Change in Libido, Confusion, Depression, Difficulty Concentrating, Hallucinations, Homicidal Ideation, Hopelessness, Irritability, Memory Loss, Mood Swings, Panic Attacks, Paranoia, Suicidal Ideation, Visual Hallucinations, Tactile Hallucinations, Other - Endocrine Endocrine: absent: As Per HPI, Change in Body Appearance, Change in Libido, Cold Intolorance, Deepening of Voice, Excessive Sweating, Fatigue, Flushing, Heat Intolorance, Increase in Ring/Shoe/Hat Size, Palpitations, Polydipsia, Polyphagia, Polyuria, Other Past Patient History - Infectious Disease Hx of Infectious Diseases: None - Past Medical History & Family History Past Medical History?: No - Past Social History Smoking Status: Never Smoked - HEMATOLOGICAL/ONCOLOGICAL Hx Cirrhosis: Yes - MUSCULOSKELETAL/RHEUMATOLOGICAL Hx Falls: Yes - GASTROINTESTINAL Other/Comment: Cirrhosis. - PSYCHIATRIC Hx Substance Use: Yes - SURGICAL HISTORY Other/Comment: left kidney biopsy - ANESTHESIA Hx Anesthesia: No Meds Allergies/Adverse Reactions: Allergies Allergy/AdvReac Type Severity Reaction Status Date / Time No Known Allergies Allergy Verified 03/27/18 12:52 - Medications Medications: Current Medications Cosyntropin (Cortrosyn) 0.25 mg IV ONCE ONE Stop: 03/30/18 07:01 Docusate Sodium (Colace) 100 mg PO BID [facility] Last Admin: 03/29/18 10:22 Dose: 100 mg Lidocaine (Lidoderm) 1 ea TD DAILY [facility] Last Admin: 03/29/18 10:22 Dose: 1 ea Morphine Sulfate (Morphine) 2 mg IVP Q3H PRN PRN Reason: Pain, moderate (4-7) Morphine Sulfate (Morphine) 4 mg IVP Q3H PRN PRN Reason: Pain, severe (8-10) Last Admin: 03/29/18 09:30 Dose: 4 mg Ondansetron HCl (Zofran Inj) 4 mg IVP Q6H PRN PRN Reason: Nausea/Vomiting Last Admin: 03/28/18 22:06 Dose: 4 mg Pantoprazole Sodium (Protonix Inj) 40 mg IVP DAILY [facility] Last Admin: 03/29/18 10:22 Dose: 40 mg Physical Exam - Constitutional Appears: No Acute Distress, Chronically Ill - Head Exam Head Exam: ATRAUMATIC, NORMAL INSPECTION, NORMOCEPHALIC - Eye Exam Eye Exam: EOMI, Normal appearance, PERRL Pupil Exam: NORMAL ACCOMODATION, PERRL - ENT Exam ENT Exam: Mucous Membranes Moist, Normal Exam - Neck Exam Neck exam: Positive for: Normal Inspection - Respiratory Exam Respiratory Exam: Clear to Auscultation Bilateral, NORMAL BREATHING PATTERN - Cardiovascular Exam Cardiovascular Exam: Tachycardia, REGULAR RHYTHM - GI/Abdominal Exam GI & Abdominal Exam: Hypoactive Bowel Sounds - Rectal Exam Rectal Exam: Deferred - Extremities Exam Extremities exam: Positive for: normal inspection - Back Exam Back exam: CVA tenderness (L) - Neurological Exam Neurological exam: Abnormal Gait, Alert, Oriented x3 - Psychiatric Exam Psychiatric exam: Normal Affect, Normal Mood - Skin Skin Exam: Dry, Intact, Normal Color, Warm Results - Vital Signs Recent Vital Signs: Last Vital Signs Temp 97.9 F 03/29/18 07:00 Pulse 79 03/29/18 07:00 Resp 20 03/29/18 07:00 BP 127/81 03/29/18 07:00 Pulse Ox 94 L 03/29/18 07:00 - Labs Result Diagrams: 03/29/18 06:53 03/29/18 06:53 Labs: Laboratory Results - last 24 hr 03/28/18 03/28/18 03/29/18 17:13 19:30 06:53 WBC 4.3 L RBC 3.52 L Hgb 11.1 L Hct 31.0 L MCV 87.9 MCH 31.4 H MCHC 35.7 RDW 14.3 Plt Count 118 L MPV 8.0 Neut % (Auto) 71.8 Lymph % (Auto) 13.5 L Harney % (Auto) 14.0 H Eos % (Auto) 0.5 Baso % (Auto) 0.2 Neut # (Auto) 3.1 Lymph # (Auto) 0.6 L Harney # (Auto) 0.6 Eos # (Auto) 0.0 Baso # (Auto) 0.0 Sodium Potassium Chloride Carbon Dioxide Anion Gap BUN Creatinine Est GFR ( Amer) Est GFR (Non-Af Amer) Random Glucose Serum Osmolality 269 L Calcium Phosphorus Magnesium Total Bilirubin AST ALT Alkaline Phosphatase Total Protein Albumin Globulin Albumin/Globulin Ratio Cortisol AM Sample Urine Osmolality 488 Ur Random Sodium 137 03/29/18 03/29/18 06:53 06:53 WBC RBC Hgb Hct MCV MCH MCHC RDW Plt Count MPV Neut % (Auto) Lymph % (Auto) Harney % (Auto) Eos % (Auto) Baso % (Auto) Neut # (Auto) Lymph # (Auto) Harney # (Auto) Eos # (Auto) Baso # (Auto) Sodium 129 L Potassium 3.7 Chloride 99 Carbon Dioxide 21 L Anion Gap 13 BUN 11 Creatinine 0.5 L Est GFR ( Amer) > 60 Est GFR (Non-Af Amer) > 60 Random Glucose 140 H Serum Osmolality Calcium 7.9 L Phosphorus 2.6 Magnesium 1.6 Total Bilirubin 1.0 AST 37 ALT 23 Alkaline Phosphatase 73 Total Protein 8.2 Albumin 3.1 L Globulin 5.0 H Albumin/Globulin Ratio 0.6 L Cortisol AM Sample 16.5 Urine Osmolality Ur Random Sodium Assessment & Plan - Assessment and Plan (Free Text) Assessment: Palliative consult Full Code, there is no Advance Directive on chart, PCP 40% I reviewed Medical records, all diagnostic studies, examined and interviewed patient in the bed Patient is alert, oriented X 3, Albanian speaking only, In Demand translation used during interview. Patient complains of left flank pain. pain is rated 9/10 and responds to Morphine only. Patient reports headache which is new since this morning. He complains of dizziness upon rising and reports poor appetite. Patient skips lunch as he does not want " to waste food" as he knows he would not it it. Patient only drinks Ensure TID and is on IV fluids. Patient reports no Bm X 3 days. WBC 4.3, Hb 11.1, Ret count 3.2, Platelets 11, Na 129, Ca 7.9 BP 127/81, O2 Sat 94 % RA I elicited patient's understanding about his condition . Patient reported he did not know his diagnosis despite Doctor Devin Goodrich discussing it with him and asked me to reveal it to him. Very gently I express concerns about CT results indicating cancer. Patient took it very well and said he would want to pursue all treatments suggested by the Doctors. Patient expressed deep belief in God as well. I discussed with patient Doctor Thurston plan to initiate therapy after discussing the Bx results with pathologist. Patient stated understanding. Patient's sister Tram and niece Faby walked in and in presence of patient I reviewed our discussion. Niece Faby offered assistance to communicate with the rest of the family the future as only Djiboutian speaking person( [phone]). I discussed with patient who would he want us to call in case of emergency; his brother Kasi listed as Emergency contact or his daughter prabha. Patient said either or, but was not able to provide daughter's phone number at present. Code status discussed. POLST introduced. I offered plenty of information regarding DNR/DNI. Patient asked for all interventions to be applied to support his life. patient would want to hear from Doctor Thurston what his plan was. Based on progress of disease and how he does with Th, patient will consider weather or not to return to [facility]. Impression * Chronically ill male with Diagnosis of sarcoma * Left flank severe pain due to left adrenal hemorrhage * Poor appetite * Headache * Dizziness and unsteady gait * Constipation Suggestion * Continue Morphine for pain * Refer to Dietitian for suggestions of proper nutrition * Tylenol for headache * Promote safety and reinforce call dumas use * Would consider Senna tb at [facility] for constipation * FULL CODE We agreed to meet daily and discuss symptoms and their management. Patient will obtain his daughter Nataly phone number. I am planing to call family meeting once Doctor Thurston come up with therapy and suggestions for care. Advance care planing 40 min.
--- NOTE | 2018-03-29 12:41 | CARD ---
APPROVED REPORT Date of service: 03/27/2018 EKG Measurement Heart [id number] [id number] <Conclusion> Normal sinus rhythm Normal ECG
--- NOTE | 2018-03-29 14:41 | CT ---
Date of service: 03/29/2018 PROCEDURE: CT HEAD WITHOUT CONTRAST. HISTORY: possible brain mass COMPARISON: 03/07/2018 TECHNIQUE: Axial computed tomography images were obtained through the head/brain without intravenous contrast. Radiation dose: Total exam DLP = 1033.49 mGy-cm. This CT exam was performed using one or more of the following dose reduction techniques: Automated exposure control, adjustment of the mA and/or kV according to patient size, and/or use of iterative reconstruction technique. FINDINGS: HEMORRHAGE: No intracranial hemorrhage. BRAIN: No mass effect or edema. Mild age-appropriate diffuse cerebral atrophy. No appreciable chronic white matter ischemic change. No evidence of acute infarct. VENTRICLES: Unremarkable. No hydrocephalus. CALVARIUM: Unremarkable. PARANASAL SINUSES: Unremarkable as visualized. No significant inflammatory changes. MASTOID AIR CELLS: Unremarkable as visualized. No inflammatory changes. OTHER FINDINGS: None. IMPRESSION: No intracranial mass. Mild age-appropriate atrophy. Otherwise unremarkable examination
--- NOTE | 2018-03-29 19:13 | CP.PCM.PN ---
<Nancy Mckeon - Last Filed: 03/29/18 19:14> Subjective - Date & Time of Evaluation Date of Evaluation: 03/29/18 Time of Evaluation: 06:50 - Subjective Subjective: General surgery progress note for Dr. Stoner-Nancy Mckeon, PGY-2 Pt S & E at bedside at 0650 on rounds and again with Dr. Stoner in the late morning Pt reports continued pain over left flank. Denies N & V, F & C. Objective - Vital Signs/Intake and Output Vital Signs (last 24 hours): Temp Pulse Resp BP Pulse Ox 98.7 F 89 20 118/74 95 03/29/18 15:00 03/29/18 15:00 03/29/18 15:00 03/29/18 15:00 03/29/18 15:00 - Medications Medications: Current Medications Cosyntropin (Cortrosyn) 0.25 mg IV ONCE ONE Stop: 03/30/18 07:01 Docusate Sodium (Colace) 100 mg PO BID [facility] Last Admin: 03/29/18 18:04 Dose: 100 mg Lidocaine (Lidoderm) 1 ea TD DAILY [facility] Last Admin: 03/29/18 10:22 Dose: 1 ea Morphine Sulfate (Morphine) 2 mg IVP Q3H PRN PRN Reason: Pain, moderate (4-7) Last Admin: 03/29/18 18:02 Dose: 2 mg Morphine Sulfate (Morphine) 4 mg IVP Q3H PRN PRN Reason: Pain, severe (8-10) Last Admin: 03/29/18 15:40 Dose: 4 mg Ondansetron HCl (Zofran Inj) 4 mg IVP Q6H PRN PRN Reason: Nausea/Vomiting Last Admin: 03/28/18 22:06 Dose: 4 mg Pantoprazole Sodium (Protonix Inj) 40 mg IVP DAILY [facility] Last Admin: 03/29/18 10:22 Dose: 40 mg - Labs Labs: 03/29/18 06:53 03/29/18 06:53 PT 15.7 SECONDS (9.7-12.2) H 03/27/18 16:05 INR 1.4 03/27/18 16:05 APTT 34 SECONDS (21-34) 03/27/18 16:05 - Constitutional Appears: Non-toxic, No Acute Distress - Head Exam Head Exam: ATRAUMATIC, NORMAL INSPECTION, NORMOCEPHALIC - Eye Exam Eye Exam: EOMI, Normal appearance - ENT Exam ENT Exam: Mucous Membranes Moist, Normal Exam - Neck Exam Neck Exam: Full ROM, Normal Inspection - Respiratory Exam Respiratory Exam: NORMAL BREATHING PATTERN - Cardiovascular Exam Cardiovascular Exam: REGULAR RHYTHM, +S1, +S2 - GI/Abdominal Exam GI & Abdominal Exam: Soft, Tenderness (left flank) - Extremities Exam Extremities Exam: Normal Inspection - Neurological Exam Neurological Exam: Alert, Awake, CN II-XII Intact, Oriented x3 - Psychiatric Exam Psychiatric exam: Normal Affect, Normal Mood - Skin Skin Exam: Dry, Intact, Normal Color, Warm Assessment and Plan - Assessment and Plan (Free Text) Assessment: 69M w/L adrenal mass hemorrhage s/p biopsy Plan: Pain control No general surgery intervention at this time Please re-consult as needed DW Dr. Georgiana Mckeon, PGY-2 <Gilmar Stoner B - Last Filed: 03/30/18 17:39> Objective - Vital Signs/Intake and Output Vital Signs (last 24 hours): Temp Pulse Resp BP Pulse Ox 99 F 95 H 20 118/75 94 L 03/30/18 15:00 03/30/18 15:00 03/30/18 15:00 03/30/18 15:00 03/30/18 15:00 Intake and Output: 03/30/18 03/30/18 06:59 18:59 Intake Total 800 Balance 800 - Medications Medications: Current Medications Docusate Sodium (Colace) 100 mg PO TID [facility] Lidocaine (Lidoderm) 1 ea TD DAILY [facility] Last Admin: 03/30/18 10:27 Dose: 1 ea Ondansetron HCl (Zofran Inj) 4 mg IVP Q6H PRN PRN Reason: Nausea/Vomiting Last Admin: 03/28/18 22:06 Dose: 4 mg Oxycodone HCl (Oxycontin Extended Release Tab) 25 mg PO Q8H [facility] Last Admin: 03/30/18 16:29 Dose: 25 mg Oxycodone HCl (Oxycodone Immediate Release Tab) 10 mg PO Q4 PRN PRN Reason: Pain, severe (8-10) Pantoprazole Sodium (Protonix Inj) 40 mg IVP DAILY [facility] Last Admin: 03/30/18 10:30 Dose: 40 mg - Labs Labs: 03/30/18 06:45 03/30/18 06:45 PT 15.8 SECONDS (9.7-12.2) H 03/30/18 06:45 INR 1.4 03/30/18 06:45 APTT 31 SECONDS (21-34) 03/30/18 06:45 Attending/Attestation - Attestation I have personally seen and examined this patient.: Yes I have fully participated in the care of the patient.: Yes I have reviewed all pertinent clinical information, including history, physical exam and plan: Yes Notes (Text): Pt was seen and examined at bedside Agree with above note and assessment Pt is improving clinically No general surgery intervention required at present Oncology consult Plan d.w pt in detail Risk and benefit explained in detail.
--- NOTE | 2018-03-29 22:11 | PN ---
DATE: 03/29/2018 ENDO FOLLOWUP NOTE LOCATION: Room 652. SUBJECTIVE: This is a 68-year-old male with recent admission for left flank pain, radiating to the lower extremities and has been evaluated towards a left adrenal adenoma and underwent a recent biopsy with subsequent left adrenal hemorrhage and liquefaction as noted thereof. He is being followed closely now for metabolic management as noted. LABORATORY DATA: His chemistries today showed a BUN of 11, sodium 129, potassium 3.7, chloride 99, CO2 of 21, glucose 140, and creatinine 0.7. His serum cortisol level is reported as 19.4 with a repeat level of 16.5 mcg/dL which are both normal and optimal at this time. ASSESSMENT AND PLAN: There is no indication at this time for any kind of steroid replacement at this time. We will await for the evaluation and discussion with the oncologist/exterminator helper termite to fully delineate the aforementioned dimensions of this gland which is pending surgical evaluation at this time. We will follow and advise accordingly as needed. Anna Walker MD
[2018-03-30] MEDS: Morphine 4 MG/ML VIAL IVP PRN ×5 (00:29→13:45)
[2018-03-30 06:52] LABS: BASO % 0.1 % (0.0-2.0); EOS % 0.4 % (0.0-4.0); LYMPH # 0.8 K/uL (1.0-4.3); LYMPH % 16.1 % (20.0-40.0); MEAN CELL VOLUME 88.1 fL (80.0-94.0); MEAN CORPUSCULAR HEMOGLOBIN 30.5 pg (27.0-31.0); MEAN CORPUSCULAR HGB CONC 34.6 g/dL (33.0-37.0); MEAN PLATELET VOLUME 7.2 fL (7.2-11.7); MONO # 0.8 K/uL (0.0-0.8); MONO % 15.8 % (0.0-10.0); NEUT # 3.5 K/uL (1.8-7.0); NEUT % 67.6 % (50.0-75.0); NRBC % 0.1 % (0.0-2.0); RBC 3.61 Mil/uL (4.40-5.90); RED CELL DISTRIBUTION WIDTH 14.4 % (11.5-14.5); WHITE BLOOD COUNT 5.1 K/uL (4.8-10.8)
[2018-03-30 07:11] LABS: ALB/GLOB RATIO 0.6 (1.0-2.1); ALBUMIN 3.1 g/dL (3.5-5.0); ALT/SGPT 20 U/L (21-72); AST/SGOT 41 U/L (17-59); BLOOD UREA NITROGEN 11 mg/dL (9-20); CALCIUM 7.9 mg/dl (8.6-10.4); GFR NON-AFRICAN AMERICAN > 60
[2018-03-30 07:14] LABS: INR 1.4; PROTHROMBIN TIME 15.8 SECONDS (9.7-12.2)
[2018-03-30] MEDS: Lidocaine 5% Patch TD SCH (10:27)
[2018-03-30] MEDS ORDERED: oxyCODONE 10 mg Immediate Release Tab PO PRN (14:00)
[2018-03-30] MEDS: oxyCODONE 20 mg ER Tab (oxyCONTIN) PO SCH (16:29)
[2018-03-30] MEDS ORDERED: oxyCODONE 20 mg ER Tab (oxyCONTIN) PO SCH (16:30)
--- NOTE | 2018-03-30 19:11 | CP.PCM.PN ---
<Soraida Mascorro - Last Filed: 03/30/18 21:37> Subjective - Date & Time of Evaluation Date of Evaluation: 03/30/18 Time of Evaluation: 14:50 - Subjective Subjective: PGY-1 Medicine Progress Note for Dr. Goodrich Patient was seen and examined at bedside in no acute distress. Nurse reports no overnight events. Patient reports that pain medication is no controlling the pain well. Denies chest pain, shortness of breath, abdominal pain more than usual, numbness, tingling, fever, chills. Tolerating diet although reports diminished appetite. Patient reports continuing dizziness, blurry vision, diffuse pain, and constipation (last BM 3 days ago). Objective - Vital Signs/Intake and Output Vital Signs (last 24 hours): Temp Pulse Resp BP Pulse Ox 99 F 95 H 20 118/75 94 L 03/30/18 15:00 03/30/18 15:00 03/30/18 15:00 03/30/18 15:00 03/30/18 15:00 - Medications Medications: Current Medications Docusate Sodium (Colace) 100 mg PO TID [facility] Fludrocortisone Acetate (Florinef) 0.1 mg PO DAILY [facility] Lidocaine (Lidoderm) 1 ea TD DAILY [facility] Last Admin: 03/30/18 10:27 Dose: 1 ea Ondansetron HCl (Zofran Inj) 4 mg IVP Q6H PRN PRN Reason: Nausea/Vomiting Last Admin: 03/28/18 22:06 Dose: 4 mg Oxycodone HCl (Oxycontin Extended Release Tab) 25 mg PO Q8H [facility] Last Admin: 03/30/18 16:29 Dose: 25 mg Oxycodone HCl (Oxycodone Immediate Release Tab) 10 mg PO Q4 PRN PRN Reason: Pain, severe (8-10) Pantoprazole Sodium (Protonix Inj) 40 mg IVP DAILY [facility] Last Admin: 03/30/18 10:30 Dose: 40 mg - Labs Labs: 03/30/18 06:45 03/30/18 06:45 PT 15.8 SECONDS (9.7-12.2) H 03/30/18 06:45 INR 1.4 03/30/18 06:45 APTT 31 SECONDS (21-34) 03/30/18 06:45 - Constitutional Appears: Non-toxic - Head Exam Head Exam: ATRAUMATIC, NORMOCEPHALIC - Eye Exam Eye Exam: EOMI, Normal appearance - ENT Exam ENT Exam: Mucous Membranes Moist - Neck Exam Neck Exam: Normal Inspection - Respiratory Exam Respiratory Exam: Clear to Ausculation Bilateral, NORMAL BREATHING PATTERN. absent: Rales, Rhonchi, Wheezes - Cardiovascular Exam Cardiovascular Exam: REGULAR RHYTHM, +S1, +S2. absent: Gallop, Rubs, Murmur - GI/Abdominal Exam GI & Abdominal Exam: Guarding, Soft, Tenderness, Normal Bowel Sounds. absent: Firm, Rigid Additional comments: tender to palpation diffusely, greatest LUQ - Extremities Exam Extremities Exam: absent: Pedal Edema Additional comments: peripheral pulses palpable bilaterally (radial, PT) IV in L arm, flushing well - Back Exam Back Exam: CVA tenderness (L), CVA tenderness (R) Additional comments: L>R - Neurological Exam Neurological Exam: Alert, Awake, CN II-XII Intact, Oriented x3 - Psychiatric Exam Psychiatric exam: Normal Affect, Normal Mood - Skin Skin Exam: Dry, Intact, Normal Color Assessment and Plan - Assessment and Plan (Free Text) Assessment: 68yoM PMH alcoholic liver cirrhosis, mediastinal mass 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 Plan: Left Flank pain secondary to Adrenal Hemorrhage with history of cancer * CT A/P (9.15): interval increased size with liquifaction of adrenal hemorrhage (9.3 x 8.7cm) * Basal plasma ACTH OA: 45 * AM Cortisol: 19.4 OA -> 16.5 -> 14.3 * Consyntropin Stimulation Test performed on 03/30 * Cortisol drawn 42min after cosyntropin administration: 18.8, equivocal for adrenal insufficiency -> started on corticosteroid therapy * Fludrocortisone 0.1mg po daily * Consults - recommendations appreciated: * General surgery (Dr. Trejo) for adrenal hemorrhage / hx cancer * no surgery at this time -> signed off * Endrocrinology (Dr. 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 * Palliative Care consulted, recommendations appreciated * PT/OT consulted, rec appreciated * Pain/nausea management: * was not controlled by breakthrough medications -> increased to longer acting dosing * Oxycodone XR 25mg PO Q8 [facility] * Oxycodone IR 10mg PO q4 PRN for breakthrough pain * Zofran 4mg IVP PRN for nausea * Dietary supplement: Ensure supplement, TID Moderate Hyponatremia * Patient is euvolemic on physical exam * Symptoms consistent with chronic moderate hyponatremia * dizziness, headache, vision changes with "dark spots" * Work-up * Cortisol AM 16.6 (wnl) * Serum Os ybusqiwa=244 * Urine Dgp=972 * Urine Apikyy=828 * CT head without contrast obtained: negative for intracranial pathology * IVF held after morning labs drawn. 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 Dominguez) consulted * Workup: * metanephrines 03/07/18 catecholamines=26.7, dopamine=, DO=900 Liver Cirrhosis likely secondary to prolonged history of alcohol abuse * Avoid NSAIDs, Tylenol, Benzodiazepines, Benadryl to avoid further liver damage * Morphine 2mg IVP Q4 PRN for moderate pain History of Pulmonary Mass Previous Imaging obtained: * ECHO obtained (03/11/2018) : LA midly dilated, normal LV wall motion, EF 55-60 , normal size aortic root. History of Mediastinal lymphadenopathy * CT chest per radiology report (03/06/2018): prominent mediastinal lymphadenopathy is appreciated without dominant pulmonary mass. small 3mm noncalcified nodule seen in right suprahilar space in right upper lobe. PPx: * hold chemical anticoagulation due to adrenal hemorrhage * protonix 40mg IV daily * NS 100cc/hr * Type & Screen * Blood products consent Dispo: Spoke with commercial account manager Madalyn who informed that she was informed by the infusion center that they can arrange for Chemo Tx on paul basis if needed but that patient would have to follow up with Heme/Onc at their office. Will speak with Heme/Onc to see if Chemo is indicated and if so, if they would follow patient. d/w Dr. Kp Mascorro PGY-1 <Arsen Goodrich - Last Filed: 03/31/18 19:14> Objective - Vital Signs/Intake and Output Vital Signs (last 24 hours): Temp Pulse Resp BP Pulse Ox 99.9 F H 98 H 20 127/77 95 03/31/18 15:00 03/31/18 15:00 03/31/18 15:00 03/31/18 15:00 03/31/18 15:00 - Medications Medications: Current Medications Docusate Sodium (Colace) 100 mg PO TID [facility] Last Admin: 03/31/18 17:30 Dose: 100 mg Fludrocortisone Acetate (Florinef) 0.1 mg PO DAILY [facility] Last Admin: 03/31/18 11:00 Dose: 0.1 mg Lidocaine (Lidoderm) 1 ea TD DAILY [facility] Last Admin: 03/31/18 10:45 Dose: 1 ea Ondansetron HCl (Zofran Inj) 4 mg IVP Q6H PRN PRN Reason: Nausea/Vomiting Last Admin: 03/28/18 22:06 Dose: 4 mg Oxycodone HCl (Oxycodone Immediate Release Tab) 10 mg PO Q4 PRN PRN Reason: Pain, severe (8-10) Last Admin: 03/31/18 06:23 Dose: 10 mg Oxycodone HCl (Oxycontin Extended Release Tab) 30 mg PO Q8H [facility] Stop: 04/04/18 00:01 Oxycodone HCl (Oxycontin Extended Release Tab) 25 mg PO Q8H [facility] Pantoprazole Sodium (Protonix Ec Tab) 40 mg PO DAILY [facility] Last Admin: 03/31/18 11:17 Dose: 40 mg - Labs Labs: 03/31/18 08:09 03/31/18 08:09 PT 15.8 SECONDS (9.7-12.2) H 03/30/18 06:45 INR 1.4 03/30/18 06:45 APTT 31 SECONDS (21-34) 03/30/18 06:45 Attending/Attestation - Attestation I have personally seen and examined this patient.: Yes I have fully participated in the care of the patient.: Yes I have reviewed all pertinent clinical information, including history, physical exam and plan: Yes Notes (Text): 03/31/18 19:13 This is a late entry. Care of this patient was gone over with the resident. Arsen Goodrich D.O.
--- NOTE | 2018-03-30 19:41 | PN ---
DATE: 03/30/2018 ENDO FOLLOWUP NOTE LOCATION: In room 652. SUBJECTIVE: This is a 68-year-old male with a very large left adrenal tumor and admitted here with severe flank pain and associated lower extremity painful paresthesias, and is now being followed closely for metabolic management. He remains clinically and biochemically euadrenal at this time. LABORATORY DATA: His repeat chemistry showed a BUN of 11, sodium 131, potassium 4.1, chloride 99, CO2 of 24, glucose 94, and creatinine 0.5. His latest cortisol level is 18.8 mcg/dL. ASSESSMENT AND PLAN: We are awaiting the final histopathology report of the adrenal biopsy done because of varying reports, initially being read as a myogenic sarcoma and a subsequent reading with that of an undifferentiated carcinoma. This was discussed also with the department of pathology director today regarding the discordant biopsy report and he will confirm and full and final histopathology report accordingly. We will follow. No indication at this time for initiation of steroid therapy and we will definitely follow very closely postoperatively and determine the intermittent need for steroid hormone replacement accordingly. Anna Walker MD
[2018-03-30] MEDS: oxyCODONE 10 mg Immediate Release Tab PO PRN (21:30)
[2018-03-31] MEDS ORDERED: oxyCODONE 20 mg ER Tab (oxyCONTIN) PO STA (00:44)
[2018-03-31] MEDS: oxyCODONE 20 mg ER Tab (oxyCONTIN) PO SCH ×3 (01:10→16:45)
[2018-03-31] MEDS: oxyCODONE 10 mg Immediate Release Tab PO PRN (06:23)
[2018-03-31 08:13] LABS: BASO % 0.2 % (0.0-2.0); EOS % 0.4 % (0.0-4.0); LYMPH # 0.8 K/uL (1.0-4.3); LYMPH % 13.8 % (20.0-40.0); MEAN CELL VOLUME 88.4 fL (80.0-94.0); MEAN CORPUSCULAR HEMOGLOBIN 30.4 pg (27.0-31.0); MEAN CORPUSCULAR HGB CONC 34.3 g/dL (33.0-37.0); MONO % 16.1 % (0.0-10.0); NEUT # 4.2 K/uL (1.8-7.0); NEUT % 69.5 % (50.0-75.0); RBC 3.62 Mil/uL (4.40-5.90); RED CELL DISTRIBUTION WIDTH 14.4 % (11.5-14.5); WHITE BLOOD COUNT 6.1 K/uL (4.8-10.8)
[2018-03-31 08:38] LABS: ALB/GLOB RATIO 0.6 (1.0-2.1); ALT/SGPT 25 U/L (21-72); AST/SGOT 44 U/L (17-59); BLOOD UREA NITROGEN 15 mg/dL (9-20); GFR NON-AFRICAN AMERICAN > 60
--- NOTE | 2018-03-31 09:34 | CP.PCM.PN ---
Addendum entered and electronically signed by Rusty Angulo DO 03/31/18 17: 25: Addendum 03/31: Spoke to pharmacy regarding availability of Oxycodone XR 25mg PO. Does not come in 25mg. Changed to Oxycodone XR 30mg PO Q8 [facility]. Rusty Angulo PGY1 Original Note: <Rusty Angulo - Last Filed: 03/31/18 12:13> Subjective - Date & Time of Evaluation Date of Evaluation: 03/31/18 Time of Evaluation: 09:31 - Subjective Subjective: PGY-1 Medicine Progress Note for Dr. Goodrich Patient was seen and examined at bedside in no acute distress. Patient has 2 visitors at bedside present during exam with permission of patient. Nurse reports no overnight events. Patient reports that pain medication is no controlling the pain well. He says he was unable to eat much yesterday due to pain, however this morning he was able to complete his supplement provided to him for breakfast. Of note, patient threatened to sign out AGAINST MEDICAL ADVICE yesterday (03/30) due to pain, but decided to stay after discussing with Dr. Goodrich. Patient was reminded today that he needs to ask for his PRN pain medication. Patient reports continuing dizziness, blurry vision, diffuse pain, decreased appetite, and constipation. Denies chest pain, shortness of breath, abdominal pain more than usual, numbness, tingling, fever, chills. Objective - Vital Signs/Intake and Output Vital Signs (last 24 hours): Temp Pulse Resp BP Pulse Ox 99.1 F 78 20 104/66 96 03/31/18 07:00 03/31/18 07:00 03/31/18 07:00 03/31/18 07:00 03/31/18 07:00 Intake and Output: 03/31/18 03/31/18 06:59 18:59 Intake Total 570 Output Total 200 Balance 370 - Medications Medications: Current Medications Docusate Sodium (Colace) 100 mg PO TID [facility] Last Admin: 03/30/18 19:00 Dose: 100 mg Fludrocortisone Acetate (Florinef) 0.1 mg PO DAILY [facility] Lidocaine (Lidoderm) 1 ea TD DAILY [facility] Last Admin: 03/30/18 10:27 Dose: 1 ea Ondansetron HCl (Zofran Inj) 4 mg IVP Q6H PRN PRN Reason: Nausea/Vomiting Last Admin: 03/28/18 22:06 Dose: 4 mg Oxycodone HCl (Oxycontin Extended Release Tab) 25 mg PO Q8H [facility] Last Admin: 03/31/18 09:22 Dose: 25 mg Oxycodone HCl (Oxycodone Immediate Release Tab) 10 mg PO Q4 PRN PRN Reason: Pain, severe (8-10) Last Admin: 03/31/18 06:23 Dose: 10 mg Pantoprazole Sodium (Protonix Inj) 40 mg IVP DAILY [facility] Last Admin: 03/30/18 10:30 Dose: 40 mg - Labs Labs: 03/31/18 08:09 03/31/18 08:09 PT 15.8 SECONDS (9.7-12.2) H 03/30/18 06:45 INR 1.4 03/30/18 06:45 APTT 31 SECONDS (21-34) 03/30/18 06:45 - Additional Findings Additional findings: - Constitutional Appears: Non-toxic - Head Exam Head Exam: ATRAUMATIC, NORMOCEPHALIC - Eye Exam Eye Exam: EOMI, Normal appearance - ENT Exam ENT Exam: Mucous Membranes Moist - Neck Exam Neck Exam: Normal Inspection - Respiratory Exam Respiratory Exam: Clear to Ausculation Bilateral, NORMAL BREATHING PATTERN. absent: Rales, Rhonchi, Wheezes - Cardiovascular Exam Cardiovascular Exam: REGULAR RHYTHM, +S1, +S2. absent: Gallop, Rubs, Murmur - GI/Abdominal Exam GI & Abdominal Exam: Guarding, Soft, Tenderness, Normal Bowel Sounds. absent: Firm, Rigid Additional comments: tender to palpation diffusely, greatest LUQ - Extremities Exam Extremities Exam: absent: Pedal Edema Additional comments: peripheral pulses palpable bilaterally (radial, PT) IV in L arm, flushing well - Back Exam Back Exam: CVA tenderness (L), CVA tenderness (R) Additional comments: L>R - Neurological Exam Neurological Exam: Alert, Awake, CN II-XII Intact, Oriented x3 - Psychiatric Exam Psychiatric exam: Normal Affect, Normal Mood - Skin Skin Exam: Dry, Intact, Normal Color Assessment and Plan - Assessment and Plan (Free Text) Assessment: 68yoM PMH alcoholic liver cirrhosis, mediastinal mass 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 Trejo) for adrenal hemorrhage / hx cancer * no surgery at this time -> signed off * Endrocrinology (Dr. 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 * Palliative Care consulted, recommendations appreciated * PT/OT consulted, rec appreciated * Pain/nausea management: * was not controlled by breakthrough medications -> increased to longer acting dosing * Oxycodone XR 25mg PO Q8 [facility] * Oxycodone IR 10mg PO q4 PRN for breakthrough pain * Zofran 4mg IVP PRN for nausea * Dietary supplement: Ensure supplement, TID Moderate Hyponatremia * Patient is euvolemic on physical exam * Symptoms consistent with chronic moderate hyponatremia * dizziness, headache, vision changes with "dark spots" * Work-up * Cortisol AM 16.6 (wnl) * Serum Os xybhjqsk=103 * Urine Olu=145 * Urine Qhlong=661 * CT head without contrast obtained: negative for intracranial pathology * IVF held after morning labs drawn. 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 Dominguez) consulted * Workup: * metanephrines 03/07/18 catecholamines=26.7, dopamine=, GF=688 Liver Cirrhosis likely secondary to prolonged history of alcohol abuse * Avoid NSAIDs, Tylenol, Benzodiazepines, Benadryl to avoid further liver damage * Morphine 2mg IVP Q4 PRN for moderate pain History of Pulmonary Mass Previous Imaging obtained: * ECHO obtained (03/11/2018) : LA midly dilated, normal LV wall motion, EF 55-60 , normal size aortic root. History of Mediastinal lymphadenopathy * CT chest per radiology report (03/06/2018): prominent mediastinal lymphadenopathy is appreciated without dominant pulmonary mass. small 3mm noncalcified nodule seen in right suprahilar space in right upper lobe. PPx: * hold chemical anticoagulation due to adrenal hemorrhage * protonix 40mg IV daily * NS 100cc/hr * Type & Screen * Blood products consent Dispo: Spoke with group fitness manager Madalyn who informed that she was informed by the infusion center that they can arrange for Chemo Tx on paul basis if needed but that patient would have to follow up with Heme/Onc at their office. Will speak with Heme/Onc to see if Chemo is indicated and if so, if they would follow patient. d/w Dr. Kp Angulo PGY1 <Arsen Goodrich - Last Filed: 03/31/18 19:12> Objective - Vital Signs/Intake and Output Vital Signs (last 24 hours): Temp Pulse Resp BP Pulse Ox 99.9 F H 98 H 20 127/77 95 03/31/18 15:00 03/31/18 15:00 03/31/18 15:00 03/31/18 15:00 03/31/18 15:00 - Medications Medications: Current Medications Docusate Sodium (Colace) 100 mg PO TID [facility] Last Admin: 03/31/18 17:30 Dose: 100 mg Fludrocortisone Acetate (Florinef) 0.1 mg PO DAILY [facility] Last Admin: 03/31/18 11:00 Dose: 0.1 mg Lidocaine (Lidoderm) 1 ea TD DAILY [facility] Last Admin: 03/31/18 10:45 Dose: 1 ea Ondansetron HCl (Zofran Inj) 4 mg IVP Q6H PRN PRN Reason: Nausea/Vomiting Last Admin: 03/28/18 22:06 Dose: 4 mg Oxycodone HCl (Oxycodone Immediate Release Tab) 10 mg PO Q4 PRN PRN Reason: Pain, severe (8-10) Last Admin: 03/31/18 06:23 Dose: 10 mg Oxycodone HCl (Oxycontin Extended Release Tab) 30 mg PO Q8H [facility] Stop: 04/04/18 00:01 Oxycodone HCl (Oxycontin Extended Release Tab) 25 mg PO Q8H [facility] Pantoprazole Sodium (Protonix Ec Tab) 40 mg PO DAILY [facility] Last Admin: 03/31/18 11:17 Dose: 40 mg - Labs Labs: 03/31/18 08:09 03/31/18 08:09 PT 15.8 SECONDS (9.7-12.2) H 03/30/18 06:45 INR 1.4 03/30/18 06:45 APTT 31 SECONDS (21-34) 03/30/18 06:45 Attending/Attestation - Attestation I have personally seen and examined this patient.: Yes I have fully participated in the care of the patient.: Yes I have reviewed all pertinent clinical information, including history, physical exam and plan: Yes Notes (Text): 03/31/18 19:04 Patient was seen and examined at 10:15 AM 03/31/18 Care of this patient was gone over with the resident. With the help of [place] Interpretor Timothy [id number]: Pain is much better controlled on the Oxycontin ER and went over again that he may ask for Oxycontin IR for breakthrough pain Appetite is coming back He still has not moved his bowels (however has not been eating much) He understands that we are awaiting further recommendations from the Meat Hostess/Oncologist Dr. Thurston concerning possible treatment options after his review of the biopsy results. Also exam: Still with pain in the left upper and lower quadrant with deep palpation however NO guarding or rebound tenderness. Soft and ND We have added Florinef for Adrenal Insufficiency Hopefully he will start to have bowel movements once he has resumed eating and drinking Ensure Enlive (which he was again encouraged to do so) He understands that we are awaiting further recommendations from the Meat Hostess/Oncologist Dr. Thurston concerning possible treatment options after his review of the biopsy results. Arsen Goodrich D.O.
[2018-03-31] MEDS: Lidocaine 5% Patch TD SCH (10:45)
[2018-03-31] MEDS: Pantoprazole 40 mg EC Tab PO SCH (11:17)
[2018-03-31] MEDS ORDERED: oxyCODONE 20 mg ER Tab (oxyCONTIN) PO SCH ×2 (17:15→18:15)
--- NOTE | 2018-03-31 19:45 | CP.PCM.PN ---
Subjective - Date & Time of Evaluation Date of Evaluation: 03/31/18 Time of Evaluation: 19:37 - Subjective Subjective: The patient is still in pain, mainly left flank, somewhat relieved by pain meds , poor appetite. Discussed with the patient again regarding the rare cancer, poorly differentiated, sarcomatous malignancy. Have also told him that there is no standard of care for this cancer, chemotherapy is ineffective and targets need to be identified for treatment options. Unfortunately biopsy sample "used up" with the testing and staining done, repeat biopsy not really an option in this patient with coagulopathy and thrombocytopenia. Plan- Will discuss with pathology again regarding NGS testing of tumor sample, for actionable mutations. Correct coagulopathy with Vitamin K. Repeat US of adrenal gland, if lesion getting larger, will need FFPs and platelets Objective - Vital Signs/Intake and Output Vital Signs (last 24 hours): Temp Pulse Resp BP Pulse Ox 99.9 F H 98 H 20 127/77 95 03/31/18 15:00 03/31/18 15:00 03/31/18 15:00 03/31/18 15:00 03/31/18 15:00 - Medications Medications: Current Medications Dexamethasone (Decadron Inj) 4 mg IV DAILY [facility] Docusate Sodium (Colace) 100 mg PO TID [facility] Last Admin: 03/31/18 17:30 Dose: 100 mg Fludrocortisone Acetate (Florinef) 0.1 mg PO DAILY [facility] Last Admin: 03/31/18 11:00 Dose: 0.1 mg Lactulose (Enulose) 20 gm PO HS [facility] Lidocaine (Lidoderm) 1 ea TD DAILY [facility] Last Admin: 03/31/18 10:45 Dose: 1 ea Ondansetron HCl (Zofran Inj) 4 mg IVP Q6H PRN PRN Reason: Nausea/Vomiting Last Admin: 03/28/18 22:06 Dose: 4 mg Oxycodone HCl (Oxycodone Immediate Release Tab) 10 mg PO Q4 PRN PRN Reason: Pain, severe (8-10) Last Admin: 03/31/18 06:23 Dose: 10 mg Oxycodone HCl (Oxycontin Extended Release Tab) 30 mg PO Q8H [facility] Stop: 04/04/18 00:01 Oxycodone HCl (Oxycontin Extended Release Tab) 25 mg PO Q8H [facility] Pantoprazole Sodium (Protonix Ec Tab) 40 mg PO DAILY [facility] Last Admin: 03/31/18 11:17 Dose: 40 mg - Labs Labs: 03/31/18 08:09 03/31/18 08:09 PT 15.8 SECONDS (9.7-12.2) H 03/30/18 06:45 INR 1.4 03/30/18 06:45 APTT 31 SECONDS (21-34) 03/30/18 06:45
[2018-03-31] MEDS: oxyCODONE 10 mg ER Tab (oxyCONTIN) PO SCH (23:48)
[2018-04-01] MEDS: oxyCODONE 10 mg Immediate Release Tab PO PRN ×3 (06:22→20:46)
[2018-04-01 06:50] LABS: BASO % 0.3 % (0.0-2.0); EOS # 0.1 K/uL (0.0-0.7); HEMOGLOBIN 10.9 g/dL (12.0-18.0); LYMPH # 1.1 K/uL (1.0-4.3); LYMPH % 17.1 % (20.0-40.0); MEAN CELL VOLUME 88.9 fL (80.0-94.0); MEAN CORPUSCULAR HGB CONC 34.8 g/dL (33.0-37.0); MEAN PLATELET VOLUME 8.2 fL (7.2-11.7); MONO # 1.2 K/uL (0.0-0.8); MONO % 18.4 % (0.0-10.0); NEUT # 4.1 K/uL (1.8-7.0); NEUT % 63.2 % (50.0-75.0); NRBC % 0.1 % (0.0-2.0); RBC 3.52 Mil/uL (4.40-5.90); RED CELL DISTRIBUTION WIDTH 14.4 % (11.5-14.5); WHITE BLOOD COUNT 6.5 K/uL (4.8-10.8)
--- NOTE | 2018-04-01 07:10 | CP.PCM.PN ---
<Rusty Angulo - Last Filed: 04/01/18 17:53> Subjective - Date & Time of Evaluation Date of Evaluation: 04/01/18 Time of Evaluation: 07:03 - Subjective Subjective: PGY-1 Medicine Progress Note for Dr. Goodrich Patient was seen and examined at bedside in no acute distress. Denies bowel movement. Patient says he still has pain. Patient was again reminded today that he needs to ask for his PRN pain medication. Patient reports continuing dizziness, blurry vision, diffuse pain, decreased appetite, and constipation. Patient does not endorse bowel movement for 3 days. Denies chest pain, shortness of breath, abdominal pain more than usual, numbness, tingling, fever, chills. Objective - Vital Signs/Intake and Output Vital Signs (last 24 hours): Temp Pulse Resp BP Pulse Ox 99 F 98 H 20 125/76 95 03/31/18 23:10 04/01/18 00:15 03/31/18 23:10 03/31/18 23:10 03/31/18 23:10 Intake and Output: 04/01/18 04/01/18 06:59 18:59 Intake Total 480 Output Total 600 Balance -120 - Medications Medications: Current Medications Dexamethasone (Decadron Inj) 4 mg IV DAILY [facility] Docusate Sodium (Colace) 100 mg PO TID [facility] Last Admin: 03/31/18 17:30 Dose: 100 mg Fludrocortisone Acetate (Florinef) 0.1 mg PO DAILY [facility] Last Admin: 03/31/18 11:00 Dose: 0.1 mg Lactulose (Enulose) 20 gm PO HS [facility] Last Admin: 03/31/18 22:53 Dose: 20 gm Lidocaine (Lidoderm) 1 ea TD DAILY [facility] Last Admin: 03/31/18 10:45 Dose: 1 ea Ondansetron HCl (Zofran Inj) 4 mg IVP Q6H PRN PRN Reason: Nausea/Vomiting Last Admin: 03/28/18 22:06 Dose: 4 mg Oxycodone HCl (Oxycodone Immediate Release Tab) 10 mg PO Q4 PRN PRN Reason: Pain, severe (8-10) Last Admin: 04/01/18 06:22 Dose: 10 mg Oxycodone HCl (Oxycontin Extended Release Tab) 30 mg PO Q8H [facility] Stop: 04/04/18 00:01 Last Admin: 03/31/18 23:48 Dose: 30 mg Pantoprazole Sodium (Protonix Ec Tab) 40 mg PO DAILY [facility] Last Admin: 03/31/18 11:17 Dose: 40 mg Phytonadione (Vitamin K Inj) 10 mg SC DAILY [facility] Stop: 04/04/18 19:36 - Labs Labs: 04/01/18 06:33 03/31/18 08:09 PT 15.8 SECONDS (9.7-12.2) H 03/30/18 06:45 INR 1.4 03/30/18 06:45 APTT 31 SECONDS (21-34) 03/30/18 06:45 - Additional Findings Additional findings: - Constitutional Appears: Non-toxic - Head Exam Head Exam: ATRAUMATIC, NORMOCEPHALIC - Eye Exam Eye Exam: EOMI, Normal appearance - ENT Exam ENT Exam: Mucous Membranes Moist - Neck Exam Neck Exam: Normal Inspection - Respiratory Exam Respiratory Exam: Clear to Ausculation Bilateral, NORMAL BREATHING PATTERN. absent: Rales, Rhonchi, Wheezes - Cardiovascular Exam Cardiovascular Exam: REGULAR RHYTHM, +S1, +S2. absent: Gallop, Rubs, Murmur - GI/Abdominal Exam GI & Abdominal Exam: Guarding, Soft, Tenderness, Normal Bowel Sounds. absent: Firm, Rigid Additional comments: tender to palpation diffusely, greatest LUQ - Extremities Exam Extremities Exam: absent: Pedal Edema Additional comments: peripheral pulses palpable bilaterally (radial, PT) IV in L arm, flushing well - Back Exam Back Exam: CVA tenderness (L), CVA tenderness (R) Additional comments: L>R - Neurological Exam Neurological Exam: Alert, Awake, CN II-XII Intact, Oriented x3 - Psychiatric Exam Psychiatric exam: Normal Affect, Normal Mood - Skin Skin Exam: Dry, Intact, Normal Color Assessment and Plan - Assessment and Plan (Free Text) Assessment: 68yoM PMH alcoholic liver cirrhosis, mediastinal mass 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 Plan: Left Flank pain secondary to Adrenal Hemorrhage with history of cancer * CT A/P (9.15): interval increased size with liquifaction of adrenal hemorrhage (9.3 x 8.7cm) * Basal plasma ACTH OA: 45 * AM Cortisol: 19.4 OA -> 16.5 -> 14.3 * Consyntropin Stimulation Test performed on 03/30 * Cortisol drawn 42min after cosyntropin administration: 18.8, equivocal for adrenal insufficiency -> started on corticosteroid therapy * Fludrocortisone 0.1mg po daily * Consults - recommendations appreciated: * General surgery (Dr. Trejo) for adrenal hemorrhage / hx cancer * no surgery at this time -> signed off * Endrocrinology (Dr. 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 * There is no standard of care for this cancer * Chemotherapy is ineffective * Arreola need to be identified for treatment options, however biopsy is all used up, and patient is not candidate for second biopsy due to thrombocytopenia * Phytonadione 10mg SC daily * Lactulose 20g PO HS * Fludrocortisone 0.1mg PO daily * Palliative Care consulted, recommendations appreciated * PT/OT consulted, rec appreciated * Pain/nausea management: * was not controlled by breakthrough medications -> increased to longer acting dosing * Oxycodone XR 25mg PO Q8 [facility] * Oxycodone IR 10mg PO q4 PRN for breakthrough pain * Zofran 4mg IVP PRN for nausea * Dietary supplement: Ensure supplement, TID Moderate Hyponatremia * Patient is euvolemic on physical exam * Symptoms consistent with chronic moderate hyponatremia * dizziness, headache, vision changes with "dark spots" * Work-up * Cortisol AM 16.6 (wnl) * Serum Os eidonakz=775 * Urine Ped=477 * Urine Hwqjrq=390 * CT head without contrast obtained: negative for intracranial pathology * IVF held after morning labs drawn. 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 Dominguez) consulted * Workup: * metanephrines 03/07/18 catecholamines=26.7, dopamine=, NK=550 Liver Cirrhosis likely secondary to prolonged history of alcohol abuse * Avoid NSAIDs, Tylenol, Benzodiazepines, Benadryl to avoid further liver damage * Morphine 2mg IVP Q4 PRN for moderate pain History of Pulmonary Mass Previous Imaging obtained: * ECHO obtained (03/11/2018) : LA midly dilated, normal LV wall motion, EF 55-60 , normal size aortic root. History of Mediastinal lymphadenopathy * CT chest per radiology report (03/06/2018): prominent mediastinal lymphadenopathy is appreciated without dominant pulmonary mass. small 3mm noncalcified nodule seen in right suprahilar space in right upper lobe. PPx: * hold chemical anticoagulation due to adrenal hemorrhage * protonix 40mg IV daily * NS 100cc/hr * Type & Screen * Blood products consent Dispo: Spoke with field services manager Madalyn who informed that she was informed by the infusion center that they can arrange for Chemo Tx on paul basis if needed but that patient would have to follow up with Heme/Onc at their office. However, at this time it is uncertain whether chemotherapy and/or radiation is indicated, per Dr. Bonner's note. Heme/Onc mentioned more tissue sample is needed in order to test for markers that might help determine whether therapy is available, however this would require the patient to undergo a second biopsy , for which the patient is at high risk for further hemorrhage due to thrombocytomenia. Will discuss further with Heme/Onc recommendations. d/w Dr. Kp Angulo PGY1 <Arsen Goodrich - Last Filed: 04/02/18 17:34> Objective - Vital Signs/Intake and Output Vital Signs (last 24 hours): Temp Pulse Resp BP Pulse Ox 98 F 79 20 114/68 93 L 04/02/18 16:00 04/02/18 16:00 04/02/18 16:00 04/02/18 16:00 04/02/18 16:00 Intake and Output: 04/02/18 04/02/18 06:59 18:59 Intake Total 320 Output Total 350 Balance -30 - Medications Medications: Current Medications Dexamethasone (Decadron Inj) 4 mg IV DAILY [facility] Last Admin: 04/02/18 09:32 Dose: 4 mg Docusate Sodium (Colace) 100 mg PO TID [facility] Last Admin: 04/02/18 13:11 Dose: 100 mg Fludrocortisone Acetate (Florinef) 0.1 mg PO DAILY [facility] Last Admin: 04/02/18 09:24 Dose: 0.1 mg Lactulose (Enulose) 20 gm PO HS [facility] Last Admin: 04/01/18 21:06 Dose: 20 gm Lidocaine (Lidoderm) 1 ea TD DAILY [facility] Last Admin: 04/02/18 09:24 Dose: 1 ea Ondansetron HCl (Zofran Inj) 4 mg IVP Q6H PRN PRN Reason: Nausea/Vomiting Last Admin: 03/28/18 22:06 Dose: 4 mg Oxycodone HCl (Oxycodone Immediate Release Tab) 10 mg PO Q4 PRN PRN Reason: Pain, severe (8-10) Last Admin: 04/02/18 13:20 Dose: 10 mg Oxycodone HCl (Oxycontin Extended Release Tab) 30 mg PO Q8H [facility] Stop: 04/04/18 00:01 Last Admin: 04/02/18 16:13 Dose: 30 mg Pantoprazole Sodium (Protonix Ec Tab) 40 mg PO DAILY [facility] Last Admin: 04/02/18 09:23 Dose: 40 mg Phytonadione (Vitamin K Inj) 10 mg SC DAILY [facility] Stop: 04/04/18 19:36 Last Admin: 04/02/18 09:32 Dose: 10 mg - Labs Labs: 04/02/18 07:42 04/02/18 07:42 PT 15.8 SECONDS (9.7-12.2) H 03/30/18 06:45 INR 1.4 03/30/18 06:45 APTT 31 SECONDS (21-34) 03/30/18 06:45 Attending/Attestation - Attestation I have personally seen and examined this patient.: Yes I have fully participated in the care of the patient.: Yes I have reviewed all pertinent clinical information, including history, physical exam and plan: Yes Notes (Text): 04/02/18 17:33 This is a late entry Care of this patient was gone over in detail with the resident. Arsen Goodrich D.O.
[2018-04-01 07:34] LABS: ALB/GLOB RATIO 0.6 (1.0-2.1); ALBUMIN 3.1 g/dL (3.5-5.0); ALT/SGPT 27 U/L (21-72); AST/SGOT 48 U/L (17-59); BLOOD UREA NITROGEN 19 mg/dL (9-20); GFR NON-AFRICAN AMERICAN > 60
--- NOTE | 2018-04-01 08:36 | PN ---
DATE: 03/31/2018 ENDO FOLLOWUP NOTE LOCATION: In room 652. SUBJECTIVE: This is a 68-year-old male with recent diagnosis of a left adrenal mass and has been followed closely for metabolic management for possible adrenal insufficiency. His serum cortisol levels, however, remained normal and the latest one of which is 18.8 mcg/dL. His chemistries shows a BUN of 15, sodium 129, potassium 4.5, chloride 97, CO2 25, glucose 92, and creatinine 0.6. We are awaiting the full histopathology report to fully elucidate the exact nature of the adrenal gland biopsy. We will follow. Anna Walker MD
[2018-04-01] MEDS: oxyCODONE 10 mg ER Tab (oxyCONTIN) PO SCH ×2 (09:36→16:54)
[2018-04-01] MEDS: Pantoprazole 40 mg EC Tab PO SCH (09:36)
[2018-04-01] MEDS: Lidocaine 5% Patch TD SCH (09:38)
--- NOTE | 2018-04-01 12:12 | CP.PCM.PN ---
Subjective - Date & Time of Evaluation Date of Evaluation: 04/01/18 Time of Evaluation: 12:10 - Subjective Subjective: Patient complains of pain across upper back and upper chest. patient admits to be feeling tired and is with poor appetite. last BM 3 days ago. Objective - Vital Signs/Intake and Output Vital Signs (last 24 hours): Temp Pulse Resp BP Pulse Ox 99.1 F 90 20 106/65 95 04/01/18 07:30 04/01/18 07:30 04/01/18 07:30 04/01/18 07:30 04/01/18 07:30 Intake and Output: 04/01/18 04/01/18 06:59 18:59 Intake Total 480 Output Total 600 Balance -120 - Medications Medications: Current Medications Dexamethasone (Decadron Inj) 4 mg IV DAILY [facility] Docusate Sodium (Colace) 100 mg PO TID [facility] Last Admin: 04/01/18 09:35 Dose: 100 mg Fludrocortisone Acetate (Florinef) 0.1 mg PO DAILY [facility] Last Admin: 03/31/18 11:00 Dose: 0.1 mg Lactulose (Enulose) 20 gm PO HS [facility] Last Admin: 03/31/18 22:53 Dose: 20 gm Lidocaine (Lidoderm) 1 ea TD DAILY [facility] Last Admin: 04/01/18 09:38 Dose: 1 ea Ondansetron HCl (Zofran Inj) 4 mg IVP Q6H PRN PRN Reason: Nausea/Vomiting Last Admin: 03/28/18 22:06 Dose: 4 mg Oxycodone HCl (Oxycodone Immediate Release Tab) 10 mg PO Q4 PRN PRN Reason: Pain, severe (8-10) Last Admin: 04/01/18 06:22 Dose: 10 mg Oxycodone HCl (Oxycontin Extended Release Tab) 30 mg PO Q8H [facility] Stop: 04/04/18 00:01 Last Admin: 04/01/18 09:36 Dose: 30 mg Pantoprazole Sodium (Protonix Ec Tab) 40 mg PO DAILY [facility] Last Admin: 04/01/18 09:36 Dose: 40 mg Phytonadione (Vitamin K Inj) 10 mg SC DAILY [facility] Stop: 04/04/18 19:36 - Labs Labs: 04/01/18 06:33 04/01/18 06:33 PT 15.8 SECONDS (9.7-12.2) H 03/30/18 06:45 INR 1.4 03/30/18 06:45 APTT 31 SECONDS (21-34) 03/30/18 06:45 - Constitutional Appears: Chronically Ill - Head Exam Head Exam: ATRAUMATIC, NORMAL INSPECTION, NORMOCEPHALIC - Eye Exam Eye Exam: EOMI, Normal appearance, PERRL Pupil Exam: NORMAL ACCOMODATION, PERRL - ENT Exam ENT Exam: Mucous Membranes Moist, Normal Exam - Neck Exam Neck Exam: Full ROM, Normal Inspection - Respiratory Exam Respiratory Exam: Clear to Ausculation Bilateral, NORMAL BREATHING PATTERN - Cardiovascular Exam Cardiovascular Exam: Tachycardia - GI/Abdominal Exam GI & Abdominal Exam: Guarding, Hypoactive Bowel Sounds - Rectal Exam Rectal Exam: Deferred - Exam Exam: NORMAL INSPECTION - Extremities Exam Extremities Exam: Full ROM, Normal Capillary Refill, Normal Inspection - Back Exam Back Exam: CVA tenderness (L) - Neurological Exam Neurological Exam: Alert, Oriented x3 Neuro motor strength exam: Left Upper Extremity: 2/1, Right Upper Extremity: 2/1 , Left Lower Extremity: 2/1, Right Lower Extremity: 2/1 - Psychiatric Exam Psychiatric exam: Flat Affect - Skin Skin Exam: Pallor Assessment and Plan - Assessment and Plan (Free Text) Assessment: Patient examined in bed looking ill. Skin pale and warm to touch. Fever of 101.3 noted. This was repprted to nursing and Doctor Devin Goodrich. Patient complains of upper back and upper chest pain. Pain is intense. per nursing, patient rarely asks for PRN pain meds. Abdomen is soft, tender to touch. Left flank guarded when palpated. patient ambulates to the bathroom, gait unsteady. I tried few times to get in touch with patient's daughter, but number is non working number. I was able to get in touch with patient's niece Faby who is very close to a patient. She came in for the meeting and also wanted to be here and support her uncle. Doctor Devin Goodrich joined meeting as well. Patient's condition discussed and most recent updates from Doctor Bonner. Per last Bx results, it is a rare form of cancer with poorly differentiated cancer cells. To determine appropriate Tx further testing is needed. Given patient's condition, low platelets level and high risks of bleeding , further testing would be high risks procedure. Before Doctor Kp came in I discussed goals of care and wishes for end of life care. Patient and niece were both aware of cancer diagnosis. The niece admits being overwhelmed with overall family dynamics, as she lost another uncle few months ago. The niece and patient spoke in [place] among themselves. Patient remained calm the entire time and was falling asleep occasionally due to pain meds. Niece translated that patient agrees with all care suggested by the Medical team. Patient wants to continue all treatment. We made sure patient and niece understood the risks of bleeding from further Bx. Impression * Cancer related pain * Weakness * Poor appetite * Patient and family overwhelmed by the diagnosis and are not realistic with expectations of care * Patient and niece are requesting continuation of further available treatments Suggestion * Continue pain meds as of now; reinforce PRN dose use * promote safety * PO fluids as tolerated * Full Code * Patient and family will need extensive support during this difficult time * Comfort care will soon be the only possible care to offer Advance care planing 35 min
[2018-04-01] MEDS: Phytonadione 10 mg/ml Inj (Adult) SC SCH (14:16)
[2018-04-01] MEDS: Dexamethasone 4 mg/1 ml IV SCH (16:04)
[2018-04-02] MEDS: oxyCODONE 10 mg ER Tab (oxyCONTIN) PO SCH ×4 (00:03→23:10)
--- NOTE | 2018-04-02 01:55 | PN ---
DATE: 04/01/2018 LOCATION: Room 652. SUBJECTIVE: This is a 68-year-old male presenting here with severe left flank pain and lower extremity painful dysesthesias and is now being followed closely for workup and management of a large left adrenal mass for which he had a recent adrenal biopsy with subsequent adrenal hemorrhage as noted thereof. His latest chemistry showed a BUN of 19, sodium 130, potassium 4.4, chloride 96, CO2 of 27, glucose 96, creatinine 0.7. His last serum cortisol level was 18.8 mcg/dL. So at this time, we will continue the empirical initiation of IV Decadron given at 4 mg IV piggyback once daily as ordered. We are awaiting final and full histopathology report which will guide eventual definitive management accordingly. We would highly recommend an eventual surgical management once the hormonal profile is completed accordingly. We will follow. Anna Walker MD
[2018-04-02] MEDS: oxyCODONE 10 mg Immediate Release Tab PO PRN ×3 (03:19→20:35)
--- NOTE | 2018-04-02 06:50 | CP.PCM.PN ---
<Rusty Angulo - Last Filed: 04/02/18 18:26> Subjective - Date & Time of Evaluation Date of Evaluation: 04/02/18 Time of Evaluation: 06:48 - Subjective Subjective: PGY-1 Medicine Progress Note for Dr. Goodrich Patient was seen and examined at bedside in no acute distress. Denies bowel movement. Patient was again reminded today that he needs to ask for his PRN pain medication. Patient reports continuing dizziness, blurry vision, diffuse pain, decreased appetite, and constipation. Patient does not endorse bowel movement for 4 days. Denies chest pain, shortness of breath, abdominal pain more than usual, numbness, tingling, fever, chills. Objective - Vital Signs/Intake and Output Vital Signs (last 24 hours): Temp Pulse Resp BP Pulse Ox 98.5 F 68 20 125/68 94 L 04/02/18 03:00 04/02/18 04:00 04/02/18 03:00 04/02/18 03:00 04/02/18 03:00 Intake and Output: 04/01/18 04/02/18 18:59 06:59 Intake Total 400 320 Output Total 820 350 Balance -420 -30 - Medications Medications: Current Medications Dexamethasone (Decadron Inj) 4 mg IV DAILY [facility] Last Admin: 04/01/18 16:04 Dose: 4 mg Docusate Sodium (Colace) 100 mg PO TID [facility] Last Admin: 04/01/18 17:01 Dose: 100 mg Fludrocortisone Acetate (Florinef) 0.1 mg PO DAILY [facility] Last Admin: 04/01/18 11:00 Dose: 0.1 mg Lactulose (Enulose) 20 gm PO HS [facility] Last Admin: 04/01/18 21:06 Dose: 20 gm Lidocaine (Lidoderm) 1 ea TD DAILY [facility] Last Admin: 04/01/18 09:38 Dose: 1 ea Ondansetron HCl (Zofran Inj) 4 mg IVP Q6H PRN PRN Reason: Nausea/Vomiting Last Admin: 03/28/18 22:06 Dose: 4 mg Oxycodone HCl (Oxycodone Immediate Release Tab) 10 mg PO Q4 PRN PRN Reason: Pain, severe (8-10) Last Admin: 04/02/18 03:19 Dose: 10 mg Oxycodone HCl (Oxycontin Extended Release Tab) 30 mg PO Q8H [facility] Stop: 04/04/18 00:01 Last Admin: 04/02/18 00:03 Dose: 30 mg Pantoprazole Sodium (Protonix Ec Tab) 40 mg PO DAILY [facility] Last Admin: 04/01/18 09:36 Dose: 40 mg Phytonadione (Vitamin K Inj) 10 mg SC DAILY [facility] Stop: 04/04/18 19:36 Last Admin: 04/01/18 14:16 Dose: 10 mg - Labs Labs: 04/01/18 06:33 04/01/18 06:33 PT 15.8 SECONDS (9.7-12.2) H 03/30/18 06:45 INR 1.4 03/30/18 06:45 APTT 31 SECONDS (21-34) 03/30/18 06:45 - Additional Findings Additional findings: - Constitutional Appears: Non-toxic - Head Exam Head Exam: ATRAUMATIC, NORMOCEPHALIC - Eye Exam Eye Exam: EOMI, Normal appearance - ENT Exam ENT Exam: Mucous Membranes Moist - Neck Exam Neck Exam: Normal Inspection - Respiratory Exam Respiratory Exam: Clear to Ausculation Bilateral, NORMAL BREATHING PATTERN. absent: Rales, Rhonchi, Wheezes - Cardiovascular Exam Cardiovascular Exam: REGULAR RHYTHM, +S1, +S2. absent: Gallop, Rubs, Murmur - GI/Abdominal Exam GI & Abdominal Exam: Guarding, Soft, Tenderness, Normal Bowel Sounds. absent: Firm, Rigid Additional comments: tender to palpation diffusely, greatest LUQ - Extremities Exam Extremities Exam: absent: Pedal Edema Additional comments: peripheral pulses palpable bilaterally (radial, PT) IV in L arm, flushing well - Back Exam Back Exam: CVA tenderness (L), CVA tenderness (R) Additional comments: L>R - Neurological Exam Neurological Exam: Alert, Awake, CN II-XII Intact, Oriented x3 - Psychiatric Exam Psychiatric exam: Normal Affect, Normal Mood - Skin Skin Exam: Dry, Intact, Normal Color Assessment and Plan - Assessment and Plan (Free Text) Assessment: Spoke with human resources manager manufacturing Madalyn who informed that she was informed by the infusion center that they can arrange for Chemo Tx on paul basis if needed but that patient would have to follow up with Heme/Onc at their office. However , at this time it is uncertain whether chemotherapy and/or radiation is indicated, per Dr. Bonner's note. Heme/Onc mentioned more tissue sample is needed in order to test for markers that might help determine whether therapy is available, however this would require the patient to undergo a second biopsy , for which the patient is at high risk for further hemorrhage due to thrombocytomenia. Discussed with heme/onc. At this time, there is no other treatment that can be offered to the patient at this facility. Patient will need to get copies of his records with images on CDs so that he can take to a Heme/Onc who specializes in treatment of sarcomas. Case Management is aware and will assist in writing the patient a letter which will be signed by Dr. Hicks and sent to [facility]. Plan: Left Flank pain secondary to Adrenal Hemorrhage with history of cancer * CT A/P (9.15): interval increased size with liquifaction of adrenal hemorrhage (9.3 x 8.7cm) * Basal plasma ACTH OA: 45 * AM Cortisol: 19.4 OA -> 16.5 -> 14.3 * Consyntropin Stimulation Test performed on 03/30 * Cortisol drawn 42min after cosyntropin administration: 18.8, equivocal for adrenal insufficiency -> started on corticosteroid therapy * Fludrocortisone 0.1mg po daily * Consults - recommendations appreciated: * General surgery (Dr. Trejo) for adrenal hemorrhage / hx cancer * no surgery at this time -> signed off * Endrocrinology (Dr. 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 * There is no standard of care for this cancer * Chemotherapy is ineffective * Arreola need to be identified for treatment options, however biopsy is all used up, and patient is not candidate for second biopsy due to thrombocytopenia * Phytonadione 10mg SC daily * Lactulose 20g PO HS * Fludrocortisone 0.1mg PO daily * Palliative Care consulted, recommendations appreciated * PT/OT consulted, rec appreciated * Pain/nausea management: * was not controlled by breakthrough medications -> increased to longer acting dosing * Oxycodone XR 25mg PO Q8 [facility] * Oxycodone IR 10mg PO q4 PRN for breakthrough pain * Zofran 4mg IVP PRN for nausea * Dietary supplement: Ensure supplement, TID Moderate Hyponatremia * Patient is euvolemic on physical exam * Symptoms consistent with chronic moderate hyponatremia * dizziness, headache, vision changes with "dark spots" * Work-up * Cortisol AM 16.6 (wnl) * Serum Os [id number]=757 * Urine Ipq=088 * Urine Gzikzo=063 * CT head without contrast obtained: negative for intracranial pathology * IVF held after morning labs drawn. 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 Dominguez) consulted * Workup: * metanephrines 03/07/18 catecholamines=26.7, dopamine=, TL=891 Liver Cirrhosis likely secondary to prolonged history of alcohol abuse * Avoid NSAIDs, Tylenol, Benzodiazepines, Benadryl to avoid further liver damage * Morphine 2mg IVP Q4 PRN for moderate pain History of Pulmonary Mass Previous Imaging obtained: * ECHO obtained (03/11/2018) : LA midly dilated, normal LV wall motion, EF 55-60 , normal size aortic root. History of Mediastinal lymphadenopathy * CT chest per radiology report (03/06/2018): prominent mediastinal lymphadenopathy is appreciated without dominant pulmonary mass. small 3mm noncalcified nodule seen in right suprahilar space in right upper lobe. PPx: * hold chemical anticoagulation due to adrenal hemorrhage * protonix 40mg IV daily * NS 100cc/hr * Type & Screen * Blood products consent d/w Dr. Kp Angulo PGY1 <Arsen Goodrich - Last Filed: 04/02/18 20:50> Objective - Vital Signs/Intake and Output Vital Signs (last 24 hours): Temp Pulse Resp BP Pulse Ox 98 F 79 20 114/68 93 L 04/02/18 16:00 04/02/18 16:00 04/02/18 16:00 04/02/18 16:00 04/02/18 16:00 - Medications Medications: Current Medications Dexamethasone (Decadron Inj) 4 mg IV DAILY [facility] Last Admin: 04/02/18 09:32 Dose: 4 mg Docusate Sodium (Colace) 100 mg PO TID [facility] Last Admin: 04/02/18 18:53 Dose: Not Given Fludrocortisone Acetate (Florinef) 0.1 mg PO DAILY [facility] Last Admin: 04/02/18 09:24 Dose: 0.1 mg Lactulose (Enulose) 20 gm PO HS [facility] Last Admin: 04/01/18 21:06 Dose: 20 gm Lidocaine (Lidoderm) 1 ea TD DAILY [facility] Last Admin: 04/02/18 09:24 Dose: 1 ea Ondansetron HCl (Zofran Inj) 4 mg IVP Q6H PRN PRN Reason: Nausea/Vomiting Last Admin: 03/28/18 22:06 Dose: 4 mg Oxycodone HCl (Oxycodone Immediate Release Tab) 10 mg PO Q4 PRN PRN Reason: Pain, severe (8-10) Last Admin: 04/02/18 13:20 Dose: 10 mg Oxycodone HCl (Oxycontin Extended Release Tab) 30 mg PO Q8H [facility] Stop: 04/04/18 00:01 Last Admin: 04/02/18 16:13 Dose: 30 mg Pantoprazole Sodium (Protonix Ec Tab) 40 mg PO DAILY [facility] Last Admin: 04/02/18 09:23 Dose: 40 mg Phytonadione (Vitamin K Inj) 10 mg SC DAILY [facility] Stop: 04/04/18 19:36 Last Admin: 04/02/18 09:32 Dose: 10 mg - Labs Labs: 04/02/18 07:42 04/02/18 07:42 PT 15.8 SECONDS (9.7-12.2) H 03/30/18 06:45 INR 1.4 03/30/18 06:45 APTT 31 SECONDS (21-34) 03/30/18 06:45 Attending/Attestation - Attestation I have personally seen and examined this patient.: Yes I have fully participated in the care of the patient.: Yes I have reviewed all pertinent clinical information, including history, physical exam and plan: Yes Notes (Text): 04/02/18 20:18 Patient was seen and examined at 1:00 PM 04/02/18 Bed 652 A Care of this patient was gone over in detail with the resident He still has not had a bowel movement but has been passing gas He states that he was not brought Ensure Enlive (despite order placed for 5 times a day) He actually ate his breakfast and lunch for the first time today His pain is controlled and currently a 3/10 Assessments: 1). 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 Left Adrenal Hematoma 3). Anemia and Thrombocytopenia likely Secondary to Chronic Disease 4). Mediastinal Lymphadenopathy likely Secondary to Metastasis 5). Adrenal Insufficiency 6). Hyponatremia 7). Liver Cirrhosis/Portal HTN/Varices 8). Hx Tobacco Use 9). Hx Cocaine Use 10). Constipation Spoke with at length with patient and niwojciech Hobbs (who is primary family contact [phone]) on 04/01/18 about the poor prognosis of Sarcoma and that I did not recommend another biopsy (for help with further characterization of the sarcoma) considering the bleeding/hematoma that developed around the left adrenal on last admission from [facility] Biopsy and considering the already present anemia and thrombocytopenia. Spoke at length with Structural Metal Worker/Oncologist Dr. Bonner on 04/02/18: She also does not recommend additional biopsy for reasons mentioned in prior paragraph She recommends further management of this patient at either [facility] in [place] or [facility] in [place] (this one is preferred by Dr. Bonner) She recommends a letter stating the following to be given to patient: Patient with advance pain secondary to Undifferentiated Sarcoma requiring care from Oncology department. Discussed with Structural Metal Worker/Oncologist Dr. Bonner who is aware. It is recommended that once patient's pain is controlled and he and his family have decided that they want to definitely proceed with treatment, that he be discharged and directed to go to the emergency department at [facility] with a copy of the letter and a packet containing a CD copy of all of his radiology studies, all pathology reports, all radiology study reports, and blood work. Spoke with Palliative Care Nurse Drummond 04/02/18 and explained to her above proposed plan. Nurse Drummond to speak with Paulina Hobbs ([phone]) who will then convey information to patient and the rest of his family as to decision concerning whether treatment is to be pursued vs hospice. Spoke with Senior Analytic Consultant Loretta and about need for letter mentioned above based upon patient/family decision. She will convey information to Director Pediatric Madalyn. If patient/family decide to pursue treatment, then speak with Madalyn about having letter typed on letter head. Continue the Dexamethasone 4 mg daily. When time for discharge may be changed to PO at same dose as there is a 1:1 conversion from IV to PO. The Dexamethasone will help reduce inflammation from the cancer, increase his appetite, help with the adrenal insufficiency and increase his energy level. We will also need to make sure that he is on some form of acid director of quality as well: either Pepcid or Omeprazole upon discharge. Hyponatremia likely secondary to excess ADH release from Adrenal Insufficiency therefore caution should be used when giving IVF (which were discontinued earlier this week). He is on Florinef 0.1 mg PO 1x/day and should the sodium drop further, consider increasing to 0.2 mg PO 1x/day Pain Management has been better once he was changed from PRN medication to Oxycontin Extended Release. He is currently on Oxycontin ER 30 mg PO Q8H and his pain is very well controlled. He is also on Oxycontin Immediate Release 10 mg PO Q4H PRN for breakthrough pain and should he require 3 more tablets of this in a 24 hour period of time, then increase his Oxycontin Extended Release to 40 mg PO Q8H. He is also on the Lidocaine 5% Patch 1x/day. He has not moved his bowels and this may be secondary to lack of eating (which he just started to do) and/or his pain medication use. He is on Colace 100 mg PO TID and Lactulose 20 gm PO HS. Please keep an eye on this as he has started to eat. Encourage the Ensure Enlive 5x/day. Arsen Goodrich D.O.
[2018-04-02 08:01] LABS: BASO % 0.2 % (0.0-2.0); HEMOGLOBIN 10.2 g/dL (12.0-18.0); LYMPH # 0.7 K/uL (1.0-4.3); LYMPH % 8.7 % (20.0-40.0); MEAN CELL VOLUME 88.1 fL (80.0-94.0); MEAN CORPUSCULAR HEMOGLOBIN 31.9 pg (27.0-31.0); MEAN CORPUSCULAR HGB CONC 36.2 g/dL (33.0-37.0); MEAN PLATELET VOLUME 8.3 fL (7.2-11.7); MONO # 0.9 K/uL (0.0-0.8); MONO % 11.4 % (0.0-10.0); NEUT # 6.5 K/uL (1.8-7.0); NEUT % 79.7 % (50.0-75.0); PLATELET COUNT 97 K/uL (130-400); RED CELL DISTRIBUTION WIDTH 14.2 % (11.5-14.5); WHITE BLOOD COUNT 8.1 K/uL (4.8-10.8)
[2018-04-02 08:16] LABS: ALB/GLOB RATIO 0.6 (1.0-2.1); ALBUMIN 2.9 g/dL (3.5-5.0); ALT/SGPT 28 U/L (21-72); AST/SGOT 40 U/L (17-59); BLOOD UREA NITROGEN 18 mg/dL (9-20); CALCIUM 8.1 mg/dl (8.6-10.4); GFR NON-AFRICAN AMERICAN > 60
[2018-04-02] MEDS: Pantoprazole 40 mg EC Tab PO SCH (09:23)
[2018-04-02] MEDS: Lidocaine 5% Patch TD SCH (09:24)
[2018-04-02] MEDS: Dexamethasone 4 mg/1 ml IV SCH (09:32)
[2018-04-02] MEDS: Phytonadione 10 mg/ml Inj (Adult) SC SCH (09:32)
[2018-04-02 10:29] LABS: LYMPHOCYTE 6 % (20-40); MONOCYTE 11 % (0-10); NEUTROPHIL 83 % (50-75); PLATELET ESTIMATE DECREASED (NORMAL); TOTAL CELLS COUNTED 100
--- NOTE | 2018-04-02 20:50 | CP.PCM.PCO ---
Physician Communication Note - Physician Communication Note Physician Communication Note: Please see above
[2018-04-03] MEDS: oxyCODONE 10 mg Immediate Release Tab PO PRN ×3 (01:21→20:35)
--- NOTE | 2018-04-03 03:00 | CP.PCM.PN ---
<Oscar Delgado - Last Filed: 04/03/18 08:13> Subjective - Date & Time of Evaluation Date of Evaluation: 04/03/18 Time of Evaluation: 02:58 - Subjective Subjective: =PGY-1 Medicine Progress Note for Dr. Price Patient was seen and examined at bedside in no acute distress. Patient endorses passing BM. Continues to c/o flank pain b/l. No fevers/chills, chest pain, shortness of breath, abdominal pain more than usual, numbness/tingling, nausea/ vomiting/diarrhea. Objective - Vital Signs/Intake and Output Vital Signs (last 24 hours): Temp Pulse Resp BP Pulse Ox 98 F 69 20 119/64 97 04/02/18 23:10 04/03/18 00:00 04/02/18 23:10 04/02/18 23:10 04/02/18 23:10 Intake and Output: 04/02/18 04/03/18 18:59 06:59 Intake Total 350 Output Total 400 Balance -50 - Medications Medications: Current Medications Dexamethasone (Decadron Inj) 4 mg IV DAILY [facility] Last Admin: 04/02/18 09:32 Dose: 4 mg Docusate Sodium (Colace) 100 mg PO TID [facility] Last Admin: 04/02/18 18:53 Dose: Not Given Fludrocortisone Acetate (Florinef) 0.1 mg PO DAILY [facility] Last Admin: 04/02/18 09:24 Dose: 0.1 mg Lactulose (Enulose) 20 gm PO HS [facility] Last Admin: 04/02/18 22:36 Dose: Not Given Lidocaine (Lidoderm) 1 ea TD DAILY [facility] Last Admin: 04/02/18 09:24 Dose: 1 ea Ondansetron HCl (Zofran Inj) 4 mg IVP Q6H PRN PRN Reason: Nausea/Vomiting Last Admin: 03/28/18 22:06 Dose: 4 mg Oxycodone HCl (Oxycodone Immediate Release Tab) 10 mg PO Q4 PRN PRN Reason: Pain, severe (8-10) Last Admin: 04/03/18 01:21 Dose: 10 mg Oxycodone HCl (Oxycontin Extended Release Tab) 30 mg PO Q8H [facility] Stop: 04/04/18 00:01 Last Admin: 04/02/18 23:10 Dose: 30 mg Pantoprazole Sodium (Protonix Ec Tab) 40 mg PO DAILY [facility] Last Admin: 04/02/18 09:23 Dose: 40 mg Phytonadione (Vitamin K Inj) 10 mg SC DAILY [facility] Stop: 04/04/18 19:36 Last Admin: 04/02/18 09:32 Dose: 10 mg - Labs Labs: 04/02/18 07:42 04/02/18 07:42 PT 15.8 SECONDS (9.7-12.2) H 03/30/18 06:45 INR 1.4 03/30/18 06:45 APTT 31 SECONDS (21-34) 03/30/18 06:45 - Constitutional Appears: Non-toxic, No Acute Distress - Head Exam Head Exam: ATRAUMATIC, NORMAL INSPECTION, NORMOCEPHALIC - Eye Exam Eye Exam: EOMI, Normal appearance, PERRL Pupil Exam: NORMAL ACCOMODATION - ENT Exam ENT Exam: Mucous Membranes Moist, Normal Exam - Neck Exam Neck Exam: Full ROM, Normal Inspection - Respiratory Exam Respiratory Exam: Clear to Ausculation Bilateral, NORMAL BREATHING PATTERN. absent: Rales, Rhonchi, Wheezes, Respiratory Distress, Stridor - Cardiovascular Exam Cardiovascular Exam: REGULAR RHYTHM, +S1, +S2 - GI/Abdominal Exam GI & Abdominal Exam: Soft, Tenderness, Normal Bowel Sounds. absent: Distended, Firm, Guarding, Rigid Additional comments: mild TTP diffusely - Extremities Exam Extremities Exam: Normal Capillary Refill, Normal Inspection. absent: Pedal Edema - Back Exam Back Exam: CVA tenderness (L), CVA tenderness (R), NORMAL INSPECTION Additional comments: CVA tenderness L>R - Neurological Exam Neurological Exam: Alert, Awake, Normal Gait, Oriented x3 - Psychiatric Exam Psychiatric exam: Normal Affect, Normal Mood - Skin Skin Exam: Dry, Intact, Normal Color, Warm Assessment and Plan - Assessment and Plan (Free Text) Assessment: Spoke with photography manager Madalyn who informed that she was informed by the [address] [place] [address] center that they can arrange for Chemo Tx on paul basis if needed but that patient would have to follow up with Heme/Onc at their office. However , at this time it is uncertain whether chemotherapy and/or radiation is indicated, per Dr. Bonner's note. Heme/Onc mentioned more tissue sample is needed in order to test for markers that might help determine whether therapy is available, however this would require the patient to undergo a second biopsy , for which the patient is at high risk for further hemorrhage due to thrombocytomenia. Discussed with heme/onc. At this time, there is no other treatment that can be offered to the patient at this facility. Patient will need to get copies of his records with images on CDs so that he can take to a Heme/Onc who specializes in treatment of sarcomas. Case Management is aware and will assist in writing the patient a letter which will be signed by Dr. Hicks and sent to [facility]. Plan: Left Flank pain secondary to Adrenal Hemorrhage with history of cancer * CT A/P (9.15): interval increased size with liquifaction of adrenal hemorrhage (9.3 x 8.7cm) * Basal plasma ACTH OA: 45 * AM Cortisol: 19.4 OA -> 16.5 -> 14.3 * Consyntropin Stimulation Test performed on 03/30 * Cortisol drawn 42min after cosyntropin administration: 18.8, equivocal for adrenal insufficiency -> started on corticosteroid therapy * Fludrocortisone 0.1mg po daily * Consults - recommendations appreciated: * General surgery (Dr. Trejo) for adrenal hemorrhage / hx cancer * no surgery at this time -> signed off * Endrocrinology (Dr. 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 * There is no standard of care for this cancer * Chemotherapy is ineffective * Arreola need to be identified for treatment options, however biopsy is all used up, and patient is not candidate for second biopsy due to thrombocytopenia * Phytonadione 10mg SC daily * Lactulose 20g PO HS * Fludrocortisone 0.1mg PO daily * Palliative Care consulted, recommendations appreciated * PT/OT consulted, rec appreciated * Pain/nausea management: * was not controlled by breakthrough medications -> increased to longer acting dosing * Oxycodone XR 25mg PO Q8 [facility] * Oxycodone IR 10mg PO q4 PRN for breakthrough pain * Zofran 4mg IVP PRN for nausea * Dietary supplement: Ensure supplement, TID Moderate Hyponatremia * Patient is euvolemic on physical exam * Symptoms consistent with chronic moderate hyponatremia * dizziness, headache, vision changes with "dark spots" * Work-up * Cortisol AM 16.6 (wnl) * Serum Os vdyubmqt=592 * Urine Etk=886 * Urine Ogefjq=561 * CT head without contrast obtained: negative for intracranial pathology * IVF held after morning labs drawn. 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 Dominguez) consulted * Workup: * metanephrines 03/07/18 catecholamines=26.7, dopamine=, TS=553 Liver Cirrhosis likely secondary to prolonged history of alcohol abuse * Avoid NSAIDs, Tylenol, Benzodiazepines, Benadryl to avoid further liver damage * Morphine 2mg IVP Q4 PRN for moderate pain History of Pulmonary Mass Previous Imaging obtained: * ECHO obtained (03/11/2018) : LA midly dilated, normal LV wall motion, EF 55-60 , normal size aortic root. History of Mediastinal lymphadenopathy * CT chest per radiology report (03/06/2018): prominent mediastinal lymphadenopathy is appreciated without dominant pulmonary mass. small 3mm noncalcified nodule seen in right suprahilar space in right upper lobe. PPx: * hold chemical anticoagulation due to adrenal hemorrhage * protonix 40mg IV daily * NS 100cc/hr * Type & Screen * Blood products consent Case to be discussed with Dr. Dee Delgado DO, PGY-1 <Nikky Price - Last Filed: 04/04/18 19:25> Objective - Vital Signs/Intake and Output Vital Signs (last 24 hours): Temp Pulse Resp BP Pulse Ox 98.3 F 70 20 109/79 97 04/03/18 15:20 04/03/18 16:19 04/03/18 15:20 04/03/18 15:20 04/03/18 15:20 Intake and Output: 04/03/18 04/03/18 06:59 18:59 Intake Total 400 Output Total 400 Balance 0 - Medications Medications: Current Medications Dexamethasone (Decadron Inj) 4 mg IV DAILY [facility] Last Admin: 04/03/18 09:30 Dose: 4 mg Docusate Sodium (Colace) 100 mg PO TID [facility] Last Admin: 04/03/18 13:36 Dose: 100 mg Fludrocortisone Acetate (Florinef) 0.1 mg PO DAILY [facility] Last Admin: 04/03/18 09:32 Dose: 0.1 mg Lactulose (Enulose) 20 gm PO HS [facility] Last Admin: 04/02/18 22:36 Dose: Not Given Lidocaine (Lidoderm) 1 ea TD DAILY [facility] Last Admin: 04/03/18 09:27 Dose: 1 ea Ondansetron HCl (Zofran Inj) 4 mg IVP Q6H PRN PRN Reason: Nausea/Vomiting Last Admin: 03/28/18 22:06 Dose: 4 mg Oxycodone HCl (Oxycodone Immediate Release Tab) 10 mg PO Q4 PRN PRN Reason: Pain, severe (8-10) Last Admin: 04/03/18 05:20 Dose: 10 mg Oxycodone HCl (Oxycontin Extended Release Tab) 30 mg PO Q8H [facility] Stop: 04/04/18 00:01 Last Admin: 04/03/18 15:57 Dose: 30 mg Pantoprazole Sodium (Protonix Ec Tab) 40 mg PO DAILY [facility] Last Admin: 04/03/18 09:27 Dose: 40 mg Phytonadione (Vitamin K Inj) 10 mg SC DAILY [facility] Stop: 04/04/18 19:36 Last Admin: 04/03/18 09:27 Dose: 10 mg - Labs Labs: 04/03/18 06:33 04/03/18 06:33 PT 15.8 SECONDS (9.7-12.2) H 03/30/18 06:45 INR 1.4 03/30/18 06:45 APTT 31 SECONDS (21-34) 03/30/18 06:45 Attending/Attestation - Attestation I have personally seen and examined this patient.: Yes I have fully participated in the care of the patient.: Yes I have reviewed all pertinent clinical information, including history, physical exam and plan: Yes Notes (Text): Translation service used during interview this morning. Patient states that he gets severe abdominal pain ,his pain gets better after taking his medication . He had BM yesterday.Intake improving. d/w RN Patient has no complain. He is currently on Oxycontin ER 30 mg PO Q8H and his pain is very well controlled. He is also on Oxycontin Immediate Release 10 mg PO Q4H PRN for breakthrough pain and he got only once this morning. He is also on the Lidocaine 5% Patch 1x/day.Continue colace and lactulose. Patient and family have to decide about the treatment plan (Hospice Vs futher treatment) .We will follow with palliative care nurse Bhanu . Continue the Dexamethasone 4 mg daily. Hyponatremia likely secondary to excess ADH release from Adrenal Insufficiency . He is on Florinef 0.1 mg PO 1x/day .Today's sodium 129 Monitor sodium. I agree with the resident's documentation
[2018-04-03 06:50] LABS: BASO % 0.1 % (0.0-2.0); HEMOGLOBIN 10.3 g/dL (12.0-18.0); LYMPH # 0.6 K/uL (1.0-4.3); LYMPH % 6.3 % (20.0-40.0); MEAN CELL VOLUME 87.2 fL (80.0-94.0); MEAN CORPUSCULAR HEMOGLOBIN 30.7 pg (27.0-31.0); MEAN CORPUSCULAR HGB CONC 35.2 g/dL (33.0-37.0); MEAN PLATELET VOLUME 8.6 fL (7.2-11.7); MONO # 0.9 K/uL (0.0-0.8); MONO % 9.2 % (0.0-10.0); NEUT # 8.3 K/uL (1.8-7.0); NEUT % 84.4 % (50.0-75.0); PLATELET COUNT 115 K/uL (130-400); RBC 3.36 Mil/uL (4.40-5.90); RED CELL DISTRIBUTION WIDTH 14.6 % (11.5-14.5); WHITE BLOOD COUNT 9.8 K/uL (4.8-10.8)
[2018-04-03 07:58] LABS: ALB/GLOB RATIO 0.6 (1.0-2.1); ALBUMIN 2.8 g/dL (3.5-5.0); ALT/SGPT 20 U/L (21-72); AST/SGOT 38 U/L (17-59); BLOOD UREA NITROGEN 19 mg/dL (9-20); CALCIUM 8.1 mg/dl (8.6-10.4); GFR NON-AFRICAN AMERICAN > 60
[2018-04-03] MEDS: Lidocaine 5% Patch TD SCH (09:27)
[2018-04-03] MEDS: Pantoprazole 40 mg EC Tab PO SCH (09:27)
[2018-04-03] MEDS: Phytonadione 10 mg/ml Inj (Adult) SC SCH (09:27)
[2018-04-03] MEDS: Dexamethasone 4 mg/1 ml IV SCH (09:30)
[2018-04-03 09:38] LABS: ANISOCYTOSIS SLIGHT; EOSINOPHIL 1 % (0-4); HYPOCHROMIC SLIGHT; LARGE PLATELETS PRESENT; LYMPHOCYTE 5 % (20-40); MONOCYTE 9 % (0-10); NEUTROPHIL 85 % (50-75); PLATELET ESTIMATE SLIGHTLY DECREASED (NORMAL); POLYCHROMIC SLIGHT; TOTAL CELLS COUNTED 100; TOXIC GRANULATION PRESENT
[2018-04-03] MEDS: oxyCODONE 10 mg ER Tab (oxyCONTIN) PO SCH ×2 (10:05→15:57)
[2018-04-04] MEDS: oxyCODONE 10 mg ER Tab (oxyCONTIN) PO SCH (00:10)
[2018-04-04] MEDS: oxyCODONE 10 mg Immediate Release Tab PO PRN ×3 (03:38→20:14)
--- NOTE | 2018-04-04 07:17 | CP.PCM.PN ---
<Oscar Delgado - Last Filed: 04/04/18 07:14> Subjective - Date & Time of Evaluation Date of Evaluation: 04/04/18 Time of Evaluation: 07:15 - Subjective Subjective: PGY-1 Medicine Progress Note for Dr. Caballero Patient was seen and examined at bedside. No acute events reported overnight. Continues to endorse flank pain b/l L>R. No fevers/chills, chest pain, shortness of breath, abdominal pain more than usual, numbness/tingling, nausea/ vomiting/diarrhea. Objective - Vital Signs/Intake and Output Vital Signs (last 24 hours): Temp Pulse Resp BP Pulse Ox 97.4 F L 74 20 141/85 99 04/04/18 03:40 04/04/18 03:40 04/04/18 03:40 04/04/18 03:40 04/04/18 03:40 - Medications Medications: Current Medications Dexamethasone (Decadron Inj) 4 mg IV DAILY [facility] Last Admin: 04/03/18 09:30 Dose: 4 mg Docusate Sodium (Colace) 100 mg PO TID [facility] Last Admin: 04/03/18 17:35 Dose: 100 mg Fludrocortisone Acetate (Florinef) 0.1 mg PO DAILY [facility] Last Admin: 04/03/18 09:32 Dose: 0.1 mg Lactulose (Enulose) 20 gm PO HS [facility] Last Admin: 04/03/18 22:12 Dose: 20 gm Lidocaine (Lidoderm) 1 ea TD DAILY [facility] Last Admin: 04/03/18 09:27 Dose: 1 ea Ondansetron HCl (Zofran Inj) 4 mg IVP Q6H PRN PRN Reason: Nausea/Vomiting Last Admin: 03/28/18 22:06 Dose: 4 mg Oxycodone HCl (Oxycodone Immediate Release Tab) 10 mg PO Q4 PRN PRN Reason: Pain, severe (8-10) Last Admin: 04/04/18 03:38 Dose: 10 mg Pantoprazole Sodium (Protonix Ec Tab) 40 mg PO DAILY [facility] Last Admin: 04/03/18 09:27 Dose: 40 mg Phytonadione (Vitamin K Inj) 10 mg SC DAILY [facility] Stop: 04/04/18 19:36 Last Admin: 04/03/18 09:27 Dose: 10 mg - Labs Labs: 04/03/18 06:33 04/03/18 06:33 PT 15.8 SECONDS (9.7-12.2) H 03/30/18 06:45 INR 1.4 03/30/18 06:45 APTT 31 SECONDS (21-34) 03/30/18 06:45 - Constitutional Appears: Non-toxic, No Acute Distress - Head Exam Head Exam: ATRAUMATIC, NORMAL INSPECTION, NORMOCEPHALIC - Eye Exam Eye Exam: EOMI, Normal appearance Pupil Exam: NORMAL ACCOMODATION - ENT Exam ENT Exam: Mucous Membranes Moist, Normal Exam - Neck Exam Neck Exam: Full ROM, Normal Inspection. absent: Tenderness - Respiratory Exam Respiratory Exam: Clear to Ausculation Bilateral, NORMAL BREATHING PATTERN. absent: Rales, Rhonchi, Wheezes, Respiratory Distress, Stridor - Cardiovascular Exam Cardiovascular Exam: REGULAR RHYTHM, +S1, +S2. absent: Murmur - GI/Abdominal Exam GI & Abdominal Exam: Soft, Normal Bowel Sounds. absent: Distended, Firm, Guarding, Rigid, Tenderness, Rebound - Back Exam Back Exam: CVA tenderness (L), CVA tenderness (R), NORMAL INSPECTION Additional comments: CVA tenderness L>R - Neurological Exam Neurological Exam: Alert, Awake, CN II-XII Intact, Oriented x3 - Psychiatric Exam Psychiatric exam: Normal Affect, Normal Mood - Skin Skin Exam: Dry, Intact, Normal Color, Warm Assessment and Plan - Assessment and Plan (Free Text) Assessment: Spoke with manager billing Madalyn who informed that she was informed by the [address] [place] [address] center that they can arrange for Chemo Tx on paul basis if needed but that patient would have to follow up with Heme/Onc at their office. However , at this time it is uncertain whether chemotherapy and/or radiation is indicated, per Dr. Bonner's note. Heme/Onc mentioned more tissue sample is needed in order to test for markers that might help determine whether therapy is available, however this would require the patient to undergo a second biopsy , for which the patient is at high risk for further hemorrhage due to thrombocytomenia. Discussed with heme/onc. At this time, there is no other treatment that can be offered to the patient at this facility. Patient will need to get copies of his records with images on CDs so that he can take to a Heme/Onc who specializes in treatment of sarcomas. Case Management is aware and will assist in writing the patient a letter which will be signed by Dr. Hicks and sent to [facility]. 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 Trejo) for adrenal hemorrhage / hx cancer * no surgery at this time -> signed off * Endrocrinology (Dr. 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 * There is no standard of care for this cancer * Chemotherapy is ineffective * Arreola need to be identified for treatment options, however biopsy is all used up, and patient is not candidate for second biopsy due to thrombocytopenia * Phytonadione 10mg SC daily * Lactulose 20g PO HS * Fludrocortisone 0.1mg PO daily * Palliative Care consulted, recommendations appreciated * PT/OT consulted, rec appreciated * Pain/nausea management: * was not controlled by breakthrough medications -> increased to longer acting dosing * Oxycodone XR 25mg PO Q8 [facility] * Oxycodone IR 10mg PO q4 PRN for breakthrough pain * Zofran 4mg IVP PRN for nausea * Dietary supplement: Ensure supplement, TID Moderate Hyponatremia * Patient is euvolemic on physical exam * Symptoms consistent with chronic moderate hyponatremia * dizziness, headache, vision changes with "dark spots" * Work-up * Cortisol AM 16.6 (wnl) * Serum Os wxqcfmrk=829 * Urine Fwl=301 * Urine Zzcamd=498 * CT head without contrast obtained: negative for intracranial pathology * IVF held after morning labs drawn. 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 Dominguez) consulted * Workup: * metanephrines 03/07/18 catecholamines=26.7, dopamine=, LS=327 Liver Cirrhosis likely secondary to prolonged history of alcohol abuse * Avoid NSAIDs, Tylenol, Benzodiazepines, Benadryl to avoid further liver damage * Morphine 2mg IVP Q4 PRN for moderate pain History of Pulmonary Mass Previous Imaging obtained: * ECHO obtained (03/11/2018) : LA midly dilated, normal LV wall motion, EF 55-60 , normal size aortic root. History of Mediastinal lymphadenopathy * CT chest per radiology report (03/06/2018): prominent mediastinal lymphadenopathy is appreciated without dominant pulmonary mass. small 3mm noncalcified nodule seen in right suprahilar space in right upper lobe. PPx, Diet, Disposition * hold chemical anticoagulation due to adrenal hemorrhage * protonix 40mg IV daily * NS 100cc/hr * Type & Screen * Blood products consent Case to be discussed with Dr. Federico Delgado DO, PGY-1 <Sarah Caballero V - Last Filed: 04/04/18 15:41> Objective - Vital Signs/Intake and Output Vital Signs (last 24 hours): Temp Pulse Resp BP Pulse Ox 98.1 F 73 20 125/77 96 04/04/18 07:20 04/04/18 12:00 04/04/18 07:20 04/04/18 07:20 04/04/18 07:20 Intake and Output: 04/04/18 04/04/18 06:59 18:59 Intake Total 20 Output Total 400 Balance -380 - Medications Medications: Current Medications Dexamethasone (Decadron Inj) 4 mg IV DAILY [facility] Last Admin: 04/04/18 09:14 Dose: 4 mg Docusate Sodium (Colace) 100 mg PO TID [facility] Last Admin: 04/04/18 13:28 Dose: 100 mg Fludrocortisone Acetate (Florinef) 0.1 mg PO DAILY [facility] Last Admin: 04/04/18 09:14 Dose: 0.1 mg Lactulose (Enulose) 20 gm PO HS [facility] Last Admin: 04/03/18 22:12 Dose: 20 gm Lidocaine (Lidoderm) 1 ea TD DAILY [facility] Last Admin: 04/04/18 09:14 Dose: 1 ea Ondansetron HCl (Zofran Inj) 4 mg IVP Q6H PRN PRN Reason: Nausea/Vomiting Last Admin: 03/28/18 22:06 Dose: 4 mg Oxycodone HCl (Oxycodone Immediate Release Tab) 10 mg PO Q4 PRN PRN Reason: Pain, severe (8-10) Last Admin: 04/04/18 13:28 Dose: 10 mg Oxycodone HCl (Oxycodone Immediate Release Tab) 30 mg PO Q8H [facility] Last Admin: 04/04/18 09:13 Dose: 30 mg Pantoprazole Sodium (Protonix Ec Tab) 40 mg PO DAILY [facility] Last Admin: 04/04/18 09:14 Dose: 40 mg Phytonadione (Vitamin K Inj) 10 mg SC DAILY [facility] Stop: 04/04/18 19:36 Last Admin: 04/04/18 09:23 Dose: 10 mg - Labs Labs: 04/04/18 07:46 04/04/18 07:46 PT 15.8 SECONDS (9.7-12.2) H 03/30/18 06:45 INR 1.4 03/30/18 06:45 APTT 31 SECONDS (21-34) 03/30/18 06:45 Attending/Attestation - Attestation I have personally seen and examined this patient.: Yes I have fully participated in the care of the patient.: Yes I have reviewed all pertinent clinical information, including history, physical exam and plan: Yes Notes (Text): Patient seen, examined, case discussed with medical communication specialist. Patient seen this morning with a family friend at bedside. Patient reports he did have a strong bowel movement today. Patient also reports that he did receive his supplements which are present at bedside. Patient reports pain is better controlled with his pain medication. Patient's long extended release medication had earlier today was renewed. Patient is pending conversation with with family to determine overall treatment plan which includes either hospice or further treatment. Patient and niece Faby was spoken with my colleague they are aware of the poor prognosis of the sarcoma in an additional biopsy would cause all unwanted adverse effects including but not limited to bleeding and hematoma and he would be at high risk given that he is already anemic and thrombocytopenic in light of liver cirrhosis. Heme oncology had also recommended for either further management at a high level facility such as [facility] or [facility], given the expertise available. Is pending patient family decision regards to if they want to pursue hospice or further treatment. Patient is currently on dexamethasone Methasone 4 mg once a day to help with the adrenal insufficiency as well as to relieve inflammation from cancer. Patient hyponatremia has normalized. Patient is on Florinef.
[2018-04-04 08:24] LABS: ALB/GLOB RATIO 0.6 (1.0-2.1); ALBUMIN 2.9 g/dL (3.5-5.0); ALT/SGPT 49 U/L (21-72); AST/SGOT 71 U/L (17-59); BLOOD UREA NITROGEN 14 mg/dL (9-20); GFR NON-AFRICAN AMERICAN > 60
[2018-04-04 08:58] LABS: BASO % 0.4 % (0.0-2.0); EOS % 0.2 % (0.0-4.0); HEMOGLOBIN 11.8 g/dL (12.0-18.0); LYMPH # 0.7 K/uL (1.0-4.3); LYMPH % 8.6 % (20.0-40.0); MEAN CELL VOLUME 88.2 fL (80.0-94.0); MEAN CORPUSCULAR HEMOGLOBIN 31.1 pg (27.0-31.0); MEAN CORPUSCULAR HGB CONC 35.3 g/dL (33.0-37.0); MONO # 1.2 K/uL (0.0-0.8); MONO % 14.2 % (0.0-10.0); NEUT # 6.6 K/uL (1.8-7.0); NEUT % 76.6 % (50.0-75.0); NRBC % 0.5 % (0.0-2.0); PLATELET COUNT 135 K/uL (130-400); RBC 3.78 Mil/uL (4.40-5.90); RED CELL DISTRIBUTION WIDTH 14.6 % (11.5-14.5); WHITE BLOOD COUNT 8.6 K/uL (4.8-10.8)
[2018-04-04] MEDS: oxyCODONE 10 mg Immediate Release Tab PO SCH ×2 (09:13→16:32)
[2018-04-04] MEDS: Dexamethasone 4 mg/1 ml IV SCH (09:14)
[2018-04-04] MEDS: Pantoprazole 40 mg EC Tab PO SCH (09:14)
[2018-04-04] MEDS: Lidocaine 5% Patch TD SCH (09:14)
[2018-04-04] MEDS: Phytonadione 10 mg/ml Inj (Adult) SC SCH (09:23)
[2018-04-04 10:29] LABS: BANDS 3 % (0-2); LYMPHOCYTE 9 % (20-40); MONOCYTE 12 % (0-10); NEUTROPHIL 74 % (50-75); PLATELET ESTIMATE NORMAL (NORMAL); REACTIVE LYMPHOCYTES 2 % (0-0); TOTAL CELLS COUNTED 100
[2018-04-05] MEDS: oxyCODONE 10 mg Immediate Release Tab PO SCH ×3 (00:39→17:30)
[2018-04-05] MEDS: oxyCODONE 10 mg Immediate Release Tab PO PRN ×2 (03:05→14:06)
[2018-04-05 08:25] LABS: EOS # 0.1 K/uL (0.0-0.7); HEMOGLOBIN 11.1 g/dL (12.0-18.0); LYMPH # 0.8 K/uL (1.0-4.3); MEAN PLATELET VOLUME 8.4 fL (7.2-11.7); RED CELL DISTRIBUTION WIDTH 14.6 % (11.5-14.5); WHITE BLOOD COUNT 8.2 K/uL (4.8-10.8)
[2018-04-05 08:33] LABS: BASO % 0.5 % (0.0-2.0); EOS % 0.7 % (0.0-4.0); LYMPH % 10.1 % (20.0-40.0); MEAN CORPUSCULAR HEMOGLOBIN 31.3 pg (27.0-31.0); MEAN CORPUSCULAR HGB CONC 35.6 g/dL (33.0-37.0); MONO # 1.2 K/uL (0.0-0.8); MONO % 14.8 % (0.0-10.0); NEUT # 6.1 K/uL (1.8-7.0); NEUT % 73.9 % (50.0-75.0); NRBC % 0.5 % (0.0-2.0); RBC 3.56 Mil/uL (4.40-5.90)
[2018-04-05 08:45] LABS: ALB/GLOB RATIO 0.6 (1.0-2.1); ALT/SGPT 66 U/L (21-72); AST/SGOT 64 U/L (17-59); BLOOD UREA NITROGEN 13 mg/dL (9-20); CALCIUM 8.1 mg/dl (8.6-10.4); GFR NON-AFRICAN AMERICAN > 60
--- NOTE | 2018-04-05 09:26 | CP.PCM.PN ---
<NaelSarah rogers V - Last Filed: 04/05/18 21:02> Objective - Vital Signs/Intake and Output Vital Signs (last 24 hours): Temp Pulse Resp BP Pulse Ox 98.2 F 79 20 137/78 96 04/05/18 15:58 04/05/18 16:00 04/05/18 15:58 04/05/18 15:58 04/05/18 15:58 - Medications Medications: Current Medications Dexamethasone (Decadron Inj) 4 mg IV DAILY [facility] Last Admin: 04/05/18 10:25 Dose: 4 mg Docusate Sodium (Colace) 100 mg PO TID [facility] Last Admin: 04/05/18 17:30 Dose: 100 mg Fludrocortisone Acetate (Florinef) 0.1 mg PO DAILY [facility] Last Admin: 04/05/18 10:25 Dose: 0.1 mg Lactulose (Enulose) 20 gm PO HS [facility] Last Admin: 04/04/18 21:24 Dose: 20 gm Lidocaine (Lidoderm) 1 ea TD DAILY [facility] Last Admin: 04/05/18 10:24 Dose: 1 ea Ondansetron HCl (Zofran Inj) 4 mg IVP Q6H PRN PRN Reason: Nausea/Vomiting Last Admin: 03/28/18 22:06 Dose: 4 mg Oxycodone HCl (Oxycodone Immediate Release Tab) 10 mg PO Q4 PRN PRN Reason: Pain, severe (8-10) Last Admin: 04/05/18 14:06 Dose: 10 mg Oxycodone HCl (Oxycodone Immediate Release Tab) 40 mg PO Q8H [facility] Pantoprazole Sodium (Protonix Ec Tab) 40 mg PO DAILY [facility] Last Admin: 04/05/18 10:25 Dose: 40 mg Polyethylene Glycol (Miralax) 17 gm PO DAILY [facility] Last Admin: 04/05/18 18:43 Dose: 17 gm - Labs Labs: 04/05/18 08:16 04/05/18 08:16 PT 15.8 SECONDS (9.7-12.2) H 03/30/18 06:45 INR 1.4 03/30/18 06:45 APTT 31 SECONDS (21-34) 03/30/18 06:45 Attending/Attestation - Attestation I have personally seen and examined this patient.: Yes I have fully participated in the care of the patient.: Yes I have reviewed all pertinent clinical information, including history, physical exam and plan: Yes Notes (Text): Patient seen, examined, case discussed with medical liaison. Patient seen this morning during rounds. Patient noted earlier today early this morning in tremendous pain notably on the flanks requiring morphine 2 mg IV by nighttime team. Patient seen prior proximal about 10:30 AM he reports he did have a bowel movement yesterday and is tolerating his supplements at bedside. However his pain is still not controlled. We have increased his oxycodone ER to 40 mg by mouth every 8 hours. We will also need to have further discussion with him as well as his daughter and his niece in regards to his ultimate plan in regards to hospice versus seeking further treatment. I have spoken with Casandra but she is not available today she she will be available tomorrow and we will ultimately need a family decision in terms of where we go from here. Patient did indicate he does want his daughter involved in his care however she does work a late usually comes after 6 PM is why he indicated to me. Hemoglobin stable in the 11's. Discontinue telemetry given that there is no apparent change in the H&H since admission. I believe given the my part of my prior colleagues conversation with the family that there is no further biopsy because of potential for bleeding and hematoma as well as of the patient is high risk for further bleeding. However decision for discharge his bili pending on family and patient decision regarding discharge planning towards more of a hospice plan or not which would better cater to patient's advanced pain secondary to the undifferentiated sarcoma associated with the adrenal hemorrhage. If patient and family opted for further treatment then we will prepare a packet with all the imaging noted has been obtained during this hospitalization pathology radiology and blood work to seek further expertise at it at a more advanced institution such as [facility] in [place] as recommended by hematology oncology. Patient remains on dexamethasone 4 mg once a day. Patient's sodium has normalized and is currently on Florinef 0.1 mg once a day. However patient's pain will need to be further optimize to increase OxyContin extended release 240 mg every 8 hours as well as for breakthrough pain OxyContin immediate release 10 mg every 4 hours as needed. He is also on the Lidocaine 5% Patch 1x/day. We will add MiraLAX to patient's bowel regimen noting that he still continues stop hard stool in spite of stool softener and lactulose. <Timothy Scales - Last Filed: 04/06/18 09:06> Subjective - Date & Time of Evaluation Date of Evaluation: 04/05/18 Time of Evaluation: 09:05 - Subjective Subjective: Progress Note for Hospitalist Service Pt seen and examined at bedside this am. Reports lower back pain b/l not improving with current oxycodone regimen. Appears uncomfortable on exam, r eceived morphine overnight and was crying on exam as per staff. Denies headache, dizziness, chest pain, n/v/d/c, abd pain, urinary complaints, or other symptoms. Reports shortness of breath/chest tightness 2/2 to the pain. Objective - Vital Signs/Intake and Output Vital Signs (last 24 hours): Temp Pulse Resp BP Pulse Ox 97.9 F 77 18 157/92 H 95 04/05/18 07:00 04/05/18 07:00 04/05/18 07:00 04/05/18 07:00 04/05/18 07:00 Intake and Output: 04/05/18 04/05/18 06:59 18:59 Intake Total 120 Output Total 400 Balance -280 - Medications Medications: Current Medications Dexamethasone (Decadron Inj) 4 mg IV DAILY [facility] Last Admin: 04/04/18 09:14 Dose: 4 mg Docusate Sodium (Colace) 100 mg PO TID [facility] Last Admin: 04/04/18 17:25 Dose: 100 mg Fludrocortisone Acetate (Florinef) 0.1 mg PO DAILY [facility] Last Admin: 04/04/18 09:14 Dose: 0.1 mg Lactulose (Enulose) 20 gm PO HS [facility] Last Admin: 04/04/18 21:24 Dose: 20 gm Lidocaine (Lidoderm) 1 ea TD DAILY [facility] Last Admin: 04/04/18 09:14 Dose: 1 ea Ondansetron HCl (Zofran Inj) 4 mg IVP Q6H PRN PRN Reason: Nausea/Vomiting Last Admin: 03/28/18 22:06 Dose: 4 mg Oxycodone HCl (Oxycodone Immediate Release Tab) 10 mg PO Q4 PRN PRN Reason: Pain, severe (8-10) Last Admin: 04/05/18 03:05 Dose: 10 mg Oxycodone HCl (Oxycodone Immediate Release Tab) 30 mg PO Q8H [facility] Last Admin: 04/05/18 08:28 Dose: 30 mg Pantoprazole Sodium (Protonix Ec Tab) 40 mg PO DAILY [facility] Last Admin: 04/04/18 09:14 Dose: 40 mg - Labs Labs: 04/05/18 08:16 04/05/18 08:16 PT 15.8 SECONDS (9.7-12.2) H 03/30/18 06:45 INR 1.4 03/30/18 06:45 APTT 31 SECONDS (21-34) 03/30/18 06:45 - Constitutional Appears: Non-toxic, In Acute Distress - Head Exam Head Exam: ATRAUMATIC, NORMOCEPHALIC - Eye Exam Eye Exam: EOMI, Normal appearance, PERRL - ENT Exam ENT Exam: Mucous Membranes Moist - Respiratory Exam Respiratory Exam: Clear to Ausculation Bilateral, NORMAL BREATHING PATTERN - Cardiovascular Exam Cardiovascular Exam: REGULAR RHYTHM, +S1, +S2 - GI/Abdominal Exam GI & Abdominal Exam: Distended, Soft, Normal Bowel Sounds. absent: Firm, Rigid, Tenderness, Organomegaly, Rebound - Extremities Exam Extremities Exam: Full ROM, Normal Capillary Refill, Normal Inspection - Neurological Exam Neurological Exam: Alert, Awake, CN II-XII Intact, Oriented x3 - Psychiatric Exam Psychiatric exam: Normal Affect, Normal Mood - Skin Skin Exam: Dry, Intact, Warm Assessment and Plan - Assessment and Plan (Free Text) Assessment: Interval hx: spoke with prospect manager Madalyn who informed that she was informed by the [address] [place] [address] center that they can arrange for Chemo Tx on paul basis if needed but that patient would have to follow up with Heme/Onc at their office. However, at this time it is uncertain whether chemotherapy and/or radiation is indicated, per Dr. Bonner's note. Heme/Onc mentioned more tissue sample is needed in order to test for markers that might help determine whether therapy is available, however this would require the patient to undergo a second biopsy, for which the patient is at high risk for further hemorrhage due to thrombocytomenia. Discussed with heme/onc. At this time, there is no other treatment that can be offered to the patient at this facility. Patient will need to get copies of his records with images on CDs so that he can take to a Heme/Onc who specializes in treatment of sarcomas. Case Management is aware and will assist in writing the patient a letter which will be signed by Dr. Hicks and sent to [facility]. Reached out to palliative care regarding goals of care/setting up possible family meeting to discuss plan after discharge from hospital. Plan: Left Flank pain 2/2 to Adrenal Hemorrhage with history of cancer CT A/P (03.27): interval increased size with liquifaction of adrenal hemorrhage (9.3 x 8.7cm) Basal plasma ACTH OA: 45 AM Cortisol: 19.4 OA -> 16.5 -> 14.3 Consyntropin Stimulation Test performed on 03/30 Cortisol drawn 42min after cosyntropin administration: 18.8, equivocal for adrenal insufficiency -> started on corticosteroid therapy Fludrocortisone 0.1mg po daily Consults - recs appreciated: General surgery (Dr. Trejo) for adrenal hemorrhage / hx cancer no surgery at this time -> signed off Endrocrinology (Dr. 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 There is no standard of care for this cancer Chemotherapy is ineffective Arreola need to be identified for treatment options, however biopsy is all used up, and patient is not candidate for second biopsy due to thrombocytopenia Phytonadione 10mg SC daily Lactulose 20g PO HS Fludrocortisone 0.1mg PO daily Palliative Care consulted, recommendations appreciated PT/OT consulted, rec appreciated Pain/nausea management: Was not controlled by breakthrough medications g Oxycodone XR 30mg PO Q8 COY, will increase to 40 mg today Oxycodone IR 10mg PO q4 PRN for breakthrough pain Zofran 4mg IVP PRN for nausea Dietary supplement: Ensure supplement, TID Moderate Hyponatremia Patient is euvolemic on physical exam Symptoms consistent with chronic moderate hyponatremia dizziness, headache, vision changes with "dark spots" Work-up Cortisol AM 16.6 (wnl) Serum Os onryfxuh=980 Urine Lwo=582 Urine Jkfgjg=055 CT head without contrast obtained: negative for intracranial pathology IVF held after morning labs drawn. 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 Hx Mediastinal lymphadenopathy CT chest per radiology report (03/06/2018): prominent mediastinal lymphadenopathy is appreciated without dominant pulmonary mass. small 3mm noncalcified nodule seen in right suprahilar space in right upper lobe. PPx, Diet, Disposition hold chemical anticoagulation due to adrenal hemorrhage protonix 40mg IV daily NS 100cc/hr Type & Screen Blood products consent Pt seen, examined with, and plan discussed with Dr. Caballero, attending. Timothy Scales DO PGY-1, [employer] Operator Pager #[phone]
[2018-04-05] MEDS: Lidocaine 5% Patch TD SCH (10:24)
[2018-04-05] MEDS: Pantoprazole 40 mg EC Tab PO SCH (10:25)
[2018-04-05] MEDS: Dexamethasone 4 mg/1 ml IV SCH (10:25)
[2018-04-05] MEDS: POLYETHYLENE GLYCOL 3350 17 GM/Dose PACKET PO SCH (18:43)
[2018-04-05] MEDS ORDERED: oxyCODONE 10 mg Immediate Release Tab PO SCH (20:10)
[2018-04-06] MEDS: oxyCODONE 10 mg Immediate Release Tab PO PRN ×3 (00:31→15:51)
[2018-04-06] MEDS: oxyCODONE 40 mg ER Tab (oxyCONTIN) PO SCH ×4 (01:57→20:35)
[2018-04-06 07:23] LABS: BASO % 0.2 % (0.0-2.0); EOS % 0.7 % (0.0-4.0); HEMOGLOBIN 11.5 g/dL (12.0-18.0); LYMPH # 0.9 K/uL (1.0-4.3); LYMPH % 11.2 % (20.0-40.0); MEAN CORPUSCULAR HEMOGLOBIN 31.4 pg (27.0-31.0); MEAN CORPUSCULAR HGB CONC 34.8 g/dL (33.0-37.0); MEAN PLATELET VOLUME 8.2 fL (7.2-11.7); MONO # 1.2 K/uL (0.0-0.8); MONO % 15.2 % (0.0-10.0); NEUT # 5.5 K/uL (1.8-7.0); NEUT % 72.7 % (50.0-75.0); NRBC % 0.1 % (0.0-2.0); RBC 3.66 Mil/uL (4.40-5.90); RED CELL DISTRIBUTION WIDTH 14.8 % (11.5-14.5); WHITE BLOOD COUNT 7.6 K/uL (4.8-10.8)
[2018-04-06 07:54] LABS: ALB/GLOB RATIO 0.6 (1.0-2.1); ALBUMIN 2.9 g/dL (3.5-5.0); ALT/SGPT 59 U/L (21-72); AST/SGOT 54 U/L (17-59); BLOOD UREA NITROGEN 16 mg/dL (9-20); CALCIUM 8.1 mg/dl (8.6-10.4); GFR NON-AFRICAN AMERICAN > 60
[2018-04-06 08:02] LABS: MEAN CELL VOLUME 90.2 fL (80.0-94.0)
[2018-04-06] MEDS: Pantoprazole 40 mg EC Tab PO SCH (09:41)
[2018-04-06] MEDS: POLYETHYLENE GLYCOL 3350 17 GM/Dose PACKET PO SCH (09:43)
[2018-04-06] MEDS: Lidocaine 5% Patch TD SCH (09:44)
--- NOTE | 2018-04-06 12:43 | CP.PCM.PN ---
Subjective - Date & Time of Evaluation Date of Evaluation: 04/06/18 Time of Evaluation: 10:00 - Subjective Subjective: Patient complains of pain. Pain is relieved by pain meds for about 2 hours than comes back. Reports poor appetite Objective - Vital Signs/Intake and Output Vital Signs (last 24 hours): Temp Pulse Resp BP Pulse Ox 98.0 F 73 18 121/78 95 04/06/18 07:00 04/06/18 07:00 04/06/18 07:00 04/06/18 07:00 04/06/18 07:00 Intake and Output: 04/06/18 04/06/18 06:59 18:59 Intake Total 320 120 Output Total 350 Balance -30 120 - Medications Medications: Current Medications Dexamethasone (Decadron Inj) 4 mg IV DAILY [facility] Last Admin: 04/05/18 10:25 Dose: 4 mg Docusate Sodium (Colace) 100 mg PO TID [facility] Last Admin: 04/06/18 09:41 Dose: 100 mg Fludrocortisone Acetate (Florinef) 0.1 mg PO DAILY [facility] Last Admin: 04/05/18 10:25 Dose: 0.1 mg Lactulose (Enulose) 20 gm PO HS [facility] Last Admin: 04/05/18 22:13 Dose: 20 gm Lidocaine (Lidoderm) 1 ea TD DAILY [facility] Last Admin: 04/06/18 09:44 Dose: 1 ea Ondansetron HCl (Zofran Inj) 4 mg IVP Q6H PRN PRN Reason: Nausea/Vomiting Last Admin: 03/28/18 22:06 Dose: 4 mg Oxycodone HCl (Oxycodone Immediate Release Tab) 10 mg PO Q4 PRN PRN Reason: Pain, severe (8-10) Last Admin: 04/06/18 05:26 Dose: 10 mg Oxycodone HCl (Oxycontin Extended Release Tab) 40 mg PO Q8H [facility] Last Admin: 04/06/18 09:41 Dose: 40 mg Pantoprazole Sodium (Protonix Ec Tab) 40 mg PO DAILY [facility] Last Admin: 04/06/18 09:41 Dose: 40 mg Polyethylene Glycol (Miralax) 17 gm PO DAILY [facility] Last Admin: 04/06/18 09:43 Dose: 17 gm - Labs Labs: 04/06/18 07:13 09/25/18 07:13 PT 15.8 SECONDS (9.7-12.2) H 03/30/18 06:45 INR 1.4 03/30/18 06:45 APTT 31 SECONDS (21-34) 03/30/18 06:45 - Constitutional Appears: Chronically Ill - Head Exam Head Exam: ATRAUMATIC, NORMAL INSPECTION, NORMOCEPHALIC - Eye Exam Eye Exam: EOMI, Normal appearance, PERRL Pupil Exam: NORMAL ACCOMODATION, PERRL - ENT Exam ENT Exam: Mucous Membranes Moist, Normal Exam - Neck Exam Neck Exam: Full ROM, Normal Inspection - Respiratory Exam Respiratory Exam: Decreased Breath Sounds, NORMAL BREATHING PATTERN - Cardiovascular Exam Cardiovascular Exam: Tachycardia, REGULAR RHYTHM - GI/Abdominal Exam GI & Abdominal Exam: Soft, Diminished Bowel Sounds - Rectal Exam Rectal Exam: Deferred - Exam Exam: NORMAL INSPECTION - Extremities Exam Extremities Exam: Full ROM, Normal Capillary Refill, Normal Inspection - Back Exam Back Exam: CVA tenderness (R) - Neurological Exam Neurological Exam: Alert, Oriented x3 Neuro motor strength exam: Left Upper Extremity: 2/1, Right Upper Extremity: 2/1, Left Lower Extremity: 2/1, Right Lower Extremity: 2/1 - Psychiatric Exam Psychiatric exam: Normal Affect, Normal Mood - Skin Skin Exam: Dry, Intact, Pallor Assessment and Plan - Assessment and Plan (Free Text) Plan: Patient examined in bed, alert, oriented X 3. In Demand translation used for this interview. Patient looks very ill and weak. Patient is uncomfortable due to pain. He looks tired. Patient admits to poor appetite. I elicited his understanding of his diagnosis. Patient answered " I think i have a cancer." With his permision I discussed more into the diagnosis of cancer. Per my discussion with Doctor Devin Goodrich last week, who spoke to Doctor Bonner, this is a very undifferentiated form of cancer. Therefore, the t reatment is difficult to suggest at this time. Doctor Johnson is not suggesting another biopsy due to high risks of bleeding. She suggested transfer to [facility] and to seek 2nd opinion for treatment of this sarcoma. Patient stated understanding and agreed to a transfer to [facility]. I spoke to patient's niece Faby [phone]. She has been involved in patient's care from the beginning. Faby has attended on of the family meetings and as very supportive of continuing care vs comfort care.I tried to get in touch with patient's daughter but without success. Patient was not able to provide me with her number either. This was shared with Doctor Federico. 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 reinforce use of Oxycodone IR for breaktrough pain * Ensure TID * Transfer to [facility] for 2 nd opinion on treatment of sarcoma Additional 35 min spent on advance care planing.
[2018-04-06 17:15] VITALS: RESP 20
[2018-04-06] MEDS ORDERED: oxyCODONE 20 mg ER Tab (oxyCONTIN) PO SCH (20:00)
[2018-04-06] MEDS: oxyCODONE 20 mg ER Tab (oxyCONTIN) PO SCH (20:32)
--- NOTE | 2018-04-06 23:13 | CP.PCM.PN ---
<Nic Rico - Last Filed: 04/07/18 00:46> Subjective - Date & Time of Evaluation Date of Evaluation: 04/06/18 Time of Evaluation: 10:15 - Subjective Subjective: PGY-[address] Caballero Service Patient is seen and examined at bedside. Patient is complaining of continuous pain in the left middle and lower back region. Patient admits to chest pain. Patient reports extreme amount of pain last night, reporting a pain of 10/10. Patient says pain is constant. Patient denies fever, chills, shortness of breath. Patient admits to nausea but no vomiting. Objective - Vital Signs/Intake and Output Vital Signs (last 24 hours): Temp Pulse Resp BP Pulse Ox 97.9 F 85 20 126/86 93 L 04/06/18 15:00 04/06/18 16:53 04/06/18 15:00 04/06/18 15:00 04/06/18 15:00 Intake and Output: 04/06/18 04/07/18 18:59 06:59 Intake Total 570 Balance 570 - Medications Medications: Current Medications Dexamethasone (Decadron Inj) 4 mg IV DAILY [facility] Last Admin: 04/05/18 10:25 Dose: 4 mg Docusate Sodium (Colace) 100 mg PO TID [facility] Last Admin: 04/06/18 17:51 Dose: 100 mg Fludrocortisone Acetate (Florinef) 0.1 mg PO DAILY [facility] Last Admin: 04/05/18 10:25 Dose: 0.1 mg Lactulose (Enulose) 20 gm PO HS [facility] Last Admin: 04/06/18 21:44 Dose: Not Given Lidocaine (Lidoderm) 1 ea TD DAILY [facility] Last Admin: 04/06/18 09:44 Dose: 1 ea Ondansetron HCl (Zofran Inj) 4 mg IVP Q6H PRN PRN Reason: Nausea/Vomiting Last Admin: 03/28/18 22:06 Dose: 4 mg Oxycodone HCl (Oxycodone Immediate Release Tab) 10 mg PO Q4 PRN PRN Reason: Pain, severe (8-10) Last Admin: 04/06/18 15:51 Dose: 10 mg Oxycodone HCl (Oxycontin Extended Release Tab) 20 mg PO Q8H [facility] Last Admin: 04/06/18 20:32 Dose: 20 mg Oxycodone HCl (Oxycontin Extended Release Tab) 40 mg PO Q8H [facility] Last Admin: 04/06/18 20:35 Dose: 40 mg Pantoprazole Sodium (Protonix Ec Tab) 40 mg PO DAILY [facility] Last Admin: 04/06/18 09:41 Dose: 40 mg Polyethylene Glycol (Miralax) 17 gm PO DAILY [facility] Last Admin: 04/06/18 09:43 Dose: 17 gm - Labs Labs: 04/06/18 07:13 04/06/18 07:13 PT 15.8 SECONDS (9.7-12.2) H 03/30/18 06:45 INR 1.4 03/30/18 06:45 APTT 31 SECONDS (21-34) 03/30/18 06:45 - Constitutional Appears: Non-toxic - Head Exam Head Exam: ATRAUMATIC, NORMAL INSPECTION, NORMOCEPHALIC - Eye Exam Eye Exam: EOMI, Normal appearance - ENT Exam ENT Exam: Mucous Membranes Moist, Normal Exam - Neck Exam Neck Exam: Full ROM, Normal Inspection - Respiratory Exam Respiratory Exam: Clear to Ausculation Bilateral, NORMAL BREATHING PATTERN. absent: Accessory Muscle Use, Wheezes, Respiratory Distress - Cardiovascular Exam Cardiovascular Exam: REGULAR RHYTHM, +S1, +S2 - GI/Abdominal Exam GI & Abdominal Exam: Soft, Normal Bowel Sounds. absent: Tenderness - Extremities Exam Extremities Exam: Full ROM, Normal Capillary Refill - Back Exam Back Exam: Full ROM, NORMAL INSPECTION - Neurological Exam Neurological Exam: Alert, Awake, Oriented x3 - Psychiatric Exam Psychiatric exam: Normal Affect, Normal Mood - Skin Skin Exam: Dry, Intact, Normal Color, Warm Assessment and Plan - Assessment and Plan (Free Text) Plan: Left Flank pain 2/2 to Adrenal Hemorrhage with history of cancer CT A/P (03.27): interval increased size with liquifaction of adrenal hemorrhage (9.3 x 8.7cm) Basal plasma ACTH OA: 45 AM Cortisol: 19.4 OA -> 16.5 -> 14.3 Consyntropin Stimulation Test performed on 03/30 Cortisol drawn 42min after cosyntropin administration: 18.8, equivocal for adrenal insufficiency -> started on corticosteroid therapy Fludrocortisone 0.1mg po daily Consults - recs appreciated: -General surgery (Dr. Trejo) for adrenal hemorrhage / hx cancer no surgery at this time -> signed off -Endrocrinology (Dr. 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 There is no standard of care for this cancer Chemotherapy is ineffective Arreola need to be identified for treatment options, however biopsy is all used up, and patient is not candidate for second biopsy due to thrombocytopenia Phytonadione 10mg SC daily Lactulose 20g PO HS Fludrocortisone 0.1mg PO daily -Palliative Care consulted - continue pain management with Oxycodone ER for lisa and IR for breakthrough pain - Ensure TID - Transfer to [facility] for 2nd opinion on tx of sarcoma. Patient understands and agreed to a transfer to [place]. PT/OT consulted, rec appreciated Pain/nausea management: Continues to not be controlled with current medications. Oxycodone XR 60mg PO Q8 [facility], increased from 40 mg on 04/06 Oxycodone IR 10mg PO q4 PRN for breakthrough pain Morphine 2mg IVP Once Zofran 4mg IVP PRN for nausea Will monitor tomorrow for pain control and management before discharging patient Dietary supplement: Ensure supplement, TID Moderate Hyponatremia 04/06 - na: 131 from 132 on previous day. 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 Hx Mediastinal lymphadenopathy CT chest per radiology report (03/06/2018): prominent mediastinal lymphadenopathy is appreciated without dominant pulmonary mass. small 3mm noncalcified nodule seen in right suprahilar space in right upper lobe. PPx, Diet, Disposition hold chemical anticoagulation due to adrenal hemorrhage protonix 40mg IV daily NS 100cc/hr Type & Screen Blood products consent Disposition: As per Dr Zheng, Pt diagnosis is considered a very undifferentiated form of cancer with difficulty in choosing specific treatment at this time. Patient agrees to be transferred to [facility], which is Dr Zheng preference, to seek 2nd opinion for treatment. Patient should arrive at [place] emergency department. Patient niece Faby has been patient person of contact. Patient's daugther is Nataly Polk. Plan of care should be communicated to the daughter. Phone number is [phone]. Patient should be discharged with letter with [employer] letterhead to be given to [place] emergency department stating the following : "Patient with advance pain secondary to undifferentiated sarcoma requiring care from Oncology department. Discussed with Hematology/Oncology Dr Zheng who is aware". color worker should provide this letter tomorrow and should be placed in chart. Patient should also be discharge with all supportive documents, reports and CD images of reports (Cds are currently in chart), which patient will bring with him to [facility] and will be provided upon admission. Patient should be evaluated for pain control before discharge. Plan discussed with Dr Federico Rico, PGY-1 <Sarah Caballero V - Last Filed: 04/07/18 16:48> Objective - Vital Signs/Intake and Output Vital Signs (last 24 hours): Temp Pulse Resp BP Pulse Ox 99.0 F 81 20 100/62 92 L 04/07/18 07:00 04/07/18 15:40 04/07/18 07:00 04/07/18 07:00 04/07/18 07:00 Intake and Output: 04/07/18 04/07/18 06:59 18:59 Intake Total 420 Output Total 500 Balance -500 420 - Medications Medications: Current Medications Dexamethasone (Decadron Inj) 4 mg IV DAILY [facility] Last Admin: 04/07/18 14:29 Dose: 4 mg Docusate Sodium (Colace) 100 mg PO TID [facility] Last Admin: 04/07/18 13:41 Dose: 100 mg Fludrocortisone Acetate (Florinef) 0.1 mg PO DAILY [facility] Last Admin: 04/07/18 09:13 Dose: 0.1 mg Lactulose (Enulose) 20 gm PO HS [facility] Last Admin: 04/06/18 21:44 Dose: Not Given Lidocaine (Lidoderm) 1 ea TD DAILY [facility] Last Admin: 04/07/18 09:11 Dose: 1 ea Ondansetron HCl (Zofran Inj) 4 mg IVP Q6H PRN PRN Reason: Nausea/Vomiting Last Admin: 04/07/18 05:16 Dose: 4 mg Oxycodone HCl (Oxycodone Immediate Release Tab) 10 mg PO Q4 PRN PRN Reason: Pain, severe (8-10) Last Admin: 04/07/18 00:45 Dose: 10 mg Oxycodone HCl (Oxycontin Extended Release Tab) 20 mg PO Q8H [facility] Last Admin: 04/07/18 13:40 Dose: 20 mg Oxycodone HCl (Oxycontin Extended Release Tab) 40 mg PO Q8H [facility] Last Admin: 04/07/18 13:39 Dose: 40 mg Pantoprazole Sodium (Protonix Ec Tab) 40 mg PO DAILY [facility] Last Admin: 04/07/18 09:13 Dose: 40 mg Polyethylene Glycol (Miralax) 17 gm PO DAILY [facility] Last Admin: 04/07/18 09:13 Dose: 17 gm - Labs Labs: 04/07/18 07:37 04/07/18 07:37 PT 15.8 SECONDS (9.7-12.2) H 03/30/18 06:45 INR 1.4 03/30/18 06:45 APTT 31 SECONDS (21-34) 03/30/18 06:45 Attending/Attestation - Attestation I have personally seen and examined this patient.: Yes I have fully participated in the care of the patient.: Yes I have reviewed all pertinent clinical information, including history, physical exam and plan: Yes Notes (Text): This is a late computer entry for 04/06/2018 Patient seen, examined, case discussed with medical reviewer. Patient seen multiple times during the day. 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 She was plan for discharge today however patient is in acute pain flare this evening and given the weather conditions we'll attempt to control pain even further. Patient's extended release oxycodone increased to oxycodone 60 mg by mouth every 8 and to use oxine coding him at intermediate release 10 mg by mouth every 4 for breakthrough. I had a quite a bit of discussion with both palliative care as well as patient's niece at bedside. Patient ultimately would like to continue further treatment if there is availability for his cancer which is quite rare and there is no standard therapy in terms of how to treated head CT is referred to her higher institution with subspecialists available such as [facility] and [facility]lex[facility] his is also the recommendation by heme oncology as well. Patient to be provided CDs and reports of his imaging as well as copy of his biopsy at time of his discharge. I did speak with heme-oncologist, Dr. Zheng well terms of medications upon discharge including dexamethasone 4 mg once a day, on pain medication until he gets to [facility], continue Florinef and now PPI to cover as he is on steroid to reduce inflammation. I did speak with niece who who herself is struggling to take the next best choice for her uncle. However I did indicate to her that her uncle is specifying further treatment that her role is to support her uncle given her surrogate role is as a health proxy. I did attempt to contact patient's daughter is requested by patient at phone number provided copy of it is in the chart and left message however did not receive message back. I also did indicate to patient's niece as well that the patient can change his mind at any time and if he says that he wants to go more towards a comfort care or hospice c care that that is okay to. I have indicated to her that he does defer to a higher power in terms of his overall treatment but would like to seek further treatment urinating he is within his right to do so since his this is a rare cancer that does not have a standard therapy to treat. She did appear low bit more relieved. We will attempt for discharge tomorrow with the understanding obese having some pain control for the patient. When patient does go to [place] should be provided letter given the advanced pain secondary to his undifferentiated cancer at the emergency room and is advised to call hem oncology. Dr. zheng is also aware.
[2018-04-07] MEDS: oxyCODONE 10 mg Immediate Release Tab PO PRN (00:45)
[2018-04-07] MEDS: oxyCODONE 20 mg ER Tab (oxyCONTIN) PO SCH ×2 (05:11→13:40)
[2018-04-07] MEDS: oxyCODONE 40 mg ER Tab (oxyCONTIN) PO SCH ×2 (05:11→13:39)
[2018-04-07 07:44] LABS: BASO % 0.2 % (0.0-2.0); EOS # 0.1 K/uL (0.0-0.7); EOS % 0.7 % (0.0-4.0); HEMOGLOBIN 12.7 g/dL (12.0-18.0); LYMPH # 0.8 K/uL (1.0-4.3); LYMPH % 7.8 % (20.0-40.0); MEAN CELL VOLUME 89.6 fL (80.0-94.0); MEAN CORPUSCULAR HEMOGLOBIN 31.4 pg (27.0-31.0); MONO # 1.6 K/uL (0.0-0.8); MONO % 16.1 % (0.0-10.0); NEUT # 7.6 K/uL (1.8-7.0); NEUT % 75.2 % (50.0-75.0); NRBC % 0.1 % (0.0-2.0); PLATELET COUNT 145 K/uL (130-400); RBC 4.06 Mil/uL (4.40-5.90); RED CELL DISTRIBUTION WIDTH 14.9 % (11.5-14.5); WHITE BLOOD COUNT 10.1 K/uL (4.8-10.8)
[2018-04-07 07:58] LABS: ALB/GLOB RATIO 0.6 (1.0-2.1); ALBUMIN 3.2 g/dL (3.5-5.0); ALT/SGPT 45 U/L (21-72); AST/SGOT 50 U/L (17-59); BLOOD UREA NITROGEN 25 mg/dL (9-20); CALCIUM 8.1 mg/dl (8.6-10.4); GFR NON-AFRICAN AMERICAN > 60
[2018-04-07] MEDS: Lidocaine 5% Patch TD SCH (09:11)
[2018-04-07] MEDS: Pantoprazole 40 mg EC Tab PO SCH (09:13)
[2018-04-07] MEDS: POLYETHYLENE GLYCOL 3350 17 GM/Dose PACKET PO SCH (09:13)
[2018-04-07 09:47] LABS: BANDS 1 % (0-2); LYMPHOCYTE 12 % (20-40); MONOCYTE 17 % (0-10); NEUTROPHIL 70 % (50-75); PLATELET ESTIMATE NORMAL (NORMAL); TOTAL CELLS COUNTED 100
[2018-04-07] MEDS: Dexamethasone 4 mg/1 ml IV SCH ×2 (13:43→14:29)
[2018-04-07 15:46] VITALS: PULSE 81
[2018-04-07 17:03] VITALS: BP 111/71; TEMP 98.6; O2SAT 95
--- NOTE | 2018-04-07 22:04 | CP.PCM.DIS ---
Provider - Provider Date of Admission: 03/27/18 15:32 Attending physician: Trenton Garnica MD Primary care physician: None Consults: General Surgery - Dr. Stoner Heme/Onc - Palathingal Endocrinology - Dr. Walker Palliative Care Time Spent in preparation of Discharge (in minutes): 45 Diagnosis - Discharge Diagnosis (1) Abdominal pain Status: Acute (2) Adrenal mass, right Status: Acute (3) Left adrenal mass Status: Acute (4) Mediastinal lymphadenopathy Status: Acute (5) Liver cirrhosis Status: Chronic Hospital Course - Lab Results Lab Results: Micro Results 03/27/18 13:10 Blood Blood Culture - Final NO GROWTH AFTER 5 DAYS 03/27/18 13:10 Blood Gram Stain - Final TEST NOT PERFORMED 03/27/18 13:40 Blood Blood Culture - Final NO GROWTH AFTER 5 DAYS 03/27/18 13:40 Blood Gram Stain - Final TEST NOT PERFORMED 03/27/18 13:52 Urine Urine Culture - Final No Growth (<1,000 CFU/ML) Most Recent Lab Values WBC 10.1 K/uL (4.8-10.8) 04/07/18 07:37 RBC 4.06 Mil/uL (4.40-5.90) L 04/07/18 07:37 Hgb 12.7 g/dL (12.0-18.0) 04/07/18 07:37 Hct 36.4 % (35.0-51.0) 04/07/18 07:37 MCV 89.6 fL (80.0-94.0) 04/07/18 07:37 MCH 31.4 pg (27.0-31.0) H 04/07/18 07:37 MCHC 35.0 g/dL (33.0-37.0) 04/07/18 07:37 RDW 14.9 % (11.5-14.5) H 04/07/18 07:37 Plt Count 145 K/uL (130-400) 04/07/18 07:37 MPV 8.0 fL (7.2-11.7) 04/07/18 07:37 Neut % (Auto) 75.2 % (50.0-75.0) H 04/07/18 07:37 Lymph % (Auto) 7.8 % (20.0-40.0) L 04/07/18 07:37 [place] % (Auto) 16.1 % (0.0-10.0) H 04/07/18 07:37 Eos % (Auto) 0.7 % (0.0-4.0) 04/07/18 07:37 Baso % (Auto) 0.2 % (0.0-2.0) 04/07/18 07:37 Neut # (Auto) 7.6 K/uL (1.8-7.0) H 04/07/18 07:37 Lymph # (Auto) 0.8 K/uL (1.0-4.3) L 04/07/18 07:37 [place]uel # (Auto) 1.6 K/uL (0.0-0.8) H 04/07/18 07:37 Eos # (Auto) 0.1 K/uL (0.0-0.7) 04/07/18 07:37 Baso # (Auto) 0.0 K/uL (0.0-0.2) 04/07/18 07:37 Neutrophils % (Manual) 70 % (50-75) 04/07/18 07:37 Band Neutrophils % 1 % (0-2) 04/07/18 07:37 Lymphocytes % (Manual) 12 % (20-40) L 04/07/18 07:37 Reactive Lymphs % 2 % (0-0) H 04/04/18 07:46 Monocytes % (Manual) 17 % (0-10) H 04/07/18 07:37 Eosinophils % (Manual) 1 % (0-4) 04/03/18 06:33 Differential Comment 04/06/18 07:13 Toxic Granulation Present 04/03/18 06:33 Platelet Estimate Normal (NORMAL) 04/07/18 07:37 Large Platelets Present 04/03/18 06:33 RBC Morphology Normal 04/04/18 07:46 Polychromasia Slight 04/03/18 06:33 Hypochromasia (manual) Slight 04/03/18 06:33 Anisocytosis (manual) Slight 04/03/18 06:33 Retic Count 3.2 % (0.5-1.5) H 03/27/18 20:10 PT 15.8 SECONDS (9.7-12.2) H 03/30/18 06:45 INR 1.4 03/30/18 06:45 APTT 31 SECONDS (21-34) 03/30/18 06:45 Sodium 130 mmol/L (132-148) L 04/07/18 07:37 Potassium 5.0 mmol/L (3.6-5.2) 04/07/18 07:37 Chloride 95 mmol/L (98-107) L 04/07/18 07:37 Carbon Dioxide 27 mmol/L (22-30) 04/07/18 07:37 Anion Gap 12 (10-20) 04/07/18 07:37 BUN 25 mg/dL (9-20) H 04/07/18 07:37 Creatinine 0.9 mg/dL (0.8-1.5) 04/07/18 07:37 Est GFR ( Amer) > 60 04/07/18 07:37 Est GFR (Non-Af Amer) > 60 04/07/18 07:37 POC Glucose (mg/dL) 100 mg/dL (65-110) 04/07/18 11:56 Random Glucose 104 mg/dL (75-110) 04/07/18 07:37 Serum Osmolality 269 mosm/kg (272-300) L 03/28/18 17:13 Calcium 8.1 mg/dl (8.6-10.4) L 04/07/18 07:37 Phosphorus 4.8 mg/dL (2.5-4.5) H 04/06/18 07:13 Magnesium 1.8 mg/dL (1.6-2.3) 04/06/18 07:13 Iron 54 ug/dL (49-181) 03/27/18 20:10 TIBC 288 ug/dL (250-450) 03/27/18 20:10 % Saturation 19 (20-55) L 03/27/18 20:10 Ferritin 286.0 ng/mL 03/27/18 20:10 Total Bilirubin 2.5 mg/dL (0.2-1.3) H 04/07/18 07:37 AST 50 U/L (17-59) 04/07/18 07:37 ALT 45 U/L (21-72) 04/07/18 07:37 Alkaline Phosphatase 86 U/L (38-126) 04/07/18 07:37 Total Protein 8.3 g/dL (6.3-8.3) 04/07/18 07:37 Albumin 3.2 g/dL (3.5-5.0) L 04/07/18 07:37 Globulin 5.1 gm/dL (2.2-3.9) H 04/07/18 07:37 Albumin/Globulin Ratio 0.6 (1.0-2.1) L 04/07/18 07:37 Lipase 216 U/L (23-300) 03/27/18 13:16 Vitamin B12 803 pg/mL (239-931) 03/27/18 20:10 Folate 11.1 ng/mL 03/27/18 20:10 TSH 3rd Generation 0.68 mIU/L (0.46-4.68) 03/28/18 07:45 Cortisol AM Sample 18.8 ug/dL (4.46-22.7) 03/30/18 07:22 ACTH 45 pg/mL (6-50) 03/28/18 07:45 Urine Color Yellow (YELLOW) 03/27/18 13:52 Urine Clarity Clear (Clear) 03/27/18 13:52 Urine pH 7.0 (5.0-8.0) 03/27/18 13:52 Ur Specific [place] 1.011 (1.003-1.030) 03/27/18 13:52 Urine Protein Negative mg/dL (NEGATIVE) 03/27/18 13:52 Urine Glucose (UA) Normal mg/dL (Normal) 03/27/18 13:52 Urine Ketones Negative mg/dL (NEGATIVE) 03/27/18 13:52 Urine Blood Negative (NEGATIVE) 03/27/18 13:52 Urine Nitrate Negative (NEGATIVE) 03/27/18 13:52 Urine Bilirubin Negative (NEGATIVE) 03/27/18 13:52 Urine Urobilinogen Normal mg/dL (0.2-1.0) 03/27/18 13:52 Ur Leukocyte Esterase Neg Franki/uL (Negative) 03/27/18 13:52 Urine WBC (Auto) 1 /hpf (0-5) 03/27/18 13:52 Urine RBC (Auto) < 1 /hpf (0-3) 03/27/18 13:52 Ur Squamous Epith Cells < 1 /hpf (0-5) 03/27/18 13:52 Urine Bacteria Rare (<OCC) 03/27/18 13:52 Urine Osmolality 488 mosm/kg (300-1000) 03/28/18 19:30 Ur Random Sodium 137 mmol/L 03/28/18 19:30 Urine Opiates Screen Positive (NEGATIVE) H 03/27/18 16:21 Urine Methadone Screen Negative (NEGATIVE) 03/27/18 16:21 Ur Barbiturates Screen Negative (NEGATIVE) 03/27/18 16:21 Ur Phencyclidine Scrn Negative (NEGATIVE) 03/27/18 16:21 Ur Amphetamines Screen Negative (NEGATIVE) 03/27/18 16:21 U Benzodiazepines Scrn Negative (NEGATIVE) 03/27/18 16:21 U Oth Cocaine Metabols Negative (NEGATIVE) 03/27/18 16:21 U Cannabinoids Screen Negative (NEGATIVE) 03/27/18 16:21 Blood Type O POSITIVE 03/27/18 22:31 Antibody Screen Negative 03/27/18 22:31 - Hospital Course Hospital Course: Medicine Discharge Summary for Hospitalist Service This is 68 year old male with PMH of Adrenal Hemorrhage, anemia, 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 Patient was recently admitted for pancreatitis and was found to have bilateral renal mass. 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 Patient admitted to nausea, severe left sided flank pain, dizziness and lightheadedness. Of note, patient has poor out-patient follow up. Patient denied chest pain, fever, chills, diarrhea, vomiting, hematuria and dysuria. Patient stated he was unable to go to his appointment with Dr. Bonner due to financial difficulties. CT scan on admission demonstrated interval increased size with liquifaction of adrenal hemorrhage (9.3 x 8.7cm). Surgery (Dr. Stoner) was consulted for adrenal hemorrhage/hx cancer. Endocrinology (Dr. Walker) was consulted for possible adrenal insufficiency, who recommended Fludrocortisone and Decadron therapy, after cosyntropin stimulation test. Oncology (Dr. Bonner) was consulted for the adrenal cancer, who recommended no additional treatment that was able to be offered at this facility. Patient was interested in receiving treatment for his cancer and wanted a second opinion, thus stated he would be interested in receiving care and work-up at a [place] [facility] care [facility]. Patient was given CD of imaging, lab results, and additional paperwork on discharge to bring with him for this reason on the day of discharge. 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 Patient was discharged to home in stable condition on 04/07/18, within instructions to follow-up with PCP within 1-2 weeks after discharge. Discharge Exam - Head Exam Head Exam: ATRAUMATIC, NORMAL INSPECTION, NORMOCEPHALIC - Eye Exam Eye Exam: EOMI, Normal appearance, PERRL - ENT Exam ENT Exam: Mucous Membranes Moist - Respiratory Exam Respiratory Exam: Clear to PA & Lateral, NORMAL BREATHING PATTERN, UNREMARKABLE - Cardiovascular Exam Cardiovascular Exam: REGULAR RHYTHM, +S1, +S2 - Extremities Exam Extremities exam: full ROM, normal capillary refill, pedal pulses present - Neurological Exam Neurological exam: Alert, CN II-XII Intact, Oriented x3 - Skin Skin Exam: Dry, Intact, Warm Discharge Plan - Discharge Medications Prescriptions: Dexamethasone [Decadron] 4 mg PO DAILY #30 tab Fludrocortisone [Florinef] 0.1 mg PO DAILY #30 tab oxyCODONE [oxyCODONE Immediate Release Tab] 10 mg PO Q4 PRN #84 tab PRN Reason: Pain, Severe (8-10) oxyCODONE [oxyCONTIN Extended Release Tab] 60 mg PO Q8H #42 tabsr - Follow Up Plan Condition: FAIR Disposition: HOME/ ROUTINE Instructions: Cirrhosis, Dexamethasone (Systemic), Hyponatremia (DC), Fludrocortisone, Oxycodone, Normocytic Normochromic Anemia (DC) Additional Instructions: Patient is medically stable for discharge to home. Please follow-up with [facility] (Dr. Acosta) [phone] to make appt after discharge from hospital. Please resume home medications as prescribed. Starting oxycodone and oxycontin for pain control. Start fludrocortisone and decadron for adenal insufficiency. Please take pain medications and steroid medications for adrenal insufficiency as prescribed. Should symptoms recur or worsen, please report to your nearest emergency department. Referrals: Katelynn Acosta MD [Staff Provider] -
== END 2018-04-07 17:01 | disposition home or self-care (01) | DRG 644 ==
LOC: C.ER 12:32 → OBSVTOIN 15:32 → C.9E 15:32 → C.6T 17:16
PROVIDERS: ADMIT Internal Medicine; ATTEND Internal Medicine
DX: C74.92 Malignant neoplasm of unspecified part of left adrenal gland (principal); E27.49 Other adrenocortical insufficiency; E87.1 Hypo-osmolality and hyponatremia; K76.6 Portal hypertension; C74.91 Malignant neoplasm of unspecified part of right adrenal gland; D69.59 Other secondary thrombocytopenia; E27.8 Other specified disorders of adrenal gland; G89.3 Neoplasm related pain (acute) (chronic); I10 Essential (primary) hypertension; K59.00 Constipation, unspecified; K74.60 Unspecified cirrhosis of liver; Z87.891 Personal history of nicotine dependence; D63.8 Anemia in other chronic diseases classified elsewhere; R59.1 Generalized enlarged lymph nodes